=== PATIENT | female | born 1950 | race Caucasian/White ===

== ENCOUNTER → 2017-08-16 10:09 | Outpatient (CLI) | payer OTHER, SELFPAY | PROVIDERS: PCP Family Medicine; Visit Provider Specialist | DX: R10.9 Unspecified abdominal pain (principal) | CPT/HCPCS: 87086 ==

== ENCOUNTER → 2017-09-09 11:10 | Outpatient (CLI) | payer OTHER, SELFPAY | PROVIDERS: PCP Family Medicine; Visit Provider Family Medicine | DX: N39.0 Urinary tract infection, site not specified (principal) | CPT/HCPCS: 87077; 87086; 87186 ==

== ENCOUNTER → 2017-10-04 12:43 | Outpatient (CLI) | payer OTHER, SELFPAY ==
--- NOTE | 2017-10-04 | DI.CT.S_ITS ---
PROCEDURE: CT UE LT WO CON INDICATIONS: PRIMARY OSTEOARTHRITIS LEFT SHOULDER. PAIN TECHNIQUE: Noncontrast 1-1.5 mm thick sections acquired from the acromioclavicular joint to the inferior scapula, with coronal and sagittal reformatting. COMPARISON: [facility] [place], CR, XR SHOULDER 2+ VIEWS LEFT, 09/12/2017, 15:01. FINDINGS: Image quality: Diagnostic. Bones: There is no acute fracture, dislocation, or suspicious osseous lesion involving the osseous structures of the left shoulder or imaged portions of the left thorax. There are severe degenerative changes of the glenohumeral joint prominent joint space narrowing, subchondral sclerosis, developing marginal osteophytes, and areas of degenerative cystic change. Bony remodeling of the humeral head and the glenoid fossa are present. There are scgxzbwz-bi-egwexf degenerative changes present involving the acromioclavicular joint with moderate to large undersurface osteophytes and areas of degenerative cystic change. Soft tissues: There is a large glenohumeral joint effusion. There may be fluid contained within the subacromial subdeltoid bursa. No significant rotator cuff muscle atrophy is appreciated. The imaged portions of the left lung appear to be within normal limits. Additionally, the imaged portions of the left mediastinum are age appropriate. No lymphadenopathy of the left chest is evident. No soft tissue masses are appreciated. IMPRESSION: 1. Severe degenerative changes of the glenohumeral joint with associated prominent joint effusion. 2. Douioopy-gn-fkdwzw degenerative changes of the left acromioclavicular joint. 2. No significant atrophy of the rotator cuff muscles. Dictated by: Miguel Chacon M.D. on 10/04/2017 at 12:31 Approved by: Miguel Chacon M.D. on 10/04/2017 at 12:33
== END ==
PROVIDERS: PCP Family Medicine; Visit Provider Orthopaedic Surgery
DX: M19.012 Primary osteoarthritis, left shoulder (principal); M25.412 Effusion, left shoulder
CPT/HCPCS: 73200

== ENCOUNTER → 2017-10-08 07:48 | Outpatient (CLI) | payer OTHER, SELFPAY ==
[2017-10-08 11:24] LABS: Cholesterol 151 mg/dL (140-199); HDL Cholesterol 51 mg/dL (40-60); LDL Cholesterol Calculated 80 mg/dL (<100); Triglycerides 101 mg/dL (35-150)
== END ==
PROVIDERS: PCP Family Medicine; Visit Provider Family Medicine
DX: E78.2 Mixed hyperlipidemia (principal)
CPT/HCPCS: 36415; 80061

== ENCOUNTER → 2017-11-12 17:19 | Outpatient (CLI) | payer OTHER, SELFPAY ==
[2017-11-12 17:29] LABS: RBC Urine None Seen (0-5/HPF)
[2017-11-12 18:31] LABS: Appearance Urine UA SL CLOUDY; Bilirubin Urine UA NEGATIVE (NEGATIVE); Glucose Urine UA TRACE g/dL (Normal); Ketones Urine UA TRACE (NEGATIVE); Leukocyte Esterase Urine UA TRACE (NEGATIVE); Nitrite Urine UA POSITIVE (Negative); Occult Blood Urine UA NEGATIVE (Negative); Protein Urine UA 1+ (Negative)
[2017-11-12 19:14] LABS: Color Urine UA OTHER
[2017-11-12 19:16] LABS: Amorphous Sediment Urine 1+; Bacteria Urine Few (2-10); Culture Indicated Urine Specimen Cultured; Mucus Urine 2+ (Negative); Squamous Epithelial Cell Urine 1-5 /HPF; WBC Urine 10-30/HPF (0-5/HPF)
== END ==
PROVIDERS: PCP Family Medicine; Visit Provider Family Medicine
DX: R30.0 Dysuria (principal)
CPT/HCPCS: 81001; 87086

== ENCOUNTER → 2017-11-14 13:04 | Outpatient (CLI) | payer OTHER, SELFPAY | PROVIDERS: PCP Family Medicine; Visit Provider Family Medicine | DX: Z53.9 Procedure and treatment not carried out, unspecified reason (principal) ==

== ENCOUNTER → 2017-11-30 09:48 | Outpatient (CLI) | payer OTHER, SELFPAY ==
[2017-11-30 09:54] LABS: Bacteria Urine None Seen; RBC Urine None Seen (0-5/HPF)
[2017-11-30 10:49] LABS: Appearance Urine UA CLEAR; Bilirubin Urine UA NEGATIVE (NEGATIVE); Color Urine UA YELLOW; Glucose Urine UA NEGATIVE (Normal); Ketones Urine UA NEGATIVE (NEGATIVE); Leukocyte Esterase Urine UA NEGATIVE (NEGATIVE); Nitrite Urine UA NEGATIVE (Negative); Occult Blood Urine UA NEGATIVE (Negative); Protein Urine UA NEGATIVE (Negative); Specific Gravity Urine UA 1.015 (1.000-1.035); Urobilinogen Urine UA 0.2 E.U./dL (0.2)
[2017-11-30 11:14] LABS: Culture Indicated Urine Cult Not Indicated; Urine Comments Microscopic Normal; WBC Urine 0-1/HPF (0-5/HPF)
== END ==
PROVIDERS: PCP Family Medicine; Visit Provider Family Medicine
DX: R30.0 Dysuria (principal)
CPT/HCPCS: 81001

== ENCOUNTER → 2017-12-07 11:08 | Outpatient (CLI) | payer OTHER, SELFPAY ==
[2017-12-07 11:34] LABS: Bacteria Urine None Seen; RBC Urine None Seen (0-5/HPF); WBC Urine None Seen (0-5/HPF)
[2017-12-07 12:00] LABS: Hemoglobin A1C% w Est Avg Glu 5.1 % (4.0-6.0)
[2017-12-07 12:10] LABS: Add Manual Diff / Slide Review NO; Basophils Percent Auto 0.9 % (0-2); Eosinophils Percent Auto 2.7 % (2-4); Hematocrit 38.4 % (36-46); Lymphocytes Percent Auto 31.1 % (25-40); Mean Corpuscular HGB Conc 33.8 % (30-36); Mean Corpuscular Hemoglobin 29.3 PG (26-34); Mean Corpuscular Volume 86.7 fL (80-100); Monocytes Percent Auto 7.5 % (3-14); Neutrophils Absolute Auto 2600 /uL (3000-5900); Neutrophils Percent Auto 57.8 % (50-75); Platelet Count 218 X10^3/uL (150-400); Red Blood Cell Count 4.43 X10^6/uL (4.0-5.2); Red Cell Distribution Width 15.2 % (11.6-14.8); White Blood Cell Count 4.6 X10^3/uL (4.5-11.0)
[2017-12-07 12:24] LABS: Appearance Urine UA CLEAR; Bilirubin Urine UA NEGATIVE (NEGATIVE); Color Urine UA YELLOW; Glucose Urine UA NEGATIVE (Normal); Ketones Urine UA NEGATIVE (NEGATIVE); Leukocyte Esterase Urine UA NEGATIVE (NEGATIVE); Nitrite Urine UA NEGATIVE (Negative); Occult Blood Urine UA NEGATIVE (Negative); Protein Urine UA NEGATIVE (Negative); Urobilinogen Urine UA 0.2 E.U./dL (0.2)
[2017-12-07 12:25] LABS: BUN Creatinine Ratio 38.3 (6-22); Blood Urea Nitrogen 23 mg/dL (7-17); Calcium 9.1 mg/dL (8.4-10.2); Carbon Dioxide 30 mmol/L (22-32); Chloride 104 mmol/L (98-107); Estimated Glomerular Filt Rate > 60.0 mL/min (>60); Glucose 88 mg/dL (80-110); HEMOLYSIS < 15 (0-50); Potassium 4.9 mmol/L (3.4-5.1); Sodium 143 mmol/L (137-145)
[2017-12-07 12:29] LABS: Transferrin 289 mg/dL (206-381)
[2017-12-07 12:47] LABS: Mucus Urine 2+ (Negative)
[2017-12-07 12:48] LABS: Culture Indicated Urine Cult Not Indicated
== END ==
PROVIDERS: PCP Family Medicine; Visit Provider Orthopaedic Surgery
DX: Z01.818 Encounter for other preprocedural examination (principal)
CPT/HCPCS: 36415; 80048; 81001; 83036; 84466; 85025; 93005; 93010

== ENCOUNTER 2017-12-30 06:19 | Inpatient (IN) | payer OTHER, SELFPAY ==
[2017-12-18 08:53] VITALS: BMI 28.8
[2017-12-30] VITALS (14 sets, daily range): BP systolic 101–142; BP diastolic 41–86; PULSE 77–100; RESP 10–20; TEMP 36.3–37.2; O2SAT 91–97; BMI 28.8
--- NOTE | 2017-12-30 06:00 | DI.RAD.S_ITS ---
PROCEDURE: XR SHOULDER LT 1V INDICATIONS: post operative left shoulder TECHNIQUE: 1 view of the shoulder were acquired. COMPARISON: [facility] [place], CR, XR SHOULDER 2+ VIEWS LEFT, 09/12/2017, 15:01. FINDINGS: Bones: Postsurgical changes compatible with left shoulder arthroplasty noted. No fractures or dislocations. No suspicious bony lesions. Visualized ribs appear intact. Soft tissues: No suspicious soft tissue calcifications. IMPRESSION: Expected postsurgical change for left shoulder arthroplasty. Dictated by: Misty Tam MD, PhD on 12/30/2017 at 10:57 Approved by: Misty Tam MD, PhD on 12/30/2017 at 10:59
[2017-12-30] MEDS: LACTATED RINGERS 1,000 ML 42 ML IV ×2 (07:00→09:13)
--- NOTE | 2017-12-30 07:11 | PC.NURSE ---
Day shift: Pt not on this AC unit at this time.
[2017-12-30] MEDS: MIDAZOLAM 2 MG/2 ML VIAL IV (07:45)
[2017-12-30] MEDS: fentaNYL 100 MCG/2 ML INJ 50 MCG IV (07:45)
--- NOTE | 2017-12-30 07:48 | PM.PREOP ---
Pre-operative Note Interval Note Pre-op Check: Yes History & Physical Reviewed by Physician and Yes Exam Performed Changes: No
--- NOTE | 2017-12-30 07:49 | PM.OP.1 ---
Operative Date/Time/Diagnoses Date of procedure: 12/30/17 Time of procedure: 10:00 Pre-op diagnosis: Left shoulder osteoarthritis Post-op diagnosis: same Procedure & Clinicians Procedure: Left total shoulder replacement Same procedure as scheduled: Yes Indications: The patient has had progressively worsening left shoulder pain with radiographic changes consistent with arthritis. Non-operative management has failed and the patient has requested total shoulder replacement. The risks, benefits and alternatives to surgery were discussed with the patient prior to proceeding. Risks discussed included, but were not limited to, failure to relieve pain, stiffness, infection, nerve damage, deep venous thrombosis, pulmonary embolism, stroke, coma, heart attack, permanent paralysis and , as well as the potential need for eventual revision of the prosthetic. Surgeon: Armaan Nickerson Tool And Gauge Inspector: Jhoana Nowak Click Yes if Unassisted: No Anesthesia Type: General, Peripheral nerve block and Local Operative Notes Findings: Severe osteoarthritis with a very large inferior osteophyte on the humerus. Closure Type: primary Specimen(s): none sent Implants & Drains: Implants used in this procedure were manufactured by the [employer] and included a short stem Altivate total shoulder system with a size 46 mm all polyethylene pegged E +glenoid, a 14 mm humeral component, a 46 mm x 16 mm neutral humeral head and a neutral humeral neck. Applied: implant(s) Estimated Blood Loss (mL): 100 Blood products transfused: none Procedure in detail: The patient was seen in the pre-operative area, where the patient identified the left shoulder as the operative site and this was marked with my initials. The patient received pre-operative antibiotics, underwent an interscalene block, and was taken to the operating room and placed on the operative table in the supine position. After satisfactory anesthesia, a full ?time out? was performed. The patient was repositioned in the ?beach chair? position using a dedicated positioner. All pressure points were well padded, and the knees were slightly bent to prevent tension on the sciatic nerves. The left arm was prepared from the fingers to the base of the neck with ChloroPrep in the usual fashion and draped through sterile drapes. An approximately 15 cm incision was created, starting at the clavicle above the coracoid process and extended towards the deltoid insertion. The deltopectoral interval was used to access the shoulder. The cephalic vein was taken medially. A self retaining retractor was placed. The upper centimeter of the pectoralis major tendon was released. The ?three sisters? were identified and cauterized. The axillary nerve was palpated and protected throughout the case. The biceps was released from its groove and tenodesed over the top of the pectoralis major tendon. The subscapularis was released from the lesser tuberosity with a subscapularis peel and tagged for later repair. The shoulder was dislocated and a cutting guide was used for the proximal humeral osteotomy in 30 degrees of retroversion. The humeral osteophytes were removed. A starter Reamer was used followed by the cylindrical reamers. This continued in larger sizes in till cortical bite was achieved. Sequential broaching was then performed until a line to line fit with the reamer occurred. A proximal humeral protector was then placed. We then removed the self-retaining retractor and placed retractors to access the glenoid. The subscapularis was released with a ?360 degree release? with care being taken to protect the axillary nerve with the inferior portion of this procedure. The remnant of labrum and biceps stump were removed. The appropriate size reamer was chosen with the glenoid sizer, and the guide pin placed. The glenoid was appropriately reamed. The guide for the peripheral holes was used and the center hole enlarged. The trial glenoid was placed with good stability. We then cemented the final implant into place after irrigating the peg holes and drying them with thrombin-soaked Gelfoam. We returned our attention to the humerus, a trial humeral head was applied and a trial reduction performed. Stability was checked with 50% posterior translation with spontaneous reduction, 45? external rotation at the side with the subscapularis held in the repaired position, and 70? of internal rotation in the ?scarecrow position?. This was felt to be satisfactory and the appropriate implants were opened. Five holes were drilled along the humeral osteotomy and #2 TiCron sutures placed for eventual subscapularis repair. While drilling the holes for the suture it was noted that there was a small approximately 1 cm wide fracture fragment in the medial metaphysis that did not extend distally into the stem of the prosthetic. The humeral prosthetic was impacted into the humerus and I checked the stability of the stem and it felt satisfactory despite the small medial fracture. I therefore elected to except this fixation.. The humeral head was applied when the stem was still slightly proud and impacted to both seat the head and fully seat the stem. The joint was relocated one final time. The joint was irrigated and the subscapularis repaired to the previously placed sutures using Bj-Saman sutures. The top of the subscapularis was closed to the leading edge of the supraspinatus with a figure of 8 #2 TiCron to close the rotator interval. A deep drain was placed and brought out supero-laterally. The deltopectoral interval was closed with interrupted 0 Vicryl. The subcutaneous layer was closed with 3-0 Vicryl, and the skin with a running 3-0 V-Lock suture and SteriStrips. An Aquacel Ag dressing was applied, the patient?s arm was placed in a sling, and the patient was taken to recovery having tolerated the procedure well. Complications: other (There was a small nondisplaced metaphyseal fracture on the inferior humeral neck. This did not appear to affect the stability of the stem.) Condition: stable Disposition: PACU Plan for aftercare: The patient will be maintained on a standard total shoulder replacement protocol with passive range of motion limited to 90 degrees forward flexion, 0 degrees external rotation at the side, 0 degrees abduction and internal rotation to the body. The patient will receive aspirin and sequential compression devices for DVT prophylaxis. The patient will be discharged home when safe for the home environment, likely tomorrow.
--- NOTE | 2017-12-30 08:00 | SUR.PREOP ---
Block start time 0745[] . Monitoring initiated and maintained throughout procedure. Oxygen and medications given per anesthesiologist instructions. Patient remained stable throughout procedure, no adverse reactions noted. Block end time [0751 ].
[2017-12-30] MEDS: CEFAZOLIN 2 GM/100 ML FROZ.PIGGY IV ×3 (08:05→23:44)
[2017-12-30] MEDS: TRANEXAMIC ACID 1,000 MG VIAL 1000 MG INJ ×2 (08:20→09:38)
--- NOTE | 2017-12-30 08:33 | SUR.OPER ---
Beach chair with Schlein shoulder positioner. Lower body on padded OR bed. Head in foam padded head cradle, secured with straps. Non-operative arm secured <90 degrees abduction. Pillow under knees. Safety belt at thigh. Cloth tape over blanket over lower legs. gel under heels.
[2017-12-30] MEDS: BUPIVACAINE 0.5% W/ EPI (PF) VIAL 30 ML INJ (08:44)
[2017-12-30] MEDS: THROMBIN (BOVINE) 5,000 UNIT VIAL 5000 UNIT TOP (08:46)
[2017-12-30] MEDS: HYDROMORPHONE 2 MG INJ 0.5 MG IV ×4 (10:47→20:53)
[2017-12-30] MEDS: hydrOXYzine 50 MG/ML INJ 25 MG IM (10:59)
--- NOTE | 2017-12-30 11:09 | SUR.PHASEI ---
PACU stay with initial need for oxygen support later removed. Dry non productive cough lessening during stay. C/O spasm like pain to back of left arm. When Dilaudid unsuccessful in decreasing, order for Hydroxyzine recd and given. Affect less than pain reported.
--- NOTE | 2017-12-30 11:23 | PC.NURSE ---
Day shift: Pt arrived on unit at approx 1120 from PACU. Oriented to room and call light. Pain 07/28. Plan is for her to eat some crackers than start PO pain meds per APR. Tolerating ice water. Call light in reach. Agrees to not get OOB w/o help. Sensation present in BUE's. VS WNL. RA 96%. Educated on I.S. use. Will continue to monitor.
[2017-12-30] MEDS: OXYCODONE IR 5 MG TABLET PO ×4 (12:00→23:44)
[2017-12-30] MEDS: LACTATED RINGERS 1,000 ML 125 ML IV ×2 (12:01→19:41)
--- NOTE | 2017-12-30 13:23 | PT.IIE ---
Current Diagnoses Primary osteoarthritis, left shoulder (12/30/17) Surgery Performed Operation Date: 12/30/17 07:45 Actual Procedures p Total Shoulder Arthroplasty(Left) - Armaan Nickerson MD Surgical History (Last Updated 12/18/17 @ 09:18 by Iris Esqueda RN) Hx of tonsillectomy (Acute) S/P partial hysterectomy (Acute) H/O prior ablation treatment (Resolved ~1997) Melanoma of ear (Resolved ~2007) Status post ORIF of fracture of ankle (Resolved ~1975) Anesthesia complication (Inactive) Status post arthroscopy (~2013) Status post delivery (~1987) Status post colonoscopy Medical History (Last Updated 12/18/17 @ 09:20 by Iris Esqueda RN) Chronic UTI (Acute) Easy bruisability (Acute) Fusion of sacral region of spine (Acute) Hiatal hernia (Acute) Hyperlipidemia (Acute) Cardiac arrhythmia (Chronic ~2003) Carpal tunnel syndrome (Chronic ~1994) Chronic back pain (Chronic ~2007) Depression (Chronic ~1992) Fibroids (Chronic ~1997) HSV (herpes simplex virus) infection (Chronic ~1979) Hypertension (Chronic ~2003) Shoulder pain (Chronic ~2013) Chickenpox (Resolved ~1959) Colon polyps (Resolved ~1999) History of fracture (Resolved) Measles (Resolved ~1959) Melanoma of ear (Resolved ~2007) Mumps (Resolved ~1958) Physical Therapy Inpatient Evaluation/Re-Eval M1 PT/OT-IP Prior Functional Status Start: 12/30/17 13:51 Freq: NEEDED Status: Active Protocol: Document 12/30/17 13:51 (Rec: 12/30/17 14:17 [id number]) Medical Review Prior Functional Status Medical History Reviewed Yes Communication No deficits noted Mobility and Gait Pt was previously independent with all mobilities using no AD. Social History Household Members family Living Arrangements House Number of Floors (Floors) One Floor Number of Stairs To Enter/Railing? 1 step B rails. 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 Household details above are regarding her mother's home. M2 PT-IP Current Condition Start: 12/30/17 13:51 Freq: NEEDED Status: Active Protocol: Document 12/30/17 13:51 (Rec: 12/30/17 14:17 [id number]) Physical Therapy Current Condition Current Condition Evaluation Date 12/30/17 Treatment Diagnosis L TSA Onset Date 12/30/17 Precautions Shoulder Precautions Sling PROM Internal Rotation to Body No External Rotation No Abduction Forward Flexion to 90 degrees Pendulums Weight Bearing Status Weight Bearing Status Non-Weight Bearing Allowed Weight Bearing Amount (enter % L shoulder non weight bearing or #) (%) M3 PT-IP Subjective Start: 12/30/17 13:51 Freq: NEEDED Status: Active Protocol: Document 12/30/17 13:51 (Rec: 12/30/17 14:17 [id number]) Subjective Physical Therapy Visit Type Type Initial Evaluation Visit Start Time 13:23 Visit Stop Time 13:51 Total Visit Minutes 28 Number of SENIOR PROJECT MANAGER Visits 0 Physical Therapy Visit Comments Patient Comments Pt agreeable to mobilize with PT. Patient Goals Pt planning to d/c to her mother's house who will be avaliable to assist the pt 24 for the next 2 wks. 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 Therapy Pain Assessment Pain When Pain Assessed During Mobility Pain Present Pain Present Pain Reported Location Left Shoulder Scale Used 4/10 at rest. 5-6/10 with mobility. Pain Management Techniques Apply Cold Modification of Treatment Re-positioning Timing of Activity with Medications M4 PT-IP Mobility and Gait Start: 12/30/17 13:51 Freq: NEEDED Status: Active Protocol: Document 12/30/17 13:51 (Rec: 12/30/17 14:17 [id number]) PT-Bed Mobility Assessment Supine to Sit Supine to Sit Standby Assistance Head of Bed Elevated Bedrails Sit to Supine Sit to Supine Standby Assistance Scooting Scooting to Edge of Bed Standby Assistance PT-Transfer Assessment Sit to and From Stand Sit to and from Stand Standby Assistance Use of Upper Extremities Equipment Transfer Assistive Device Gait Belt Orthotic/Prosthetic Devices or Brace: No Transfers Transfer Destination Chair Transfer Technique Pt ambulated to/from bed Comments Mobility Comments Resting/HOB elevated BP 109/69 , HR 89. Pt is slow and guarded with bed mobility. Supine > sit performed with HOB elevated SBA, pt uses R UE to pull on bed rail. Pt c/o of slight dizziness. BP 134/ 78, HR 89. Pt stating dizziness decreased and agrees to stand. Sit <> stand is SBA with RUE use. Pt stating dizziness still decreased and she feels ok to walk in room. After ambulatoin (see below) Sit > supine is SBA with bed flat. Gait Assessment Gait Gait Assistance Required: Minimum Assistance Distance (Feet) 15 Able to Maintain Weight Bearing Status Yes During Gait Assistive Devices Assistive Device None Gait Belt Orthotic/Prosthetic Devices or Brace: Yes Factors Limiting Gait Function Factors Limiting Gait Function Decreased Activity Tolerance Decreased Sensation Decreased Strength Limited Range of Motion Pain Poor Balance Poor Safety Awareness Comments Gait Comments Pt ambulates 15 ft in room with no AD and CGA for balance . She demonstrates increased sway/unsteadiness and high steppage gait B. Pt educated that a cane may improve her steadiness. Pt refused cane. She states she feels her unsteadiness is due to the medications she is on and she is sure she will be fine with time. PT-Balance Assessment Sitting Balance and Reactions Static Sitting Balance Ability Good Dynamic Sitting Balance Ability Good Standing Balance and Reactions Static Standing Balance Ability Good Dynamic Standing Balance Ability Fair Device Used none M5 PT-IP Objective Assessments Start: 12/30/17 13:51 Freq: NEEDED Status: Active Protocol: Document 12/30/17 13:51 (Rec: 12/30/17 14:17 [id number]) Orientation Orientation/Cognition Level of Alertness Alert Orientation Name Age Birthday Month Date Year Day of Week Place Situation Language Function Ability No Deficits Noted Safety Awareness Decreased Safety Awareness Comments Pt states feeling a little drunk on post-op meds. She does appear a little slow to respond to some cues/ directions. Gross Range of Motion Upper Extremity ROM Assessment Left Impaired Lower Extremity ROM Assessment Within Functional Limits Strength Upper Extremity Strength Assessment Left Impaired Lower Extremity Strength Assessment Within Functional Limits M6 PT-IP Treatment Start: 12/30/17 13:51 Freq: NEEDED Status: Active Protocol: Document 12/30/17 13:51 (Rec: 12/30/17 14:17 [id number]) Physical Therapy Treatment Education Education Provided Precautions Weight Bearing Status Safety M7 PT-IP Assessment and Plan Start: 12/30/17 13:51 Freq: NEEDED Status: Active Protocol: Document 12/30/17 13:51 (Rec: 12/30/17 14:17 [id number]) PT Summary Assessment and Plan Potential Rehabilitation Potential Good Status of Condition at Evaluation Stable Summary Impairments Pain ROM Strength Balance Bed Mobility Transfers Gait Activity Tolerance Progress Towards Goals Progressing Toward Goals Assessment Summary Pt s/p L TSA with difficulty walking. She was able to ambulate 15 ft. in room with CGA and no AD during this session and demonstrated some unsteadiness during ambulation . PT still needs to evaluate pt safety up/down 1 platform step prior to d/c, then anticipate d/c to home (her mother's house) with 24/7 assist when pt medically stable. Goals Bed Mobility Goal Independent Transfer Goal Independent Gait Goal Independent Gait Distance 150 Other Goals up/down 1 platform step SBA. Days to Meet Goals 3 Frequency of Treatment Frequency Of Treatment Twice a Day Treatment Plan Physical Therapy Treatment Plan Bed Mobility Training Transfer Training Gait Training Therapeutic Exercise Balance Retraining Post Op Education Discharge Planning Hot or Cold Pack Neuromuscular Re-ed Coordination Retraining Manual Therapy Other Recommendations and Next Treatment Progress ambulatoin. Stair Focus climbing. Recommendations To Nursing Amount of Assist Needed 1 Person Assist Discharge Recommendations PT Discharge Recommendations Home with 24/7 Assist
[2017-12-30] MEDS: ACETAMINOPHEN 325 MG TABLET 975 MG PO ×2 (15:18→20:39)
--- NOTE | 2017-12-30 15:43 | CM.DANOTE ---
Patient is a 67 year old female who was admitted on 12/30/17 for Left Total Shoulder. Pt has [employer] for insurance and her PCP is Dr. Salazar. EMR was reviewed. Per MD, pt tolerated procedure well and not stable for d/c yet today. Per PT, recommending home with 24/7 assist and outpt PT. SW met bedside with pt, mother, and brother and explained role and pt confirmed that she recently moved to [facility], but has an [place] address, alone and is Independent with ADL's at baseline. Pt states that she will d/c to her mother's house which is set up for easy ambulation due to her father who is now having Parkinsons. Pt already has outpt PT set up for 2 weeks after surgery and she does not anticipate any SW needs at d/c. Pt states her DPOA is her adult son but she could not find the pwk to provide a copy from her recent move to [facility]. Plan: SW to follow for likely d/c home to mother's house for 24/7 assist and outpt PT. SW to follow for any further identified needs. KERI Cr Discharge Planning/Care Management CM Discharge Assessment Start: 12/30/17 15:41 Freq: Status: Active Protocol: Document 12/30/17 15:41 BF (Rec: 12/30/17 15:43 BF [id number]) Discharge Planning Assessment Assigned Distillery Miller KERI Owens DPOA/Assigned Designee Name son Advance Directives? Yes Advance Directives on File Yes History Provided By Patient Medical Record Has Patient been admitted in last 30 No days? Prior Living Arrangements House Household Members none Comment Just moved to [facility] and lives alone but plans to d/c to mother's house for 2 weeks for 24/7 assist. Type of transporation used prior to Drives own vehicle admit Independent with ADL's Yes Is patient alert and oriented? Yes Caregiver for Another No Patient/Family Preference OP PT Therapy Comment Likely home with family assist and outpt PT Barriers to Discharge No Discharge Plan Home Community Services Physical Therapy Transportation Arrangement Brother and mother to provide transport at d/c. Referrals Initiated None needed Whiteboard Updated in Patient Room with Yes name and ext. # of Distillery Miller Review Status In Process Please Provide Date Initial DC 12/30/17 Assessment Was Performed Next Review Type Continued Stay Review Pre-Anesthesia Assessment Start: 12/18/17 08:53 Freq: Status: Active Protocol: Document 12/18/17 08:53 CAB (Rec: 12/18/17 09:37 CAB [id number]) Pre-Anesthesia Assessment Patient Information Reviewed Via Phone Assessment Assessment Completed With Patient Lab Results BMP/CMP CBC EKG Primary Care Provider Carlos Salazar Seen Specialist in Last 12 Months Yes Specialist Seen Portal Administrator Ceramic Artist Orthopedist Other Comment Neuro surgeon for steroid injection in back Primary Language Italian Net Wpf Developer Required No Height 176.53 cm Weight 89.811 kg Body Mass Index (BMI) 28.8 Hearing Ability Normal Visual Assist Glasses Dentition Type Teeth, Natural Present Barriers to Learning None Hx Anesthesia Reactions Yes: I always need more anesthesia during surgery Hx Family Anesthesia Reaction No Hx Malignant Hyperthermia No Hx Blood Transfusions No Anesthesia Review Requested No Superintendent [employer] No alcohol intake current alcohol intake frequency 0-2 drinks per day Smoking Status Never smoker Substance Use Type does not use Pain Present Pain Reported Musculoskeletal Symptoms Abnormal Gait Difficulty Walking Joint Pain History of Falling (Recent or History of No ) Patient is completely paralyzed or No completely immobile Mental Status Oriented to own ability Is patient on oxygen? No Does patient have GILBERT/SOB No Hx Sleep Apnea No Suspected Sleep Apnea No Currently Taking a Beta Adriana No Can You Climb a Flight of Stairs Without Yes SOB Hx Chest Pain No Hx SOB No Hx Syncope or Dizziness No Anti-Coagulant Therapy No Has a Endband Cutter Hand No Cardiac Testing No Hx Pacemaker/ICD No Pacemaker Rep Required? No Cardiac Clearance Received Not Applicable Diet Type At Home Regular dysphagia No Urinary Catheter Present No Hx Urinary Self Catheterization No Comment History of chronic UTI, now resolved Diabetes No Patient No Lactating No Hx Drug Resistant Organism No Presence of External or Internal Medical No Devices Have you traveled outside the [facility] States in the last 30 days? Marital Status Lives With none Prior Living Arrangements House Number of Floors (Floors) One Floor Number of Stairs To Enter/Railing? 5 stairs, railing present Support System Friend(s) Parent(s) Does the Patient Have Assistance After Yes Surgery Patient Discharge Plan Description Other Comment Plans to d/c to Mom's house x 2 weeks, then to a friend's home for assist Feels Safe in Current Environment Yes Been Physically Hurt or Threatened By a No Person in Current Environment Do you have thoughts of harming yourself None or others? Are you currently considering suicide? No Do you have a plan to hurt yourself or No Plan others? Do You Have Any Spiritual Beliefs That No May Affect Your HC Choices? Do You Have Any Cultural Practices That No May Affect Your HC Choices? Spiritual Referral None Comment Alexandre Who Can We Speak to About Patient's Care Family, friends Identifying Code for Release of Patient Declines to issue Information Health Care Proxy/Next of Kin Joseph (son) Health Care Proxy Phone Number Pt to update dos Emergency Contact Name Fay Boyd (mom) Emergency Contact Phone Number Pt to update dos Advance Directives? Yes Advance Directives on File Yes Power of Biscuit Machine Operator Yes Power of Biscuit Machine Operator Name Joseph (son) Power of Biscuit Machine Operator Phone Number Pt to update dos PAC Instructions Medications to take/avoid Nasal antibiotic No ETOH/petroleum product on skin DOS NPO Post-op transportation Pre-surgical wash Sturdy shoes/comfortable clothes Do not bring valuables and remove jewelry
[2017-12-30] MEDS: DOCUSATE 100 MG CAPSULE PO (20:42)
[2017-12-30] MEDS: GABAPENTIN 600 MG TABLET PO (20:42)
[2017-12-30] MEDS: ASPIRIN EC 81 MG TABLET PO (20:42)
[2017-12-31 00:10] VITALS: BP 115/73; PULSE 76; RESP 18; TEMP 36.6; O2SAT 94
[2017-12-31] MEDS: HYDROMORPHONE 2 MG INJ 0.5 MG IV (01:34)
[2017-12-31] MEDS: LACTATED RINGERS 1,000 ML 125 ML IV (01:38)
[2017-12-31] MEDS: ALPRAZolam 0.5 MG TABLET 1 MG PO (03:19)
[2017-12-31] MEDS: OXYCODONE IR 5 MG TABLET PO ×3 (03:19→09:51)
[2017-12-31 04:32] VITALS: BP 112/60; PULSE 73; RESP 18; TEMP 36.5; O2SAT 93
[2017-12-31 05:53] LABS: Hematocrit 30.9 % (36-46); Hemoglobin 10.5 g/dL (12.0-16.0); Mean Corpuscular Hemoglobin 30.2 PG (26-34); Mean Corpuscular Volume 88.9 fL (80-100); Platelet Count 171 X10^3/uL (150-400); Red Blood Cell Count 3.47 X10^6/uL (4.0-5.2); Red Cell Distribution Width 15.5 % (11.6-14.8); White Blood Cell Count 6.8 X10^3/uL (4.5-11.0)
[2017-12-31 07:35] VITALS: BP 137/67; PULSE 73; RESP 17; TEMP 36.6; O2SAT 97
--- NOTE | 2017-12-31 07:46 | PM.DS.1 ---
History of Present Illness Date Patient Seen: 12/31/17 Time Patient Seen: 07:46 Chief complaint: [id number] Narrative: The history and physical examination for this patient are contained in the chart in a previously completed note. Please refer to that note for this information. Discharge Providers Date of admission: 12/30/17 06:19 Primary care physician: Carlos Salazar MD Consults: 12/30/17 11:23 Consult to Discharge Planning Routine Comment: Consult to Occupational Therapy Evaluate & Treat Comment: s/p total shoulder Physician Instructions: Evaluate and treat Consult to Physical Therapy Evaluate & Treat Comment: Pendulums. PROM, 90 FF, 0 ER, 0 ABD, IR to body. Physician Instructions: Evaluate and Treat Consult to Respiratory Therapy Evaluate & Treat Comment: Physician Instructions: Evaluate and treat Discharge provider: Armaan Nickerson MD Discharge Date: 12/31/17 Summary Discharge Diagnosis: 1. Left shoulder osteoarthritis 2. Nondisplaced intraoperative fracture of the surgical neck of the left humerus 3. Mild acute post hemorrhagic anemia Hospital Course: The patient was admitted to the hospital and taken directly to the operating room on December 30, 2017 where she underwent a left total shoulder arthroplasty. A small, nondisplaced, fracture of the surgical neck was discovered with broach placement. This did not appear to impact the stability of the stem and therefore was left as it was. The patient did well postoperatively although she did have mild pain control issues. She has an anticipated mild post hemorrhagic anemia. Status at Discharge Cognitive/behavioral status at discharge: Baseline Functional status at discharge: independent ambulation Overall status at discharge: patient is progressing back to baseline Time Spent with Patient Less than 30 minutes Exam Vital Signs (past 8 hours): - 12/31/17 00:10 12/31/17 04:32 Temperature 97.9 F 97.7 F Pulse Rate 76 73 Respiratory Rate 18 18 Blood Pressure 115/73 112/60 Pulse Oximetry 94 93 Oxygen Delivery Method Room Air Oxygen Flow Rate 0 Narrative Exam Narrative: Left upper extremity wound is dressed with no drainage on the bandage. Light touch is intact in the radial, ulnar, median, musculocutaneous, axillary nerve distributions. She can extend her thumb, abduct her thumb, abduct her fingers. She can fire her biceps and deltoid. Objective Labs Result Diagrams: 12/31/17 05:20 Labs: Laboratory Results - last 24 hr 11/13/18 05:20 WBC 6.8 RBC 3.47 L Hgb 10.5 L Hct 30.9 L MCV 88.9 MCH 30.2 MCHC 34.0 RDW 15.5 H Plt Count 171 Radiographs reveal an appropriately positioned left total shoulder prosthetic. Discharge Plan Discharge Plan Patient Disposition: Home Discharge Med Rec/Prescriptions Prescriptions: New aspirin 81 mg Tablet,Delayed Release (Dr/Ec) 81 mg PO BID 14 Days Qty: 28 RF: 0 oxycodone 5 mg Tablet 5 mg PO Q3HR PRN (Reason: Pain, Moderate (4-6)) Qty: 40 RF: 0 hydroxyzine pamoate 25 mg Capsule 25 mg PO Q4HR PRN (Reason: Spasms) Qty: 40 RF: 0 Continue escitalopram oxalate [Lexapro] 20 mg tablet 20 mg PO Q DAY Qty: 90 RF: 1 lisinopril [Zestril] 10 mg tablet 10 mg PO Q DAY Qty: 90 RF: 1 estradiol [Estrace] 0.01 % (0.1 mg/gram) cream See Label Instructions Vaginal SEE INSTRUCTIONS Qty: 1 RF: 1 alprazolam 1 mg tablet See Label Instructions PO BID Qty: 30 RF: 3 atorvastatin [Lipitor] 10 MG tablet 10 mg PO QAM RF: 0 gabapentin [Neurontin] 300 MG capsule 2 cap PO BEDTIME RF: 0 acetaminophen [Tylenol Extra Strength] 500 mg Tablet 1,500 mg PO TID RF: 0 Discontinued ibuprofen 200 mg Tablet 600 mg PO TID RF: 0 Provider Discharge Instructions Diet: Diet as Tolerated and Regular Activity: You may move your left hand in front of your torso below shoulder level passively. You may do pendulum exercises as instructed by physical therapy. Cold/Heat Therapy: Apply ice to the left shoulder for 15 min every hour as needed. Skin/Wound/Dressing Care Report to your healthcare provider any signs of infection, such as:: chills, fever, night sweats, increased pain and unusual drainage Dressing: Leave the dressing intact until your follow-up visit. You may shower with the dressing in place. If the center strip of the dressing gets saturated with either water or blood, contact the office. Discharge Data Primary Care Provider: Carlos Salazar Attending Provider: Armaan Nickerson Admit Date/Time: 12/30/17 06:19
[2017-12-31] MEDS: ACETAMINOPHEN 325 MG TABLET 975 MG PO (08:32)
[2017-12-31] MEDS: ASPIRIN EC 81 MG TABLET PO (08:32)
[2017-12-31] MEDS: DOCUSATE 100 MG CAPSULE PO (08:33)
[2017-12-31] MEDS: ESCITALOPRAM 10 MG TABLET 20 MG PO (08:33)
[2017-12-31] MEDS: ATORVASTATIN 10 MG TABLET PO (08:33)
[2017-12-31 08:34] VITALS: BP 137/67; PULSE 73
[2017-12-31] MEDS: hydrOXYzine pamoate 25 MG CAPSULE PO (08:34)
[2017-12-31] MEDS: POLYETHYLENE GLYCOL 3350 17 GM POWD.PACK PO (08:34)
[2017-12-31] MEDS: LISINOPRIL 10 MG TABLET PO (08:34)
--- NOTE | 2017-12-31 09:58 | PC.NURSE ---
Day shift: Pt left unit at approx 1017 to private car with her Mom. YARN SKEINS EXAMINER used WC to get her to car. Paperwork signed and all questions answered. Pt has all personal belongings. Medicated w/ 5mg percolone just prior to d/c. Pt will be travelling to [place] to her Mothers house.
--- NOTE | 2017-12-31 10:10 | PT.IPTN ---
Current Diagnoses Primary osteoarthritis, left shoulder (12/30/17) Surgery Performed Operation Date: 12/30/17 07:45 Actual Procedures p Total Shoulder Arthroplasty(Left) - Armaan Nickerson MD Physical Therapy Treatment Note M2 PT-IP Current Condition Start: 12/30/17 13:51 Freq: NEEDED Status: Active Protocol: Document 12/30/17 13:51 (Rec: 12/30/17 14:17 [id number]) Physical Therapy Current Condition Current Condition Evaluation Date 12/30/17 Treatment Diagnosis L TSA Onset Date 12/30/17 Precautions Shoulder Precautions Sling PROM Internal Rotation to Body No External Rotation No Abduction Forward Flexion to 90 degrees Pendulums Weight Bearing Status Weight Bearing Status Non-Weight Bearing Allowed Weight Bearing Amount (enter % L shoulder non weight bearing or #) (%) M3 PT-IP Subjective Start: 12/30/17 13:51 Freq: NEEDED Status: Active Protocol: Document 12/31/17 09:40 CLB (Rec: 12/31/17 10:10 CLB [id number]) Subjective Physical Therapy Visit Type Type Treatment Note Visit Start Time 09:40 Visit Stop Time 09:50 Total Visit Minutes 10 Number of INFECTIOUS DISEASE PHYSICIAN Visits 1 Physical Therapy Visit Comments Patient Comments Pt agreeable to mobilize with PT. M4 PT-IP Mobility and Gait Start: 12/30/17 13:51 Freq: NEEDED Status: Active Protocol: Document 12/31/17 09:40 CLB (Rec: 12/31/17 10:10 CLB [id number]) PT-Transfer Assessment Sit to and From Stand Sit to and from Stand Standby Assistance Use of Upper Extremities Equipment Transfer Assistive Device Gait Belt Orthotic/Prosthetic Devices or Brace: No Transfers Transfer Destination Chair Comments Mobility Comments Pt performed sit<>stand from chair SBA with use of RUE. Gait Assessment Gait Gait Assistance Required: Standby Assistance Distance (Feet) 100 Able to Maintain Weight Bearing Status Yes During Gait Assistive Devices Assistive Device None Gait Belt Orthotic/Prosthetic Devices or Brace: Yes Factors Limiting Gait Function Factors Limiting Gait Function Decreased Activity Tolerance Limited Range of Motion Pain Comments Gait Comments Pt ambulated SBA safely household distance without LOB and good safety awareness. Stair Climbing Assessment Evaluation Level of Assist On Stairs Contact Guard Assistance Devices Stair Climbing Assistive Devices Right Railing Technique/Endurance Stair Climbing Direction Ascend and Descend Stair Climbing Technique Step Over Step Number of Steps Climbed 1 Query Text: Stair Climbing Set # Repetitions (reps) 2 Comments Stair Climbing Comments Pt able to safely manuever one step CGA. M5 PT-IP Objective Assessments Start: 12/30/17 13:51 Freq: NEEDED Status: Active Protocol: Document 12/30/17 13:51 (Rec: 12/30/17 14:17 [id number]) Orientation Orientation/Cognition Level of Alertness Alert Orientation Name Age Birthday Month Date Year Day of Week Place Situation Language Function Ability No Deficits Noted Safety Awareness Decreased Safety Awareness Comments Pt states feeling a little drunk on post-op meds. She does appear a little slow to respond to some cues/ directions. Gross Range of Motion Upper Extremity ROM Assessment Left Impaired Lower Extremity ROM Assessment Within Functional Limits Strength Upper Extremity Strength Assessment Left Impaired Lower Extremity Strength Assessment Within Functional Limits M6 PT-IP Treatment Start: 12/30/17 13:51 Freq: NEEDED Status: Active Protocol: Document 12/30/17 13:51 (Rec: 12/30/17 14:17 [id number]) Physical Therapy Treatment Education Education Provided Precautions Weight Bearing Status Safety M7 PT-IP Assessment and Plan Start: 12/30/17 13:51 Freq: NEEDED Status: Active Protocol: Document 12/31/17 09:40 CLB (Rec: 12/31/17 10:10 CLB [id number]) PT Summary Assessment and Plan Summary Impairments Pain ROM Strength Balance Bed Mobility Transfers Gait Activity Tolerance Progress Towards Goals Progressing Toward Goals Assessment Summary Pt able to safely ambulate with SBA, maneuver stairs CGA and is SBA for all transfers. Pt has 24/7 assist for the next two weeks. Goals Bed Mobility Goal Independent Transfer Goal Independent Gait Goal Independent Gait Distance 150 Other Goals up/down 1 platform step SBA. Days to Meet Goals 3 Frequency of Treatment Frequency Of Treatment Twice a Day Treatment Plan Physical Therapy Treatment Plan Bed Mobility Training Transfer Training Gait Training Therapeutic Exercise Balance Retraining Post Op Education Discharge Planning Hot or Cold Pack Neuromuscular Re-ed Coordination Retraining Manual Therapy Recommendations To Nursing Amount of Assist Needed 1 Person Assist Discharge Recommendations PT Discharge Recommendations Home with 24/7 Assist
--- NOTE | 2017-12-31 10:47 | OT.IP.EVAL ---
Current Diagnoses Primary osteoarthritis, left shoulder (12/30/17) Surgery Performed Operation Date: 12/30/17 07:45 Actual Procedures p Total Shoulder Arthroplasty(Left) - Armaan Nickerson MD Past Medical History (Last Updated 12/18/17 @ 09:20 by Iris Esqueda RN) Chronic UTI (Acute) Easy bruisability (Acute) Fusion of sacral region of spine (Acute) Hiatal hernia (Acute) Hyperlipidemia (Acute) Cardiac arrhythmia (Chronic ~2003) Carpal tunnel syndrome (Chronic ~1994) Chronic back pain (Chronic ~2007) Depression (Chronic ~1992) Fibroids (Chronic ~1997) HSV (herpes simplex virus) infection (Chronic ~1979) Hypertension (Chronic ~2003) Shoulder pain (Chronic ~2013) Chickenpox (Resolved ~1959) Colon polyps (Resolved ~1999) History of fracture (Resolved) Measles (Resolved ~1959) Melanoma of ear (Resolved ~2007) Mumps (Resolved ~1958) Surgical History (Last Updated 12/18/17 @ 09:18 by Iris Esqueda RN) Hx of tonsillectomy (Acute) S/P partial hysterectomy (Acute) H/O prior ablation treatment (Resolved ~1997) Melanoma of ear (Resolved ~2007) Status post ORIF of fracture of ankle (Resolved ~1975) Anesthesia complication (Inactive) Status post arthroscopy (~2013) Status post delivery (~1987) Status post colonoscopy Occupational Therapy Inpatient Evaluation/Re-Eval M1 PT/OT-IP Prior Functional Status Start: 12/31/17 10:26 Freq: NEEDED Status: Active Protocol: Document 12/31/17 10:26 [facility] (Rec: 12/31/17 10:47 [facility] [id number]) Medical Review Prior Functional Status Medical History Reviewed Yes Communication No deficits noted Mobility and Gait Pt was previously independent with all mobilities using no AD. Activities of Daily Living and IADL's Completely independent and works. Social History Household Members none Living Arrangements House Number of Floors (Floors) One Floor Number of Stairs To Enter/Railing? 1 step B rails. 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 Household details above are regarding her mother's home. M2 OT-IP Current Condition Start: 12/31/17 10:26 Freq: Status: Active Protocol: Document 12/31/17 10:26 [facility] (Rec: 12/31/17 10:47 [facility] [id number]) Occupational Therapy Current Condition Current Condition Evaluation Date 12/31/17 Treatment Diagnosis Left shoulder Osteoarthritis Diagnosis Onset Date 12/30/17 Post Operative Precautions Shoulder Precautions Sling PROM Internal Rotation to Body No External Rotation No Abduction Forward Flexion to 90 degrees Pendulums Weight Bearing Status Weight Bearing Status Non-Weight Bearing Allowed Weight Bearing Amount (enter % L shoulder non weight bearing or #) (%) M3 OT- IP Subjective and Pain Start: 12/31/17 10:26 Freq: Status: Active Protocol: Document 12/31/17 10:26 [facility] (Rec: 12/31/17 10:47 [facility] [id number]) OT- Subjective Occupational Therapy Visit Type Type Initial Evaluation Visit Start Time 09:10 Visit Stop Time 09:40 Total Visit Minutes 30 Occupational Therapy Visit Comments Patient/Caregiver Goals Pt ready to go home. OT Pain Assessment Pain When Pain Assessed At Rest Pain Present Pain Present Denied Pain M4 OT- IP ADL's Start: 12/31/17 10:26 Freq: Status: Active Protocol: Document 12/31/17 10:26 [facility] (Rec: 12/31/17 10:47 [facility] [id number]) OT ADL-Dressing General Eval Upper Body Dressing Ability Maximum Assistance Lower Body Dressing Ability Minimal Assistance Comments OT Dressing Comments MAX for sling management and after education able to do with MITCHEL and able to talk her mother through being able to assist her. Suggested to wear tank top/large t-shirt and not worry about a bra as strap would put pressure on her shoulder. Educated pt to dangle her arm down for dressing and showering needs. Pt issued larger sling as current sling too small. OT ADL-Toileting General Evaluation Toileting Ability Independent M6 OT- IP Functional Cognition Start: 12/31/17 10:26 Freq: Status: Active Protocol: Document 12/31/17 10:26 [facility] (Rec: 12/31/17 10:47 [facility] [id number]) Cognitive Factors Limiting Selfcare Function Cognitive Ability Level of Alertness Alert Patient Orientation Name Place Situation Attention Span Ability Capable of Focused Attention Capable of Sustained Attention Ability to Follow Commands Able to Follow Multi-Step Commands Memory Description No Deficits Noted Safety Awareness No Deficits Noted Cognitive Comments Cognitive Assessment Comments Just vc to slow donw and take her time and be sure to ask for assistance from her mother . Pt's mother per pt has cognitive deficits and therefore brother just lives close by and able to assist if needed. OT- Vision and Hearing OT- Hearing Assessment OT- Hearing Assessment WFL M7 OT- IP Mobility and Balance Start: 12/31/17 10:26 Freq: Status: Active Protocol: Document 12/31/17 10:26 [facility] (Rec: 12/31/17 10:47 [facility] [id number]) OT- Bed Mobility Assessment Rolling Type of Rolling Roll to Right Supine to Sit Supine to Sit Assist Standby Assistance OT-Transfer Assessment Sit to and From Stand Sit to and from Stand Standby Assistance Transfers Transfer Ability Standby Assistance Technique Transfer Destination Bed Chair Toilet Transfer Technique Stand Step Pivot Devices Transfer Assistive Devices None Comments Mobility Comments Pt needing vc to slow down and take into account that left aarm now in the sling and can throw off her balance. OT- Balance Assessment Sitting Balance and Reactions Static Sitting Balance Ability Normal Dynamic Sitting Balance Ability Normal Standing Balance and Reactions Static Standing Balance Ability Normal Dynamic Standing Balance Ability Good M8 OT- IP Objective Assessments Start: 12/31/17 10:26 Freq: Status: Active Protocol: Document 12/31/17 10:26 [facility] (Rec: 12/31/17 10:47 [facility] [id number]) OT Gross Range of Motion Upper Extremity Range of Motion Assessment Left Impaired ROM Impairments Intact from elbow to distal. RUE WFL. OT Strength Comments Strength Comments WFL for RUE, NT LUE M9 OT- IP Assessment and Plan Start: 12/31/17 10:26 Freq: Status: Active Protocol: Document 12/31/17 10:26 [facility] (Rec: 12/31/17 10:47 [facility] [id number]) OT Summary Assessment and Plan Potential Rehabilitation Potential Excellent Analytic Complexity at Evaluation Low Summary OT Impairments Pain Range of Motion Strength Progress Towards Goals Progressing Toward Goals Assessment Summary Pt doing well and educated on gentle AROm for scapular retraction and to dangle left arm, pt good understanding for all sling and positioning needs and going to mom's home today. Goals Patient/Caregiver Education Goal Demonstrate Post-Op Precautions Caregiver Independent Assisting Patient Days to Meet Goals 1 Frequency of Treatment Frequency Of Treatment Once a Day Treatment Plan OT Treatment Plan Patient/Family Education Discharge Planning Discharge Recommendations OT Discharge Recommendations Home with Assistance
== END 2017-12-31 10:18 | disposition home or self-care (01) | DRG 483 ==
PROVIDERS: Admitting Provider Orthopaedic Surgery; PCP Family Medicine; Visit Provider Orthopaedic Surgery
PROC: 0RRK0JZ Replacement of Left Shoulder Joint with Synthetic Substitute, Open Approach (ICD-10-PCS; CPT 23472; principal; 2017-12-30 07:45)
DX: M19.012 Primary osteoarthritis, left shoulder (principal); M96.89 Other intraoperative and postprocedural complications and disorders of the musculoskeletal system; M97.32XA Periprosthetic fracture around internal prosthetic left shoulder joint, initial encounter; I10 Essential (primary) hypertension; F32.9 Major depressive disorder, single episode, unspecified; M25.712 Osteophyte, left shoulder
CPT/HCPCS: 36415; 64415; 73020; 85027; 97116; 97161; 97165; 97530; 97535; C1776; J0690; J1100; J1170; J2250; J2405; J2704; J3010; J3410

== ENCOUNTER → 2018-03-08 10:48 | Outpatient (CLI) | payer OTHER, SELFPAY ==
[2017-12-30 11:39] VITALS: BMI 28.8
[2018-03-08 11:06] LABS: Appearance Urine UA CLEAR; Bilirubin Urine UA NEGATIVE (NEGATIVE); Color Urine UA ORANGE; Glucose Urine UA TRACE g/dL (Negative); Ketones Urine UA NEGATIVE (NEGATIVE); Leukocyte Esterase Urine UA 1+ (NEGATIVE); Nitrite Urine UA POSITIVE (Negative); Occult Blood Urine UA TRACE-LYSED (Negative); Protein Urine UA 1+ (Negative); Specific Gravity Urine UA 1.015 (1.000-1.035)
[2018-03-08 11:40] LABS: Bacteria Urine Few (2-10); Culture Indicated Urine Specimen Cultured; RBC Urine 1-5/HPF (0-5/HPF); Squamous Epithelial Cell Urine 0-1 /HPF; WBC Urine 10-30/HPF (0-5/HPF)
== END ==
PROVIDERS: PCP Family Medicine; Visit Provider Family Medicine
DX: R30.0 Dysuria (principal)
CPT/HCPCS: 81001; 87086

== ENCOUNTER → 2018-05-02 07:51 | Outpatient (CLI) | payer OTHER, SELFPAY ==
[2017-12-30 11:39] VITALS: BMI 28.8
--- NOTE | 2018-05-02 07:54 | DI.MG.S_ITS ---
BILATERAL DIGITAL SCREENING MAMMOGRAM 3D/2D WITH CAD: 05/02/2018 CLINICAL: Routine screening. Comparison is made to exams dated: 02/08/2017 mammogram, 12/23/2015 mammogram, and 12/17/2014 mammogram - [facility]. The tissue of both breasts is heterogeneously dense. This may lower the sensitivity of mammography. Current study was also evaluated with a Computer Aided Detection (CAD) system. No significant masses, calcifications, or other findings are seen in either breast. There has been no significant interval change. IMPRESSION: NEGATIVE There is no mammographic evidence of malignancy. A 1 year screening mammogram is recommended. This exam was interpreted at Station ID: [id number]. NOTE: For mammograms, a report in lay terms will be sent to the patient. Approximately 15% of breast malignancies will not be visualized mammographically. In the management of a palpable breast mass, a negative mammogram must not discourage biopsy of a clinically suspicious lesion. Electronically Signed By: Isatu campbell/zara:05/02/2018 11:17:19 letter sent: Normal Exam ACR BI-RADS Category 1: Negative [id number]
== END ==
PROVIDERS: PCP Family Medicine; Visit Provider Specialist
DX: Z12.31 Encounter for screening mammogram for malignant neoplasm of breast (principal)
CPT/HCPCS: 77063; 77067

== ENCOUNTER 2018-07-20 12:13 | Inpatient (IN) | payer OTHER, SELFPAY ==
[2017-12-30 11:39] VITALS: BMI 28.8
[2018-07-20] VITALS (17 sets, daily range): BP systolic 102–162; BP diastolic 54–87; PULSE 74–90; RESP 10–22; TEMP 36.4–37.6; O2SAT 87–100; BMI 29.5; BMI 27.7
--- NOTE | 2018-07-20 | DI.RAD.S_ITS ---
PROCEDURE: XR HIP W PEL IF DONE RT 2V INDICATIONS: ORIF RT HIP TECHNIQUE: 2 operative views of the right hip were acquired. COMPARISON: [facility], [place], XR HIP W PEL IF DONE RT 2V, 07/20/2018, 12:33. FINDINGS: Images demonstrate performance of ORIF of a femoral neck fracture using 3 cannulated screws. IMPRESSION: Fluoroscopic imaging provided for performance of operative fixation of the right femoral neck fracture. Dictated by: Jaime Maki M.D. on 07/20/2018 at 18:22 Approved by: Jaime Maki M.D. on 07/20/2018 at 18:24
--- NOTE | 2018-07-20 12:23 | ED_ITS ---
HPI - Fall <RAFAELA Riggins - Last Filed: 07/20/18 15:01> General Chief Complaint: Fall Stated Complaint: States Rt hip may be broken Time Seen by Provider: 07/20/18 12:15 Source: patient Mode of arrival: ambulatory Limitations: no limitations History of Present Illness HPI Narrative: The patient is a 67-year-old female nonsmoker with history of cough redness who presents after a ground level fall. She states she tripped and fell landed on her right hip. She is concerned her right hip is broke. She was able to ambulate after the fall and drove herself here to the emergency dep artment. She denies hitting her head, denies any blood thinners. She states this was a mechanical fall. She denies hitting her head. She denies any neck pain. She states she has some lower back pain, in her sacral area. She has history of a sacral fusion. The patient states she also has a laceration to her left toe Related Data Home Medications Medication Instructions Recorded Confirmed gabapentin [Neurontin] 600 mg PO TID 12/18/17 07/20/18 alprazolam 0.5 tab PO BEDTIME 07/20/18 07/20/18 cranberry 500 mg PO DAILY 07/20/18 07/20/18 estradiol [Estrace] 1 dose VAGINAL SEE INSTRUCTIONS 07/20/18 07/20/18 omeprazole 20 mg PO DAILY 07/20/18 07/20/18 Previous Rx's Medication Instructions Recorded atorvastatin 10 mg tablet 10 mg PO QAM #90 tab 01/03/18 escitalopram oxalate [Lexapro] 20 mg PO Q DAY #90 tab 04/07/18 lisinopril [Zestril] 10 mg PO Q DAY #90 tab 04/07/18 Allergies Allergy/AdvReac Type Severity Reaction Status Date / Time pregabalin [From LYRICA] Allergy Intermediate Rash Verified 07/20/18 12:25 Review of Systems <RAFAELA Riggins - Last Filed: 07/20/18 15:01> Review of Systems GENERAL: Denies chills, fatigue, malaise, fever, sweats. HEENT: Denies sinus pain, ear pain, sore throat, difficulty swallowing, dizziness. RESPIRATORY: Denies dyspnea, cough, wheezing, hemoptysis, sputum. CARDIOVASCULAR: Denies chest pain, palpitations, orthopnea, edema, GASTROINTESTINAL: Denies nausea, vomiting, abdominal pain, diarrhea, co nstipation, melena. : Denies dysuria, frequency, incontinence, hematuria, urinary retention. MUSCULOSKELETAL: See HPI SKIN: See HPI NEUROLOGIC: Denies weakness, headache, numbness, change in speech, confusion, seizures, incoordination. PSYCHIATRIC: No concerning psychosocial issues. 12 point review of systems is negative except for those stated above Exam <KIMMY RigginsBC - Last Filed: 07/20/18 15:01> Narrative Exam Narrative: GENERAL: This is a well-nourished, well-developed patient, appears uncomfortable HEAD: Atraumatic. Normocephalic. No temporal or scalp tenderness. EYES: Pupils equal round and reactive. Extraocular motions intact. No scleral icterus. No injection or drainage. ENT: Nose without bleeding, purulent drainage or septal hematoma. Throat without erythema, tonsillar hypertrophy or exudate. Uvula midline. Airway patent. NECK: Trachea midline. No JVD or lymphadenopathy. Supple, nontender, no meningeal signs. CARDIOVASCULAR: Regular rate and rhythm without murmurs, gallops, or rubs. RESPIRATORY: Clear to auscultation. Breath sounds equal bilaterally. No wheezes, rales, or rhonchi. GASTROINTESTINAL: Abdomen soft, non-tender, nondistended. No hepato- splenomegaly, or palpable masses. No guarding. EXTREMITIES: Pain to palpation right hip. Patient is moving right and left toes. Positive pedal pulses bilaterally. BACK: Nontender without deformity or crepitance. No flank tenderness. No pain to C-spine T-spine or L-spine palpation. Patient has pain to 6 palpation NEURO: AOx3. No gross cranial nerve deficit. Patient was stand pivot with one assist upon arrival. SKIN: Small abrasion noted left great toe. Initial Vital Signs Initial Vital Signs: Vital Signs Temperature 99.6 F 07/20/18 12:23 Pulse Rate 85 07/20/18 12:23 Respiratory Rate 22 07/20/18 12:23 Blood Pressure 162/86 H 07/20/18 12:23 Pulse Oximetry 95 07/20/18 12:23 <Mela Lynch DO - Last Filed: 07/20/18 15:30> Initial Vital Signs Initial Vital Signs: Vital Signs Temperature 99.6 F 07/20/18 12:23 Pulse Rate 85 07/20/18 12:23 Respiratory Rate 22 07/20/18 12:23 Blood Pressure 162/86 H 07/20/18 12:23 Pulse Oximetry 95 07/20/18 12:23 PFSH <RAFAELA Riggins - Last Filed: 07/20/18 15:01> Medical History Chronic UTI (Acute) Easy bruisability (Acute) Fusion of sacral region of spine (Acute) Hiatal hernia (Acute) Hyperlipidemia (Acute) Cardiac arrhythmia (Chronic ~2003) Carpal tunnel syndrome (Chronic ~1994) Chronic back pain (Chronic ~2007) Depression (Chronic ~1992) Fibroids (Chronic ~1997) HSV (herpes simplex virus) infection (Chronic ~1979) Hypertension (Chronic ~2003) Shoulder pain (Chronic ~2013) Chickenpox (Resolved ~1959) Colon polyps (Resolved ~1999) History of fracture (Resolved) Measles (Resolved ~1959) Melanoma of ear (Resolved ~2007) Mumps (Resolved ~1958) Surgical History Hx of tonsillectomy (Acute) S/P partial hysterectomy (Acute) H/O prior ablation treatment (Resolved ~1997) Melanoma of ear (Resolved ~2007) Status post ORIF of fracture of ankle (Resolved ~1975) Anesthesia complication (Inactive) Status post arthroscopy (~2013) Status post delivery (~1987) Status post colonoscopy Family History Brother Age: 63 Heart disease Hypertension Grandfather Heart disease Colorectal cancer Grandmother Stroke Mother Age: 84 Hypertension Grandfather Heart disease Grandmother Diabetes mellitus Sister Age: 58 Mental health problem Depression Father Parkinson's disease Pneumonia Social History household members: none Smoking Status: Never smoker Family History Brother Age: 63 Heart disease Hypertension Grandfather Heart disease Colorectal cancer Grandmother Stroke Mother Age: 84 Hypertension Grandfather Heart disease Grandmother Diabetes mellitus Sister Age: 58 Mental health problem Depression Father Parkinson's disease Pneumonia Social History household members: none Smoking Status: Never smoker alcohol intake: current Course <RAFAELA Riggins - Last Filed: 07/20/18 15:01> Orders Ordered: ED Orders 07/20/18 12:29 XR hip w pel if done RT 2V Stat XR sacrum coccyx min 2V Stat 07/20/18 12:55 EKG-12 Lead Stat 07/20/18 13:10 Comprehensive Metabolic Panel Stat 07/20/18 13:15 XR chest 1V Stat Complete Blood Count AUTO DIFF Stat 07/20/18 13:30 Type and Screen Stat Sodium Chloride (Normal Saline 0.9%) 1,000 mls @ 150 mls/hr IV CONT NANDA Last Admin: 07/20/18 14:59 Dose: 150 mls/hr Discontinued Medications Diphtheria/Tetanus/Acell Pertussis (Adacel) 0.5 ml IM .ONCE ONE Stop: 07/20/18 12:51 Last Admin: 07/20/18 13:35 Dose: 0.5 ml Morphine Sulfate (Morphine) 4 mg IV NOW ONE Stop: 07/20/18 12:57 Last Admin: 07/20/18 13:34 Dose: 4 mg Vital Signs - 8 hr 07/20/18 12:23 07/20/18 14:05 07/20/18 14:55 Temperature 99.6 F 98.5 F Pulse Rate 85 78 77 Respiratory Rate 22 19 16 Blood Pressure 162/86 H 134/79 Blood Pressure [Right Arm] 146/76 H Pulse Oximetry 95 100 92 <Mela Lynch DO - Last Filed: 07/20/18 15:30> Orders Ordered: ED Orders 07/20/18 12:29 XR hip w pel if done RT 2V Stat XR sacrum coccyx min 2V Stat 07/20/18 12:55 EKG-12 Lead Stat 07/20/18 13:10 Comprehensive Metabolic Panel Stat 07/20/18 13:15 XR chest 1V Stat Complete Blood Count AUTO DIFF Stat 07/20/18 13:30 Type and Screen Stat Sodium Chloride (Normal Saline 0.9%) 1,000 mls @ 150 mls/hr IV CONT NANDA Last Admin: 07/20/18 14:59 Dose: 150 mls/hr Discontinued Medications Diphtheria/Tetanus/Acell Pertussis (Adacel) 0.5 ml IM .ONCE ONE Stop: 07/20/18 12:51 Last Admin: 07/20/18 13:35 Dose: 0.5 ml Morphine Sulfate (Morphine) 4 mg IV NOW ONE Stop: 07/20/18 12:57 Last Admin: 07/20/18 13:34 Dose: 4 mg Vital Signs - 8 hr 07/20/18 12:23 07/20/18 14:05 07/20/18 14:55 Temperature 99.6 F 98.5 F Pulse Rate 85 78 77 Respiratory Rate 22 19 16 Blood Pressure 162/86 H 134/79 Blood Pressure [Right Arm] 146/76 H Pulse Oximetry 95 100 92 MDM - Fall <KIMMY Riggins - Last Filed: 07/20/18 15:01> Lab Data Result diagrams: 07/20/18 13:15 07/20/18 13:10 Lab Results 07/20/18 07/20/18 07/20/18 Range/Units 13:10 13:15 13:30 WBC 7.0 (4.5-11.0) X10^3/uL RBC 4.64 (4.0-5.2) X10^6/uL Hgb 13.4 (12.0-16.0) g/dL Hct 39.5 (36-46) % MCV 85.2 (80-100) fL MCH 28.9 (26-34) PG MCHC 33.9 (30-36) % RDW 14.3 (11.6-14.8) % Plt Count 182 (150-400) X10^3/uL Neut % (Auto) 77.8 H (50-75) % Lymph % (Auto) 14.2 L (25-40) % [place] % (Auto) 6.3 (3-14) % Eos % (Auto) 1.4 L (2-4) % Baso % (Auto) 0.3 (0-2) % Neut # (Auto) 5400 (6098-4513) /uL Lymph # (Auto) 1000 L (2340-7012) /uL [place] # (Auto) 400 (0-900) /uL Eos # (Auto) 100 (0-450) /uL Baso # (Auto) 0 (0-100) /uL Sodium 137 (137-145) mmol/L Potassium 4.0 (3.4-5.1) mmol/L Chloride 103 (98-107) mmol/L Carbon Dioxide 27 (22-32) mmol/L BUN 15 (7-17) mg/dL Creatinine 0.50 L (0.52-1.04) mg/dL Estimated GFR > 60.0 (>60) mL/min BUN/Creatinine Ratio 30.0 H (6-22) Glucose 91 (80-110) mg/dL Calcium 8.9 (8.4-10.2) mg/dL Total Bilirubin 0.5 (0.2-1.3) mg/dL AST 30 (14-36) IU/L ALT 25 (9-52) IU/L Alkaline Phosphatase 66 (38-126) U/L Total Protein 7.0 (6.3-8.2) g/dL Albumin 4.2 (3.5-5.0) g/dL Globulin 2.8 (1.7-4.1) g/dL Albumin/Globulin Ratio 1.5 (1.0-2.8) Blood Type A Negative Antibody Screen Negative Imaging Data sacrum xray : Radiologist's impression: [address] [address] XRay Report Signed Patient: Ana María Brambila [facility]#: [id number] : 1950cct:[id number] Age/Sex: 67 / FDate of Service: 07/20/18 Loc: ED Accession Number: [id number] Procedure: XR sacrum coccyx min 2V Ordering Provider: Mela Flores- PROCEDURE: XR SACRUM COCCYX MIN 2V INDICATIONS: glf TECHNIQUE: 3 views of the sacrum and coccyx acquired. COMPARISON: [facility], CR, XR HIP W PEL IF DONE RT 2V, 07/20/2018, 12:33. FINDINGS: Bones: No displaced fracture or dislocation of the sacrum or coccyx is evident. Post surgical changes of the right sacroiliac joint are incidentally noted with 2 cannulated screws extending across the joint space. The screws are intact. No widening of the sacroiliac joints is present. There are at least mild degenerative changes of the lateral sacroiliac joints. Soft tissues: Visualized bowel gas pattern is normal. No suspicious soft tissue densities. IMPRESSION: No acute fracture or dislocation of the sacrum or coccyx. Dictated by: Miguel Chacon M.D. on 07/20/2018 at 11:50 Approved by: Miguel Chacon M.D. on 07/20/2018 at 11:52 hip xray : Radiologist's impression: [address] [address] XRay Report Signed Patient: Ana María Brambila [facility]#: [id number] : 1950cct:[id number] Age/Sex: 67 / FDate of Service: 07/20/18 Loc: ED Accession Number: [id number] Procedure: XR hip w pel if done RT 2V Ordering Provider: Mela Flores [employer]TERN[employer]ER [employer]-BC PROCEDURE: XR HIP W PEL IF DONE RT 2V INDICATIONS: glf hip pain TECHNIQUE: 2 views of the hip were acquired. COMPARISON: [facility], [place], XR PELVIS W BILATERAL HIPS 5VW, 11/16/2014, 12:22. [facility], CR, XR SACRUM COCCYX MIN 2V, 07/20/2018, 12:38. FINDINGS: Bones: There has been interval placement of 2 orthopedic screws across the right sacroiliac joint. The screws are intact. However, lucency surrounding the screws is present. No widening of the right sacroiliac joint is evident. There are degenerative changes of both sacroiliac joints. The mildly impacted femoral neck fracture on the right is present. No dislocation is present. No suspicious osseous lesions are identified. Mild to moderate degenerative changes of the bilateral hips and pubis symphysis are evident. There also are moderate degenerative changes of the included lower lumbar spine, not well characterized. Soft tissues: No suspicious soft tissue calcifications or masses. IMPRESSION: Mildly impacted right femoral neck fracture. Dictated by: Miguel Chacon M.D. on 07/20/2018 at 11:49 Approved by: Miguel Chacon M.D. on 07/20/2018 at 11:50 ECG Data Attestation: I personally reviewed and interpreted this ECG as follows: Interpretation: Sinus rhythm. Ventricular rate 75. No ST elevation or depression noted. No ectopy noted. Viewed by Dr. Lynch 13:39 MDM Narrative Medical decision making narrative: The patient is a 67-year-old female who presents with hip pain after ground level trip and fall onto wood plank floor. She is neurovascularly intact and actually drove herself to the emergency department. X-ray reveals impacted right femur fracture. I spoke with Dr. Jane from Orthopedics, and discussed the fact that the patient would prefer Dr. Colon if she needs a large intervention. However upon realization that the patient likely needs pins, she was okay with Dr. Jane operating on her so she can get it done today. She did have an EKG, chest x-ray line and lab work done for preop workup. She was admitted to Dr. Jane and remained alert and oriented throughout her stay in the emergency department. She stated understanding and appreciation. She was given morphine throughout her stay in the emergency de partment for pain control. No questions or concerns. She states that her last oral intake was approximately 10:30 a.m.. <Mela Lynch, DO - Last Filed: 07/20/18 15:30> Lab Data Lab Results 07/20/18 07/20/18 07/20/18 Range/Units 13:10 13:15 13:30 WBC 7.0 (4.5-11.0) X10^3/uL RBC 4.64 (4.0-5.2) X10^6/uL Hgb 13.4 (12.0-16.0) g/dL Hct 39.5 (36-46) % MCV 85.2 (80-100) fL MCH 28.9 (26-34) PG MCHC 33.9 (30-36) % RDW 14.3 (11.6-14.8) % Plt Count 182 (150-400) X10^3/uL Neut % (Auto) 77.8 H (50-75) % Lymph % (Auto) 14.2 L (25-40) % [place] % (Auto) 6.3 (3-14) % Eos % (Auto) 1.4 L (2-4) % Baso % (Auto) 0.3 (0-2) % Neut # (Auto) 5400 (8755-1469) /uL Lymph # (Auto) 1000 L (3984-7072) /uL [place] # (Auto) 400 (0-900) /uL Eos # (Auto) 100 (0-450) /uL Baso # (Auto) 0 (0-100) /uL Sodium 137 (137-145) mmol/L Potassium 4.0 (3.4-5.1) mmol/L Chloride 103 (98-107) mmol/L Carbon Dioxide 27 (22-32) mmol/L BUN 15 (7-17) mg/dL Creatinine 0.50 L (0.52-1.04) mg/dL Estimated GFR > 60.0 (>60) mL/min BUN/Creatinine Ratio 30.0 H (6-22) Glucose 91 (80-110) mg/dL Calcium 8.9 (8.4-10.2) mg/dL Total Bilirubin 0.5 (0.2-1.3) mg/dL AST 30 (14-36) IU/L ALT 25 (9-52) IU/L Alkaline Phosphatase 66 (38-126) U/L Total Protein 7.0 (6.3-8.2) g/dL Albumin 4.2 (3.5-5.0) g/dL Globulin 2.8 (1.7-4.1) g/dL Albumin/Globulin Ratio 1.5 (1.0-2.8) Blood Type A Negative Antibody Screen Negative Discharge Plan Departure Patient Disposition: Admitted As Inpatient Clinical Impression: Closed right femoral fracture Qualifiers: Encounter type: initial encounter Femur location: base of neck Fracture alignment: nondisplaced Qualified Code(s): S72.044A - Nondisplaced fracture of base of neck of right femur, initial encounter for closed fracture Discharge Date/Time: 07/20/18 14:58 Interventions: ED Discharge Assessment Last Done: 07/20/18 14:58 Admit Date/Time: 07/20/18 13:48 Admit Provider: Sandra Jane <Mela Lynch DO - Last Filed: 07/20/18 15:30> Cosign ED Attending Kendallature Attestation: I was immediately available in the department for consultation, case was discussed, imaging and EKG were reviewed. This documentation has been reviewed and I agree with assessment and plan. Supervised by Mela Lynch, DO
--- NOTE | 2018-07-20 12:29 | DI.RAD.S_ITS ---
PROCEDURE: XR HIP W PEL IF DONE RT 2V INDICATIONS: glf hip pain TECHNIQUE: 2 views of the hip were acquired. COMPARISON: [facility], CR, XR PELVIS W BILATERAL HIPS 5VW, 11/16/2014, 12:22. [facility], CR, XR SACRUM COCCYX MIN 2V, 07/20/2018, 12:38. FINDINGS: Bones: There has been interval placement of 2 orthopedic screws across the right sacroiliac joint. The screws are intact. However, lucency surrounding the screws is present. No widening of the right sacroiliac joint is evident. There are degenerative changes of both sacroiliac joints. The mildly impacted femoral neck fracture on the right is present. No dislocation is present. No suspicious osseous lesions are identified. Mild to moderate degenerative changes of the bilateral hips and pubis symphysis are evident. There also are moderate degenerative changes of the included lower lumbar spine, not well characterized. Soft tissues: No suspicious soft tissue calcifications or masses. IMPRESSION: Mildly impacted right femoral neck fracture. Dictated by: Miguel Chacon M.D. on 07/20/2018 at 11:49 Approved by: Miguel Chacon M.D. on 07/20/2018 at 11:50
--- NOTE | 2018-07-20 12:29 | DI.RAD.S_ITS ---
PROCEDURE: XR SACRUM COCCYX MIN 2V INDICATIONS: glf TECHNIQUE: 3 views of the sacrum and coccyx acquired. COMPARISON: [facility], CR, XR HIP W PEL IF DONE RT 2V, 07/20/2018, 12:33. FINDINGS: Bones: No displaced fracture or dislocation of the sacrum or coccyx is evident. Post surgical changes of the right sacroiliac joint are incidentally noted with 2 cannulated screws extending across the joint space. The screws are intact. No widening of the sacroiliac joints is present. There are at least mild degenerative changes of the lateral sacroiliac joints. Soft tissues: Visualized bowel gas pattern is normal. No suspicious soft tissue densities. IMPRESSION: No acute fracture or dislocation of the sacrum or coccyx. Dictated by: Miguel Chacon M.D. on 07/20/2018 at 11:50 Approved by: Miguel Chacon M.D. on 07/20/2018 at 11:52
--- NOTE | 2018-07-20 13:15 | DI.RAD.S_ITS ---
PROCEDURE: XR CHEST 1V INDICATIONS: pre op TECHNIQUE: One view of the chest was acquired. COMPARISON: [facility], , CHEST 2VW, 05/14/2014, 12:10. FINDINGS: Surgical changes and devices: Interval postsurgical changes are noted related to a left shoulder arthroplasty. Lungs and pleura: Mild elevation of the right diaphragm is present. No focal pulmonary consolidation is evident. No large effusion or pneumothorax is identified. Mediastinum: Mediastinal contours appear normal. Heart size is normal. Bones and chest wall: No suspicious bony lesions. Overlying soft tissues appear unremarkable. IMPRESSION: No acute cardiopulmonary process is evident. Dictated by: Miguel Chacon M.D. on 07/20/2018 at 12:42 Approved by: Miguel Chacon M.D. on 07/20/2018 at 12:43
[2018-07-20 13:22] LABS: Add Manual Diff / Slide Review NO; Basophils Absolute Auto 0 /uL (0-100); Basophils Percent Auto 0.3 % (0-2); Eosinophils Absolute Auto 100 /uL (0-450); Eosinophils Percent Auto 1.4 % (2-4); Hematocrit 39.5 % (36-46); Hemoglobin 13.4 g/dL (12.0-16.0); Lymphocytes Absolute Auto 1000 /uL (1100-4500); Lymphocytes Percent Auto 14.2 % (25-40); Mean Corpuscular HGB Conc 33.9 % (30-36); Mean Corpuscular Hemoglobin 28.9 PG (26-34); Mean Corpuscular Volume 85.2 fL (80-100); Monocytes Absolute Auto 400 /uL (0-900); Monocytes Percent Auto 6.3 % (3-14); Neutrophils Absolute Auto 5400 /uL (1500-7000); Neutrophils Percent Auto 77.8 % (50-75); Platelet Count 182 X10^3/uL (150-400); Red Blood Cell Count 4.64 X10^6/uL (4.0-5.2); Red Cell Distribution Width 14.3 % (11.6-14.8)
[2018-07-20 13:34] LABS: Alanine Aminotransferase 25 IU/L (9-52); Albumin 4.2 g/dL (3.5-5.0); Albumin Globulin Ratio 1.5 (1.0-2.8); Alkaline Phosphatase 66 U/L (38-126); Aspartate Aminotransferase 30 IU/L (14-36); Bilirubin Total 0.5 mg/dL (0.2-1.3); Blood Urea Nitrogen 15 mg/dL (7-17); Calcium 8.9 mg/dL (8.4-10.2); Carbon Dioxide 27 mmol/L (22-32); Chloride 103 mmol/L (98-107); Estimated Glomerular Filt Rate > 60.0 mL/min (>60); Globulin 2.8 g/dL (1.7-4.1); Glucose 91 mg/dL (80-110); HEMOLYSIS 22 (0-50); Sodium 137 mmol/L (137-145)
[2018-07-20] MEDS: MORPHINE 4 MG/ML INJ IV (13:34)
[2018-07-20] MEDS: TET,DIPH,PERTUSS(ACELL),VAC/PF 0.5 ML SYRINGE IM (13:35)
[2018-07-20] MEDS: SODIUM CHLORIDE 0.9% 1,000 ML 150 ML IV (14:59)
--- NOTE | 2018-07-20 15:42 | PC.NURSE ---
Day Shift- Rec'd report from MICAH Ruth in ED at 1423. Pt arrived to unit room 208 at 1440, used slider board to transfer pt from stretcher to bed. A&OX4, oriented to call light, NPO status, possible OR time at 1700. IVF started per order to right FA PIV. Pt stated she last ate a top of a muffin at 10:00 this AM with a cup of coffee. Denies nausea, pain to right hip/thigh throbbing 4-5/10. Left toe abrasion has dried blood, and several dry scratches to RLE.
[2018-07-20] MEDS: FAMOTIDINE 20 MG/50 ML PIGGYBACK 200 MG IV (17:01)
[2018-07-20] MEDS: LACTATED RINGERS 1,000 ML 42 ML IV (17:02)
[2018-07-20] MEDS: METOCLOPRAMIDE 10 MG/2 ML INJ IV (17:02)
[2018-07-20] MEDS: CEFAZOLIN 2 GM/100 ML FROZ.PIGGY IV ×2 (17:05→20:29)
--- NOTE | 2018-07-20 17:09 | P.HP_ITS ---
History of Present Illness Date Patient Seen: 07/20/18 Time Patient Seen: 17:06 Chief complaint: States Rt hip may be broken Narrative: 67-year-old female presents for evaluation of right hip after fall. Emergency room x-rays demonstrate valgus impacted femoral neck fracture. No other apparent injuries. Patient is recently status post left total shoulder arthroplasty by Dr. Nickerson in December of 2017 and has recovered well from that and is doing extremely well. No other recent medical problems 3 years ago had a sacral fracture and has sacral screws in place. Previous history of ankle fracture. Patient History Medical History Sciatic nerve pain (Acute) Chronic UTI (Acute) Easy bruisability (Acute) Fusion of sacral region of spine (Acute) Hiatal hernia (Acute) Hyperlipidemia (Acute) Cardiac arrhythmia (Chronic ~2003) Carpal tunnel syndrome (Chronic ~1994) Chronic back pain (Chronic ~2007) Depression (Chronic ~1992) Fibroids (Chronic ~1997) HSV (herpes simplex virus) infection (Chronic ~1979) Hypertension (Chronic ~2003) Shoulder pain (Chronic ~2013) Chickenpox (Resolved ~1959) Colon polyps (Resolved ~1999) History of fracture (Resolved) Measles (Resolved ~1959) Melanoma of ear (Resolved ~2007) Mumps (Resolved ~1958) Surgical History Hx of tonsillectomy (Acute) S/P partial hysterectomy (Acute) H/O prior ablation treatment (Resolved ~1997) Melanoma of ear (Resolved ~2007) Status post ORIF of fracture of ankle (Resolved ~1975) Anesthesia complication (Inactive) Status post arthroscopy (~2013) Status post delivery (~1987) Status post colonoscopy Family History Brother Age: 63 Heart disease Hypertension Grandfather Heart disease Colorectal cancer Grandmother Stroke Mother Age: 84 Hypertension Grandfather Heart disease Grandmother Diabetes mellitus Sister Age: 58 Mental health problem Depression Father Parkinson's disease Pneumonia Social History household members: none Smoking Status: Never smoker alcohol intake: current Family & Social History Family History Brother Age: 63 Heart disease Hypertension Grandfather Heart disease Colorectal cancer Grandmother Stroke Mother Age: 84 Hypertension Grandfather Heart disease Grandmother Diabetes mellitus Sister Age: 58 Mental health problem Depression Father Parkinson's disease Pneumonia Social History: household members none Prior Living Arrangements House Safety & Behavioral: Feels Safe in Current Yes Environment Been Physically Hurt or No Threatened By a Person Suicidal Ideation Description None Suicide Plan Description No Plan Tobacco & Substance use: Smoking Status Never smoker alcohol intake current alcohol intake frequency 0-2 drinks per day Substance Use Type does not use Meds Home Medications Medication Instructions Recorded Confirmed Type gabapentin [Neurontin] 600 mg PO TID 12/18/17 07/20/18 History atorvastatin 10 mg tablet 10 mg PO QAM #90 tab 01/03/18 07/20/18 Rx escitalopram oxalate [Lexapro] 20 mg PO Q DAY #90 tab 04/07/18 07/20/18 Rx lisinopril [Zestril] 10 mg PO Q DAY #90 tab 04/07/18 07/20/18 Rx alprazolam 0.5 tab PO BEDTIME 07/20/18 07/20/18 History cranberry 500 mg PO DAILY 07/20/18 07/20/18 History estradiol [Estrace] 1 dose VAGINAL SEE INSTRUCTIONS 07/20/18 07/20/18 History omeprazole 20 mg PO DAILY 07/20/18 07/20/18 History Allergies Allergy/AdvReac Type Severity Reaction Status Date / Time pregabalin [From LYRICA] Allergy Intermediate Rash Verified 07/20/18 12:25 Review of Systems Review of Systems All systems reviewed & are unremarkable except as noted in HPI and below Exam Vital Signs (past 8 hours): - 07/20/18 12:23 07/20/18 14:05 07/20/18 14:55 Temperature 99.6 F 98.5 F Pulse Rate 85 78 77 Respiratory Rate 22 19 16 Blood Pressure 162/86 H 134/79 Blood Pressure [Right Arm] 146/76 H Pulse Oximetry 95 100 92 Oxygen Delivery Method Room Air Narrative Exam Narrative: Healthy appearing female lying in the hospital bed awake alert oriented and conversant. No obvious distress but states that her right hip is painful. Vital signs are stable and she is afebrile. HEENT is normocephalic and atraumatic. Lungs are clear to auscultation. Heart regular rate and rhythm. Abdomen is benign. Extremities benign and neurologically grossly intact pain with any movement of the right hip. No swelling or obvious deformity. Objective Labs Result Diagrams: 07/20/18 13:15 07/20/18 13:10 Labs: Laboratory Results - last 24 hr 07/20/18 07/20/18 07/20/18 13:10 13:15 13:30 WBC 7.0 RBC 4.64 Hgb 13.4 Hct 39.5 MCV 85.2 MCH 28.9 MCHC 33.9 RDW 14.3 Plt Count 182 Neut % (Auto) 77.8 H Lymph % (Auto) 14.2 L [place] % (Auto) 6.3 Eos % (Auto) 1.4 L Baso % (Auto) 0.3 Neut # (Auto) 5400 Lymph # (Auto) 1000 L [place] # (Auto) 400 Eos # (Auto) 100 Baso # (Auto) 0 Sodium 137 Potassium 4.0 Chloride 103 Carbon Dioxide 27 BUN 15 Creatinine 0.50 L Estimated GFR > 60.0 BUN/Creatinine Ratio 30.0 H Glucose 91 Calcium 8.9 Total Bilirubin 0.5 AST 30 ALT 25 Alkaline Phosphatase 66 Total Protein 7.0 Albumin 4.2 Globulin 2.8 Albumin/Globulin Ratio 1.5 Blood Type A Negative Antibody Screen Negative Assessment & Plan Assessment & Plan narrative: X-rays demonstrate a valgus impacted right femoral neck fracture. We have discussed the nature of condition, differential diagnosis, prognosis, and options. Recommend cannulated screw fixation which will be performed today. Quality VTE Deep Vein Thrombosis/Pulmonary Embolism Present on Admission: No
--- NOTE | 2018-07-20 17:09 | PM.PREOP ---
Pre-operative Note Interval Note History & Physical reviewed/Exam performed by Physician: Yes Changes to H&P: No
--- NOTE | 2018-07-20 17:43 | SUR.OPER ---
Head on pillow. Supine on fracture table with operative leg secured in traction. Other leg secured in padded stirrup. Arms across chest, secured with sheet.
--- NOTE | 2018-07-20 18:12 | PM.OP.1 ---
Operative Date/Time/Diagnoses Date of procedure: 07/20/18 Time of procedure: 18:13 Pre-op diagnosis: Right hip, subcapital femoral neck fracture Post-op diagnosis: same Procedure & Clinicians Procedure: Percutaneous skeletal fixation of subcapital femoral neck fracture right hip (CPT code 36366) Same procedure as scheduled: Yes Indications: 67-year-old female status post ground level fall onto her right hip today. Significant right hip pain with weight-bearing brought to [facility] Emergency Room were noted to have an impacted subcapital femoral neck fracture on the right. We discussed the nature of condition, differential diagnosis, prognosis, and options. Recommend cannulated screw fixation and patient understands and agrees and gives informed consent to proceed. Surgeon: Alin Colon Click Yes if Unassisted: Yes Anesthesia Type: General Operative Notes Closure Type: primary Specimen(s): none sent Estimated Blood Loss (mL): 10 Blood products transfused: none Procedure in detail: After administration of IV antibiotics and satisfactory induction of general anesthetic the patient placed supine on the fracture table with the left leg in the 90 90 well leg bunch and the right leg and foot traction. Fluoroscopic images in AP and lateral planes demonstrate satisfactory and anatomical position of the proximal femur and good alignment of the fracture as well as excellent visualization. Right hip and lower extremity then prepped and draped in the usual sterile fashion and 3 guide pins placed percutaneously from the lateral hip through the skin and subcutaneous tissues entering the lateral cortex of the femur up the femoral neck and across the fracture into the femoral head in a desired location and triangular configuration. Position of the pins confirmed a satisfactory with biplane fluoroscopic images. Small skin incisions were then made around the pins, and the pins then measured for depth and appropriate screws inserted under fluoroscopic guidance. After satisfactory placement of screws and confirmation of excellent position of the fracture and placement of hardware the wounds were cleansed and closed with Steri-Strips. Sterile dressings applied the anesthetic terminated and the patient taken the post anesthetic recovery in satisfactory condition. Complications: none Condition: stable Disposition: PACU Plan for aftercare: Routine postoperative care. Range of motion of the hip as tolerated but would recommend toe-touch or partial weight-bearing for the 1st 4-6 weeks. Return to clinic in 2 weeks for wound check and repeat x-rays. Probable discharge home tomorrow or Saturday.
--- NOTE | 2018-07-20 18:18 | P.OP_ITS ---
Operative Date/Time/Diagnoses Date of procedure: 07/20/18 Time of procedure: 18:13 Pre-op diagnosis: Right hip, subcapital femoral neck fracture Post-op diagnosis: same Procedure & Clinicians Procedure: Percutaneous skeletal fixation of subcapital femoral neck fracture right hip (CPT code 05254) Same procedure as scheduled: Yes Indications: 67-year-old female status post ground level fall onto her right hip today. Significant right hip pain with weight-bearing brought to [facility] Emergency Room were noted to have an impacted subcapital femoral neck fracture on the right. We discussed the nature of condition, differential diagnosis, prognosis, and options. Recommend cannulated screw fixation and patient understands and agrees and gives informed consent to proceed. Surgeon: Alin Colon Click Yes if Unassisted: Yes Anesthesia Type: General Operative Notes Closure Type: primary Specimen(s): none sent Estimated Blood Loss (mL): 10 Blood products transfused: none Procedure in detail: After administration of IV antibiotics and satisfactory induction of general anesthetic the patient placed supine on the fracture table with the left leg in the 90 90 well leg bunch and the right leg and foot traction. Fluoroscopic images in AP and lateral planes demonstrate satisfactory and anatomical position of the proximal femur and good alignment of the fracture as well as excellent visualization. Right hip and lower extremity then prepped and draped in the usual sterile fashion and 3 guide pins placed percutaneously from the lateral hip through the skin and subcutaneous tissues entering the lateral cortex of the femur up the femoral neck and across the fracture into the femoral head in a desired location and triangular configuration. Position of the pins confirmed a satisfactory with biplane fluoroscopic images. Small skin incisions were then made around the pins, and the pins then measured for depth and appropriate screws inserted under fluoroscopic guidance. After satisfactory placement of screws and confirmation of excellent position of the fracture and placement of hardware the wounds were cleansed and closed with Steri-Strips. Sterile dressings applied the anesthetic terminated and the patient taken the post anesthetic recovery in satisfactory condition. Complications: none Condition: stable Disposition: PACU Plan for aftercare: Routine postoperative care. Range of motion of the hip as tolerated but would recommend toe-touch or partial weight-bearing for the 1st 4- 6 weeks. Return to clinic in 2 weeks for wound check and repeat x-rays. Probable discharge home tomorrow or Saturday.
--- NOTE | 2018-07-20 18:59 | SUR.PHASEI ---
Report called to Cindy
--- NOTE | 2018-07-20 19:13 | SUR.PHASEI ---
Pt transferred to the floor, on 1 L O2 and O2 monitor. VS stable. Report to Cindy. IV saline locked. Small amt of very light pink drainage to RT hip drsg, margins marked. +PP x2, + sensation and movement to BLE. Glasses with patient.
[2018-07-20] MEDS: GABAPENTIN 300 MG CAPSULE 600 MG PO (20:28)
[2018-07-21] MEDS: ALPRAZolam 0.25 MG TABLET 0.5 MG PO (00:42)
[2018-07-21] MEDS: CEFAZOLIN 2 GM/100 ML FROZ.PIGGY IV (03:08)
[2018-07-21] MEDS: PANTOPRAZOLE 20 MG TABLET PO (05:24)
[2018-07-21 05:46] LABS: Hematocrit 36.8 % (36-46); Hemoglobin 12.5 g/dL (12.0-16.0); Mean Corpuscular HGB Conc 33.9 % (30-36); Mean Corpuscular Hemoglobin 28.9 PG (26-34); Mean Corpuscular Volume 85.3 fL (80-100); Platelet Count 185 X10^3/uL (150-400); Red Blood Cell Count 4.31 X10^6/uL (4.0-5.2); Red Cell Distribution Width 14.5 % (11.6-14.8); White Blood Cell Count 7.2 X10^3/uL (4.5-11.0)
[2018-07-21 06:00] VITALS: BP 120/73; PULSE 77; RESP 16; TEMP 36.8; O2SAT 96
[2018-07-21] MEDS: HYDROCODONE/ACET 5/325 TABLET 1 TAB PO ×2 (07:43→13:00)
--- NOTE | 2018-07-21 08:47 | CM.DANOTE ---
Addendum entered by Fay Redding R.N. 07/21/18 11:12: Patient is to be discharged today. Checked in with her to inquire if she would like home health, per P.T's suggestion. Patient stated, she does not think she will need. Her mother is here now, plan is to discharge home to stay with friend. Original Note: DCP: Case received, EMR reviewed and met with patient. Introduced self and role. Baseline health history obtained from patient. DCP template assessment completed with information currently available. Patient is a 67 year old female who admitted yesterday afternoon to the care of the hospitalist/surgical team. PCP: Dr. Salazar. Payer: confirmed: [facility] [employer]. Patient came to hospital via vehicle due to hip pain secondary to a ground level fall. Spoke to patient in her room. She is in the middle of a home remodel, and tripped over a board in her home. She had apparently gotten up, and had increased hip pain. She had driven herself to hospital. Patient is independent, and is employed for [employer]. Her mother, Azalia, resides in [place]. She stated, she plans to stay at her friend, Vaishnavi's house in [place]. She does not feel that she needs any skilled or home health services. Patient will be working with physical therapy today. P: DCP to continue to follow. Will offer any resources if needed. Patient may be able to go home once ambulating with physical therapy, and depending upon how she does with ambulation. Fay Redding RN/Curriculum Advisory Teacher
[2018-07-21 08:56] VITALS: O2SAT 95; O2SAT 96
[2018-07-21 09:08] VITALS: BP 126/70; PULSE 76; RESP 16; TEMP 36.6; O2SAT 95
--- NOTE | 2018-07-21 10:00 | PT.IIE ---
Current Diagnoses Unspecified intracapsular fracture of right femur, initial encounter for closed fracture (07/20/18) Surgery Performed Operation Date: 07/20/18 17:00 Actual Procedures p ORIF Hip/Cannulated Screws(Right) - Alin Colon MD Surgical History (Last Reviewed 07/20/18 @ 15:01 by Mela Flores [facility]) Hx of tonsillectomy (Acute) S/P partial hysterectomy (Acute) H/O prior ablation treatment (Resolved ~1997) Melanoma of ear (Resolved ~2007) Status post ORIF of fracture of ankle (Resolved ~1975) Anesthesia complication (Inactive) Status post arthroscopy (~2013) Status post delivery (~1987) Status post colonoscopy Medical History (Last Reviewed 07/20/18 @ 17:07 by Alin Colon MD) Sciatic nerve pain (Acute) Chronic UTI (Acute) Easy bruisability (Acute) Fusion of sacral region of spine (Acute) Hiatal hernia (Acute) Hyperlipidemia (Acute) Cardiac arrhythmia (Chronic ~2003) Carpal tunnel syndrome (Chronic ~1994) Chronic back pain (Chronic ~2007) Depression (Chronic ~1992) Fibroids (Chronic ~1997) HSV (herpes simplex virus) infection (Chronic ~1979) Hypertension (Chronic ~2003) Shoulder pain (Chronic ~2013) Chickenpox (Resolved ~1959) Colon polyps (Resolved ~1999) History of fracture (Resolved) Measles (Resolved ~1959) Melanoma of ear (Resolved ~2007) Mumps (Resolved ~1958) Physical Therapy Inpatient Evaluation/Re-Eval M1 PT/OT-IP Prior Functional Status Start: 07/21/18 08:26 Freq: NEEDED Status: Active Protocol: Document 07/21/18 10:00 RS (Rec: 07/21/18 10:53 RS [email or web address]) Medical Review Prior Functional Status Medical History Reviewed Yes Diet/Fluid Consistency Regular Communication no known deficits Mobility and Gait ind without AD, no falls Activities of Daily Living and IADL's ind Prior Functional Level (Other details) very independent person, doesn 't feel limited Social History Household Members none Living Arrangements House Number of Stairs To Enter/Railing? stairs to enter Home Environment Standard Height Toilet Tub/Shower Home Equipment Front Wheel Walker Employment Status Retired Additional Social History Comment intends to stay with a friend upon d/c where there will be no steps and a walk-in shower M2 PT-IP Current Condition Start: 07/21/18 08:26 Freq: NEEDED Status: Active Protocol: Document 07/21/18 10:00 RS (Rec: 07/21/18 10:53 RS [email or web address]) Physical Therapy Current Condition Current Condition Evaluation Date 07/21/18 Treatment Diagnosis R femoral neck fx, s/p fixation with screws Onset Date 07/20/18 Precautions Other Precautions Per operative note: toe-touch or partial weight-bearing for the 1st 4-6 weeks M3 PT-IP Subjective Start: 07/21/18 08:26 Freq: NEEDED Status: Active Protocol: Document 07/21/18 10:00 RS (Rec: 07/21/18 10:53 RS [email or web address]) Subjective Physical Therapy Visit Type Type Initial Evaluation Visit Start Time 09:00 Visit Stop Time 10:00 Total Visit Minutes 60 Physical Therapy Visit Comments Patient Comments Pt motivated to get up and moving Patient Goals Go to her friend's home Therapy Pain Assessment Pain When Pain Assessed During Mobility Pain Present Pain Present Pain Reported Location Right Hip Description Aching Pressure Tender Tightness Throbbing With Movement Pain Behaviors Facial Grimacing Pain Management Techniques Modification of Treatment Re-positioning Timing of Activity with Medications M4 PT-IP Mobility and Gait Start: 07/21/18 08:26 Freq: NEEDED Status: Active Protocol: Document 07/21/18 10:00 RS (Rec: 07/21/18 10:53 RS [email or web address]) PT-Bed Mobility Assessment Supine to Sit Supine to Sit Standby Assistance Scooting Scooting to Edge of Bed Standby Assistance PT-Transfer Assessment Sit to and From Stand Sit to and from Stand Contact Guard Assistance Equipment Transfer Assistive Device Gait Belt Front Wheeled Walker Transfers Transfer Destination Bed Chair Transfer Technique Stand Step Pivot Transfer Ability Level of Assist Contact Guard Assistance Comments Mobility Comments bed mobility is slow and painful but she does not need physical assist. Slightly wobbly on first sit>stand, but improved on subsequent attempts. able to maintain TTWB precautions Gait Assessment Gait Gait Assistance Required: Contact Guard Assist Distance (Feet) 40 Able to Maintain Weight Bearing Status Yes During Gait Assistive Devices Assistive Device Gait Belt Front Wheeled Walker Gait Deviations General Gait Pattern Antalgic Decreased Stride Length Step-to Gait Factors Limiting Gait Function Factors Limiting Gait Function Decreased Activity Tolerance Decreased Strength Pain Comments Gait Comments Pt able to maintain TTWB, almost has more difficulty advancing the RLE for a full length step than she does WBing through that leg in R SLS. Stair Climbing Assessment Comments Stair Climbing Comments not tested yet PT-Balance Assessment Sitting Balance and Reactions Static Sitting Balance Ability Normal Dynamic Sitting Balance Ability Good Standing Balance and Reactions Static Standing Balance Ability Good Dynamic Standing Balance Ability Fair Device Used FWW M5 PT-IP Objective Assessments Start: 07/21/18 08:26 Freq: NEEDED Status: Active Protocol: Document 07/21/18 10:00 RS (Rec: 07/21/18 10:53 RS [email or web address]) Orientation Orientation/Cognition Level of Alertness Alert Orientation Name Age Birthday Month Date Year Day of Week Place Situation Language Function Ability No Deficits Noted Safety Awareness Understands Safety Issues Memory Description No Deficits Noted Gross Range of Motion Upper Extremity ROM Assessment Within Functional Limits Lower Extremity ROM Assessment Right Impaired Impairments tight in R hip related to swelling/pain Strength Upper Extremity Strength Assessment Within Functional Limits Lower Extremity Strength Assessment Right Impaired Comments Strength Comments LLE grossly 5/5 R hip grossly 3-/5 R knee grossly 3/5 R ankle grossly 4+/5 M6 PT-IP Treatment Start: 07/21/18 08:26 Freq: NEEDED Status: Active Protocol: Document 07/21/18 10:00 RS (Rec: 07/21/18 10:53 RS [email or web address]) Physical Therapy Treatment Exercises Exercises Ankle Pumps Gluteal Sets Quad Sets Heel Slides Supine Hip Abduction Education Education Provided Precautions Weight Bearing Status Post-Op Packet Safety M7 PT-IP Assessment and Plan Start: 07/21/18 08:26 Freq: NEEDED Status: Active Protocol: Document 07/21/18 10:00 RS (Rec: 07/21/18 10:53 RS [email or web address]) PT Summary Assessment and Plan Potential Rehabilitation Potential Excellent Status of Condition at Evaluation Stable Summary Impairments Pain ROM Strength Bed Mobility Transfers Gait Activity Tolerance Assessment Summary Pt is POD#1 R subcapital femoral neck fracture fixation w/ screws. Pt is TTWB/PWB. Pt presents with the expected RLE weakness and decreased ROM that result in mobility impairments. Pt currently requiring SBA<>CGA with FWW for all mobility, but stairs have not been trialed yet. Pt is able to maintain RLE WB precautions and is mobilizing well enough that she'd be safe to discharge to a home environment with intermittent assist once medically cleared. Patient is below her reported functional baseline, but has potential for functional improvement, and will benefit from ongoing acute PT with transition to HHPT/OT. Pt is hoping to stay with a friend upon discharge from hospital but needs to confirm these plans. Pt will need to practice stairs prior to discharge. Goals Bed Mobility Goal Independent Transfer Goal Independent Front Wheeled Walker Gait Goal Independent Front Wheel Walker Gait Distance 50 Other Goals up/down 3-5 steps with assist Days to Meet Goals 2 Frequency of Treatment Frequency Of Treatment Twice a Day Treatment Plan Physical Therapy Treatment Plan Bed Mobility Training Transfer Training Gait Training Therapeutic Exercise Balance Retraining Post Op Education Discharge Planning Hot or Cold Pack Neuromuscular Re-ed Coordination Retraining Manual Therapy Other Recommendations and Next Treatment stair training, gait Focus progression, ther-ex Recommendations To Nursing Amount of Assist Needed 1 Person Assist Discharge Recommendations PT Discharge Recommendations Home with Assistance Home Health
[2018-07-21] MEDS: GABAPENTIN 300 MG CAPSULE 600 MG PO (10:19)
[2018-07-21] MEDS: ESCITALOPRAM 10 MG TABLET 20 MG PO (10:19)
[2018-07-21] MEDS: ATORVASTATIN 10 MG TABLET PO (10:21)
[2018-07-21] MEDS: LISINOPRIL 10 MG TABLET PO (10:21)
--- NOTE | 2018-07-21 13:00 | PT.IPTN ---
Current Diagnoses Unspecified intracapsular fracture of right femur, initial encounter for closed fracture (07/20/18) Surgery Performed Operation Date: 07/20/18 17:00 Actual Procedures p ORIF Hip/Cannulated Screws(Right) - Alin Colon MD Physical Therapy Treatment Note M2 PT-IP Current Condition Start: 07/21/18 08:26 Freq: NEEDED Status: Discharge Protocol: Document 07/21/18 10:00 RS (Rec: 07/21/18 10:53 RS [id number]) Physical Therapy Current Condition Current Condition Evaluation Date 07/21/18 Treatment Diagnosis R femoral neck fx, s/p fixation with screws Onset Date 07/20/18 Precautions Other Precautions Per operative note: toe-touch or partial weight-bearing for the 1st 4-6 weeks M3 PT-IP Subjective Start: 07/21/18 08:26 Freq: NEEDED Status: Discharge Protocol: Document 07/21/18 13:00 RS (Rec: 07/21/18 13:42 RS [id number]) Subjective Physical Therapy Visit Type Type Treatment Note Visit Start Time 12:45 Visit Stop Time 13:00 Total Visit Minutes 15 Physical Therapy Visit Comments Patient Comments Pt feels good about discharging today. M4 PT-IP Mobility and Gait Start: 07/21/18 08:26 Freq: NEEDED Status: Discharge Protocol: Document 07/21/18 13:00 RS (Rec: 07/21/18 13:42 RS [id number]) PT-Transfer Assessment Sit to and From Stand Sit to and from Stand Standby Assistance Equipment Transfer Assistive Device Front Wheeled Walker Transfers Transfer Destination Bed Chair Transfer Technique Stand Step Pivot Transfer Ability Level of Assist Standby Assistance Comments Mobility Comments much smoother and steadier with all mobility, no LOB, able to maintain TTWB precautions Gait Assessment Gait Gait Assistance Required: Standby Assistance Distance (Feet) 40 Able to Maintain Weight Bearing Status Yes During Gait Assistive Devices Assistive Device Front Wheeled Walker Gait Deviations General Gait Pattern Antalgic Decreased Stride Length Step-to Gait Comments Gait Comments Pt still with difficulty advancing the RLE for a full step, but very steady and smooth with gait cycle, no LOB , able to maintain TTWB precautions. Stair Climbing Assessment Evaluation Level of Assist On Stairs Contact Guard Assistance 1 Person Assistance Devices Stair Climbing Assistive Devices Front Wheel Walker Technique/Endurance Stair Climbing Direction Ascend and Descend Stair Climbing Technique Step to Step Number of Steps Climbed 2 Query Text: Stair Climbing Set # Repetitions (reps) 1 Comments Stair Climbing Comments no LOB but challenging PT-Balance Assessment Standing Balance and Reactions Dynamic Standing Balance Ability Good M5 PT-IP Objective Assessments Start: 07/21/18 08:26 Freq: NEEDED Status: Discharge Protocol: Document 07/21/18 10:00 RS (Rec: 07/21/18 10:53 RS [email or web address]) Orientation Orientation/Cognition Level of Alertness Alert Orientation Name Age Birthday Month Date Year Day of Week Place Situation Language Function Ability No Deficits Noted Safety Awareness Understands Safety Issues Memory Description No Deficits Noted Gross Range of Motion Upper Extremity ROM Assessment Within Functional Limits Lower Extremity ROM Assessment Right Impaired Impairments tight in R hip related to swelling/pain Strength Upper Extremity Strength Assessment Within Functional Limits Lower Extremity Strength Assessment Right Impaired Comments Strength Comments LLE grossly 5/5 R hip grossly 3-/5 R knee grossly 3/5 R ankle grossly 4+/5 M6 PT-IP Treatment Start: 07/21/18 08:26 Freq: NEEDED Status: Discharge Protocol: Document 07/21/18 10:00 RS (Rec: 07/21/18 10:53 RS [email or web address]) Physical Therapy Treatment Exercises Exercises Ankle Pumps Gluteal Sets Quad Sets Heel Slides Supine Hip Abduction Education Education Provided Precautions Weight Bearing Status Post-Op Packet Safety M7 PT-IP Assessment and Plan Start: 07/21/18 08:26 Freq: NEEDED Status: Discharge Protocol: Document 07/21/18 13:00 RS (Rec: 07/21/18 13:42 RS [id number]) PT Summary Assessment and Plan Summary Progress Towards Goals Safe For Discharge Assessment Summary Pt's mobility has improved even since last session. Pt has completed all necessary training and is safe to discharge to friend's home later this afternoon. Frequency of Treatment Frequency Of Treatment Discharge Recommendations To Nursing Amount of Assist Needed Standby Assistance Discharge Recommendations PT Discharge Recommendations Home with Assistance Home Health
--- NOTE | 2018-07-21 13:12 | P.DS_ITS ---
History of Present Illness Date Patient Seen: 07/21/18 Time Patient Seen: 11:11 Chief complaint: States Rt hip may be broken Narrative: 67-year-old female status post ground level fall onto her right hip. Significant right hip pain with weight-bearing brought to [facility] Emergency Room were noted to have an impacted subcapital femoral neck fracture on the right. We discussed the nature of condition, differential diagnosis, prognosis, and options. Dr. Colon recommended cannulated screw fixation. Discharge Providers Date of admission: 07/20/18 13:48 Discharge Date: 07/21/18 Primary care physician: Carlos Salazar MD Consults: 07/20/18 19:26 Consult to Discharge Planning Routine Comment: Consult to Physical Therapy Evaluate & Treat Comment: Physician Instructions: Evaluate and Treat Consult to Respiratory Therapy Evaluate & Treat Comment: Physician Instructions: Evaluate and treat Discharge provider: Ana Laura Farmer PA-C Summary Discharge Diagnosis: s/p Percutaneous skeletal fixation of subcapital femoral neck fracture right hip Hospital Course: Patient presented to the emergency department after a ground level fall. Radiographs revealed an impacted subcapital femoral neck fracture of the right hip. After informed consent was obtained patient was taken to the operating room for percutaneous skeletal fixation of subcapital femoral neck fracture right hip. She has progressed well post operatively. She is being maintained on partial weight bearing status. On POD#1 she was able to mobilize well with physical therapy. Urinary catheter removed and patient able to void. 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 Prescriptions given for [place] and Flexeril as she had complained of some spasms. She is to follow up outpatient in two weeks for a wound check. Status at Discharge Cognitive/behavioral status at discharge: oriented Functional status at discharge: uses cane/walker Overall status at discharge: patient is progressing back to baseline Exam Vital Signs (past 8 hours): - 07/21/18 06:00 07/21/18 08:56 07/21/18 09:08 Temperature 98.2 F 98 F Pulse Rate 77 76 Respiratory Rate 16 16 Blood Pressure 120/73 126/70 Pulse Oximetry 96 95 95 Oxygen Delivery Method Room Air Oxygen Flow Rate 0.5 Narrative Exam Narrative: 67 year old female resting comfortably in a chair. Alert and oriented in no acute distress. Dressing in place is clean, dry, and intact with minimal shadow drainage. Neurovascularly intact in distal extremity with soft, compressible calves bilaterally. Objective Labs Result Diagrams: 07/21/18 05:27 07/20/18 13:10 Labs: Laboratory Results - last 24 hr 07/20/18 07/20/18 07/20/18 13:10 13:15 13:30 WBC 7.0 RBC 4.64 Hgb 13.4 Hct 39.5 MCV 85.2 MCH 28.9 MCHC 33.9 RDW 14.3 Plt Count 182 Neut % (Auto) 77.8 H Lymph % (Auto) 14.2 L [place] % (Auto) 6.3 Eos % (Auto) 1.4 L Baso % (Auto) 0.3 Neut # (Auto) 5400 Lymph # (Auto) 1000 L [place] # (Auto) 400 Eos # (Auto) 100 Baso # (Auto) 0 Sodium 137 Potassium 4.0 Chloride 103 Carbon Dioxide 27 BUN 15 Creatinine 0.50 L Estimated GFR > 60.0 BUN/Creatinine Ratio 30.0 H Glucose 91 Calcium 8.9 Total Bilirubin 0.5 AST 30 ALT 25 Alkaline Phosphatase 66 Total Protein 7.0 Albumin 4.2 Globulin 2.8 Albumin/Globulin Ratio 1.5 Blood Type A Negative Antibody Screen Negative 07/21/18 05:27 WBC 7.2 RBC 4.31 Hgb 12.5 Hct 36.8 MCV 85.3 MCH 28.9 MCHC 33.9 RDW 14.5 Plt Count 185 Neut % (Auto) Lymph % (Auto) [place] % (Auto) Eos % (Auto) Baso % (Auto) Neut # (Auto) Lymph # (Auto) [place] # (Auto) Eos # (Auto) Baso # (Auto) Sodium Potassium Chloride Carbon Dioxide BUN Creatinine Estimated GFR BUN/Creatinine Ratio Glucose Calcium Total Bilirubin AST ALT Alkaline Phosphatase Total Protein Albumin Globulin Albumin/Globulin Ratio Blood Type Antibody Screen Discharge Plan Discharge Plan Patient Disposition: Home Discharge comment: Home after urination Discharge Med Rec/Prescriptions Prescriptions: New hydrocodone-acetaminophen 5-325 mg Tablet 1 tab PO Q4-6H PRN (Reason: Pain, Mild (1-3)) Qty: 40 RF: 0 cyclobenzaprine 10 mg tablet 10 mg PO TID PRN (Reason: muscle spasm) Qty: 30 RF: 0 Continued atorvastatin [Lipitor] 10 mg tablet 10 mg PO QAM Qty: 90 RF: 3 escitalopram oxalate [Lexapro] 20 mg tablet 20 mg PO Q DAY Qty: 90 RF: 1 lisinopril [Zestril] 10 mg tablet 10 mg PO Q DAY Qty: 90 RF: 1 alprazolam 1 mg tablet 0.5 tab PO BEDTIME RF: 0 estradiol [Estrace] 0.01 % (0.1 mg/gram) cream 1 dose Vaginal SEE INSTRUCTIONS RF: 0 omeprazole 20 mg Capsule,Delayed Release(Dr/Ec) 20 mg PO DAILY RF: 0 cranberry 500 mg Capsule 500 mg PO DAILY RF: 0 gabapentin [Neurontin] 300 MG capsule 600 mg PO TID RF: 0 Follow up/Referrals: Sandra Jane MD [Physician] - Provider Discharge Instructions Diet: Diet as Tolerated Activity: Non-weight bearing or toe touch on the left side Cold/Heat Therapy: Ice packs as needed Skin/Wound/Dressing Care Dressing: Leave dressing in place, will be removed at 2 week post op visit Visit Report/Discharge Packet Instructions: DI for Hip Fracture, DI for Open Reduction Internal Fixation Surgery, Hydrocodone Combination Products, Cyclobenzaprine Discharge Data Primary Care Provider: Carlos Salazar Attending Provider: Sandra Jane Admit Date/Time: 07/20/18 13:48 Quality VTE Deep Vein Thrombosis/Pulmonary Embolism Present on Admission: No
--- NOTE | 2018-07-21 13:22 | PC.NURSE ---
Discharge Colon removed this AM, pt was able to urinate 200 ml and PVR was 0ml. Cleared by PT for d/c. Pt ready to go home. She states she took all belongings with her. D/c instructions provided to pt and mother and friend. Aware to set up f/u apt with MD and also to call MD with any additional questions or concerns. Dressing changed to coversite prior to d/c as other dressing was saturated. Pt aware to monitor dressing and to contact MD with any issues r/t dressing. Left in w/c with [employer] escort.
== END 2018-07-21 13:10 | disposition home or self-care (01) | DRG 482 ==
LOC: ED 13:17 → AC 13:48
PROVIDERS: Orthopaedic Surgery; Admitting Provider Orthopaedic Surgery Orthopaedic Surgery of the Spine; Emergency Provider Nurse Practitioner Family; PCP Family Medicine; Visit Provider Orthopaedic Surgery Orthopaedic Surgery of the Spine
PROC: 0QH634Z Insertion of Internal Fixation Device into Right Upper Femur, Percutaneous Approach (ICD-10-PCS; principal; 2018-07-20 17:00)
DX: S72.011A Unspecified intracapsular fracture of right femur, initial encounter for closed fracture (principal); F32.9 Major depressive disorder, single episode, unspecified; G89.29 Other chronic pain; I10 Essential (primary) hypertension; E78.5 Hyperlipidemia, unspecified; W18.30XA Fall on same level, unspecified, initial encounter; Z23 Encounter for immunization
CPT/HCPCS: 36415; 36591; 51701; 71045; 72220; 73502; 76000; 80053; 85025; 85027; 86850; 86900; 86901; 90471; 93005; 94760; 94762; 96374; 97110; 97116; 97162; 97530; 99283; 99284; 90715; J0690; J1100; J1170; J2250; J2270; J2405; J2704; J2765; J3010

== ENCOUNTER 2018-08-01 07:37 | Inpatient (IN) | payer OTHER, SELFPAY ==
[2018-07-20 15:00] VITALS: BMI 27.7
[2018-08-01] VITALS (15 sets, daily range): BP systolic 94–174; BP diastolic 64–114; PULSE 16–105; RESP 11–96; TEMP 36.2–36.7; O2SAT 92–99; BMI 27.5
--- NOTE | 2018-08-01 | DI.RAD.S_ITS ---
PROCEDURE: XR PELVIS 1-2V INDICATIONS: UNIPOLAR HIP POST OP TECHNIQUE: A single frontal view of the pelvis acquired. COMPARISON: None. FINDINGS: Bones: No fractures or dislocations, right total hip arthroplasty alignment appears normal. No suspicious bony lesions. Soft tissues: Visualized bowel gas pattern is normal. No suspicious soft tissue calcifications. IMPRESSION: Normal alignment after right total hip arthroplasty. Dictated by: [place] Pete M.D. on 08/01/2018 at 16:47 Approved by: Ch[place] Pete M.D. on 08/01/2018 at 16:48
--- NOTE | 2018-08-01 07:50 | PC.NURSE ---
Rectal exam by
--- NOTE | 2018-08-01 07:53 | ED.EXTPRO ---
HPI - Extremity Problem General Chief complaint: Extremity Problem,Nontraumatic Stated complaint: back/leg pain Time Seen by Provider: 08/01/18 07:40 Source: patient Mode of arrival: ambulatory (With walker) Limitations: no limitations History of Present Illness HPI Narrative: 67-year-old female comes to the emergency department with complaint of right hip pain and back pain. Patient states that she had hip repair with pins on the 20 of July after a fall. Patient states that she has been doing okay. She was just taking pain medication in the evening. Yesterday she saw Dr. Holbrook for outpatient follow-up and they noted the screws were moving a little bit out of the hip. Patient had not been having any significant pain at that time. Last night she was in bed she started having increasing pain in her low back and down her leg. Patient states that she has not been able to get comfortable. Her most comfortable position is standing. She has not had any fevers, she states the site has been healing well. Patient states that weight-bearing is uncomfortable. She states that she does not think the leg is weaker but she did have to help lift her leg into the car. Any kind of movement causes pain. Patient has not had any loss of bowel or bladder control. She does have some pain kind of in the mid low back SI joint and then over the hip itself. Patient was told at the office that she might have some sciatica. She has had sciatic on the left side and has a known narrow foramen on the left side but that leg is not bothering her today. She has been taking Walden she took 2 this morning just prior to 5:00 a.m.. Her pain has not been controlled. Related Data Home Medications Medication Instructions Recorded Confirmed gabapentin [Neurontin] 600 mg PO TID 12/18/17 08/01/18 cranberry 500 mg PO DAILY 07/20/18 08/01/18 estradiol [Estrace] 1 dose VAGINAL SEE INSTRUCTIONS 07/20/18 08/01/18 omeprazole 20 mg PO DAILY 07/20/18 08/01/18 alprazolam 0.5 - 1 mg PO BEDTIME PRN 08/01/18 08/01/18 escitalopram oxalate [Lexapro] 20 mg PO DAILY 08/01/18 08/01/18 ibuprofen 1 dose PO PRN PRN 08/01/18 08/01/18 lisinopril [Zestril] 10 mg PO DAILY 08/01/18 08/01/18 Previous Rx's Medication Instructions Recorded atorvastatin 10 mg tablet 10 mg PO QAM #90 tab 01/03/18 cyclobenzaprine 10 mg PO TID PRN #30 tab 07/21/18 hydrocodone-acetaminophen 1 tab PO Q4-6H PRN #40 tab 07/21/18 Allergies Allergy/AdvReac Type Severity Reaction Status Date / Time pregabalin [From LYRICA] Allergy Intermediate Rash Verified 08/01/18 07:50 Review of Systems Review of Systems ROS Unobtainable: All systems reviewed & are unremarkable except as noted in HPI and below Constitutional Denies chills, Denies fever(s), Denies lethargy and Denies weakness ENT Ears, Nose, Mouth, and Throat: Denies neck pain Cardiovascular Denies chest pain, Denies dyspnea and Denies dyspnea on exertion Respiratory Denies dyspnea and Denies dyspnea on exertion Gastrointestinal Gastrointestinal: Denies abdominal pain, Denies change in bowel habits, Denies fecal incontinence, Denies diarrhea, Denies nausea and Denies vomiting Genitourinary Denies hematuria, Denies flank pain, Denies urinary incontinence and Denies urinary urgency Musculoskeletal Reports as per HPI, Reports abnormal gait, Reports back pain, Reports arthralgias (Right hip), Denies joint swelling, Reports limited range of motion, Denies muscle weakness, Denies neck pain, Denies numbness, Reports radiating pain into limb (Right leg), Reports stiffness, Denies tingling and Denies other (Saddle anesthesia) Integumentary/Breasts Reports other (Healing incision) Neurologic Reports abnormal gait, Denies numbness, Denies sensory deficit, Denies tingling and Denies weakness [facility] Medical History Chronic UTI (Acute) Easy bruisability (Acute) Fusion of sacral region of spine (Acute) Hiatal hernia (Acute) Hyperlipidemia (Acute) Sciatic nerve pain (Acute) Cardiac arrhythmia (Chronic ~2003) Carpal tunnel syndrome (Chronic ~1994) Chronic back pain (Chronic ~2007) Depression (Chronic ~1992) Fibroids (Chronic ~1997) HSV (herpes simplex virus) infection (Chronic ~1979) Hypertension (Chronic ~2003) Shoulder pain (Chronic ~2013) Chickenpox (Resolved ~1959) Colon polyps (Resolved ~1999) History of fracture (Resolved) Measles (Resolved ~1959) Melanoma of ear (Resolved ~2007) Mumps (Resolved ~1958) Surgical History Hx of tonsillectomy (Acute) S/P partial hysterectomy (Acute) H/O prior ablation treatment (Resolved ~1997) Melanoma of ear (Resolved ~2007) Status post ORIF of fracture of ankle (Resolved ~1975) Anesthesia complication (Inactive) Status post arthroscopy (~2013) Status post delivery (~1987) Status post colonoscopy Family History Brother Age: 63 Heart disease Hypertension Grandfather Heart disease Colorectal cancer Grandmother Stroke Mother Age: 84 Hypertension Grandfather Heart disease Grandmother Diabetes mellitus Sister Age: 58 Mental health problem Depression Father Parkinson's disease Pneumonia Social History household members: family and none Smoking Status: Never smoker alcohol intake: current Family History Brother Age: 63 Heart disease Hypertension Grandfather Heart disease Colorectal cancer Grandmother Stroke Mother Age: 84 Hypertension Grandfather Heart disease Grandmother Diabetes mellitus Sister Age: 58 Mental health problem Depression Father Parkinson's disease Pneumonia Social History household members: family and none Smoking Status: Never smoker alcohol intake: current Exam Narrative Exam Narrative: GENERAL: Alert and oriented x three, well-nourished, well-appearing female in moderate distress. HEENT: Head normocephalic, atraumatic, EOMI, pupils reactive, face symmetric, moist mucous membranes NECK: Supple, full range of motion CARDIOVASCULAR: Regular rate and rhythm without murmurs, rubs or gallops. RESPIRATORY: Breath sounds equal bilaterally, no wheezes rales or rhonchi. ABDOMEN: Soft, nontender. Normoactive bowel sounds all 4 quadrants. No guarding or rebound, rigidity, no mass : No CVA tenderness BACK: No cervical, thoracic or lumbar vertebral point tenderness. Patient has decreased range of motion of the right hip. Patient's gait is antalgic, patient is standing using a walker. She prefers not to weight bear on her right foot. Rectal exam is normal sphincter tone, no saddle anesthesia. Muscle strength is 5/5 in lower extremities, DTRs are 2/4 and lower extremities. Dorsalis pedis and tibialis pulses are 2+ and lower extremities. Sensation is intact in the lower extremities. EXTREMITIES: Normal range of motion, no clubbing or edema. Neurovascularly intact NEUROLOGICAL: Cranial nerves II through XII grossly intact. Moving all extremities SKIN: Warm, dry, no petechiae, no rashes or lesions. Initial Vital Signs Initial Vital Signs: Vital Signs Temperature 97.9 F 08/01/18 07:44 Pulse Rate 105 H 08/01/18 07:44 Respiratory Rate 20 08/01/18 07:44 Blood Pressure 164/114 H 08/01/18 07:44 Pulse Oximetry 96 08/01/18 07:44 Course Orders Ordered: ED Orders 08/01/18 10:35 Basic Metabolic Panel Stat Complete Blood Count AUTO DIFF Stat Type and Screen Stat 08/01/18 16:02 Consult to Discharge Planning Routine Consult to Physical Therapy Evaluate & Treat Consult to Respiratory Therapy Evaluate & Treat 08/02/18 06:00 Hemoglobin and Hematocrit Routine Hydrocodone Bitart/Acetaminophen (Walden 5/325) 1 tab PO Q4HR PRN PRN Reason: Pain, Moderate (4-6) Alprazolam (Xanax) 1 mg PO BEDTIME PRN PRN Reason: Sleep Atorvastatin Calcium (Lipitor) 10 mg PO 0900 [facility] Cyclobenzaprine HCl (Flexeril) 10 mg PO TID PRN PRN Reason: muscle spasm Enoxaparin Sodium (Lovenox) 40 mg SUBCUT DAILY [facility] Escitalopram Oxalate (Lexapro) 20 mg PO DAILY [facility] Estradiol (Estrace) 1 gm VAG SuWe@2100 [facility] Gabapentin (Neurontin) 600 mg PO TID [facility] Last Admin: 08/01/18 17:32 Dose: 600 mg Hydroxyzine Pamoate (Vistaril) 25 mg PO Q6HR PRN PRN Reason: Spasms Last Admin: 08/01/18 16:34 Dose: 25 mg Cefazolin Sodium/Dextrose (Ancef) 2 gm in 100 mls @ 200 mls/hr IV Q8H [facility] Stop: 08/02/18 05:59 Lactated Ringer's (Lactated Ringers) 1,000 mls @ 125 mls/hr IV CONT [facility] Last Admin: 08/01/18 16:35 Dose: 125 mls/hr Ibuprofen (Advil) 200 mg PO Q4H PRN PRN Reason: pain Lisinopril (Zestril) 10 mg PO DAILY [facility] Ondansetron HCl (Zofran Odt) 4 mg PO Q4HR PRN PRN Reason: Nausea Ondansetron HCl (Zofran) 4 mg IV Q4HR PRN PRN Reason: Nausea And Vomiting Oxycodone HCl (Percolone) 5 mg PO Q3HR PRN PRN Reason: Pain, Moderate (4-6) Pantoprazole Sodium (Protonix) 20 mg PO 0600 [facility] Discontinued Medications Acetaminophen (Tylenol) 650 mg PO Q6HR PRN PRN Reason: As Needed for Fever/Mild Pain Hydrocodone Bitart/Acetaminophen (Walden 5/325) 1 tab PO Q30MIN PRN PRN Reason: Mild or moderate pain Benzocaine (Cepacol Lozenge) 1 each PO PRN PRN PRN Reason: Sore Throat Bupivacaine HCl/Epinephrine Bitart (Sensorcaine 0.5% W/ Epi (Pf)) 30 ml INJ NOW ONE Stop: 08/01/18 14:39 Last Admin: 08/01/18 14:38 Dose: 30 ml Fentanyl (Sublimaze) 50 mcg IV Q5MIN PRN PRN Reason: Pain, Moderate (4-6) Fentanyl (Sublimaze) 50 mcg IV Q5MIN PRN PRN Reason: Pain, Moderate (4-6) Hydromorphone HCl (Dilaudid) 1 mg IM NOW ONE Stop: 08/01/18 08:35 Last Admin: 08/01/18 08:40 Dose: 1 mg Hydromorphone HCl (Dilaudid) 1 mg IV Q4HR PRN PRN Reason: Pain, Mild (1-3) Hydromorphone HCl (Dilaudid) 0.5 mg IV Q5MIN PRN PRN Reason: Pain, Moderate (4-6) Hydromorphone HCl (Dilaudid) 0.5 mg IV Q5MIN PRN PRN Reason: Pain, Moderate (4-6) Hydroxyzine HCl (Vistaril) 25 mg IM NOW PRN PRN Reason: Pain, Mild (1-3) Sodium Chloride (Normal Saline 0.9%) 1,000 mls @ 125 mls/hr IV CONT NANDA Last Infusion: 08/01/18 10:49 Dose: 125 mls/hr Admin: 08/01/18 10:45 Dose: 125 mls/hr Lactated Ringer's (Lactated Ringers) 1,000 mls @ 42 mls/hr IV CONT NANDA Last Infusion: 08/01/18 15:53 Dose: 0 mls/hr Admin: 08/01/18 14:14 Dose: 42 mls/hr Infusion: 08/01/18 14:14 Dose: 42 mls/hr Admin: 08/01/18 11:33 Dose: 42 mls/hr Lactated Ringer's (Lactated Ringers) 1,000 mls @ 42 mls/hr IV CONT NANDA Lactated Ringer's (Lactated Ringers) 1,000 mls @ 42 mls/hr IV CONT NANDA Cefazolin Sodium/Dextrose (Ancef) 2 gm in 100 mls @ 200 mls/hr IV NOW ONE Stop: 08/01/18 14:39 Last Infusion: 08/01/18 13:40 Dose: 0 mls/hr Admin: 08/01/18 13:22 Dose: 200 mls/hr Ketorolac Tromethamine (Toradol) 30 mg IM NOW ONE Stop: 08/01/18 07:54 Last Admin: 08/01/18 07:59 Dose: 30 mg Meperidine HCl (Demerol) 25 mg IV Q5MIN PRN PRN Reason: Pain or shivering Meperidine HCl (Demerol) 25 mg IV Q5MIN PRN PRN Reason: Pain or shivering Metoclopramide HCl (Reglan) 10 mg IV NOW PRN PRN Reason: Nausea And Vomiting Ondansetron HCl (Zofran) 4 mg IV Q4HR PRN PRN Reason: Nausea And Vomiting Ondansetron HCl (Zofran) 4 mg IV NOW PRN PRN Reason: Nausea And Vomiting Ondansetron HCl (Zofran) 4 mg IV NOW PRN PRN Reason: Nausea And Vomiting Oxycodone/Acetaminophen (Percocet 5/325) 1 tab PO Q30MIN PRN PRN Reason: Mild or moderate pain Vital Signs - 8 hr 08/01/18 10:50 08/01/18 11:26 08/01/18 15:07 Temperature 98.1 F 97.6 F Pulse Rate 81 16 L 91 H Respiratory Rate 20 96 H 13 Blood Pressure 149/87 H 174/90 H 94/64 Pulse Oximetry 96 92 08/01/18 15:12 08/01/18 15:17 08/01/18 15:32 Temperature Pulse Rate 90 90 90 Respiratory Rate 13 12 13 Blood Pressure 129/77 133/85 156/74 H Pulse Oximetry 99 98 99 08/01/18 15:42 08/01/18 16:00 08/01/18 16:30 Temperature 97.4 F L 97.9 F Pulse Rate 88 86 89 Respiratory Rate 11 L 16 16 Blood Pressure 157/89 H 125/85 129/64 Pulse Oximetry 92 97 97 08/01/18 17:00 Temperature 97.9 F Pulse Rate 90 Respiratory Rate 16 Blood Pressure 114/65 Pulse Oximetry 93 MDM - Extremity (Nontraumatic) Lab Data Result diagrams: 08/01/18 10:35 08/01/18 10:35 Lab Results 08/01/18 08/01/18 08/01/18 Range/Units 10:35 10:35 10:35 WBC 5.7 (4.5-11.0) X10^3/uL RBC 4.63 (4.0-5.2) X10^6/uL Hgb 13.4 (12.0-16.0) g/dL Hct 39.5 (36-46) % MCV 85.3 (80-100) fL MCH 29.1 (26-34) PG MCHC 34.1 (30-36) % RDW 14.1 (11.6-14.8) % Plt Count 277 (150-400) X10^3/uL Neut % (Auto) 69.6 (50-75) % Lymph % (Auto) 20.6 L (25-40) % [place] % (Auto) 6.2 (3-14) % Eos % (Auto) 2.4 (2-4) % Baso % (Auto) 1.2 (0-2) % Neut # (Auto) 4000 (3073-0008) /uL Lymph # (Auto) 1200 (8982-5273) /uL [place] # (Auto) 400 (0-900) /uL Eos # (Auto) 100 (0-450) /uL Baso # (Auto) 100 (0-100) /uL Sodium 138 (137-145) mmol/L Potassium 4.2 (3.4-5.1) mmol/L Chloride 102 (98-107) mmol/L Carbon Dioxide 29 (22-32) mmol/L BUN 17 (7-17) mg/dL Creatinine 0.50 L (0.52-1.04) mg/dL Estimated GFR > 60.0 (>60) mL/min BUN/Creatinine Ratio 34.0 H (6-22) Glucose 90 (80-110) mg/dL Calcium 9.3 (8.4-10.2) mg/dL Blood Type A Negative Antibody Screen Negative Point of Care Testing Test Results Not applicable Imaging Data hip xray right: Radiologist's impression: [address] [address] XRay Report Signed Patient: Ana María Brambila [facility]#: [id number] : 3Acct:[id number] Age/Sex: 67 / FDate of Service: 08/01/18 Loc: ED Accession Number: [id number] Procedure: XR hip w pel if done RT 2V Ordering Provider: Mela Lynch D.O. PROCEDURE: XR HIP W PEL IF DONE RT 2V INDICATIONS: right hip pain, s/p replacement 07/20. radiates down leg. TECHNIQUE: AP pelvis with lateral view(s) of the right hip(s). COMPARISON: [facility], , XR HIP W PEL IF DONE RT 2V, 07/20/2018, 17:56. [facility], , XR HIP W PEL IF DONE RT 2V, 07/20/2018, 12:33. FINDINGS: Bones: No previously undiagnosed fractures or dislocations. Pelvic ring appears intact. No suspicious bony lesions. 3 cannulated fixation screws cross superiorly through the femoral neck and into the femoral head area, and the most lateral of the screws appears to penetrate through the articular cartilage to a slight degree. 2 additional screws are present crossing the right sacroiliac joint, previously present. Soft tissues: The visualized bowel gas pattern is normal. No suspicious soft tissue calcifications. IMPRESSION: 3 cannulated fixation screws cross a femoral neck fracture on the right, the more lateral of which appears to have its tip slightly protruding beyond the subarticular cortex on both the frontal and lateral projections. Prior sacroiliac joint screw fixation on the right. Dictated by: Chico Pete M.D. on 08/01/2018 at 8:53 Approved by: Chico Pete M.D. on 08/01/2018 at 8:55 lumbar spine xray: Radiologist's impression: [place] [address] XRay Report Signed Patient: Ana María Brambila [facility]#: [id number] : 1950cct:[id number] Age/Sex: 67 / FDate of Service: 08/01/18 Loc: ED Accession Number: [id number] Procedure: XR lumbar spine 2-3V Ordering Provider: Mela Lynch D.O. PROCEDURE: XR LUMBAR SPINE 2-3V INDICATIONS: low back/right hip pain radiates down leg. TECHNIQUE: 3 views of the lumbar spine were acquired. COMPARISON: [facility], CR, L-SPINE 2-3 VIEWS, 08/17/2014, 14:07. [facility], CR, L-SPINE 2-3 VIEWS, 11/15/2007, 10:02. FINDINGS: Bones: 5 [id number] vertebrae are present. There is convex leftward bony alignment as was previously the case and at L2-3. No acute vertebral body compression fracture, and the prior L1 and L3 compression fractures are again noted likely without material mover time considering slight differences in angulation. No suspicious bony lesions. Soft tissues: Overlying bowel gas pattern is normal. No suspicious soft tissue calcifications. IMPRESSION: Convex leftward scoliosis is chronic, moderately severe degenerative disc disease over the middle and lower thirds of the lumbosacral spine also appears stable over time. Prior compression fractures are moderate at L1 and mild at L3 but not appreciably changed over time. Overall, therefore, chronic degenerative change and spinal/foraminal stenosis appears present. Dictated by: Chico Pete M.D. on 08/01/2018 at 9:07 Approved by: Chico Pete M.D. on 08/01/2018 at 9:09 [facility] Narrative Medical decision making narrative: Do not have access to patient's x-rays but there does appear to be some loosening of the screw which is consistent with the history that she gave. Patient does not have any recent fall or trauma that likely re-injured this site. Her pain seems to radiate down her leg which makes me more suspicious that it is more from her back she does have multiple back issues. Dr. Colon was not available, I spoke with Dr. Pedro. He reviewed images, he states that it appears to be worsening from yesterday's films and that she likely needs hemiarthroplasty. He will contact with Dr. Colon but does ask patient be admitted to Medicine. Spoke with Dr. Keith who feels patient beat appropriate orthopedic admission. Based on patient's history she was admitted initially under Dr. Colon and when I spoke with Dr. Pedro he accepts for Dr. Colon. Holding orders were placed and plan for OR later today. Patient updated where plan. 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 Colon, call for an appointment today. Take medication as prescribed take 1 tablet every 6 hours as needed for pain. Return to the emergency department for fevers greater 100.4 F, new weakness, new numbness, loss of bowel or bladder control, inability to lift or move your leg, chest pain, shortness of breath, black or bloody stools or other new or concerning symptoms. Referrals: Calros Salazar MD [Primary Care Provider] - Alin Colon MD [Physician] - Admit Date/Time: 08/01/18 10:47 Admit Provider: Alin Colon
[2018-08-01] MEDS: KETOROLAC 60 MG/2 ML VIAL 30 MG IM (07:59)
[2018-08-01] MEDS: HYDROMORPHONE 1 MG INJ IM (08:40)
--- NOTE | 2018-08-01 09:10 | ED_ITS ---
HPI - Extremity Problem General Chief complaint: Extremity Problem,Nontraumatic Stated complaint: back/leg pain Time Seen by Provider: 08/01/18 07:40 Source: patient Mode of arrival: ambulatory (With walker) Limitations: no limitations History of Present Illness HPI Narrative: 67-year-old female comes to the emergency department with complaint of right hip pain and back pain. Patient states that she had hip repair with pins on the 20 of July after a fall. Patient states that she has been doing okay. She was just taking pain medication in the evening. Yesterday she saw Dr. Holbrook for outpatient follow-up and they noted the screws were moving a little bit out of the hip. Patient had not been having any significant pain at that time. Last night she was in bed she started having increasing pain in her low back and down her leg. Patient states that she has not been able to get comfortable. Her most comfortable position is standing. She has not had any fevers, she states the site has been healing well. Patient states that weight-bearing is uncomfortable. She states that she does not think the leg is weaker but she did have to help lift her leg into the car. Any kind of movement causes pain. Patient has not had any loss of bowel or bladder control. She does have some pain kind of in the mid low back SI joint and then over the hip itself. Patient was told at the office that she might have some sciatica. She has had sciatic on the left side and has a known narrow foramen on the left side but that leg is not bothering her today. She has been taking Hamilton she took 2 this morning just prior to 5:00 a.m.. Her pain has not been controlled. Related Data Home Medications Medication Instructions Recorded Confirmed gabapentin [Neurontin] 600 mg PO TID 12/18/17 08/01/18 cranberry 500 mg PO DAILY 07/20/18 08/01/18 estradiol [Estrace] 1 dose VAGINAL SEE INSTRUCTIONS 07/20/18 08/01/18 omeprazole 20 mg PO DAILY 07/20/18 08/01/18 alprazolam 0.5 - 1 mg PO BEDTIME PRN 08/01/18 08/01/18 escitalopram oxalate [Lexapro] 20 mg PO DAILY 08/01/18 08/01/18 ibuprofen 1 dose PO PRN PRN 08/01/18 08/01/18 lisinopril [Zestril] 10 mg PO DAILY 08/01/18 08/01/18 Previous Rx's Medication Instructions Recorded atorvastatin 10 mg tablet 10 mg PO QAM #90 tab 01/03/18 cyclobenzaprine 10 mg PO TID PRN #30 tab 07/21/18 hydrocodone-acetaminophen 1 tab PO Q4-6H PRN #40 tab 07/21/18 Allergies Allergy/AdvReac Type Severity Reaction Status Date / Time pregabalin [From LYRICA] Allergy Intermediate Rash Verified 08/01/18 07:50 Review of Systems Review of Systems ROS Unobtainable: All systems reviewed & are unremarkable except as noted in HPI and below Constitutional Denies chills, Denies fever(s), Denies lethargy and Denies weakness ENT Ears, Nose, Mouth, and Throat: Denies neck pain Cardiovascular Denies chest pain, Denies dyspnea and Denies dyspnea on exertion Respiratory Denies dyspnea and Denies dyspnea on exertion Gastrointestinal Gastrointestinal: Denies abdominal pain, Denies change in bowel habits, Denies fecal incontinence, Denies diarrhea, Denies nausea and Denies vomiting Genitourinary Denies hematuria, Denies flank pain, Denies urinary incontinence and Denies urin bismark urgency Musculoskeletal Reports as per HPI, Reports abnormal gait, Reports back pain, Reports arthralgias (Right hip), Denies joint swelling, Reports limited range of motion, Denies muscle weakness, Denies neck pain, Denies numbness, Reports radiating pain into limb (Right leg), Reports stiffness, Denies tingling and Denies other (Saddle anesthesia) Integumentary/Breasts Reports other (Healing incision) Neurologic Reports abnormal gait, Denies numbness, Denies sensory deficit, Denies tingling and Denies weakness FORMERLY [facility], [facility]–1983 Medical History Chronic UTI (Acute) Easy bruisability (Acute) Fusion of sacral region of spine (Acute) Hiatal hernia (Acute) Hyperlipidemia (Acute) Sciatic nerve pain (Acute) Cardiac arrhythmia (Chronic ~2003) Carpal tunnel syndrome (Chronic ~1994) Chronic back pain (Chronic ~2007) Depression (Chronic ~1992) Fibroids (Chronic ~1997) HSV (herpes simplex virus) infection (Chronic ~1979) Hypertension (Chronic ~2003) Shoulder pain (Chronic ~2013) Chickenpox (Resolved ~1959) Colon polyps (Resolved ~1999) History of fracture (Resolved) Measles (Resolved ~1959) Melanoma of ear (Resolved ~2007) Mumps (Resolved ~1958) Surgical History Hx of tonsillectomy (Acute) S/P partial hysterectomy (Acute) H/O prior ablation treatment (Resolved ~1997) Melanoma of ear (Resolved ~2007) Status post ORIF of fracture of ankle (Resolved ~1975) Anesthesia complication (Inactive) Status post arthroscopy (~2013) Status post delivery (~1987) Status post colonoscopy Family History Brother Age: 63 Heart disease Hypertension Grandfather Heart disease Colorectal cancer Grandmother Stroke Mother Age: 84 Hypertension Grandfather Heart disease Grandmother Diabetes mellitus Sister Age: 58 Mental health problem Depression Father Parkinson's disease Pneumonia Social History household members: family and none Smoking Status: Never smoker alcohol intake: current Family History Brother Age: 63 Heart disease Hypertension Grandfather Heart disease Colorectal cancer Grandmother Stroke Mother Age: 84 Hypertension Grandfather Heart disease Grandmother Diabetes mellitus Sister Age: 58 Mental health problem Depression Father Parkinson's disease Pneumonia Social History household members: family and none Smoking Status: Never smoker alcohol intake: current Exam Narrative Exam Narrative: GENERAL: Alert and oriented x three, well-nourished, well- appearing female in moderate distress. HEENT: Head normocephalic, atraumatic, EOMI, pupils reactive, face symmetric, moist mucous membranes NECK: Supple, full range of motion CARDIOVASCULAR: Regular rate and rhythm without murmurs, rubs or gallops. RESPIRATORY: Breath sounds equal bilaterally, no wheezes rales or rhonchi. ABDOMEN: Soft, nontender. Normoactive bowel sounds all 4 quadrants. No guarding or rebound, rigidity, no mass : No CVA tenderness BACK: No cervical, thoracic or lumbar vertebral point tenderness. Patient has decreased range of motion of the right hip. Patient's gait is antalgic, patient is standing using a walker. She prefers not to weight bear on her right foot. Rectal exam is normal sphincter tone, no saddle anesthesia. Muscle strength is 5/5 in lower extremities, DTRs are 2/4 and lower extremities. Dorsalis pedis and tibialis pulses are 2+ and lower extremities. Sensation is intact in the lower extremities. EXTREMITIES: Normal range of motion, no clubbing or edema. Neurovascularly intact NEUROLOGICAL: Cranial nerves II through XII grossly intact. Moving all extremities SKIN: Warm, dry, no petechiae, no rashes or lesions. Initial Vital Signs Initial Vital Signs: Vital Signs Temperature 97.9 F 08/01/18 07:44 Pulse Rate 105 H 08/01/18 07:44 Respiratory Rate 20 08/01/18 07:44 Blood Pressure 164/114 H 08/01/18 07:44 Pulse Oximetry 96 08/01/18 07:44 Course Orders Ordered: ED Orders 08/01/18 10:35 Basic Metabolic Panel Stat Complete Blood Count AUTO DIFF Stat Type and Screen Stat 08/01/18 16:02 Consult to Discharge Planning Routine Consult to Physical Therapy Evaluate & Treat Consult to Respiratory Therapy Evaluate & Treat 08/02/18 06:00 Hemoglobin and Hematocrit Routine Hydrocodone Bitart/Acetaminophen (Hamilton 5/325) 1 tab PO Q4HR PRN PRN Reason: Pain, Moderate (4-6) Alprazolam (Xanax) 1 mg PO BEDTIME PRN PRN Reason: Sleep Atorvastatin Calcium (Lipitor) 10 mg PO 0900 [facility] Cyclobenzaprine HCl (Flexeril) 10 mg PO TID PRN PRN Reason: muscle spasm Enoxaparin Sodium (Lovenox) 40 mg SUBCUT DAILY [facility] Escitalopram Oxalate (Lexapro) 20 mg PO DAILY [facility] Estradiol (Estrace) 1 gm VAG SuWe@2100 [facility] Gabapentin (Neurontin) 600 mg PO TID [facility] Last Admin: 08/01/18 17:32 Dose: 600 mg Hydroxyzine Pamoate (Vistaril) 25 mg PO Q6HR PRN PRN Reason: Spasms Last Admin: 08/01/18 16:34 Dose: 25 mg Cefazolin Sodium/Dextrose (Ancef) 2 gm in 100 mls @ 200 mls/hr IV Q8H [facility] Stop: 08/02/18 05:59 Lactated Ringer's (Lactated Ringers) 1,000 mls @ 125 mls/hr IV CONT [facility] Last Admin: 08/01/18 16:35 Dose: 125 mls/hr Ibuprofen (Advil) 200 mg PO Q4H PRN PRN Reason: pain Lisinopril (Zestril) 10 mg PO DAILY [facility] Ondansetron HCl (Zofran Odt) 4 mg PO Q4HR PRN PRN Reason: Nausea Ondansetron HCl (Zofran) 4 mg IV Q4HR PRN PRN Reason: Nausea And Vomiting Oxycodone HCl (Percolone) 5 mg PO Q3HR PRN PRN Reason: Pain, Moderate (4-6) Pantoprazole Sodium (Protonix) 20 mg PO 0600 [facility] Discontinued Medications Acetaminophen (Tylenol) 650 mg PO Q6HR PRN PRN Reason: As Needed for Fever/Mild Pain Hydrocodone Bitart/Acetaminophen (Hamilton 5/325) 1 tab PO Q30MIN PRN PRN Reason: Mild or moderate pain Benzocaine (Cepacol Lozenge) 1 each PO PRN PRN PRN Reason: Sore Throat Bupivacaine HCl/Epinephrine Bitart (Sensorcaine 0.5% W/ Epi (Pf)) 30 ml INJ NOW ONE Stop: 08/01/18 14:39 Last Admin: 08/01/18 14:38 Dose: 30 ml Fentanyl (Sublimaze) 50 mcg IV Q5MIN PRN PRN Reason: Pain, Moderate (4-6) Fentanyl (Sublimaze) 50 mcg IV Q5MIN PRN PRN Reason: Pain, Moderate (4-6) Hydromorphone HCl (Dilaudid) 1 mg IM NOW ONE Stop: 08/01/18 08:35 Last Admin: 08/01/18 08:40 Dose: 1 mg Hydromorphone HCl (Dilaudid) 1 mg IV Q4HR PRN PRN Reason: Pain, Mild (1-3) Hydromorphone HCl (Dilaudid) 0.5 mg IV Q5MIN PRN PRN Reason: Pain, Moderate (4-6) Hydromorphone HCl (Dilaudid) 0.5 mg IV Q5MIN PRN PRN Reason: Pain, Moderate (4-6) Hydroxyzine HCl (Vistaril) 25 mg IM NOW PRN PRN Reason: Pain, Mild (1-3) Sodium Chloride (Normal Saline 0.9%) 1,000 mls @ 125 mls/hr IV CONT [facility] Last Infusion: 08/01/18 10:49 Dose: 125 mls/hr Admin: 08/01/18 10:45 Dose: 125 mls/hr Lactated Ringer's (Lactated Ringers) 1,000 mls @ 42 mls/hr IV CONT [facility] Last Infusion: 08/01/18 15:53 Dose: 0 mls/hr Admin: 08/01/18 14:14 Dose: 42 mls/hr Infusion: 08/01/18 14:14 Dose: 42 mls/hr Admin: 08/01/18 11:33 Dose: 42 mls/hr Lactated Ringer's (Lactated Ringers) 1,000 mls @ 42 mls/hr IV CONT NANDA Lactated Ringer's (Lactated Ringers) 1,000 mls @ 42 mls/hr IV CONT [facility] Cefazolin Sodium/Dextrose (Ancef) 2 gm in 100 mls @ 200 mls/hr IV NOW ONE Stop: 08/01/18 14:39 Last Infusion: 08/01/18 13:40 Dose: 0 mls/hr Admin: 08/01/18 13:22 Dose: 200 mls/hr Ketorolac Tromethamine (Toradol) 30 mg IM NOW ONE Stop: 08/01/18 07:54 Last Admin: 08/01/18 07:59 Dose: 30 mg Meperidine HCl (Demerol) 25 mg IV Q5MIN PRN PRN Reason: Pain or shivering Meperidine HCl (Demerol) 25 mg IV Q5MIN PRN PRN Reason: Pain or shivering Metoclopramide HCl (Reglan) 10 mg IV NOW PRN PRN Reason: Nausea And Vomiting Ondansetron HCl (Zofran) 4 mg IV Q4HR PRN PRN Reason: Nausea And Vomiting Ondansetron HCl (Zofran) 4 mg IV NOW PRN PRN Reason: Nausea And Vomiting Ondansetron HCl (Zofran) 4 mg IV NOW PRN PRN Reason: Nausea And Vomiting Oxycodone/Acetaminophen (Percocet 5/325) 1 tab PO Q30MIN PRN PRN Reason: Mild or moderate pain Vital Signs - 8 hr 08/01/18 10:50 08/01/18 11:26 08/01/18 15:07 Temperature 98.1 F 97.6 F Pulse Rate 81 16 L 91 H Respiratory Rate 20 96 H 13 Blood Pressure 149/87 H 174/90 H 94/64 Pulse Oximetry 96 92 08/01/18 15:12 08/01/18 15:17 08/01/18 15:32 Temperature Pulse Rate 90 90 90 Respiratory Rate 13 12 13 Blood Pressure 129/77 133/85 156/74 H Pulse Oximetry 99 98 99 08/01/18 15:42 08/01/18 16:00 08/01/18 16:30 Temperature 97.4 F L 97.9 F Pulse Rate 88 86 89 Respiratory Rate 11 L 16 16 Blood Pressure 157/89 H 125/85 129/64 Pulse Oximetry 92 97 97 08/01/18 17:00 Temperature 97.9 F Pulse Rate 90 Respiratory Rate 16 Blood Pressure 114/65 Pulse Oximetry 93 MDM - Extremity (Nontraumatic) Lab Data Result diagrams: 08/01/18 10:35 08/01/18 10:35 Lab Results 08/01/18 08/01/18 08/01/18 Range/Units 10:35 10:35 10:35 WBC 5.7 (4.5-11.0) X10^3/uL RBC 4.63 (4.0-5.2) X10^6/uL Hgb 13.4 (12.0-16.0) g/dL Hct 39.5 (36-46) % MCV 85.3 (80-100) fL MCH 29.1 (26-34) PG MCHC 34.1 (30-36) % RDW 14.1 (11.6-14.8) % Plt Count 277 (150-400) X10^3/uL Neut % (Auto) 69.6 (50-75) % Lymph % (Auto) 20.6 L (25-40) % [place] % (Auto) 6.2 (3-14) % Eos % (Auto) 2.4 (2-4) % Baso % (Auto) 1.2 (0-2) % Neut # (Auto) 4000 (2421-3882) /uL Lymph # (Auto) 1200 (9216-9976) /uL [place] # (Auto) 400 (0-900) /uL Eos # (Auto) 100 (0-450) /uL Baso # (Auto) 100 (0-100) /uL Sodium 138 (137-145) mmol/L Potassium 4.2 (3.4-5.1) mmol/L Chloride 102 (98-107) mmol/L Carbon Dioxide 29 (22-32) mmol/L BUN 17 (7-17) mg/dL Creatinine 0.50 L (0.52-1.04) mg/dL Estimated GFR > 60.0 (>60) mL/min BUN/Creatinine Ratio 34.0 H (6-22) Glucose 90 (80-110) mg/dL Calcium 9.3 (8.4-10.2) mg/dL Blood Type A Negative Antibody Screen Negative Point of Care Testing Test Results Not applicable Imaging Data hip xray right: Radiologist's impression: [address] [address] XRay Report Signed Patient: Ana María Brambila [facility]#: [id number] : [id number] Age/Sex: 67 / FDate of Service: 08/01/18 Loc: ED Accession Number: [id number] Procedure: XR hip w pel if done RT 2V Ordering Provider: Mela Lynch D.O. PROCEDURE: XR HIP W PEL IF DONE RT 2V INDICATIONS: right hip pain, s/p replacement 07/20. radiates down leg. TECHNIQUE: AP pelvis with lateral view(s) of the right hip(s). COMPARISON: [facility], , XR HIP W PEL IF DONE RT 2V, 07/20/2018, 17:56. [facility], , XR HIP W PEL IF DONE RT 2V, 07/20/2018, 12:33. FINDINGS: Bones: No previously undiagnosed fractures or dislocations. Pelvic ring appears intact. No suspicious bony lesions. 3 cannulated fixation screws cross superiorly through the femoral neck and into the femoral head area, and the most lateral of the screws appears to penetrate through the articular cartilage to a slight degree. 2 additional screws are present crossing the right sacroiliac joint, previously present. Soft tissues: The visualized bowel gas pattern is normal. No suspicious soft tissue calcifications. IMPRESSION: 3 cannulated fixation screws cross a femoral neck fracture on the right, the more lateral of which appears to have its tip slightly protruding beyond the subarticular cortex on both the frontal and lateral projections. Prior sacroiliac joint screw fixation on the right. Dictated by: Chico Pete M.D. on 08/01/2018 at 8:53 Approved by: Chico Pete M.D. on 08/01/2018 at 8:55 lumbar spine xray: Radiologist's impression: [place] [address] XRay Report Signed Patient: Ana María Brambila [facility]#: [id number] : [id number]:[id number] Age/Sex: 67 / FDate of Service: 08/01/18 Loc: ED Accession Number: [id number] Procedure: XR lumbar spine 2-3V Ordering Provider: Mela Lynch D.O. PROCEDURE: XR LUMBAR SPINE 2-3V INDICATIONS: low back/right hip pain radiates down leg. TECHNIQUE: 3 views of the lumbar spine were acquired. COMPARISON: [facility], , L-SPINE 2-3 VIEWS, 08/17/2014, 14:07. [facility], CR, L-SPINE 2-3 VIEWS, 11/15/2007, 10:02. FINDINGS: Bones: 5 [id number] vertebrae are present. There is convex leftward bony alignment as was previously the case and at L2-3. No acute vertebral body compression fracture, and the prior L1 and L3 compression fractures are again noted likely without warp changer time considering slight differences in angulation. No suspicious bony lesions. Soft tissues: Overlying bowel gas pattern is normal. No suspicious soft tissue calcifications. IMPRESSION: Convex leftward scoliosis is chronic, moderately severe degenerative disc disease over the middle and lower thirds of the lumbosacral spine also appears stable over time. Prior compression fractures are moderate at L1 and mild at L3 but not appreciably changed over time. Overall, therefore, chronic degenerative change and spinal/foraminal stenosis appears present. Dictated by: Chico Pete M.D. on 08/01/2018 at 9:07 Approved by: Chico Pete M.D. on 08/01/2018 at 9:09 [facility] Narrative Medical decision making narrative: Do not have access to patient's x-rays but there does appear to be some loosening of the screw which is consistent with the history that she gave. Patient does not have any recent fall or trauma that likely re-injured this site. Her pain seems to radiate down her leg which makes me more suspicious that it is more from her back she does have multiple back issues. Dr. Colon was not available, I spoke with Dr. Pedro. He reviewed images, he states that it appears to be worsening from yesterday's films and that she likely needs hemiarthroplasty. He will contact with Dr. Colon but does ask patient be admitted to Medicine. Spoke with Dr. Keith who feels patient beat appropriate orthopedic admission. Based on patient's history she was admitted initially under Dr. Colon and when I spoke with Dr. Pedro he accepts for Dr. Colon. Holding orders were placed and plan for OR later today. Patient updated where plan. 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 Colon, call for an appointment today. Take medication as prescribed take 1 tablet every 6 hours as needed for pain. Return to the emergency department for fevers greater 100.4 F, new weakness, new numbness, loss of bowel or bladder control, inability to lift or move your leg, chest pain, shortness of breath, black or bloody stools or other new or concerning symptoms. Referrals: Carlos Salazar MD [Primary Care Provider] - Alin Colon MD [Physician] - Admit Date/Time: 08/01/18 10:47 Admit Provider: Alin Colon
[2018-08-01] MEDS: SODIUM CHLORIDE 0.9% 1,000 ML 125 ML IV (10:45)
[2018-08-01 10:46] LABS: Add Manual Diff / Slide Review NO; Basophils Absolute Auto 100 /uL (0-100); Basophils Percent Auto 1.2 % (0-2); Eosinophils Absolute Auto 100 /uL (0-450); Eosinophils Percent Auto 2.4 % (2-4); Hematocrit 39.5 % (36-46); Hemoglobin 13.4 g/dL (12.0-16.0); Lymphocytes Absolute Auto 1200 /uL (1100-4500); Lymphocytes Percent Auto 20.6 % (25-40); Mean Corpuscular HGB Conc 34.1 % (30-36); Mean Corpuscular Hemoglobin 29.1 PG (26-34); Mean Corpuscular Volume 85.3 fL (80-100); Monocytes Absolute Auto 400 /uL (0-900); Monocytes Percent Auto 6.2 % (3-14); Neutrophils Absolute Auto 4000 /uL (1500-7000); Neutrophils Percent Auto 69.6 % (50-75); Platelet Count 277 X10^3/uL (150-400); Red Blood Cell Count 4.63 X10^6/uL (4.0-5.2); Red Cell Distribution Width 14.1 % (11.6-14.8); White Blood Cell Count 5.7 X10^3/uL (4.5-11.0)
[2018-08-01 10:59] LABS: Blood Urea Nitrogen 17 mg/dL (7-17); Calcium 9.3 mg/dL (8.4-10.2); Carbon Dioxide 29 mmol/L (22-32); Chloride 102 mmol/L (98-107); Estimated Glomerular Filt Rate > 60.0 mL/min (>60); Glucose 90 mg/dL (80-110); HEMOLYSIS < 15 (0-50); Potassium 4.2 mmol/L (3.4-5.1); Sodium 138 mmol/L (137-145)
[2018-08-01] MEDS: LACTATED RINGERS 1,000 ML 42 ML IV ×2 (11:33→14:14)
--- NOTE | 2018-08-01 12:28 | PM.HP.1 ---
History of Present Illness Date Patient Seen: 08/01/18 Time Patient Seen: 12:00 Chief complaint: back/leg pain Narrative: Right hip pain 2 weeks status post fixation of femoral neck fracture. Two weeks ago patient sustained a right subcapital femoral neck fracture due to a ground level fall. Mildly displaced subcapital femoral neck fracture treated with cannulated screw fixation. Patient had uneventful recovery until last night she began experiencing pain and since that time has been unable to bear weight without significant discomfort. X-rays demonstrate failure of fixation and displacement of the femoral head fragment. Patient History Medical History Chronic UTI (Acute) Easy bruisability (Acute) Fusion of sacral region of spine (Acute) Hiatal hernia (Acute) Hyperlipidemia (Acute) Sciatic nerve pain (Acute) Cardiac arrhythmia (Chronic ~2003) Carpal tunnel syndrome (Chronic ~1994) Chronic back pain (Chronic ~2007) Depression (Chronic ~1992) Fibroids (Chronic ~1997) HSV (herpes simplex virus) infection (Chronic ~1979) Hypertension (Chronic ~2003) Shoulder pain (Chronic ~2013) Chickenpox (Resolved ~1959) Colon polyps (Resolved ~1999) History of fracture (Resolved) Measles (Resolved ~1959) Melanoma of ear (Resolved ~2007) Mumps (Resolved ~1958) Surgical History Hx of tonsillectomy (Acute) S/P partial hysterectomy (Acute) H/O prior ablation treatment (Resolved ~1997) Melanoma of ear (Resolved ~2007) Status post ORIF of fracture of ankle (Resolved ~1975) Anesthesia complication (Inactive) Status post arthroscopy (~2013) Status post delivery (~1987) Status post colonoscopy Family History Brother Age: 63 Heart disease Hypertension Grandfather Heart disease Colorectal cancer Grandmother Stroke Mother Age: 84 Hypertension Grandfather Heart disease Grandmother Diabetes mellitus Sister Age: 58 Mental health problem Depression Father Parkinson's disease Pneumonia Social History household members: family and none Smoking Status: Never smoker alcohol intake: current Family & Social History Family History Brother Age: 63 Heart disease Hypertension Grandfather Heart disease Colorectal cancer Grandmother Stroke Mother Age: 84 Hypertension Grandfather Heart disease Grandmother Diabetes mellitus Sister Age: 58 Mental health problem Depression Father Parkinson's disease Pneumonia Social History: household members family,none Prior Living Arrangements House Safety & Behavioral: Feels Safe in Current Yes Environment Been Physically Hurt or No Threatened By a Person Tobacco & Substance use: Smoking Status Never smoker alcohol intake current alcohol intake frequency 0-2 drinks per day Substance Use Type does not use Meds Home Medications Medication Instructions Recorded Confirmed Type gabapentin [Neurontin] 600 mg PO TID 12/18/17 08/01/18 History atorvastatin 10 mg tablet 10 mg PO QAM #90 tab 01/03/18 08/01/18 Rx cranberry 500 mg PO DAILY 07/20/18 08/01/18 History estradiol [Estrace] 1 dose VAGINAL SEE INSTRUCTIONS 07/20/18 08/01/18 History omeprazole 20 mg PO DAILY 07/20/18 08/01/18 History cyclobenzaprine 10 mg PO TID PRN #30 tab 07/21/18 08/01/18 Rx hydrocodone-acetaminophen 1 tab PO Q4-6H PRN #40 tab 07/21/18 08/01/18 Rx alprazolam 0.5 - 1 mg PO BEDTIME PRN 08/01/18 08/01/18 History escitalopram oxalate [Lexapro] 20 mg PO DAILY 08/01/18 08/01/18 History ibuprofen 1 dose PO PRN PRN 08/01/18 08/01/18 History lisinopril [Zestril] 10 mg PO DAILY 08/01/18 08/01/18 History Allergies Allergy/AdvReac Type Severity Reaction Status Date / Time pregabalin [From LYRICA] Allergy Intermediate Rash Verified 08/01/18 07:50 Exam Vital Signs (past 8 hours): - 08/01/18 07:44 08/01/18 09:00 08/01/18 10:50 Temperature 97.9 F Pulse Rate 105 H 87 81 Respiratory Rate 20 20 Blood Pressure 164/114 H 149/87 H Pulse Oximetry 96 95 96 08/01/18 11:26 Temperature 98.1 F Pulse Rate 16 L Respiratory Rate 96 H Blood Pressure 174/90 H Pulse Oximetry Oxygen Delivery Method Room Air Const General: healthy appearing Orientation: alert, awake and oriented x3 HENMT Head: normal to inspection, normocephalic and atraumatic Chest Chest: normal inspection of the chest Resp Auscultation: clear to auscultation bilaterally Cardio Rate: regular rate Rhythm: regular rhythm GI Inspection: normal to inspection Palpation: soft Auscultation: normal bowel sounds Neuro Cognition: normal cognition Motor: muscle tone normal throughout Extrem General: normal to inspection Right lower extremity: normal capillary refill Left lower extremity: normal capillary refill Objective Labs Result Diagrams: 08/01/18 10:35 08/01/18 10:35 Labs: Laboratory Results - last 24 hr 08/01/18 08/01/18 08/01/18 10:35 10:35 10:35 WBC 5.7 RBC 4.63 Hgb 13.4 Hct 39.5 MCV 85.3 MCH 29.1 MCHC 34.1 RDW 14.1 Plt Count 277 Neut % (Auto) 69.6 Lymph % (Auto) 20.6 L [place] % (Auto) 6.2 Eos % (Auto) 2.4 Baso % (Auto) 1.2 Neut # (Auto) 4000 Lymph # (Auto) 1200 [place] # (Auto) 400 Eos # (Auto) 100 Baso # (Auto) 100 Sodium 138 Potassium 4.2 Chloride 102 Carbon Dioxide 29 BUN 17 Creatinine 0.50 L Estimated GFR > 60.0 BUN/Creatinine Ratio 34.0 H Glucose 90 Calcium 9.3 Blood Type A Negative Antibody Screen Negative Assessment & Plan Assessment & Plan narrative: 67-year-old female 2 weeks status post percutaneous cannulated screw fixation of femoral neck fracture now with the displacement of the femoral head and failure fixation. Discussed the nature of condition, differential diagnosis, prognosis, and options including rationale for endoprosthetic replacement rather than total hip arthroplasty. Plan to proceed with screw removal and endoprosthetic hip replacement and informed consent obtained.
--- NOTE | 2018-08-01 12:36 | PM.PREOP ---
Pre-operative Note Interval Note History & Physical reviewed/Exam performed by Physician: Yes Changes to H&P: No
[2018-08-01] MEDS: CEFAZOLIN 2 GM/100 ML FROZ.PIGGY IV ×2 (13:22→21:18)
--- NOTE | 2018-08-01 13:59 | SUR.OPER ---
Lateral on padded OR bed. Gel axillary roll. Arms secured on padded armboard with pillow supporting top arm. Padded hip positioner braces x4 - anterior and posterior chest and pelvis. Additional gel pad used anterior pelvis. Gel pad under bottom leg from knee to foot and secured with tape over sheet.
[2018-08-01] MEDS: BUPIVACAINE 0.5% W/ EPI (PF) VIAL 30 ML INJ (14:38)
--- NOTE | 2018-08-01 15:03 | PM.OP.1 ---
Operative Date/Time/Diagnoses Date of procedure: 08/01/18 Time of procedure: 15:04 Pre-op diagnosis: Right femoral neck fracture status post cannulated screw fixation with failure of fixation Post-op diagnosis: same Procedure & Clinicians Procedure: 1. Right hip hardware removal, removal of cannulated screws (CPT code 27841 with general assistant) 2. Right hip endoprosthetic replacement for femoral neck fracture (CPT code 43255 with general assistant) Same procedure as scheduled: Yes Indications: 67-year-old female 2 weeks status post percutaneous cannulated screw fixation of a mildly displaced and impacted femoral neck fracture. Patient did very well for the 1st 13 days postoperatively but during the course of the night last night began developing deep aching pain in the hip and presented to the emergency room today and was noted to have collapse of the fracture and failure of the fixation. We have discussed nature of condition, diagnosis, potential treatment options, risks, and benefits. Patient gives informed consent to proceed with hardware removal and endoprosthetic hip replacement. Surgeon: Alin Colon Unemployment Insurance Director: Josselin Alvarado Anesthesia Type: General Operative Notes Closure Type: primary Specimen(s): none sent Prosthetic devices, grafts, tissues, transplants, or devices: Femoral component: [employer] stem size 11 with standard offset Femoral head: 47 mm + 0 cobalt chrome Estimated Blood Loss (mL): 100 Blood products transfused: none Procedure in detail: After satisfactory induction of anesthetic, and administration of IV antibiotics, the patient was positioned in the lateral decubitus position with all bony prominences well padded and pelvic position secured using a hip grocery store bagger positioning device. Right hip and lower extremity prepped and draped in the usual sterile fashion, 1st dose of intravenous tranexamic acid was administered, then a longitudinal incision was created centered over the greater trochanter and carried sharply through the skin and subcutaneous tissues down to the fascia bella which was divided longitudinally and retracted with a Charnley retractor. Distally just under the proximal extent of the vastus lateralis the 3 cannulated screws were localized with palpation and then small muscular incisions created and screws sequentially removed. External rotators visualize, cut, tagged, and retracted posteriorly, then the capsule was cut in a T-type fashion with the corners tagged and retracted. Hip was dislocated, femoral head removed then femoral neck cut made according to preoperative templating. Femoral head was measured at 48 mm and trial femoral head sizers were then placed in the socket with the best fit being 47 mm. Soft tissue then removed off the lateral femoral neck in the lateral neck was entered using a box osteotome. T-handled reamers placed down the canal followed by sequential broaching to 11 with the final broach left in place for trial reduction which demonstrated excellent leg length, range of motion, and stability characteristics with a 47 mm +0 trial ball. The trial and broach were removed, and a permanent size 11 [employer] stem was selected and inserted with excellent position and fixation achieved. Another trial reduction yielded the above characteristics so the trial ball was exchanged for a permanent 47 mm +0 cobalt chrome unipolar ball. The hip was irrigated and reduced and excellent leg length range of motion and stability characteristics were achieved and maintained. The hip was copiously irrigated, and the capsule repaired with #2 Ethibond, and the piriformis was repaired back to the greater trochanter with the same. Fascia bella closed with interrupted #1 Ethibond sutures, and the subcutaneous tissues were closed in 2 layers of 0 Vicryl and 2 0 Vicryl. Skin was closed with ad and sterile dressings applied. Second dose of tranexamic acid was administered intravenously, and the anesthetic was terminated. Complications: none Condition: stable Disposition: PACU Plan for aftercare: Patient will be admitted to the acute care [facility], and anticipate discharge on postop day 1-2 with follow-up in office in 10-14 days. Outpatient physical therapy will be arranged and patient will continue to observe posterior hip precautions. Patient will continue use of postoperative Lovenox for 10 days postop.
--- NOTE | 2018-08-01 15:14 | P.OP_ITS ---
Operative Date/Time/Diagnoses Date of procedure: 08/01/18 Time of procedure: 15:04 Pre-op diagnosis: Right femoral neck fracture status post cannulated screw fixation with failure of fixation Post-op diagnosis: same Procedure & Clinicians Procedure: 1. Right hip hardware removal, removal of cannulated screws (CPT code 89277 with academic affairs assistant) 2. Right hip endoprosthetic replacement for femoral neck fracture (CPT code 93288 with academic affairs assistant) Same procedure as scheduled: Yes Indications: 67-year-old female 2 weeks status post percutaneous cannulated screw fixation of a mildly displaced and impacted femoral neck fracture. Patient did very well for the 1st 13 days postoperatively but during the course of the night last night began developing deep aching pain in the hip and presented to the emergency room today and was noted to have collapse of the fracture and failure of the fixation. We have discussed nature of condition, diagnosis, potential treatment options, risks, and benefits. Patient gives informed consent to proceed with hardware removal and endoprosthetic hip replacement. Surgeon: Alin Colon Utilization Management Rn: Josselin Alvarado Anesthesia Type: General Operative Notes Closure Type: primary Specimen(s): none sent Prosthetic devices, grafts, tissues, transplants, or devices: Femoral component: [employer] stem size 11 with standard offset Femoral head: 47 mm + 0 cobalt chrome Estimated Blood Loss (mL): 100 Blood products transfused: none Procedure in detail: After satisfactory induction of anesthetic, and administration of IV antibiotics, the patient was positioned in the lateral decubitus position with all bony prominences well padded and pelvic position secured using a hip acetylene cylinder packing mixer positioning device. Right hip and lower extremity prepped and draped in the usual sterile fashion, 1st dose of intravenous tranexamic acid was administered, then a longitudinal incision was created centered over the greater trochanter and carried sharply through the skin and subcutaneous tissues down to the fascia bella which was divided longitudinally and retracted with a Charnley retractor. Distally just under the proximal extent of the vastus lateralis the 3 cannulated screws were localized with palpation and then small muscular incisions created and screws sequentially removed. External rotators visualize, cut, tagged, and retracted posteriorly, then the capsule was cut in a T-type fashion with the corners tagged and retracted. Hip was dislocated, femoral head removed then femoral neck cut made according to preoperative templating. Femoral head was measured at 48 mm and trial femoral head sizers were then placed in the socket with the best fit being 47 mm. Soft tissue then removed off the lateral femoral neck in the lateral neck was entered using a box osteotome. T-handled reamers placed down the canal foll owed by sequential broaching to 11 with the final broach left in place for trial reduction which demonstrated excellent leg length, range of motion, and stability characteristics with a 47 mm +0 trial ball. The trial and broach were removed, and a permanent size 11 [employer] stem was selected and inserted with excellent position and fixation achieved. Another trial reduction yielded the above characteristics so the trial ball was exchanged for a permanent 47 mm +0 cobalt chrome unipolar ball. The hip was irrigated and reduced and excellent leg length range of motion and stability characteristics were achieved and maintained. The hip was copiously irrigated, and the capsule repaired with #2 Ethibond, and the piriformis was repaired back to the greater trochanter with the same. Fascia bella closed with interrupted #1 Ethibond sutures, and the subcutaneous tissues were closed in 2 layers of 0 Vicryl and 2 0 Vicryl. Skin was closed with ad and sterile dressings marco antonio lied. Second dose of tranexamic acid was administered intravenously, and the anesthetic was terminated. Complications: none Condition: stable Disposition: PACU Plan for aftercare: Patient will be admitted to the acute care neg[facility], and anticipate discharge on postop day 1-2 with follow-up in office in 10-14 days. Outpatient physical therapy will be arranged and patient will continue to observe posterior hip precautions. Patient will continue use of postoperative Lovenox for 10 days postop.
[2018-08-01] MEDS: hydrOXYzine pamoate 25 MG CAPSULE PO (16:34)
[2018-08-01] MEDS: LACTATED RINGERS 1,000 ML 125 ML IV (16:35)
--- NOTE | 2018-08-01 17:00 | PC.NURSE ---
Addendum entered by Laura Delgadillo R.N. 08/01/18 22:44: Pt states able to doze. Denies any increase in pain. Encouraged to call if needing/desiring further pain management. Verbalizes understanding. Addendum entered by Laura Delgadillo R.N. 08/01/18 21:28: Pt reports pain to right hip increasing. Administered flexeril, ibuprofen and gabapentin. Will monitor for relief. Scd's BL in place. Palpable pedal pulses BL. Equally warm and pink extremities. Addendum entered by Laura Delgadillo R.N. 08/01/18 20:23: Up to commode with staff assistance. Mobilizes well observing hip precautions. One vicodin to treat pain 03/30. When pt up, noted dependent aspect of right hip bulky dressing with large amount shadowy drainage contained within dressing. Ice to right hip upon return to bed. BL calf scd's in place. Voided without difficulty. Addendum entered by Laura Delgadillo R.N. 08/01/18 18:52: Pt now awake and taking soup and sandwich. Denies need for analgesia. Actively ankle waving. Feet BL are now equally warm to touch and pink in color. Original Note: 1600 Pt to room 203 from PACU wide awake and conversant. R.T. in to instruct pt in I.S. use and pt able to return demonstration. Denies nausea. Admits to burning sensation to right hip. Administered vistaril. Right foot is cool to touch; cooler than left. 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 Palpable pedal pulse to right foot. Warm blanket placed and will monitor. Ice to right hip. Bulky dressing to right hip dry and intact. Encouraged to call for needs.
[2018-08-01] MEDS: GABAPENTIN 600 MG TABLET PO ×2 (17:32→21:18)
[2018-08-01] MEDS: HYDROCODONE/ACET 5/325 TABLET 1 TAB PO (20:07)
[2018-08-01] MEDS: SODIUM CHLORIDE 0.9% FLUSH 10 ML IV (20:26)
[2018-08-01] MEDS: CYCLOBENZAPRINE 10 MG TABLET PO (21:21)
[2018-08-01] MEDS: IBUPROFEN 200 MG TABLET PO (21:22)
[2018-08-02] MEDS: LACTATED RINGERS 1,000 ML 125 ML IV (01:04)
[2018-08-02] MEDS: CEFAZOLIN 2 GM/100 ML FROZ.PIGGY IV (05:21)
[2018-08-02] MEDS: PANTOPRAZOLE 20 MG TABLET PO (05:21)
[2018-08-02 05:49] VITALS: BP 121/66; PULSE 88; RESP 16; TEMP 36.2; O2SAT 99
[2018-08-02 06:05] LABS: Hematocrit 31.9 % (36-46); Hemoglobin 10.7 g/dL (12.0-16.0)
[2018-08-02 07:28] VITALS: BP 113/60; PULSE 84; RESP 16; TEMP 36.8; O2SAT 96
[2018-08-02] MEDS: ENOXAPARIN 40 MG/0.4 ML SYRINGE SUBCUT (08:05)
[2018-08-02] MEDS: ATORVASTATIN 10 MG TABLET PO (08:05)
[2018-08-02] MEDS: GABAPENTIN 600 MG TABLET PO ×2 (08:06→13:36)
[2018-08-02] MEDS: ESCITALOPRAM 10 MG TABLET 20 MG PO (08:06)
[2018-08-02] MEDS: IBUPROFEN 200 MG TABLET PO (08:06)
[2018-08-02] MEDS: LISINOPRIL 10 MG TABLET PO (08:06)
[2018-08-02] MEDS: SODIUM CHLORIDE 0.9% FLUSH 10 ML IV (08:07)
--- NOTE | 2018-08-02 09:20 | PT.IIE ---
Surgery Performed Operation Date: 08/01/18 12:00 Actual Procedures p Hip Hemiarthroplasty(Right) - Alin Colon MD Surgical History (Last Reviewed 08/01/18 @ 12:30 by Alin Colon MD) Hx of tonsillectomy (Acute) S/P partial hysterectomy (Acute) H/O prior ablation treatment (Resolved ~1997) Melanoma of ear (Resolved ~2007) Status post ORIF of fracture of ankle (Resolved ~1975) Anesthesia complication (Inactive) Status post arthroscopy (~2013) Status post delivery (~1987) Status post colonoscopy Medical History (Last Reviewed 08/01/18 @ 12:30 by Alin Colon MD) Chronic UTI (Acute) Easy bruisability (Acute) Fusion of sacral region of spine (Acute) Hiatal hernia (Acute) Hyperlipidemia (Acute) Sciatic nerve pain (Acute) Cardiac arrhythmia (Chronic ~2003) Carpal tunnel syndrome (Chronic ~1994) Chronic back pain (Chronic ~2007) Depression (Chronic ~1992) Fibroids (Chronic ~1997) HSV (herpes simplex virus) infection (Chronic ~1979) Hypertension (Chronic ~2003) Shoulder pain (Chronic ~2013) Chickenpox (Resolved ~1959) Colon polyps (Resolved ~1999) History of fracture (Resolved) Measles (Resolved ~1959) Melanoma of ear (Resolved ~2007) Mumps (Resolved ~1958) Physical Therapy Inpatient Evaluation/Re-Eval M1 PT/OT-IP Prior Functional Status Start: 08/02/18 12:02 Freq: NEEDED Status: Active Protocol: Document 08/02/18 09:20 AB (Rec: 08/02/18 12:17 AB [id number]) Medical Review Prior Functional Status Medical History Reviewed Yes Communication able to make needs known Mobility and Gait pt stated that prior to first hip surgery ~ 2 weeks ago, she was independent with all mobilities and ambulation without AD; after first hip surgery, pt was modified independent with ambulation using FWW Social History Household Members none Living Arrangements House Number of Floors (Floors) Two Floors Number of Stairs To Enter/Railing? 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 Additional Social History Comment works for the [employer] [id number] PT-IP Current Condition Start: 08/02/18 12:02 Freq: NEEDED Status: Active Protocol: Document 08/02/18 09:20 AB (Rec: 08/02/18 12:17 AB [id number]) Physical Therapy Current Condition Current Condition Evaluation Date 08/02/18 Treatment Diagnosis s/p R endoprosthetic hip replacement; difficulty in walking Onset Date 08/01/18 Precautions Posterior Hip Precautions No Hip Flexion > 90 degrees No Hip Internal Rotation No Hip Adduction Weight Bearing Status Weight Bearing Status Weight Bear as Tolerated M3 PT-IP Subjective Start: 08/02/18 12:02 Freq: NEEDED Status: Active Protocol: Document 08/02/18 09:20 AB (Rec: 08/02/18 12:17 AB [id number]) Subjective Physical Therapy Visit Type Type Initial Evaluation Visit Start Time 09:20 Visit Stop Time 10:13 Total Visit Minutes 53 Number of TELEVISION SERVICE ENGINEER Visits 0 Physical Therapy Visit Comments Patient Comments pt agreeable to do PT Therapy Pain Assessment Pain When Pain Assessed At Rest Pain Present Pain Present Pain Reported Location Right Hip Intensity 2 Scale Used Numeric (1 - 10) Pain Management Techniques Apply Cold Re-positioning Timing of Activity with Medications M4 PT-IP Mobility and Gait Start: 08/02/18 12:02 Freq: NEEDED Status: Active Protocol: Document 08/02/18 09:20 AB (Rec: 08/02/18 12:17 AB [id number]) PT-Bed Mobility Assessment Supine to Sit Supine to Sit Standby Assistance Sit to Supine Sit to Supine Standby Assistance Scooting Scooting to Edge of Bed Standby Assistance Scooting Up and Down in Bed Standby Assistance PT-Transfer Assessment Sit to and From Stand Sit to and from Stand Standby Assistance Equipment Transfer Assistive Device Gait Belt Front Wheeled Walker Orthotic/Prosthetic Devices or Brace: No Transfers Transfer Destination Bed Transfer Technique pt ambulated using FWW Transfer Ability Level of Assist Standby Assistance Gait Assessment Gait Gait Assistance Required: Standby Assistance Distance (Feet) 50 Able to Maintain Weight Bearing Status Yes During Gait Assistive Devices Assistive Device Gait Belt Front Wheeled Walker Orthotic/Prosthetic Devices or Brace: No Gait Deviations General Gait Pattern Antalgic Factors Limiting Gait Function Factors Limiting Gait Function Decreased Activity Tolerance Decreased Strength Difficulty Following Directions Limited Range of Motion Pain Poor Balance Poor Safety Awareness Stair Climbing Assessment Evaluation Level of Assist On Stairs Contact Guard Assistance Devices Stair Climbing Assistive Devices Front Wheel Walker Technique/Endurance Stair Climbing Direction Ascend and Descend Stair Climbing Technique Step to Step Number of Steps Climbed 1 Query Text: Stair Climbing Set # Repetitions (reps) 2 PT-Balance Assessment Sitting Balance and Reactions Static Sitting Balance Ability Good Dynamic Sitting Balance Ability Good Standing Balance and Reactions Static Standing Balance Ability Fair Dynamic Standing Balance Ability Fair Device Used FWW M5 PT-IP Objective Assessments Start: 08/02/18 12:02 Freq: NEEDED Status: Active Protocol: Document 08/02/18 09:20 AB (Rec: 08/02/18 12:17 AB [id number]) Orientation Orientation/Cognition Level of Alertness Alert Orientation Name Age Birthday Month Date Year Day of Week Place Situation Language Function Ability No Deficits Noted Safety Awareness Understands Safety Issues Memory Description No Deficits Noted Gross Range of Motion Lower Extremity ROM Assessment Within Functional Limits Strength Lower Extremity Strength Assessment Right Impaired Hip 3+/5 Knee 4-/5 Coordination Assessment Gross Coordination Gross Coordination WNL Sensation Assessment Sensation Gross Sensation WNL Muscle Tone Muscle Tone WNL Yes M6 PT-IP Treatment Start: 08/02/18 12:02 Freq: NEEDED Status: Active Protocol: Document 08/02/18 09:20 AB (Rec: 08/02/18 12:17 AB [id number]) Physical Therapy Treatment Exercises Exercises Heel Slides Education Education Provided Precautions Weight Bearing Status Post-Op Packet Safety M7 PT-IP Assessment and Plan Start: 08/02/18 12:02 Freq: NEEDED Status: Active Protocol: Document 08/02/18 09:20 AB (Rec: 08/02/18 12:17 AB [id number]) PT Summary Assessment and Plan Potential Rehabilitation Potential Good Status of Condition at Evaluation Stable Summary Impairments Pain ROM Strength Balance Coordination Bed Mobility Transfers Gait Activity Tolerance Assessment Summary pt requiring SBA to CGA with mobility. pt will stay at her mom's house upon d/c and stated that her mom will be able to assist her. pt may go home when medically stable. Goals Bed Mobility Goal Independent Transfer Goal Independent Front Wheeled Walker Gait Goal Independent Front Wheel Walker Gait Distance 200 Other Goals up/down 1 step using FWW SBA Days to Meet Goals 3 Frequency of Treatment Frequency Of Treatment Twice a Day Treatment Plan Physical Therapy Treatment Plan Bed Mobility Training Transfer Training Gait Training Therapeutic Exercise Balance Retraining Post Op Education Discharge Planning Hot or Cold Pack Neuromuscular Re-ed Coordination Retraining Manual Therapy Recommendations To Nursing Amount of Assist Needed Standby Assistance Discharge Recommendations PT Discharge Recommendations Home with Assistance Outpatient PT
--- NOTE | 2018-08-02 09:21 | CM.DANOTE ---
Addendum entered by Beckie Lawrence LPN 08/02/18 14:36: Pt did well with PT and she did leave for her mother's home in [place] with her mother providing the transport as per her plan. Addendum entered by Beckie Lawrence LPN 08/02/18 10:21: Spoke now with SHAHIDA Reeves. He stated pt is doing fine and is going home today. He says OT eval is not indicated. He is aware that the ''caregiver that he refers to in his dc summary is this 67 year old patient's mother. Addendum entered by Beckie Lawrenec LPN 08/02/18 10:17: Discussed POC in Rounds per plan. SENIOR STORAGE ADMINISTRATOR Shea will be speaking with SHAHIDA Reeves today and will request OT orders. SHAHIDA Reeves has already put in DC orders pending clearance by PT. Original Note: Discharge Planning/Care Management DCP: assessment: case received, EMR reviewed. READMIT: noted. Met with pt this morning and introduced self and role. Pt is a 67 year old female who admitted yesterday with increasing pain to care of SNO team. Dr. Colon took pt to surgery later in the day for surgical removal of failing hardware and R TE. Payer: [facility] [place] PCP: Dr. Salazar. Dr. Colon did the initial surgical repair on 07/20/18. Pt states she feels so much better already and much more confident in her ability to mobilize. She will be recovering at her mother Fay's home in [place] and her mother will pick her up at d/c. Explained caregiver training, available prn as part of the therapy treatment. She stated she had not heard of this before...will discuss in Team Rounds this morning and let the therapy team follow up. Will request OT eval to help strengthen pt's home setting plan. Advanced directive, confirm from FAMILY Start: 08/01/18 16:15 Freq: Q24H Status: Active Protocol: Document 08/02/18 09:12 YAD (Rec: 08/02/18 09:12 YAD [id number]) Advance Directive, confirm on record Time 09:12 Person contacted patient Copy received No CM Discharge Assessment Start: 08/02/18 09:16 Freq: Status: Active Protocol: Document 08/02/18 09:16 ITV (Rec: 08/02/18 09:20 ITV [id number]) Discharge Planning Assessment Advance Directives? Yes Advance Directives on File Yes: Dr. Andrews office History Provided By Patient Family Member Medical Record Has Patient been admitted in last 30 Yes days? Comment 07/20-07/21/18: fall, fractured hip and surgical repair: readmits after increased pain, failure of hardware Prior Living Arrangements House Comment lives in [place], mailing address in [place] Household Members none Type of transporation used prior to Drives own vehicle admit Independent with ADL's Yes Is patient alert and oriented? Yes Caregiver for Another No Whiteboard Updated in Patient Room with Yes name and ext. # of Licsw Review Status In Process Next Review Type Continued Stay Review
--- NOTE | 2018-08-02 09:31 | PM.DS.1 ---
History of Present Illness Date Patient Seen: 08/02/18 Time Patient Seen: 09:31 Chief complaint: back/leg pain Narrative: Patient's pain is mild. Denies fever chills. No nausea vomiting. She does have care at home to assist her. She would like to go home today if safe to do so. Discharge Providers Date of admission: 08/01/18 10:47 Discharge Date: 08/02/18 Primary care physician: Carlos Salazar MD Consults: 08/01/18 16:02 Consult to Discharge Planning Routine Comment: Consult to Physical Therapy Evaluate & Treat Comment: Physician Instructions: post op TE protocol Consult to Respiratory Therapy Evaluate & Treat Comment: Physician Instructions: Evaluate and treat Discharge provider: Dhruv Reeves PA-C Summary Discharge Diagnosis: Status post right hip hardware removal, removal of cannulated screws, right hip endoprosthetic replacement for femoral neck fracture Hospital Course: 67-year-old female 2 weeks status post percutaneous cannulated screw fixation of a mildly displaced and impacted femoral neck fracture. Patient did very well for the 1st 13 days postoperatively but during the course of the night last night began developing deep aching pain in the hip and presented to the emergency room today and was noted to have collapse of the fracture and failure of the fixation. We have discussed nature of condition, diagnosis, potential treatment options, risks, and benefits. Patient gives informed consent to proceed with hardware removal and endoprosthetic hip replacement. Surgeon: Alin Colon Builder'S Labourer: Josselin Alvarado Anesthesia Type: General Operative Notes Closure Type: primary Specimen(s): none sent Prosthetic devices, grafts, tissues, transplants, or devices: Femoral component: [employer] stem size 11 with standard offset Femoral head: 47 mm + 0 cobalt chrome Estimated Blood Loss (mL): 100 Blood products transfused: none Patient admitted to the above-mentioned procedure. Patient taken the operating room is doing well. Pain is mild. Denies fever chills. She does have a caregiver at home to assist her. She does wish to go home today if safe to do so. Patient will be discharged home today after physical therapy. Status at Discharge Cognitive/behavioral status at discharge: oriented and at baseline, oriented Functional status at discharge: uses cane/walker Overall status at discharge: patient is progressing back to baseline Time Spent with Patient Less than 30 minutes Exam Vital Signs (past 8 hours): - 08/02/18 05:49 08/02/18 07:28 Temperature 97.2 F L 98.2 F Pulse Rate 88 84 Respiratory Rate 16 16 Blood Pressure 121/66 113/60 Pulse Oximetry 99 96 Oxygen Delivery Method Room Air Oxygen Flow Rate 0 Narrative Exam Narrative: Pleasant 67-year-old female brushing her teeth in no apparent distress. She is using her walker to move about the room. Right hip dressing is slightly moist otherwise intact. Neurovascular status is intact distal lower extremity, right. Objective Labs Result Diagrams: 08/02/18 05:55 08/01/18 10:35 Labs: Laboratory Results - last 24 hr 08/01/18 08/01/18 08/01/18 10:35 10:35 10:35 WBC 5.7 RBC 4.63 Hgb 13.4 Hct 39.5 MCV 85.3 MCH 29.1 MCHC 34.1 RDW 14.1 Plt Count 277 Neut % (Auto) 69.6 Lymph % (Auto) 20.6 L Benson % (Auto) 6.2 Eos % (Auto) 2.4 Baso % (Auto) 1.2 Neut # (Auto) 4000 Lymph # (Auto) 1200 Benson # (Auto) 400 Eos # (Auto) 100 Baso # (Auto) 100 Sodium 138 Potassium 4.2 Chloride 102 Carbon Dioxide 29 BUN 17 Creatinine 0.50 L Estimated GFR > 60.0 BUN/Creatinine Ratio 34.0 H Glucose 90 Calcium 9.3 Blood Type A Negative Antibody Screen Negative 08/02/18 05:55 WBC RBC Hgb 10.7 L Hct 31.9 L MCV MCH MCHC RDW Plt Count Neut % (Auto) Lymph % (Auto) Benson % (Auto) Eos % (Auto) Baso % (Auto) Neut # (Auto) Lymph # (Auto) Benson # (Auto) Eos # (Auto) Baso # (Auto) Sodium Potassium Chloride Carbon Dioxide BUN Creatinine Estimated GFR BUN/Creatinine Ratio Glucose Calcium Blood Type Antibody Screen Discharge Plan Discharge Plan Patient Disposition: Home Discharge comment: DC home after PT Discharge Med Rec/Prescriptions Prescriptions: New hydrocodone-acetaminophen 5-325 mg Tablet 1 tab PO Q4HR PRN (Reason: Pain, Moderate (4-6)) Qty: 40 RF: 0 ibuprofen 200 mg Tablet 400 mg PO Q6H PRN (Reason: pain) Qty: 90 RF: 0 hydroxyzine pamoate 25 mg Capsule 25 mg PO Q6HR PRN (Reason: Spasms) Qty: 20 RF: 0 enoxaparin [Lovenox] 40 mg/0.4 mL Syringe 40 mg subcut DAILY Qty: 9 RF: 0 Continued atorvastatin [Lipitor] 10 mg tablet 10 mg PO QAM Qty: 90 RF: 3 estradiol [Estrace] 0.01 % (0.1 mg/gram) cream 1 dose Vaginal SEE INSTRUCTIONS RF: 0 omeprazole 20 mg Capsule,Delayed Release(Dr/Ec) 20 mg PO DAILY RF: 0 cranberry 500 mg Capsule 500 mg PO DAILY RF: 0 cyclobenzaprine 10 mg tablet 10 mg PO TID PRN (Reason: muscle spasm) Qty: 30 RF: 0 alprazolam 1 mg tablet 0.5 - 1 mg PO BEDTIME PRN (Reason: Sleep) RF: 0 lisinopril [Zestril] 10 mg tablet 10 mg PO DAILY RF: 0 escitalopram oxalate [Lexapro] 20 mg tablet 20 mg PO DAILY RF: 0 gabapentin [Neurontin] 300 MG capsule 600 mg PO TID RF: 0 Discontinued hydrocodone-acetaminophen 5-325 mg Tablet 1 tab PO Q4-6H PRN (Reason: Pain, Mild (1-3)) Qty: 40 RF: 0 ibuprofen 200 mg Tablet 1 dose PO PRN PRN (Reason: pain) RF: 0 Follow up/Referrals: Carlos Salazar MD [Primary Care Provider] - Alin Colon MD [Physician] - (one week ) Provider Discharge Instructions Diet: Diet as Tolerated Activity: Weightbearing as tolerated. Posterior hip precautions. Cold/Heat Therapy: Apply ice to the affected area as needed. Other treatments: Tylenol 1000 mg q.8 hours as needed pain, ibuprofen as prescribed. [place] as prescribed. Lovenox 1 injection daily for another 9 days. Skin/Wound/Dressing Care Report to your healthcare provider any signs of infection, such as:: chills, fever, increased pain, unusual drainage and unusual redness Dressing: Keep dressing clean and dry Visit Report/Discharge Packet Instructions: DI for Low Back Pain Discharge Data Primary Care Provider: Carlos Salazar Attending Provider: Alin Colon Admit Date/Time: 08/01/18 10:47 Quality VTE Deep Vein Thrombosis/Pulmonary Embolism Present on Admission: No
[2018-08-02] MEDS: HYDROCODONE/ACET 5/325 TABLET 1 TAB PO (11:58)
--- NOTE | 2018-08-02 14:02 | PC.NURSE ---
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 Paperwork signed and all questions answered. Pt has all personal belongings. Has MD kapoor. New Aquacel was placed today. Pt is going to call office for F/U appointment.
== END 2018-08-02 14:04 | disposition home or self-care (01) | DRG 470 ==
LOC: ED 10:47 → AC 10:48
PROVIDERS: Admitting Provider Orthopaedic Surgery; Emergency Provider Emergency Medicine; PCP Family Medicine; Visit Provider Orthopaedic Surgery
PROC: 0SRR0JZ Replacement of Right Hip Joint, Femoral Surface with Synthetic Substitute, Open Approach (ICD-10-PCS; CPT 27125; principal; 2018-08-01 12:00)
DX: T84.194A Other mechanical complication of internal fixation device of right femur, initial encounter (principal); E78.5 Hyperlipidemia, unspecified
CPT/HCPCS: 36415; 36591; 72100; 72170; 73502; 80048; 85014; 85018; 85025; 86850; 86900; 86901; 94762; 97116; 97161; 97530; 99282; C1776; J0690; J1100; J1170; J1650; J1885; J2250; J2405; J2704

== ENCOUNTER → 2018-09-19 12:57 | Outpatient (CLI) | payer OTHER, SELFPAY ==
[2018-08-01 16:04] VITALS: BMI 27.5
== END ==
PROVIDERS: PCP Family Medicine; Visit Provider Family Medicine
DX: M81.0 Age-related osteoporosis without current pathological fracture (principal); M85.89 Other specified disorders of bone density and structure, multiple sites
CPT/HCPCS: 77080

== ENCOUNTER → 2018-09-22 08:06 | Outpatient (CLI) | payer OTHER, SELFPAY ==
[2018-08-01 16:04] VITALS: BMI 27.5
--- NOTE | 2018-09-22 08:08 | DI.NM.S_ITS ---
PROCEDURE: NM AMANDA PERF SPECT R&S PHARM Rest and pharmacological stress myocardial perfusion SPECT with gated imaging and ejection fraction RADIOPHARMACEUTICAL: 24.3 mCi Tc-99m tetrafosmin IV at rest and 25.8 mCi Tc-99m tetrafosmin IV at peak effect of pharmacological stress. [id number] was performed. INDICATIONS: chest pain TECHNIQUE: Radiopharmaceutical was injected at peak stress test, and also at rest. SPECT images were obtained. SPECT myocardial perfusion images were displayed in short axis, horizontal long axis, and vertical long axis views. Gated images were reviewed using EnCoate software. COMPARISON: None. CARDIAC STRESS: A pharmacologic stress test was performed under the supervision of an attending staff, using an infusion of Lexiscan . Hemodynamic data: There is normal blood pressure and heart rate response to pharmacologic stress. Symptoms: The patient denied anginal chest pain. Aminophylline: Not used. EKG: No diagnostic changes of ischemia; no ectopy. FINDINGS: Raw data: There is good myocardial uptake of radiotracer. No significant motion artifacts. Pdqx-uo-pxmmq ratio is 0.35 (normal is less than 0.38 for tetrafosmin tracer). Left ventricle function: Gated images demonstrate normal left ventricular wall thickening. No segmental wall motion abnormalities. No transient ischemic dilation; TID is 0.78 (normal less than 1.3). Left ventricle resting end diastolic volume is 110 mL. Left ventricle stress ejection fraction is 75% ; normal range is above 45%. Myocardial perfusion: There is a small basal lateral wall defect on stress supine imaging which completely resolves on prone imaging, consistent with breast attenuatiuon artifact. There is a tiny apical inferior wall defect both on supine rest and supine stress which also resolve completely on prone imaging, consistent with artifact. Otherwise there is normal distribution of activity in the right and left ventricular myocardium. No fixed or reversible perfusion defects. IMPRESSION: -Normal pharmacological myocardial perfusion study without evidence of ischemia or scar. -Normal ejection fraction and wall motion. -Low-risk study. -No change compard to the prior exam on 06/01/2014 although the artifacts were not described on that study. Dictated by: Jason Shipman M.D. on 09/23/2018 at 13:27 Approved by: Jason Shipman M.D. on 09/23/2018 at 13:34
--- NOTE | 2018-09-22 09:20 | PM.TREADMILL ---
Cardiac Stress Test Report Referral & Results Date Patient Seen: 09/22/18 Requesting provider: Carlos Salazar Indication: Chest pain Rest ECG: Unremarkable Procedure Note: After both written and verbal informed consent the patient had an IV started by the diagnostic imaging RN and then was hooked up to the treadmill monitoring system. The patient was placed on the treadmill at 1 mile an hour with no elevation and was then injected with the Magda scan material. The Cardiolite was then immediately administered. The patient spent an additional 2-3 minutes on the treadmill before being returned to the [facility] in the supine position. The patient had a normal response to all infused materials. Impression: See perfusion imaging report for details regarding possible ischemia Please note: Actual ECG tracings can be found in the PACS system.
== END ==
PROVIDERS: PCP Family Medicine; Visit Provider Family Medicine
DX: R07.9 Chest pain, unspecified (principal)
CPT/HCPCS: 78452; 93016; 93017; 93018; A9502; J2785

== ENCOUNTER → 2018-09-23 11:01 | Outpatient (CLI) | payer OTHER, SELFPAY ==
[2018-08-01 16:04] VITALS: BMI 27.5
[2018-09-23 12:23] LABS: Cholesterol 152 mg/dL (140-199); HDL Cholesterol 51 mg/dL (40-60); LDL Cholesterol Calculated 79 mg/dL (<100); Triglycerides 112 mg/dL (35-150)
[2018-09-23 12:54] LABS: Thyroid Stimulating Hormone 0.93 uIU/mL (0.47-4.68)
== END ==
PROVIDERS: PCP Family Medicine; Visit Provider Family Medicine
DX: E78.2 Mixed hyperlipidemia (principal)
CPT/HCPCS: 36415; 80061; 84443

== ENCOUNTER → 2018-11-03 17:13 | Outpatient (CLI) | payer OTHER, SELFPAY ==
[2018-08-01 16:04] VITALS: BMI 27.5
[2018-11-03 17:28] LABS: Appearance Urine UA CLEAR; Bilirubin Urine UA NEGATIVE (NEGATIVE); Color Urine UA YELLOW; Glucose Urine UA NEGATIVE (Negative); Ketones Urine UA NEGATIVE (NEGATIVE); Leukocyte Esterase Urine UA 1+ (NEGATIVE); Nitrite Urine UA NEGATIVE (Negative); Occult Blood Urine UA TRACE-LYSED (Negative); Protein Urine UA NEGATIVE (Negative); Specific Gravity Urine UA 1.015 (1.000-1.035); Urobilinogen Urine UA 0.2 E.U./dL (0.2)
[2018-11-03 17:59] LABS: RBC Urine 0-1/HPF (0-5/HPF); Squamous Epithelial Cell Urine 0-1 /HPF (0-5/HPF); WBC Urine 5-10/HPF (0-5/HPF)
[2018-11-03 18:00] LABS: Amorphous Sediment Urine 1+; Bacteria Urine Occasional (0-1); Culture Indicated Urine Specimen Cultured; Mucus Urine 1+ (Negative)
== END ==
PROVIDERS: PCP Family Medicine; Visit Provider Family Medicine
DX: R39.89 Other symptoms and signs involving the genitourinary system (principal)
CPT/HCPCS: 81001; 87086

== ENCOUNTER → 2019-04-24 11:14 | Outpatient (CLI) | payer OTHER, SELFPAY ==
[2018-08-01 16:04] VITALS: BMI 27.5
--- NOTE | 2019-04-24 | DI.MRI.S_ITS ---
PROCEDURE: MR LUMBAR SPINE WO CON INDICATIONS: Radiculopathy, lumbar region TECHNIQUE: Noncontrast sagittal T1 spin echo and T2 fast echo, sagittal STIR, axial T1 and T2 fast spin echo through the lumbar spine. In cases with scoliosis, additional coronal T2 fast spin echo may be performed. COMPARISON: [facility], MR, L-SPINE WITHOUT CONTRAST, 11/15/2016, 20:13. FINDINGS: Image quality: Excellent. Alignment and Curvature: Grade 1 retrolisthesis of L1 on L2 and L2 on L3. Trace anterolisthesis of L4 on L5. Bone Marrow: Chronic appearing L1 compression fracture. Mild chronic-appearing L3 compression fracture also noted. Multilevel degenerative endplate sclerosis and spurring. Diffuse facet arthropathy. Post surgical change related to screw fixation of the right sacroiliac joint Spinal Cord: Conus medullaris terminates at the L2 level. Visualized cord demonstrates normal signal and size. Paraspinous Soft Tissues: Bilateral parapelvic cysts, technically nonspecific possible partially visualized cyst in the right lower liver on image one although this is partially visualized therefore technically indeterminate L1-L2: Mild canal narrowing. Partial effacement of both lateral recesses with bilaterally symmetric appearance. Moderate bilateral foraminal stenoses with slight nerve root compression, this appears unchanged. L2-L3: Mild canal narrowing. Partial effacement of both lateral recesses with bilaterally symmetric appearance. Severe right foraminal stenosis with nerve root compression. Mild to moderate left foraminal narrowing. No interval change. L3-L4: Mild dorsal epidural lipomatosis. Moderate canal narrowing. Partial effacement of both lateral recesses with bilaterally symmetric appearance. Mild left foraminal narrowing. Severe right foraminal stenosis with nerve root compression, which is slightly breast L4-L5: Dorsal epidural lipomatosis. Moderate canal narrowing. Partial effacement of both lateral recesses, right slightly greater than left. No definite interval change. Moderate bilateral foraminal narrowing, with nerve root compression on both sides. No definite interval change. L5-S1: No central canal stenosis. Lateral recesses appear grossly patent. Mild right foraminal narrowing. Moderate to severe left foraminal stenosis with slight nerve root compression, no interval change. IMPRESSION: Diffuse lumbar spondylosis and facet arthropathy, with numerous bilateral foraminal stenoses as detailed above by spinal level Chronic appearing L1 and L3 compression fractures Multilevel spondylolisthesis as above. Moderate canal narrowing at L3-L4 and L4-L5. Dictated by: Matt Burgess M.D. on 04/24/2019 at 17:19 Approved by: Matt Burgess M.D. on 04/24/2019 at 17:28
== END ==
PROVIDERS: PCP Family Medicine; Referring Provider Physical Medicine & Rehabilitation; Visit Provider Physical Medicine & Rehabilitation
DX: M47.26 Other spondylosis with radiculopathy, lumbar region (principal); M48.061 Spinal stenosis, lumbar region without neurogenic claudication; M48.07 Spinal stenosis, lumbosacral region; M43.16 Spondylolisthesis, lumbar region; M48.56XA Collapsed vertebra, not elsewhere classified, lumbar region, initial encounter for fracture
CPT/HCPCS: 72148

== ENCOUNTER → 2019-08-10 10:17 | Outpatient (CLI) | payer OTHER, SELFPAY ==
[2018-08-01 16:04] VITALS: BMI 27.5
[2019-08-10 11:25] LABS: Add Manual Diff / Slide Review NO; Basophils Absolute Auto 0 /uL (0-100); Basophils Percent Auto 0.7 % (0-2); Eosinophils Absolute Auto 100 /uL (0-450); Eosinophils Percent Auto 3.2 % (2-4); Hematocrit 36.2 % (36-46); Hemoglobin 11.7 g/dL (12.0-16.0); Lymphocytes Absolute Auto 1200 /uL (1100-4500); Mean Corpuscular HGB Conc 32.5 % (30-36); Mean Corpuscular Hemoglobin 25.5 PG (26-34); Mean Corpuscular Volume 78.5 fL (80-100); Monocytes Absolute Auto 400 /uL (0-900); Monocytes Percent Auto 8.5 % (3-14); Neutrophils Absolute Auto 2600 /uL (1500-7000); Neutrophils Percent Auto 60.6 % (50-75); Platelet Count 246 X10^3/uL (150-400); Red Blood Cell Count 4.61 X10^6/uL (4.0-5.2); Red Cell Distribution Width 16.8 % (11.6-14.8); White Blood Cell Count 4.3 X10^3/uL (4.5-11.0)
[2019-08-10 12:11] LABS: Alanine Aminotransferase 15 IU/L (<35); Albumin 4.1 g/dL (3.5-5.0); Albumin Globulin Ratio 1.5 (1.0-2.8); Alkaline Phosphatase 86 U/L (38-126); Aspartate Aminotransferase 25 IU/L (14-36); BUN Creatinine Ratio 24.6 (6-22); Bilirubin Total 0.3 mg/dL (0.2-1.3); Blood Urea Nitrogen 15 mg/dL (7-17); Calcium 9.3 mg/dL (8.4-10.2); Carbon Dioxide 28 mmol/L (22-32); Chloride 102 mmol/L (98-107); Cholesterol 145 mg/dL (140-199); Estimated Glomerular Filt Rate > 60.0 mL/min (>60); Globulin 2.7 g/dL (1.7-4.1); Glucose 87 mg/dL (80-110); HDL Cholesterol 43 mg/dL (40-60); HEMOLYSIS < 15 (0-50); LDL Cholesterol Calculated 77 mg/dL (<100); Potassium 4.5 mmol/L (3.4-5.1); Sodium 136 mmol/L (137-145); Total Protein 6.8 g/dL (6.3-8.2); Triglycerides 124 mg/dL (35-150)
[2019-08-10 12:42] LABS: Thyroid Stimulating Hormone 1.18 uIU/mL (0.47-4.68)
== END ==
PROVIDERS: PCP Family Medicine; Referring Provider Family Medicine; Visit Provider Family Medicine
DX: E78.2 Mixed hyperlipidemia (principal)
CPT/HCPCS: 36415; 80053; 80061; 84443; 85025

== ENCOUNTER → 2019-08-11 14:56 | Outpatient (CLI) | payer OTHER, SELFPAY ==
[2018-08-01 16:04] VITALS: BMI 27.5
[2019-08-14 08:03] LABS: COVID19 -Nasal RAPID Negative (Negative)
== END ==
PROVIDERS: PCP Family Medicine; Visit Provider Physician Assistant
DX: Z11.59 Encounter for screening for other viral diseases (principal)
CPT/HCPCS: 87635

== ENCOUNTER 2019-08-14 06:22 | Inpatient (IN) | payer OTHER, MEDICARE, SELFPAY ==
[2018-08-01 16:04] VITALS: BMI 27.5
[2019-08-13 09:52] VITALS: BMI 32.0
[2019-08-14] VITALS (16 sets, daily range): BP systolic 98–132; BP diastolic 53–93; PULSE 81–92; RESP 11–23; TEMP 36.1–37.3; O2SAT 92–99; BMI 32.0
--- NOTE | 2019-08-14 | DI.RAD.S_ITS ---
PROCEDURE: XR LUMBAR SPINE 2-3V INDICATIONS: L2-3, L3-4 XLIF, L4-5 L5-S1 TLIF TECHNIQUE: 4 views of the lumbar spine were acquired. COMPARISON: [facility], , XR LUMBAR SPINE 2-3V, 08/01/2018, 8:11. FINDINGS: Spot fluoroscopic intraoperative images demonstrate contiguous posterior spinal fixation at the level of L2-L3, L3-L4, L4-L5 and L5-S1. There are interbody cage grafts. L1 compression fracture again noted Dictated by: Matt Burgess M.D. on 08/14/2019 at 15:47 Approved by: Matt Burgess M.D. on 08/14/2019 at 15:49
[2019-08-14] MEDS: ACETAMINOPHEN 325 MG TABLET 975 MG PO (07:12)
[2019-08-14] MEDS: GABAPENTIN 300 MG CAPSULE PO (07:13)
[2019-08-14] MEDS: SCOPOLAMINE 1 PATCH TOP (07:14)
--- NOTE | 2019-08-14 07:23 | PM.PREOP ---
Pre-operative Note COVID-19 COVID-19 status: Result pending Interval Note History & Physical reviewed/Exam performed by Physician: Yes Changes to H&P: No
[2019-08-14] MEDS: LACTATED RINGERS 1,000 ML 42 ML IV ×2 (07:25→10:56)
[2019-08-14] MEDS: GABAPENTIN 300 MG CAPSULE 600 MG PO (07:48)
[2019-08-14] MEDS: CEFAZOLIN 2 GM/100 ML FROZ.PIGGY IV ×3 (08:11→20:21)
--- NOTE | 2019-08-14 09:06 | SUR.OPER ---
Part 1: Right lateral on padded OR table. Head on pillow, gel axillary roll, pillow to support left arm. Legs flexed, pillows between legs, gel pad under down leg and ankle. Multiple passes of 3 inch cloth tape across shoulder, hip, upper and lower legs to secure patient on OR table.
--- NOTE | 2019-08-14 09:06 | SUR.OPER ---
Part 2: Prone on spine table, head in foam head support, padded chest and pelvic supports, gel pad at knees, lower legs supported by pillows; nipples, genitalia and toes free of pressure, arms secured on foam padded arm boards at <90 degrees abduction. Tape over blanket at thigh secured to table.
[2019-08-14] MEDS: BUPIVACAINE 0.5% (PF) 4 ML, MORPHINE-PF 4 MG, BUTORPHANOL 1 MG, fentaNYL 100 MCG INJ (09:20)
[2019-08-14] MEDS: SODIUM CHLORIDE 0.9% 1,000 ML, GENTAMICIN 80 MG IRR (09:23)
[2019-08-14] MEDS: THROMBIN (RECOMBINANT) 5,000 UNIT VIAL 5000 UNIT TOP (09:24)
[2019-08-14] MEDS: VANCOMYCIN 1,000 MG VIAL 1000 MG TOP (09:24)
[2019-08-14] MEDS: SODIUM CHLORIDE IRR (09:25)
[2019-08-14] MEDS: GENTAMICIN IRR (09:25)
--- NOTE | 2019-08-14 15:22 | P.OP_ITS ---
Operative Date/Time/Diagnoses Date of procedure: 08/14/19 Time of procedure: 15:22 Pre-op diagnosis: Lumbar stenosis with radiculopathy Lumbar scoliosis Post-op diagnosis: same Procedure & Clinicians Procedure: L2-3, L3-4 anterior fusion with cages L2-3, L3-4 posterior fusion L4-5, L5-S1 TLIF with cages L2, L3, L4, L5, S1 screws Iliac crest bone graft aspirate L2-3, L3-4, L4-5 laminectomies Use of microscope Placement of epidural catheter Same procedure as scheduled: Yes Indications: [age] year old female with intractable pain from stenosis. They had failed conservative management and requested operative intervention. Risks and benefits of surgery were discussed and appropriate consents were obtained. Surgeon: Kemal Pedro Sharepoint Designer Developer: Armaan Nickerson Anesthesia Type: General Operative Notes Findings: None Closure Type: primary Specimen(s): none sent Prosthetic devices, grafts, tissues, transplants, or devices: NuVasive MAS Reline screws NuVasive XLIF cages Globus Rise cages Applied: catheter Estimated Blood Loss (mL): 150 Procedure in detail: Patient was brought to the operating room and intubated on the table. Time-out was performed. They were then rolled over to the lateral d ecubitus position with the [id number]. The table was bent and they were taped down in the correct position. X-rays were taken to confirm a true AP and lateral. Preoperative antibiotics were given. The left flank was prepped and draped in standard sterile fashion. Using fluoroscopy, a 3 cm incision was made above the iliac crest. We bluntly dissected down with Metzenbaum scissors and split the 3 abdominal muscle layers. We dissected out the retroperitoneal space and using finger guidance, brought our 1st dilator down to the psoas muscle. Using neuromonitoring and fluoroscopy, we placed it through the psoas onto the L3-4 disc space in an anterior position and gradually pulled the dilator posteriorly along the disc space. We placed our guidewire and measured our depth for the retractor. We then dilated with the next 2 dilators and then placed our retractor over the dilators. Position was confirmed with fluoroscopy and the retractor was locked down to the bar. We opened up the retractor and checked with neuro monitoring. We then placed the shavonne and again checked with neuro monitoring. The retractor was opened further and the ALL retractor was placed. An annulotomy was performed. We then performed a complete diskectomy with ring curette, pituitary, box osteotome. A Botello was advanced across the disc space under fluoroscopy to release the lateral annulus on the opposite side. We then used sequentially larger trials and confirmed under fluoroscopy. An XLIF cage was packed with Osteocel bone graft and impacted into the L3-4 disc space with fluoroscopy for the anterior fusion at this level. The wound was irrigated. The retractor was closed down. The shavonne was removed. We carefully removed the retractor with direct visualization to make sure there was no neurovascular or abdominal injury. X-ray was taken. We then repeated the procedure and moved the retractor up to L2-3. We dilated, opened our retractors, completed the diskectomy with lateral release and prep. We trialed and placed another cage with bone graft for the anterior fusion at L2-3. The wound was irrigated. The retractor was closed down and removed with direct visualization. Final x-rays were taken. The muscle fascia was closed, superficial tissue was closed. The skin was closed. Sterile dressing was placed. The patient was then rolled over on the well-padded prone position on the Tony table. Using fluoroscopy, a 12 cm incision was made on the well-marked right side. Bovie used to come down to and split the fascia. We then percutaneously placed Jamshidi needles down the right pedicles of L2, L3, L4, L5, and S1 under fluoroscopic guidance and neural monitoring. These were changed out to guidewires. We then tapped and placed our screw shanks. We opened up the retractor at L5-S1. We dissected out the gutter decorticated the sacral ala and the transverse process. We cleared medially. We then brought in the microscope. We performed zeke laminotomy to get in for our TLIF prep. This included a partial facetectomy. We expose the dura and cleared medially. Bipolar was used for hemostasis.. We performed an annulotomy and diskectomy with pituitaries and curettes. We placed bone graft into the disc space. We then placed a globus Rise cage and expanded under fluoroscopic guidance for the posterolateral fusion portion of the TLIF at L5-S1. We then moved the retractors up to L4-5. The transverse process was exposed decorticated. We cleared medially. We then performed a laminectomy at L4-5 and cleared past the midline while carefully depressing the dura. We cleared out the neural foramen. A complete facetectomy was needed to open this up. This was separate and distinct from a TLIF exposure as there was an extensive decompression in the central canal and foramen. We then carefully retracted the dura medially and prepped the disc with bipolar. Scalpel used to perform an annulotomy and we performed a complete diskectomy with pituitaries and curettes. We placed bone graft in the disc space and then placed another globus Rise cage and expanded under fluoroscopic guidance for the posterior interbody portion of the L4-5 TLIF. We then moved our retractors up to L3-4. We decorticated the transverse process and then performed a complete laminectomy at L3-4, clearing out the large facet hypertrophy and central canal stenosis as well as the neural foramen. We then went up to the L2-3 level and again prepped decorticated the transverse process and then performed a laminectomy at this level with central decompression as well as clearing out the foramen. In the in the ball probe could be run cephalad caudally out the foramen the whole spine was opened from L2 through S1. The wound was copiously irrigated. An epidural catheter was primed with 4mL of 0.5% bupivacaine, 100 mcg fentanyl, 4 mg Duramorph, 1 mg Stadol. The dura was depressed under the cephalad lamina with a ball probe and the epidural catheter was gently advanced 6 cm cephalad. We then placed our screw heads on the shanks and then measured and placed our zeyad and locked down the set screws. A small stab incision was made over the PSIS and a Jamshidi needle was placed into the iliac crest and several mL of bone marrow was aspirated. This was mixed with our locally harvested bone graft as well as the remaining Osteocel and placed in the posterolateral gutter for fusion at L2-3, L3-4 as well as the posterior portion of the TLIF at L4-5 and L5-S1. The fascia was then closed. The epidural was then injected without resistance. The catheter was pulled and we closed more over the fascia. We then made a 12 cm incision on the left side with fluoroscopy. We percutaneously placed Jamshidi needles down the left pedicles of L2 through S1 with fluoroscopy and neural monitoring. We changed to guidewires and then tapped and placed our screws. A zeyad was placed and locked down with set screws. Final x-rays were taken. The wound was irrigated. The fascia was closed. The wounds were both irrigated again. Vancomycin powder was placed in the wounds. The superficial and skin were closed. Sterile dressing was placed. The patient was then rolled over, extubated, brought to the recovery room with no complications. Complications: none Post-operative Condition: stable Disposition: PACU Plan for aftercare: Inpatient. Up with PT.
[2019-08-14] MEDS: LACTATED RINGERS 1,000 ML 125 ML IV (16:53)
[2019-08-14] MEDS: SENNOSIDES 8.6 MG TABLET 17.2 MG PO (20:21)
[2019-08-14] MEDS: GABAPENTIN 300 MG CAPSULE 900 MG PO (20:21)
[2019-08-14] MEDS: DOCUSATE 100 MG CAPSULE PO (20:21)
[2019-08-14] MEDS: CELECOXIB 200 MG CAPSULE PO (20:21)
[2019-08-14] MEDS: HYDROCODONE/ACET 5/325 TABLET 2 TAB PO (21:48)
[2019-08-15] VITALS (7 sets, daily range): BP systolic 97–129; BP diastolic 50–80; PULSE 73–92; RESP 14–20; TEMP 36.1–37.6; O2SAT 91–98
[2019-08-15] MEDS: LACTATED RINGERS 1,000 ML 125 ML IV (01:44)
[2019-08-15] MEDS: CEFAZOLIN 2 GM/100 ML FROZ.PIGGY IV (03:50)
[2019-08-15 05:12] LABS: Hematocrit 28.8 % (36-46); Hemoglobin 9.4 g/dL (12.0-16.0)
[2019-08-15] MEDS: HYDROCODONE/ACET 5/325 TABLET 1 TAB PO ×2 (06:45→12:36)
--- NOTE | 2019-08-15 07:50 | PC.NURSE ---
Pt's surgical site dressing on her back was soaking and leaking last night upon start of my shift. Pt denies chest pain, SOB- VSS. Called oncall Dr. Szymanski and left message regarding above. received telephone order to just reinforce dressing. Dressing was reinforced with ABD dressing and tegaderm. Changed pt's bedsheet with clean linen and placed pt in a comfortable position with the help of the VB DEVELOPER. Around 0500 pt's back dressing still draining- removed my previous reinforced dressing (left the original dressing from the surgery in placed) and reinforced again this time with 3 ABD dressing, tegaderm and secured dressing with tape each side. Advised pt to lean back to put pressure on her back- she is understanding. VSS. Last temp check around 0630 98.3 F
--- NOTE | 2019-08-15 08:29 | PM.PNPO.1 ---
Subjective Subjective Date Patient Seen: 08/15/19 Time Patient Seen: 08:30 Interval history: She is doing great. Minimal pain. Has just needed a few [place] overnight. Exam Vital Signs (past 8 hours): - 08/15/19 04:45 Temperature 99.7 F H Pulse Rate 73 Respiratory Rate 15 Blood Pressure 123/69 Pulse Oximetry 98 Oxygen Delivery Method Nasal Cannula Oxygen Flow Rate 0 Const Orientation: alert and oriented x3 Back/Spine/Pelvis Other: Moderate drainage, dressing has been reinforced. 5/5 motor both lower extremities. Objective Labs Result Diagrams: 08/15/19 04:39 Labs: Laboratory Results - last 24 hr 08/15/19 04:39 Hgb 9.4 L Hct 28.8 L Assessment & Plan Post-op Postoperative Procedures: Procedures Operation Date: 08/14/19 07:45 Actual Procedures Side Surgeon p L2-S1 anterior/posterior instrumented fusion w/bone graft, L2-3, L3-4, L4-5 laminectomies Kemal Pedro MD She is doing great. Mobilize today with physical therapy. Plan to discharge home either tomorrow or Saturday when she is independent with mobility.
[2019-08-15] MEDS: GABAPENTIN 300 MG CAPSULE 900 MG PO ×3 (09:08→20:01)
[2019-08-15] MEDS: DOCUSATE 100 MG CAPSULE PO ×2 (09:08→20:02)
[2019-08-15] MEDS: CELECOXIB 200 MG CAPSULE PO ×2 (09:08→20:02)
[2019-08-15] MEDS: lisinopriL 10 MG TABLET PO (09:09)
[2019-08-15] MEDS: ATORVASTATIN 10 MG TABLET PO (09:09)
[2019-08-15] MEDS: PANTOPRAZOLE 20 MG TABLET PO (09:15)
--- NOTE | 2019-08-15 10:11 | OT.IP.EVAL ---
Current Diagnoses Other forms of scoliosis, lumbar region (08/14/19) Spinal stenosis, lumbar region with neurogenic claudication (08/14/19) Surgery Performed Operation Date: 08/14/19 07:45 Actual Procedures p L2-S1 anterior/posterior instrumented fusion w/bone graft, L2-3, L3-4, L4-5 laminectomies - Kemal Pedro MD Past Medical History (Last Updated 08/13/19 @ 10:03 by Iris Esqueda, RN) Cardiac arrhythmia (Chronic ~2003) Carpal tunnel syndrome (Chronic ~1994) Chickenpox (Resolved ~1959) Chronic back pain (Chronic ~2007) Chronic UTI (Acute) Colon polyps (Resolved ~1999) Depression (Chronic ~1992) Easy bruisability (Acute) Fibroids (Chronic ~1997) Fusion of sacral region of spine (Acute) Hiatal hernia (Acute) History of fracture (Resolved) HSV (herpes simplex virus) infection (Chronic ~1979) Hyperlipidemia (Acute) Hypertension (Chronic ~2003) Measles (Resolved ~1959) Melanoma of ear (Resolved ~2007) Mumps (Resolved ~1958) Right femoral fracture (Acute 07/19/18) Sciatic nerve pain (Acute) Shoulder pain (Chronic ~2013) Surgical History (Last Updated 08/13/19 @ 10:04 by Iris Esqueda RN) Anesthesia complication (Inactive) H/O prior ablation treatment (Resolved ~1997) History of arthroplasty of left shoulder (Acute 12/30/17) History of total right hip arthroplasty (Acute 07/30/18) Hx of tonsillectomy (Acute) Melanoma of ear (Resolved ~2007) S/P partial hysterectomy (Acute) Status post arthroscopy (~2013) Status post delivery (~1987) Status post colonoscopy Status post ORIF of fracture of ankle (Resolved ~1975) Occupational Therapy Inpatient Evaluation/Re-Eval M1 PT/OT-IP Prior Functional Status Start: 08/15/19 13:06 Freq: NEEDED Status: Active Protocol: Document 08/15/19 14:55 CGR (Rec: 08/15/19 15:08 CGR [id number]) Medical Review Prior Functional Status Medical History Reviewed Yes Diet/Fluid Consistency Regular Communication WNL Mobility and Gait Independent Activities of Daily Living and IADL's Independent Social History Household Members none Living Arrangements House Number of Floors (Floors) One Floor Number of Stairs To Enter/Railing? 2 steps down, pt's family is installing railing at stairs today. 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 M2 OT-IP Current Condition Start: 08/15/19 14:55 Freq: Status: Active Protocol: Document 08/15/19 14:55 CGR (Rec: 08/15/19 15:08 CGR [id number]) Occupational Therapy Current Condition Current Condition Evaluation Date 08/15/19 Treatment Diagnosis L2-S1 TLIF Diagnosis Onset Date 08/14/19 Post Operative Precautions Lumbar Precautions Log Roll,No Twisting,Limit Bending,Lifting Restriction of 10 lbs,Gait Belt above Incisional Area M3 OT- IP Subjective and Pain Start: 08/15/19 14:55 Freq: Status: Active Protocol: Document 08/15/19 14:55 CGR (Rec: 08/15/19 15:08 CGR [email or web address]) OT- Subjective Occupational Therapy Visit Type Type Initial Evaluation Visit Start Time 09:30 Visit Stop Time 10:11 Total Visit Minutes 41 OT Pain Assessment Pain When Pain Assessed At Rest Pain Present Pain Present Pain Reported Location lower back Intensity 3 Scale Used Numeric (0 - 10) Management Techniques Modification of Treatment, Timing of Activity with Medications M4 OT- IP ADL's Start: 08/15/19 14:55 Freq: Status: Active Protocol: Document 08/15/19 14:55 CGR (Rec: 08/15/19 15:08 CGR [email or web address]) OT [id number] Comments OT Self-Feeding Comments not meal time OT ADL-Grooming General Evaluation Grooming Ability Independent Areas Needing Assistance Face Washing Comments OT Grooming Comments standing at sink OT ADL-Oral Care General Eval Oral Care Ability Independent Areas of Assistance Brushing Teeth,Retrieving/Set- Up of Items Comments Oral Care Comments standing at sink OT ADL-Dressing General Eval Lower Body Dressing Ability Standby Assistance Areas Needing Assistance Underpants/Brief,Socks Comments OT Dressing Comments Pt was able to perform LB dressing seated in chair without AD but maintaining back precautions. OT ADL-Toileting General Evaluation Toileting Ability Independent Devices Toileting Assistive Devices Commode,Grab Bars OT ADL-Bathing Comments OT Bathing Comments Pt declined today. M5 OT- IP IADL's Start: 08/15/19 14:55 Freq: Status: Active Protocol: Document 08/15/19 14:55 CGR (Rec: 08/15/19 15:08 CGR [email or web address]) OT-Instrumental Activities of Daily Living Deficits IADL Deficits Identified No Deficits Home Safety Awareness Awareness of Need for Assistance at Home Good Awareness Ability to Problem Solve Emergency Able to Problem Solve Situations Medication Management Medication Management No Deficits Identified Money Management Money Management No Deficits Identified Meal Preparation Meal Preparation No Deficits Identified Prime Broker Prime Broker No Deficits Identified, Caregiver Provides Assist Driving Driving Comments 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 M6 OT- IP Functional Cognition Start: 08/15/19 14:55 Freq: Status: Active Protocol: Document 08/15/19 14:55 CGR (Rec: 08/15/19 15:08 R [email or web address]) Cognitive Factors Limiting Selfcare Function Cognitive Ability Level of Alertness Alert Patient Orientation Name,Age,Birthday,Month,Date, Year,Day of Week,Place, Situation Attention Span Ability Capable of Focused Attention, Capable of Sustained Attention Ability to Follow Commands Able to Follow Multi-Step Commands Memory Description No Deficits Noted Safety Awareness No Deficits Noted Problem Solving Ability No deficits Noted OT- Vision and Hearing OT- Hearing Assessment OT- Hearing Assessment WFL OT- Vision Assessment Visual Acuity Glasses All The Time Visual Attentiveness WFL Occular Pursuits WFL Visual Convergence WFL Vision Assessment Comments Pt wears trifocals M7 OT- IP Mobility and Balance Start: 08/15/19 14:55 Freq: Status: Active Protocol: Document 08/15/19 14:55 CGR (Rec: 08/15/19 15:08 R [email or web address]) OT- Bed Mobility Assessment Rolling Type of Rolling Roll to Right Level of Assistance Standby Assistance Supine to Sit Supine to Sit Assist Standby Assistance Sit to Supine Sit to Supine Assist Standby Assistance OT-Transfer Assessment Sit to and From Stand Sit to and from Stand Standby Assistance,Contact Guard Assistance Transfers Transfer Ability Standby Assistance,Contact Guard Assistance Technique Transfer Destination Bed,Chair,Toilet Transfer Technique Stand Step Pivot Devices Transfer Assistive Devices Gait Belt,Front Wheeled Walker OT- Gait Assessment Gait Gait Assistance Required: Standby Assistance,Contact Guard Assist Assistive Devices Assistive Device Gait Belt,Front Wheeled Walker Comments Gait Ability Comments mobility around the room. OT- Balance Assessment Sitting Balance and Reactions Static Sitting Balance Ability Good Dynamic Sitting Balance Ability Fair M8 OT- IP Objective Assessments Start: 08/15/19 14:55 Freq: Status: Active Protocol: Document 08/15/19 14:55 CGR (Rec: 08/15/19 15:08 CGR [email or web address]) OT Gross Range of Motion Upper Extremity Range of Motion Assessment Within Functional Limits OT Strength Upper Extremity Strength Assessment Within Functional Limits OT- Coordination Assessment Upper Extremity Finger to Nose Test Within Functional Limits Finger Tapping Test Within Functional Limits OT-Muscle Tone Assessment Muscle Tone WNL Yes OT Sensation Assessment Edema Edema Absent M9 OT- IP Assessment and Plan Start: 08/15/19 14:55 Freq: Status: Active Protocol: Document 08/15/19 14:55 CGR (Rec: 08/15/19 15:08 CGR [email or web address]) OT Summary Assessment and Plan Potential Rehabilitation Potential Excellent Analytic Complexity at Evaluation Low Summary OT Impairments Pain,Functional Mobility, Dressing,Toileting,Bathing, Toilet Transfers,Shower Transfers,Activity Tolerance Progress Towards Goals Progressing Toward Goals Assessment Summary Pt presents as a low complexity evaluation s/p back sx. Pt will benefit from follow up with OT for shower and back precautions. Pt is likely safe for d/c home with family support. Pt's mother is planning to stay with her till she is comfortable being on her own. Goals Dressing Goal Independent Toileting Goal Independent Bathing Goal Independent Toilet Transfer Goal Independent Shower Transfer Goal Independent Days to Meet Goals 3 Frequency of Treatment Frequency Of Treatment Once a Day Treatment Plan OT Treatment Plan ADL Training,Functional Mobility,Patient/Family Education,Discharge Planning Other Treatment Recommendations and Next shower Treatment Focus Discharge Recommendations OT Discharge Recommendations Home with Assistance Transportation Needs at Discharge Private Vehicle
--- NOTE | 2019-08-15 12:19 | PT.IIE ---
Current Diagnoses Other forms of scoliosis, lumbar region (08/14/19) Spinal stenosis, lumbar region with neurogenic claudication (08/14/19) Surgery Performed Operation Date: 08/14/19 07:45 Actual Procedures p L2-S1 anterior/posterior instrumented fusion w/bone graft, L2-3, L3-4, L4-5 laminectomies - Kemal Pedro MD Surgical History (Last Updated 08/13/19 @ 10:04 by Iris Esqueda RN) Anesthesia complication (Inactive) H/O prior ablation treatment (Resolved ~1997) History of arthroplasty of left shoulder (Acute 12/30/17) History of total right hip arthroplasty (Acute 07/30/18) Hx of tonsillectomy (Acute) Melanoma of ear (Resolved ~2007) S/P partial hysterectomy (Acute) Status post arthroscopy (~2013) Status post delivery (~1987) Status post colonoscopy Status post ORIF of fracture of ankle (Resolved ~1975) Medical History (Last Updated 08/13/19 @ 10:03 by Iris Esqueda RN) Cardiac arrhythmia (Chronic ~2003) Carpal tunnel syndrome (Chronic ~1994) Chickenpox (Resolved ~1959) Chronic back pain (Chronic ~2007) Chronic UTI (Acute) Colon polyps (Resolved ~1999) Depression (Chronic ~1992) Easy bruisability (Acute) Fibroids (Chronic ~1997) Fusion of sacral region of spine (Acute) Hiatal hernia (Acute) History of fracture (Resolved) HSV (herpes simplex virus) infection (Chronic ~1979) Hyperlipidemia (Acute) Hypertension (Chronic ~2003) Measles (Resolved ~1959) Melanoma of ear (Resolved ~2007) Mumps (Resolved ~1958) Right femoral fracture (Acute 07/19/18) Sciatic nerve pain (Acute) Shoulder pain (Chronic ~2013) Physical Therapy Inpatient Evaluation/Re-Eval M1 PT/OT-IP Prior Functional Status Start: 08/15/19 13:06 Freq: NEEDED Status: Active Protocol: Document 08/15/19 13:37 DLM (Rec: 08/15/19 14:02 DLM [id number]) Medical Review Prior Functional Status Medical History Reviewed Yes Diet/Fluid Consistency Regular Communication WNL Mobility and Gait Independent Activities of Daily Living and IADL's Independent Social History Household Members none Living Arrangements House Number of Floors (Floors) One Floor Number of Stairs To Enter/Railing? 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 Additional Social History Comment working from home, plans to have her Mother stay with her after sx to assist M2 PT-IP Current Condition Start: 08/15/19 13:06 Freq: NEEDED Status: Active Protocol: Document 08/15/19 13:37 DLM (Rec: 08/15/19 14:02 DLM [email or web address]) Physical Therapy Current Condition Current Condition Evaluation Date 08/15/19 Treatment Diagnosis L2-4 anterior and post fusion, L4-S1 TLIF, L2-S1 screws, L2- 5 Laminectomy Onset Date 08/14/19 Precautions Lumbar Precautions Log Roll,No Twisting,Limit Bending,Lifting Restriction of 10 lbs,Gait Belt above Incisional Area Other Precautions large amount of drainage from incision, hx ORIF right ankle and hemiarthroplasty right hip M3 PT-IP Subjective Start: 08/15/19 13:06 Freq: NEEDED Status: Active Protocol: Document 08/15/19 13:37 DLM (Rec: 08/15/19 14:02 DLM [email or web address]) Subjective Physical Therapy Visit Type Type Initial Evaluation Visit Start Time 12:19 Visit Stop Time 11:55 Total Visit Minutes 24 Number of GRAIN ELEVATOR OPERATOR Visits 0 Physical Therapy Visit Comments Patient Comments She reports her right leg feels much better since having sx, no longer having pain in right LE, pain is in her low back/buttock area Patient Goals return home with assist from family/friends Therapy Pain Assessment Pain When Pain Assessed After Treatment Pain Present Pain Present Pain Reported Location lower back Intensity 5 Scale Used Numeric (0 - 10) Description Aching Pain Management Techniques Re-positioning M4 PT-IP Mobility and Gait Start: 08/15/19 13:06 Freq: NEEDED Status: Active Protocol: Document 08/15/19 13:37 DLM (Rec: 08/15/19 14:02 DLM [email or web address]) PT-Bed Mobility Assessment Rolling Type of Rolling Log Rolling,Bilateral Level of Assist Standby Assistance Supine to Sit Supine to Sit Standby Assistance Sit to Supine Sit to Supine Standby Assistance Scooting Scooting to Edge of Bed Standby Assistance PT-Transfer Assessment Sit to and From Stand Sit to and from Stand Standby Assistance,Use of Upper Extremities Equipment Transfer Assistive Device Gait Belt,Front Wheeled Walker Transfers Transfer Destination Bed,Chair Transfer Technique Stand Step Pivot Transfer Ability Level of Assist Standby Assistance Comments Mobility Comments educated pt on safety precautions and post-op restrictions, she demonstrates good safety awareness Gait Assessment Gait Gait Assistance Required: Standby Assistance Distance (Feet) 40 Assistive Devices Assistive Device Gait Belt,Front Wheeled Walker Factors Limiting Gait Function Factors Limiting Gait Function Decreased Activity Tolerance, Pain Comments Gait Comments intermittent scissoring noted with right LE, pt able to correct with cuing, also noted pt tends to land on forefoot on right and on heel on left creating an assymetrical gait pattern PT-Balance Assessment Sitting Balance and Reactions Static Sitting Balance Ability Good Dynamic Sitting Balance Ability Good Standing Balance and Reactions Static Standing Balance Ability Good Dynamic Standing Balance Ability Good Device Used FWW M5 PT-IP Objective Assessments Start: 08/15/19 13:06 Freq: NEEDED Status: Active Protocol: Document 08/15/19 13:37 DLM (Rec: 08/15/19 14:02 DLM [id number]) Orientation Orientation/Cognition Level of Alertness Alert Orientation Name,Age,Birthday,Month,Date, Year,Day of Week,Place, Situation Language Function Ability No Deficits Noted Safety Awareness Understands Safety Issues Memory Description No Deficits Noted Gross Range of Motion Upper Extremity ROM Assessment Within Functional Limits Lower Extremity ROM Assessment Right Impaired Impairments dorsiflexion to neutral only with hx of ORIF Strength Upper Extremity Strength Assessment Within Functional Limits Lower Extremity Strength Assessment Right Impaired Hip did not fully assess due to back sx, suspect functional abductor weakness Knee WFL Ankle DF/PF 5/5 Comments Strength Comments pt reports right LE feels stronger since sx Coordination Assessment Gross Coordination Gross Coordination WNL Sensation Assessment Sensation Gross Sensation WNL Muscle Tone Muscle Tone WNL Yes M6 PT-IP Treatment Start: 08/15/19 13:06 Freq: NEEDED Status: Active Protocol: Document 08/15/19 13:37 DLM (Rec: 08/15/19 14:02 DLM [email or web address]) Physical Therapy Treatment Exercises Exercises Ankle Pumps,Gluteal Sets,Heel Slides Education Education Provided Precautions,Safety M7 PT-IP Assessment and Plan Start: 08/15/19 13:06 Freq: NEEDED Status: Active Protocol: Document 08/15/19 13:37 DLM (Rec: 08/15/19 14:02 DLM [email or web address]) PT Summary Assessment and Plan Potential Rehabilitation Potential Excellent Status of Condition at Evaluation Evolving Summary Impairments Pain,ROM,Strength,Balance,Bed Mobility,Transfers,Gait, Activity Tolerance Assessment Summary Ana María is progressing well post-op day one. She tolerated sitting up in recliner and gait in the room well with fWW . She reports improved right LE symptoms since surgery. She continues to have significant drainage from her posterior surgical sites. Anticipate she will be safe to discharge home with support from family when medically stable. Goals Bed Mobility Goal Independent Transfer Goal Independent,Front Wheeled Walker Gait Goal Independent,Front Wheel Walker Gait Distance 150 feet Other Goals up and down 2 steps with rail and SBA Days to Meet Goals 3 Frequency of Treatment Frequency Of Treatment Twice a Day Treatment Plan Physical Therapy Treatment Plan Bed Mobility Training,Transfer Training,Gait Training, Therapeutic Exercise,Balance Retraining,Post Op Education, Discharge Planning, Neuromuscular Re-ed Recommendations To Nursing Amount of Assist Needed Standby Assistance Discharge Recommendations PT Discharge Recommendations Home with Assistance Transportation Needs at Discharge Private Vehicle
[2019-08-15] MEDS: ESCITALOPRAM 10 MG TABLET 20 MG PO (12:32)
--- NOTE | 2019-08-15 13:33 | PC.NURSE ---
Day shift note Patient up OOB to chair for lunch and BR, voided post F/C removal. Dressing to mid lower back changed as ordered per Dr. Pedro. NO active bleeding noted to surgical incision. Incisions, secured with ad. Coversite x 2 placed. Medicated with Treadwell PO x 1 this shift with adequate pain control. CMS intact to bilateral LE. Calls appropriately for staff assist.
[2019-08-15] MEDS: HYDROMORPHONE 0.5 MG INJ IV (14:31)
--- NOTE | 2019-08-15 14:45 | CM.DANOTE ---
Discharge Planning/Care Management DCP: assessment: case received, EMR reviewed and met with pt. Introduced self and role. Pt is a 68 year old female who admitted yesterday for a planned spinal surgery. Surgeon: Dr. Pedro. PCP: Dr. Tiesha Salazar Payer: [employer] [facility] Medicare A only Admission status: INPT: confirmed by UR RN PT and OT are ordered. PT note is available and reviewed. Pt explains her plan at d/c: [place] [facility] Her son lives nearby in [facility] and will be checking on her. Her mother Fay will be coming up from [place] to stay and provide supportive assist (and did the same when pt had hip surgery with Dr. Colon last year). Other family/friends are around for supportive assist. Dr. Pedro plan a d/c to home setting for pt once she is up and independent and anticipates this will be Saturday or Saturday. DCP team will be follow prn to assist with any d/c needs that may arise. CM Discharge Assessment Start: 08/15/19 14:42 Freq: Status: Active Protocol: Document 08/15/19 14:43 ITV (Rec: 08/15/19 14:44 ITV [id number]) Discharge Planning Assessment Advance Directives? Yes Advance Directives on File Yes: Dr. Andrews office History Provided By Patient,Medical Record Has Patient been admitted in last 30 No days? Prior Living Arrangements House Household Members none Independent with ADL's Yes Is patient alert and oriented? Yes DME Already Rented / Owned FWW / Walker Comment has fww Discharge Plan Home Review Status In Process Pre-Anesthesia Assessment Start: 08/13/19 09:52 Freq: Status: Complete Protocol: Document 08/13/19 09:52 CAB (Rec: 08/13/19 10:22 CAB [id number]) Pre-Anesthesia Assessment Patient Information Reviewed Via Phone Assessment Assessment Completed With Patient Diagnostic Results CBC,Electrolytes,Other Comment Labs only @ 08/10/19 EKG-PCP scanned-COVID screen @ pending Primary Care Provider Carlos Salazar Seen Specialist in Last 12 Months Yes Specialist Seen Skid Adzer,Orthopedist Primary Language Andorran Preferred Language Andorran 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 Required No Height 176.53 cm Weight 99.79 kg Body Mass Index (BMI) 32.0 Hearing Ability Normal Visual Assist Glasses Dentition Type Teeth, Natural Present Barriers to Learning None Hx Anesthesia Reactions No Hx Family Anesthesia Reaction No Hx Malignant Hyperthermia No Hx Blood Transfusions No Hx Blood Transfusion Reaction No Anesthesia Review Requested No Sheet Manufacturing Supervisor No alcohol intake current alcohol intake frequency 0-2 drinks per day Smoking Status Never smoker Substance Use Type does not use Pain Present Pain Reported Musculoskeletal Symptoms Abnormal Gait,Back Pain, Difficulty Walking,Joint Pain, Muscle Spasms History of Falling (Recent or History of No ) Patient is completely paralyzed or No completely immobile Prosthesis or Orthotic Device Cane Mental Status Oriented to own ability Is patient on oxygen? No Does patient have GILBERT/SOB No Hx Sleep Apnea No CPAP/BIPAP use not prescribed Suspected Sleep Apnea No Currently Taking a Beta Adriana No Can You Climb a Flight of Stairs Without Yes SOB Hx Chest Pain No Hx SOB No Hx Syncope or Dizziness No Anti-Coagulant Therapy No Has a Intermediate Designer No Cardiac Testing No Hx Pacemaker/ICD No Pacemaker Rep Required? No Cardiac Clearance Received Not Applicable Diet Type At Home Regular dysphagia No Gastrointestinal Symptoms Diarrhea,Reflux Urinary Catheter Present No Hx Urinary Self Catheterization No Diabetes No Patient No Lactating No Hx Drug Resistant Organism No Presence of External or Internal Medical Yes: s/p r hip, screw r ankle, Devices r uni knee, total shoulder, sacrum pelvic fusion Have you had any close contact with Yes: [employer] group someone diagnosed with COVID-19? Marital Status Lives With none Prior Living Arrangements House Number of Floors (Floors) One Floor Number of Stairs To Enter/Railing? 5 stairs, railing present Support System Child/Children,Friend(s), Parent(s) Does the Patient Have Assistance After Yes Surgery Patient Discharge Plan Description Return Home Comment Pt advised 2-3 day length of stay per surgeon Feels Safe in Current Environment Yes Been Physically Hurt or Threatened By a No Person in Current Environment Do you have thoughts of harming yourself None or others? Are you currently considering suicide? No Do you have a plan to hurt yourself or No Plan others? Do You Have Any Spiritual Beliefs That No May Affect Your HC Choices? Do You Have Any Cultural Practices That No May Affect Your HC Choices? Comment Jonathon Who Can We Speak to About Patient's Care Family, friends Identifying Code for Release of Patient Declines to issue Information Health Care Proxy/Next of Kin Joseph (son) Health Care Proxy Emergency Contact Name Elizabeth Trejo-friend Emergency Contact Advance Directives? Yes Advance Directives on File Yes: Dr. Andrews office Power of School Community Relations Coordinator Yes Power of School Community Relations Coordinator Name Brian Boyd Power of School Community Relations Coordinator (H) [phone] (C) PAC Instructions Do not shave/clip surgical site,Durable medical equipment ,Medications to take/avoid,No ETOH/petroleum product on skin DOS,NPO,Pre-surgical wash, Sturdy shoes/comfortable clothes,Do not bring valuables and remove jewelry Comment Pt states never instructed to use nasal abx prior to surgery
--- NOTE | 2019-08-15 15:48 | PT.IPTN ---
Current Diagnoses Other forms of scoliosis, lumbar region (08/14/19) Spinal stenosis, lumbar region with neurogenic claudication (08/14/19) Surgery Performed Operation Date: 08/14/19 07:45 Actual Procedures p L2-S1 anterior/posterior instrumented fusion w/bone graft, L2-3, L3-4, L4-5 laminectomies - Kemal Pedro MD Physical Therapy Treatment Note M2 PT-IP Current Condition Start: 08/15/19 13:06 Freq: NEEDED Status: Active Protocol: Document 08/15/19 13:37 DLM (Rec: 08/15/19 14:02 DLM [id number]) Physical Therapy Current Condition Current Condition Evaluation Date 08/15/19 Treatment Diagnosis L2-4 anterior and post fusion, L4-S1 TLIF, L2-S1 screws, L2- 5 Laminectomy Onset Date 08/14/19 Precautions Lumbar Precautions Log Roll,No Twisting,Limit Bending,Lifting Restriction of 10 lbs,Gait Belt above Incisional Area Other Precautions large amount of drainage from incision, hx ORIF right ankle and hemiarthroplasty right hip M3 PT-IP Subjective Start: 08/15/19 13:06 Freq: NEEDED Status: Active Protocol: Document 08/15/19 15:24 KS (Rec: 08/15/19 16:41 KS [id number]) Subjective Physical Therapy Visit Type Type Treatment Note Visit Start Time 15:24 Visit Stop Time 15:48 Total Visit Minutes 24 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 Patient Goals return home with assist from family/friends Therapy Pain Assessment Pain When Pain Assessed During Mobility Pain Present Pain Present Pain Reported Location lower back Intensity 3 Scale Used Numeric (0 - 10) Description Aching Pain Management Techniques Re-positioning M4 PT-IP Mobility and Gait Start: 08/15/19 13:06 Freq: NEEDED Status: Active Protocol: Document 08/15/19 15:24 KS (Rec: 08/15/19 16:41 KS [id number]) PT-Bed Mobility Assessment Rolling Type of Rolling Log Rolling,Roll to Right Level of Assist Standby Assistance Supine to Sit Supine to Sit Standby Assistance Sit to Supine Sit to Supine Standby Assistance Scooting Scooting to Edge of Bed Standby Assistance PT-Transfer Assessment Sit to and From Stand Sit to and from Stand Standby Assistance,Use of Upper Extremities Equipment Transfer Assistive Device Gait Belt,Front Wheeled Walker Transfers Transfer Destination Bed Transfer Technique pt ambulated w/ FWW Transfer Ability Level of Assist Standby Assistance Comments Mobility Comments Pt in bed upon arrival from therapy. Completed logroll to R SBA w/o cues. SBA for sidelying to sit and scooting EOB. Pt then sit<>stand SBA w/ FWW. Pt ambulated ~70 ft around room back and forth around bed w/ FWW and SBA. Pt demonstrated good use of FWW, min cues for heel toe walking. Pt then returned to bed, logroll into bed all SBA. Pt left in bed w/ all needs in reach. Gait Assessment Gait Gait Assistance Required: Standby Assistance Distance (Feet) 70 Able to Maintain Weight Bearing Status Yes During Gait Assistive Devices Assistive Device Gait Belt,Front Wheeled Walker Orthotic/Prosthetic Devices or Brace: No Factors Limiting Gait Function Factors Limiting Gait Function Decreased Activity Tolerance, Pain Comments Gait Comments Please refer to mobility section for details. PT-Balance Assessment Sitting Balance and Reactions Static Sitting Balance Ability Good Dynamic Sitting Balance Ability Good Standing Balance and Reactions Static Standing Balance Ability Good Dynamic Standing Balance Ability Good Device Used FWW M5 PT-IP Objective Assessments Start: 08/15/19 13:06 Freq: NEEDED Status: Active Protocol: Document 08/15/19 13:37 DLM (Rec: 08/15/19 14:02 DLM [id number]) Orientation Orientation/Cognition Level of Alertness Alert Orientation Name,Age,Birthday,Month,Date, Year,Day of Week,Place, Situation Language Function Ability No Deficits Noted Safety Awareness Understands Safety Issues Memory Description No Deficits Noted Gross Range of Motion Upper Extremity ROM Assessment Within Functional Limits Lower Extremity ROM Assessment Right Impaired Impairments dorsiflexion to neutral only with hx of ORIF Strength Upper Extremity Strength Assessment Within Functional Limits Lower Extremity Strength Assessment Right Impaired Hip did not fully assess due to back sx, suspect functional abductor weakness Knee WFL Ankle DF/PF 5/5 Comments Strength Comments pt reports right LE feels stronger since sx Coordination Assessment Gross Coordination Gross Coordination WNL Sensation Assessment Sensation Gross Sensation WNL Muscle Tone Muscle Tone WNL Yes M6 PT-IP Treatment Start: 08/15/19 13:06 Freq: NEEDED Status: Active Protocol: Document 08/15/19 15:24 KS (Rec: 08/15/19 16:41 KS [id number]) Physical Therapy Treatment Education Education Provided Precautions,Safety M7 PT-IP Assessment and Plan Start: 08/15/19 13:06 Freq: NEEDED Status: Active Protocol: Document 08/15/19 15:24 KS (Rec: 08/15/19 16:41 KS [id number]) PT Summary Assessment and Plan Potential Rehabilitation Potential Excellent Status of Condition at Evaluation Evolving Summary Impairments Pain,ROM,Strength,Balance,Bed Mobility,Transfers,Gait, Activity Tolerance Progress Towards Goals Progressing Toward Goals Assessment Summary Pt able to increase ambulation distance this afternoon, ~70 ft w/ SBA and FWW. SBA for bed mobility and transfers. Cues for heel toe walking during ambulation. Pt demonstrated good safety awareness, able to recall and good adherence to precautions. Goals Bed Mobility Goal Independent Transfer Goal Independent,Front Wheeled Walker Gait Goal Independent,Front Wheel Walker Gait Distance 150 feet Other Goals up and down 2 steps with rail and SBA Days to Meet Goals 3 Frequency of Treatment Frequency Of Treatment Twice a Day Treatment Plan Physical Therapy Treatment Plan Bed Mobility Training,Transfer Training,Gait Training, Therapeutic Exercise,Balance Retraining,Post Op Education, Discharge Planning, Neuromuscular Re-ed Recommendations To Nursing Amount of Assist Needed Standby Assistance Discharge Recommendations PT Discharge Recommendations Home with Assistance Transportation Needs at Discharge Private Vehicle
[2019-08-15] MEDS: HYDROCODONE/ACET 5/325 TABLET 2 TAB PO ×2 (16:51→20:30)
[2019-08-15] MEDS: SENNOSIDES 8.6 MG TABLET 17.2 MG PO (20:02)
[2019-08-16] MEDS: HYDROCODONE/ACET 5/325 TABLET 2 TAB PO ×2 (01:21→06:18)
[2019-08-16 03:36] VITALS: BP 128/72; PULSE 76; RESP 18; TEMP 36.4; O2SAT 94
[2019-08-16] MEDS: PANTOPRAZOLE 20 MG TABLET PO (06:04)
[2019-08-16 08:27] VITALS: BP 154/67; PULSE 80; RESP 18; TEMP 36.8; O2SAT 95
[2019-08-16 08:50] VITALS: BP 154/67; PULSE 80
[2019-08-16] MEDS: lisinopriL 10 MG TABLET PO (08:50)
[2019-08-16] MEDS: ATORVASTATIN 10 MG TABLET PO (08:50)
[2019-08-16] MEDS: GABAPENTIN 300 MG CAPSULE 900 MG PO (08:50)
[2019-08-16] MEDS: DOCUSATE 100 MG CAPSULE PO (08:50)
[2019-08-16] MEDS: CELECOXIB 200 MG CAPSULE PO (08:50)
[2019-08-16] MEDS: ESCITALOPRAM 10 MG TABLET 20 MG PO (08:51)
--- NOTE | 2019-08-16 10:02 | PM.DS.1 ---
History of Present Illness History of Present Illness Date Patient Seen: 08/16/19 Time Patient Seen: 10:03 Chief complaint: [id number] Narrative: Postop day 2 L2 through S1 anterior and posterior fusion with Dr. sanchez. Doing well today. Pain controlled on [place]. Mobilized with physical therapy. Denies fevers chills nausea or vomiting. Feels ready for discharge home today Discharge Providers Provider Date of admission: 08/14/19 06:22 Discharge Date: 08/16/19 Primary care physician: Carlos Salazar MD Consults: 08/14/19 16:33 Consult to Occupational Therapy Evaluate & Treat Comment: Physician Instructions: Evaluate and treat Consult to Physical Therapy Evaluate & Treat Comment: Physician Instructions: Evaluate and Treat 08/14/19 17:45 Consult to Pastoral Services Routine Comment: would love to have someone come see her. Discharge provider: Lashell Szymanski MD Summary Hospital Course Discharge Diagnosis: Lumbar radiculopathy Hospital Course: Patient was admitted to the inpatient service postoperatively. She initially had IV and oral pain medications which was titrated to oral medications. Pain was controlled overnight on [place]. She mobilized with physical therapy. Prior to discharge she was tolerating an oral diet. On postoperative day 2 her pain was controlled and she had mobilized sufficiently for discharge home Status at Discharge Cognitive/behavioral status at discharge: oriented Functional status at discharge: independent ambulation Overall status at discharge: patient is progressing back to baseline Time Spent with Patient Time spent: Less than 30 minutes Exam Vital Signs (past 8 hours): - 08/16/19 03:36 08/16/19 08:27 08/16/19 08:50 Temperature 97.6 F 98.3 F Pulse Rate 76 80 80 Respiratory Rate 18 18 Blood Pressure 128/72 154/67 H 154/67 H Pulse Oximetry 94 95 Oxygen Delivery Method Room Air Oxygen Flow Rate 0 Narrative Exam Narrative: General exam alert oriented female no acute distress sitting at bedside chair HEENT exam normocephalic. A does have some bruising under her eyes from surgical positioning and taping. The seemed to be healing appropriately no visual changes endorsed Respiratory exam unlabored on room air CV exam regular rate and rhythm Spine examination dressing and placed minimal dry drainage. No redness or erythema. Musculoskeletal examination demonstrates good knee and ankle flexion extension. Sensation grossly intact to light touch. SCDs in place. Calfs are soft. Objective Labs Result Diagrams: 08/15/19 04:39 Discharge Plan Discharge Plan Patient Disposition: Home Discharge comment: Follow-up 1.5 weeks Discharge orders & Medications Prescriptions: New celecoxib [Celebrex] 200 mg Capsule 200 mg PO BID PRN (Reason: pain) Qty: 60 RF: 0 docusate sodium [DOK] 100 mg Capsule 100 mg PO BID PRN (Reason: constipation) Qty: 30 RF: 0 hydrocodone-acetaminophen 5-325 mg Tablet 1 tab PO Q4HR PRN (Reason: Pain, Moderate (4-6)) Qty: 40 RF: 0 hydroxyzine pamoate 25 mg Capsule 25 mg PO Q4HR PRN (Reason: spasms) Qty: 20 RF: 0 Continued escitalopram oxalate [Lexapro] 20 mg tablet 20 mg PO DAILY Qty: 90 RF: 2 lisinopril 10 mg tablet See Rx Instructions .ROUTE .COMPLEX Qty: 90 RF: 1 atorvastatin 10 mg tablet 10 mg PO DAILY Qty: 90 RF: 1 gabapentin [Neurontin] 300 mg capsule 900 mg PO TID RF: 0 omeprazole 20 mg Capsule,Delayed Release(Dr/Ec) 20 mg PO DAILY RF: 0 cranberry 500 mg Capsule 500 mg PO DAILY RF: 0 Discontinued hydrocodone-acetaminophen 5-325 mg tablet See Rx Instructions PO BEDTIME PRN (Reason: pain) Qty: 30 RF: 0 ibuprofen 200 mg Capsule 600 mg PO TID RF: 0 Follow up/Referrals: Carlos Salazar MD [Primary Care Provider] - Discharge Health Status Multidrug resistant organism: No MDRO Diet/Activity/Treatments Diet: Diet as Tolerated Activity: Limited bending, twisting, lifting, maximum 10 lb lift Skin/Wound/Dressing Care Report to your healthcare provider any signs of infection, such as:: chills, fever, night sweats, increased pain, unusual drainage and unusual redness Dressing: May change dressing and shower on Saturday Visit Report/Discharge Packet Instructions: DI for Laminectomy, DI for Prescription Opioid Use, DI for Lateral Lumbar Interbody Fusion Stand Alone Forms: Surgery Discharge Discharge Data Primary Care Provider: Carlos Salazar
--- NOTE | 2019-08-16 11:09 | PT.IPTN ---
Current Diagnoses Other forms of scoliosis, lumbar region (08/14/19) Spinal stenosis, lumbar region with neurogenic claudication (08/14/19) Surgery Performed Operation Date: 08/14/19 07:45 Actual Procedures p L2-S1 anterior/posterior instrumented fusion w/bone graft, L2-3, L3-4, L4-5 laminectomies - Kemal Pedro MD Physical Therapy Treatment Note M2 PT-IP Current Condition Start: 08/15/19 13:06 Freq: NEEDED Status: Active Protocol: Document 08/15/19 13:37 DLM (Rec: 08/15/19 14:02 DLM [email or web address]) Physical Therapy Current Condition Current Condition Evaluation Date 08/15/19 Treatment Diagnosis L2-4 anterior and post fusion, L4-S1 TLIF, L2-S1 screws, L2- 5 Laminectomy Onset Date 08/14/19 Precautions Lumbar Precautions Log Roll,No Twisting,Limit Bending,Lifting Restriction of 10 lbs,Gait Belt above Incisional Area Other Precautions large amount of drainage from incision, hx ORIF right ankle and hemiarthroplasty right hip M3 PT-IP Subjective Start: 08/15/19 13:06 Freq: NEEDED Status: Active Protocol: Document 08/16/19 10:35 LJ (Rec: 08/16/19 11:09 LJ [id number]) Subjective Physical Therapy Visit Type Type Treatment Note Visit Start Time 10:35 Visit Stop Time 10:53 Total Visit Minutes 18 Notes Pt in chair showered and dressed. 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 Patient Goals return home with assist from family/friends Therapy Pain Assessment Pain When Pain Assessed During Mobility Pain Present Pain Present Denied Pain M4 PT-IP Mobility and Gait Start: 08/15/19 13:06 Freq: NEEDED Status: Active Protocol: Document 08/16/19 10:35 LJ (Rec: 08/16/19 11:09 LJ [id number]) PT-Transfer Assessment Sit to and From Stand Sit to and from Stand Independent,Use of Upper Extremities Equipment Transfer Assistive Device Gait Belt,Front Wheeled Walker Transfers Transfer Destination Chair Transfer Technique pt ambulated w/ FWW Transfer Ability Level of Assist Independent,Use of Upper Extremities Comments Mobility Comments Pt in chair upon arrival. She is independent with transfers showing adherance to precatuions when transferring Gait Assessment Gait Gait Assistance Required: Standby Assistance Distance (Feet) 400 Able to Maintain Weight Bearing Status Yes During Gait Assistive Devices Assistive Device Gait Belt,Front Wheeled Walker Orthotic/Prosthetic Devices or Brace: No Factors Limiting Gait Function Factors Limiting Gait Function Decreased Activity Tolerance Comments Gait Comments Pt ambulated from room to stairs and back safely using FWW. Her gait is normalizing and she is walking with a safe pace. Stair Climbing Assessment Evaluation Level of Assist On Stairs Independent Devices Stair Climbing Assistive Devices Left Railing,Right Railing Technique/Endurance Stair Climbing Direction Ascend and Descend Stair Climbing Technique Step Over Step Number of Steps Climbed 3 Stair Climbing Set # Repetitions (reps) 2 Comments Stair Climbing Comments Pt trialed stairs x2 with no issues. Safely ascended and descended using rails and demonstrating proper turning technique at top of stairs M5 PT-IP Objective Assessments Start: 08/15/19 13:06 Freq: NEEDED Status: Active Protocol: Document 08/15/19 13:37 DLM (Rec: 08/15/19 14:02 DLM [email or web address]) Orientation Orientation/Cognition Level of Alertness Alert Orientation Name,Age,Birthday,Month,Date, Year,Day of Week,Place, Situation Language Function Ability No Deficits Noted Safety Awareness Understands Safety Issues Memory Description No Deficits Noted Gross Range of Motion Upper Extremity ROM Assessment Within Functional Limits Lower Extremity ROM Assessment Right Impaired Impairments dorsiflexion to neutral only with hx of ORIF Strength Upper Extremity Strength Assessment Within Functional Limits Lower Extremity Strength Assessment Right Impaired Hip did not fully assess due to back sx, suspect functional abductor weakness Knee WFL Ankle DF/PF 5/5 Comments Strength Comments pt reports right LE feels stronger since sx Coordination Assessment Gross Coordination Gross Coordination WNL Sensation Assessment Sensation Gross Sensation WNL Muscle Tone Muscle Tone WNL Yes M6 PT-IP Treatment Start: 08/15/19 13:06 Freq: NEEDED Status: Active Protocol: Document 08/16/19 10:35 CHANELL (Rec: 08/16/19 11:09 LJ [id number]) Physical Therapy Treatment Education Education Provided Precautions,Safety M7 PT-IP Assessment and Plan Start: 08/15/19 13:06 Freq: NEEDED Status: Active Protocol: Document 08/16/19 10:35 CHANELL (Rec: 08/16/19 11:09 LJ [id number]) PT Summary Assessment and Plan Potential Rehabilitation Potential Excellent Status of Condition at Evaluation Stable Summary Impairments ROM,Strength,Balance,Activity Tolerance Progress Towards Goals Safe For Discharge,Goals Met Assessment Summary Pt reported no pain and good function in her LEs now. Gait is normalizing and she uses FWW safely. Able to recall and adhere to precautions. Goals Bed Mobility Goal Independent Transfer Goal Independent,Front Wheeled Walker Gait Goal Independent,Front Wheel Walker Gait Distance 150 feet Other Goals up and down 2 steps with rail and SBA Days to Meet Goals 3 Frequency of Treatment Frequency Of Treatment Twice a Day Treatment Plan Physical Therapy Treatment Plan Therapeutic Exercise,Balance Retraining,Discharge Planning, Neuromuscular Re-ed Recommendations To Nursing Amount of Assist Needed Independent,Standby Assistance Discharge Recommendations PT Discharge Recommendations Home with Assistance Transportation Needs at Discharge Private Vehicle
[2019-08-16] MEDS: HYDROCODONE/ACET 5/325 TABLET 1 TAB PO (11:13)
--- NOTE | 2019-08-16 11:25 | PC.NURSE ---
Discharge note: Patient discharge home per MD order, ambulating in hallway with PT, FWW, SBA. Steady gait noted. VSS and afebrile. Discussed importance of F/U with Ortho in 1.5 weeks, new Rx's, and activity precautions. Verbalized understanding of instructions. Discharged home in stable condition, via private vehicle.
--- NOTE | 2019-08-16 16:52 | CM.DPC ---
DCP: pt was ok'd for d/c today and left for home as per her plan.
== END 2019-08-16 12:07 | disposition home or self-care (01) | DRG 455 ==
PROVIDERS: Admitting Provider Orthopaedic Surgery; PCP Family Medicine; Referring Provider Orthopaedic Surgery; Visit Provider Orthopaedic Surgery
PROC: 0SG00A0 Fusion of Lumbar Vertebral Joint with Interbody Fusion Device, Anterior Approach, Anterior Column, Open Approach (ICD-10-PCS; CPT 22558; principal; 2019-08-14 07:45)
DX: M41.86 Other forms of scoliosis, lumbar region (principal); M48.062 Spinal stenosis, lumbar region with neurogenic claudication; I10 Essential (primary) hypertension; F32.9 Major depressive disorder, single episode, unspecified; K21.9 Gastro-esophageal reflux disease without esophagitis
CPT/HCPCS: 36415; 72100; 76000; 85014; 85018; 94762; 97116; 97162; 97165; 97530; 97535; C1776; J0330; J0595; J0690; J1100; J1170; J2274; J2405; J2704; J3010

== ENCOUNTER → 2019-12-30 08:51 | Outpatient (CLI) | payer OTHER, SELFPAY ==
[2019-08-14 17:20] VITALS: BMI 32.0
[2019-12-30 09:11] LABS: WBC Urine None Seen (0-5/HPF)
[2019-12-30 10:26] LABS: Appearance Urine UA CLEAR; Bilirubin Urine UA NEGATIVE (NEGATIVE); Color Urine UA ORANGE; Glucose Urine UA TRACE g/dL (Negative); Ketones Urine UA NEGATIVE (NEGATIVE); Leukocyte Esterase Urine UA NEGATIVE (NEGATIVE); Nitrite Urine UA POSITIVE (Negative); Occult Blood Urine UA TRACE-INTACT (Negative); Protein Urine UA TRACE (Negative); Urobilinogen Urine UA 0.2 E.U./dL (0.2)
[2019-12-30 10:36] LABS: Bacteria Urine Many (>30); Culture Indicated Urine Specimen Cultured; RBC Urine 1-5/HPF (0-5/HPF)
== END ==
PROVIDERS: PCP Family Medicine; Referring Provider Family Medicine; Visit Provider Family Medicine
DX: R30.9 Painful micturition, unspecified (principal)
CPT/HCPCS: 81001; 87077; 87086; 87186

== ENCOUNTER 2019-12-31 11:03 | Emergency (ER) | payer OTHER, SELFPAY ==
[2019-08-14 17:20] VITALS: BMI 32.0
[2019-12-31 11:12] VITALS: BP 188/95; PULSE 88; RESP 18; TEMP 36.2; O2SAT 95; BMI 30.7
[2019-12-31] MEDS: predniSONE 20 MG TABLET 40 MG PO (12:20)
[2019-12-31 12:21] VITALS: PULSE 85; O2SAT 96
[2019-12-31] MEDS: FAMOTIDINE 20 MG TABLET PO (12:21)
[2019-12-31 12:23] VITALS: BP 185/79; PULSE 81; O2SAT 96
[2019-12-31 12:30] VITALS: BP 148/72; PULSE 78; O2SAT 97
--- NOTE | 2019-12-31 15:07 | ED_ITS ---
HPI - Allergic Reaction <AP Aaron - Last Filed: 12/31/19 15:17> General Chief complaint: Allergic Reaction Stated complaint: adverse reaction to medication Time Seen by Provider: 12/31/19 11:59 Source: patient Mode of arrival: Ambulatory Limitations: no limitations History of Present Illness HPI narrative: This is a 69-year-old female, nonsmoker, who has past medical history significant for hypertension, hyper lipidemia, frequent UTI, depression presents to ED with chief complain of allergic reaction after taking 2 doses of Bactrim DS and Pyridium which she started yesterday and last dose was taken at 10:30 p.m.. Patient noticed small swelling to right side lip when she woke up this morning at 0830. Patient denies chest pain, dyspnea, short of breath, dizziness, nausea or vomiting or swelling to his throat or tongue. She called doctor's office they directed her to come to ED for on evaluation and treatment. Patient reports she usually gets UTI about 3 times a year. Currently, she does not have dysuria since she is taking Pyridium. She denies fever, chills, or flank pain. PCP Dr. Stockton. Patient drove to ED today. Related Data Home Medications Medication Instructions Recorded Confirmed cranberry 500 mg PO DAILY 07/20/18 08/14/19 omeprazole 20 mg PO DAILY 07/20/18 08/14/19 Previous Rx's Medication Instructions Recorded escitalopram oxalate 20 mg tablet See Rx Instructions .ROUTE 08/18/19 .COMPLEX #90 tab lisinopril 10 mg tablet See Rx Instructions .ROUTE 08/18/19 .COMPLEX #90 tab atorvastatin 10 mg tablet 10 mg PO DAILY #90 tab 11/11/19 varicella-zoster [id number] (PF) 50 0.5 ml IM ONCE #1 each 12/22/19 mcg/0.5 mL IM susp, kit alprazolam 0.5 mg tablet 0.5 mg PO BEDTIME PRN #30 tab 12/25/19 phenazopyridine 200 mg tablet 200 mg PO TID #6 tab 12/30/19 sulfamethoxazole 800 1 tab PO BID #14 tab 12/30/19 mg-trimethoprim 160 mg tablet cephalexin [Keflex] 500 mg PO Q6H 7 Days #28 cap 12/31/19 prednisone 40 mg PO DAILY 4 Days #8 tab 12/31/19 Allergies Allergy/AdvReac Type Severity Reaction Status Date / Time pregabalin [From LYRICA] Allergy Intermediate Rash Verified 08/14/19 06:46 phenazopyridine Allergy Mild Verified 12/31/19 12:19 [From Pyridium] venlafaxine Allergy Mild arrthmia Verified 12/22/19 11:10 Sulfa (Sulfonamide Allergy Verified 12/31/19 11:18 Antibiotics) Review of Systems <AP Aaron - Last Filed: 12/31/19 15:17> Review of Systems Narrative: General: Denies fever, chills, fatigue, malaise, sweats. HEENT: Denies sinus pain, (+) mild lip swelling, ear pain, sore throat, difficulty swallowing, dizziness. Respiratory: Denies dyspnea, cough, wheezing, hemoptysis, sputum. Cardiovascular: Denies chest pain, palpitations, orthopnea, edema. Gastrointestinal: Denies nausea, vomiting, abdominal pain, diarrhea, constipation, melena. : Denies dysuria, frequency, incontinence, hematuria, urinary retention. Musculoskeletal: Denies weakness, joint pain or bony pain. Skin: Denies rash, skin lesions, or other. Neurologic: Denies weakness, headache, numbness, change in speech, confusion, seizures, incoordination. Psychiatric: No concerning psychosocial issues. 12-point review of systems is negative except for those stated above. Patient History <AP Aaron - Last Filed: 12/31/19 15:17> Medical History Cardiac arrhythmia (Chronic ~2003) Carpal tunnel syndrome (Chronic ~1994) Chickenpox (Resolved ~1959) Chronic back pain (Chronic ~2007) Chronic UTI (Acute) Colon polyps (Resolved ~1999) Depression (Chronic ~1992) Easy bruisability (Acute) Fibroids (Chronic ~1997) Fusion of sacral region of spine (Acute) Hiatal hernia (Acute) History of fracture (Resolved) HSV (herpes simplex virus) infection (Chronic ~1979) Hyperlipidemia (Acute) Hypertension (Chronic ~2003) Measles (Resolved ~1959) Melanoma of ear (Resolved ~2007) Mumps (Resolved ~1958) Right femoral fracture (Acute 07/19/18) Sciatic nerve pain (Acute) Shoulder pain (Chronic ~2013) UTI (urinary tract infection) (Acute) Surgical History Anesthesia complication (Inactive) H/O prior ablation treatment (Resolved ~1997) History of arthroplasty of left shoulder (Acute 12/30/17) History of total right hip arthroplasty (Acute 07/30/18) Hx of tonsillectomy (Acute) Melanoma of ear (Resolved ~2007) S/P partial hysterectomy (Acute) Status post arthroscopy (~2013) Status post delivery (~1987) Status post colonoscopy Status post ORIF of fracture of ankle (Resolved ~1975) Family History Brother Age: 65 Heart disease Hypertension Grandfather Heart disease Colorectal cancer Grandmother Stroke Mother Age: 86 Hypertension Grandfather Heart disease Grandmother Diabetes mellitus Sister Age: 60 Mental health problem Depression Father Parkinson's disease Pneumonia Social History household members: none Smoking Status: Never smoker alcohol intake: current Smoking Status: Never smoker alcohol intake frequency: 0-2 drinks per day Substance Use Type: does not use Exam <AP Aaron - Last Filed: 12/31/19 15:17> Narrative Exam Narrative: GEN: Alert, oriented x 3, well appearing and nourished, and in no acute distress. Head: Normal cephalic, atraumatic. No scalp or temporal tenderness, palpable mass or rash. EYES: Pupils are equal, round, and reactive to light and accommodation. Extraocular muscles are intact bilaterally. There is no subconjunctival hemorrhage, exudate and sclera non-icteric. ENT: Hearing grossly intact. Nose without bleeding, purulent discharge or deviation. Mucous membrane moist, no mucosal lesion. Small right side lip edema. Throat without erythema, tonsillar hypertrophy or exudate. Uvula in midline, airway patent. Neck: Trachea in midline. No JVD, non-tender without lymphadenopathy. No masses or thyroid megaly. Supple, non-tender and no meningeal signs. CARDIAC: Normal regular rate and rhythm without murmurs, gallops, or rubs. No chest wall tenderness. No peripheral edema, cyanosis or pallor. Capillary refill is less than 2 seconds. RESPIRATORY: Lungs are clear to auscultate bilaterally. No cough, wheezes, rales, or rhonchi. No stridor, respiratory distress, increase work of breathing, or accessary muscle used. ABD: Abdomen soft, nontender and non-distended. No guarding or rebound tenderness to palpate. Bowel sounds are normal in all 4 quadrants. There is no palpable masses or organomegaly. EXT: Full painless ROM of all extremities with no loss of sensation, strength, effusion or edema. SKIN: Warm, dry, normal color for patient. No erythema, lesions or rash over visible areas. NEUROLOGICAL: Alert and oriented to place, time and person. Sensation and motor function intact bilaterally. No facial droops, dysphasia. PSYCHIATRIC: Good judgement and reason, without hallucinations, abnormal affect or abnormal behaviors during the examination. Patient is not suicidal. Initial Vital Signs Initial Vital Signs: Vital Signs Temperature 97.2 F L 12/31/19 11:12 Pulse Rate 88 12/31/19 11:12 Respiratory Rate 18 12/31/19 11:12 Blood Pressure 188/95 H 12/31/19 11:12 Pulse Oximetry 95 12/31/19 11:12 <Mela Lynch DO - Last Filed: 12/31/19 17:43> Initial Vital Signs Initial Vital Signs: Vital Signs Temperature 97.2 F L 12/31/19 11:12 Pulse Rate 88 12/31/19 11:12 Respiratory Rate 18 12/31/19 11:12 Blood Pressure 188/95 H 12/31/19 11:12 Pulse Oximetry 95 12/31/19 11:12 Scores <AP Aaron - Last Filed: 12/31/19 15:17> GCS Magdy coma scale eye opening: Spontaneous Magdy coma scale verbal response: Orientated [place] coma scale motor response: Obey commands [place] coma scale total score: 15 Course <PA Aaron - Last Filed: 12/31/19 15:17> Orders Ordered: Discontinued Medications Famotidine (Pepcid Ac) 20 mg PO NOW ONE Stop: 12/31/19 12:17 Last Admin: 12/31/19 12:21 Dose: 20 mg Documented by: YANG Prednisone (Deltasone) 40 mg PO NOW ONE Stop: 12/31/19 12:17 Last Admin: 12/31/19 12:20 Dose: 40 mg Documented by: YANG Vital Signs Vital signs: Vital Signs - 8 hr 12/31/19 11:12 12/31/19 12:21 12/31/19 12:23 Temperature 97.2 F L Pulse Rate 88 85 81 Respiratory Rate 18 Blood Pressure 188/95 H 185/79 H Pulse Oximetry 95 96 96 12/31/19 12:30 Temperature Pulse Rate 78 Respiratory Rate Blood Pressure 148/72 H Pulse Oximetry 97 <Mela Lynch DO - Last Filed: 12/31/19 17:43> Orders Ordered: Discontinued Medications Famotidine (Pepcid Ac) 20 mg PO NOW ONE Stop: 12/31/19 12:17 Last Admin: 12/31/19 12:21 Dose: 20 mg Documented by: YANG Prednisone (Deltasone) 40 mg PO NOW ONE Stop: 12/31/19 12:17 Last Admin: 12/31/19 12:20 Dose: 40 mg Documented by: YANG Vital Signs Vital signs: Vital Signs - 8 hr 12/31/19 11:12 12/31/19 12:21 12/31/19 12:23 Temperature 97.2 F L Pulse Rate 88 85 81 Respiratory Rate 18 Blood Pressure 188/95 H 185/79 H Pulse Oximetry 95 96 96 12/31/19 12:30 Temperature Pulse Rate 78 Respiratory Rate Blood Pressure 148/72 H Pulse Oximetry 97 MDM - Allergic Reaction <AP Aaron - Last Filed: 12/31/19 15:17> Differential Diagnosis Differential diagnosis: Likely allergic reaction, angioedema and adverse reaction to drug Medical Records Attestation: I reviewed the patient's medical records. MDM Narrative Medical decision making narrative: This is a 69-year-old female who presents to ED with small swelling to her lip after she completed 2 doses of Bactrim and Pyridium which started yesterday and last dose was at 10:30 a.m. last night for UTI. Patient denies chest pain, dyspnea, short of breath, swelling to her throat or tongue. Patient drove to ED. Given the patient has allergy reaction involving lip, decided to treat patient with short course of steroids and H2 guilherme but help Benadryl since patient drove to ED. advised to take Benadryl when she gets home. Advised continue with histamine guilherme once a day tomorrow. If her symptoms are improved and hold next dose of prednisone due to possible side effects. Strict return precautions were discussed with patient including life-threatening anaphylactic allergy reaction and to call 911 if these occur. Patient advised to stop Bactrim and Pyridium not sure which is causing the allergy reaction, and her antibiotic medication was changed to Keflex from previous urine culture results (Gram Negatives and E-Coli). Patient verbalized understanding in agreement with the treatment plan. Discharge Plan Departure Patient Disposition: Home Clinical Impression: Allergic reaction Qualifiers: Encounter type: initial encounter Qualified Code(s): T78.40XA - Allergy, uns pecified, initial encounter Discharge Date/Time: 12/31/19 12:44 Instructions: DI for Adverse Drug Reaction -- Allergic Activity Restrictions/Additional Instructions: You have been diagnosed with [allergy reaction after starting Bactrim DS and Pyridium. You were medicated with Prednisone and Pepcid in ED. ]. What to do: *Take your medications as directed. You can take [id number] Benadryl 25- 50 mg to 3 to 4 times a day as needed for this. Please take Pepcid once a day. If you continue to have swelling and allergy reaction continue to take prednisone for next 4 days. Your antibiotic medication has change it to Keflex for UTI. Please take 4 times a day for next 7 days. *Follow up with your primary care provider in 2-3 days, call for an appointment. Let them know you were seen in the ED and that we asked you to be seen in follow up. *Return to ED if you have any new, worsening, or concerning symptoms, such as [chest pain, breathing difficulty, near syncope, increasing swelling to her lips/throat, nausea or vomiting or any other concerns. You can call 911 with his symptoms.]. Prescriptions: New cephalexin [Keflex] 500 mg capsule 500 mg PO Q6H 7 Days Qty: 28 RF: 0 prednisone 20 mg tablet 40 mg PO DAILY 4 Days Qty: 8 RF: 0 No Action lisinopril 10 mg tablet See Rx Instructions .ROUTE .COMPLEX Qty: 90 RF: 2 escitalopram oxalate 20 mg tablet See Rx Instructions .ROUTE .COMPLEX Qty: 90 RF: 2 atorvastatin 10 mg tablet 10 mg PO DAILY Qty: 90 RF: 1 alprazolam 0.5 mg tablet 0.5 mg PO BEDTIME PRN (Reason: sleep) Qty: 30 RF: 1 Shingrix (PF) 50 mcg/0.5 mL suspension for reconstitution 0.5 ml IM ONCE Qty: 1 RF: 0 sulfamethoxazole-trimethoprim [Bactrim DS] 800-160 mg tablet 1 tab PO BID Qty: 14 RF: 0 phenazopyridine [Pyridium] 200 mg tablet 200 mg PO TID Qty: 6 RF: 0 omeprazole 20 mg Capsule,Delayed Release(Dr/Ec) 20 mg PO DAILY RF: 0 cranberry 500 mg Capsule 500 mg PO DAILY RF: 0 Referrals: Carlos Salazar MD [Primary Care Provider] - <Mela Lynch DO - Last Filed: 12/31/19 17:43> Cosign ED Attending Cosignature Attestation: I was immediately available in the department for consultation. This documentation has been reviewed and I agree with assessment and plan, patient seen briefly by myself. Supervised by Mela Lynch DO
== END 2019-12-31 12:44 | disposition home or self-care (01) ==
PROVIDERS: Emergency Provider Nurse Practitioner Family; PCP Family Medicine
DX: T78.40XA Allergy, unspecified, initial encounter (principal); R22.0 Localized swelling, mass and lump, head
CPT/HCPCS: 36415; 99283; A9270

== ENCOUNTER → 2020-01-08 08:41 | Outpatient (CLI) | payer OTHER, SELFPAY ==
[2019-08-14 17:20] VITALS: BMI 32.0
[2020-01-08 09:09] LABS: Bacteria Urine None Seen; RBC Urine None Seen (0-5/HPF); WBC Urine None Seen (0-5/HPF)
[2020-01-08 09:34] LABS: Add Manual Diff / Slide Review NO; Basophils Absolute Auto 0 /uL (0-100); Basophils Percent Auto 0.9 % (0-2); Eosinophils Absolute Auto 200 /uL (0-450); Eosinophils Percent Auto 3.2 % (2-4); Hemoglobin 11.9 g/dL (12.0-16.0); Lymphocytes Absolute Auto 1100 /uL (1100-4500); Lymphocytes Percent Auto 22.6 % (25-40); Mean Corpuscular HGB Conc 32.2 % (30-36); Mean Corpuscular Hemoglobin 25.3 PG (26-34); Mean Corpuscular Volume 78.6 fL (80-100); Monocytes Absolute Auto 400 /uL (0-900); Monocytes Percent Auto 7.7 % (3-14); Neutrophils Absolute Auto 3100 /uL (1500-7000); Neutrophils Percent Auto 65.6 % (50-75); Platelet Count 265 X10^3/uL (150-400); Red Cell Distribution Width 17.1 % (11.6-14.8); White Blood Cell Count 4.8 X10^3/uL (4.5-11.0)
[2020-01-08 09:54] LABS: Appearance Urine UA CLEAR; Bilirubin Urine UA NEGATIVE (NEGATIVE); Color Urine UA YELLOW; Glucose Urine UA NEGATIVE (Negative); Ketones Urine UA NEGATIVE (NEGATIVE); Leukocyte Esterase Urine UA NEGATIVE (NEGATIVE); Nitrite Urine UA NEGATIVE (Negative); Occult Blood Urine UA NEGATIVE (Negative); Protein Urine UA NEGATIVE (Negative); Urobilinogen Urine UA 0.2 E.U./dL (0.2)
[2020-01-08 10:05] LABS: Culture Indicated Urine Cult Not Indicated; Urine Comments Microscopic Normal
== END ==
PROVIDERS: PCP Family Medicine; Referring Provider Family Medicine; Visit Provider Family Medicine
DX: D64.9 Anemia, unspecified (principal); N39.0 Urinary tract infection, site not specified
CPT/HCPCS: 36415; 81001; 85025

== ENCOUNTER → 2020-01-28 12:54 | Outpatient (CLI) | payer OTHER, SELFPAY ==
[2019-08-14 17:20] VITALS: BMI 32.0
[2020-01-28 13:39] LABS: Add Manual Diff / Slide Review NO; Basophils Absolute Auto 0 /uL (0-100); Basophils Percent Auto 0.5 % (0-2); Eosinophils Absolute Auto 200 /uL (0-450); Eosinophils Percent Auto 2.1 % (2-4); Hematocrit 37.3 % (36-46); Hemoglobin 12.3 g/dL (12.0-16.0); Lymphocytes Absolute Auto 1300 /uL (1100-4500); Lymphocytes Percent Auto 16.9 % (25-40); Mean Corpuscular HGB Conc 32.9 % (30-36); Mean Corpuscular Hemoglobin 25.6 PG (26-34); Monocytes Absolute Auto 500 /uL (0-900); Monocytes Percent Auto 5.9 % (3-14); Neutrophils Absolute Auto 5700 /uL (1500-7000); Neutrophils Percent Auto 74.6 % (50-75); Platelet Count 291 X10^3/uL (150-400); Red Blood Cell Count 4.78 X10^6/uL (4.0-5.2); Red Cell Distribution Width 17.2 % (11.6-14.8); White Blood Cell Count 7.7 X10^3/uL (4.5-11.0)
[2020-01-28 13:43] LABS: Alanine Aminotransferase 16 IU/L (<35); Albumin 4.2 g/dL (3.5-5.0); Albumin Globulin Ratio 1.3 (1.0-2.8); Alkaline Phosphatase 102 U/L (38-126); Aspartate Aminotransferase 25 IU/L (14-36); BUN Creatinine Ratio 27.8 (6-22); Bilirubin Total 0.3 mg/dL (0.2-1.3); Blood Urea Nitrogen 15 mg/dL (7-17); Calcium 9.1 mg/dL (8.4-10.2); Carbon Dioxide 31 mmol/L (22-32); Chloride 103 mmol/L (98-107); Cholesterol 156 mg/dL (140-199); Estimated Glomerular Filt Rate > 60.0 mL/min (>60); Globulin 3.2 g/dL (1.7-4.1); Glucose 94 mg/dL (80-110); HDL Cholesterol 39 mg/dL (40-60); HEMOLYSIS < 15 (0-50); LDL Cholesterol Calculated 82 mg/dL (<100); Potassium 4.1 mmol/L (3.4-5.1); Sodium 138 mmol/L (137-145); Total Protein 7.4 g/dL (6.3-8.2); Triglycerides 177 mg/dL (35-150)
== END ==
PROVIDERS: PCP Family Medicine; Referring Provider Family Medicine; Visit Provider Family Medicine
DX: E78.2 Mixed hyperlipidemia (principal); I10 Essential (primary) hypertension
CPT/HCPCS: 36415; 80053; 80061; 85025

== ENCOUNTER → 2020-05-27 10:16 | Outpatient (CLI) | payer OTHER, SELFPAY ==
[2019-08-14 17:20] VITALS: BMI 32.0
--- NOTE | 2020-05-27 10:17 | DI.MG.S_ITS ---
BILATERAL DIGITAL SCREENING MAMMOGRAM 3D/2D WITH CAD: 05/27/2020 CLINICAL: Routine screening. Comparison is made to exams dated: 05/02/2018 mammogram, 02/08/2017 mammogram, and 12/23/2015 mammogram - [facility]. The tissue of both breasts is heterogeneously dense. This may lower the sensitivity of mammography. Current study was also evaluated with a Computer Aided Detection (CAD) system. No significant masses, calcifications, or other findings are seen in either breast. There has been no significant interval change. IMPRESSION: NEGATIVE There is no mammographic evidence of malignancy. A 1 year screening mammogram is recommended. This exam was interpreted at Station ID: [id number]. NOTE: For mammograms, a report in lay terms will be sent to the patient. Approximately 15% of breast malignancies will not be visualized mammographically. In the management of a palpable breast mass, a negative mammogram must not discourage biopsy of a clinically suspicious lesion. Electronically Signed By: Joseph grey/zara:05/27/2020 10:47:58 copy to: JACQUES ARAYA letter sent: Normal Exam ACR BI-RADS Category 1: Negative [id number]
== END ==
PROVIDERS: PCP Family Medicine; Referring Provider Family Medicine; Visit Provider Family Medicine
DX: Z12.31 Encounter for screening mammogram for malignant neoplasm of breast (principal)
CPT/HCPCS: 77063; 77067

== ENCOUNTER → 2020-08-03 14:47 | Outpatient (CLI) | payer OTHER, SELFPAY ==
[2019-08-14 17:20] VITALS: BMI 32.0
--- NOTE | 2020-08-03 14:48 | DI.US.S_ITS ---
PROCEDURE: US ABDOMEN COMPLETE INDICATIONS: epigastric pain TECHNIQUE: Real-time scanning was performed of the abdominal and retroperitoneal organs, with image documentation. COMPARISON: [facility], CT, CT ANGIO CHEST PE, 08/18/2018, 11:32. FINDINGS: Liver: Liver is normal in size and generally homogeneous in echotexture. There are, however, 2 cysts within the left hepatic lobe each measuring approximately 1.5 cm and 3 cysts in the right hepatic lobe measuring approximately 2-3 cm. There also is a solid-appearing sharply demarcated mass within the left hepatic lobe that is shadowing, and measures up to 2.3 x 2.4 x 3.6 cm. Gallbladder: The gallbladder appears normal. Biliary ducts: Intrahepatic bile ducts are non-dilated. Extrahepatic bile duct caliber measures 5.0 mm. Normal is 6-7 mm or less in diameter, or 10 mm or less post-cholecystectomy. Pancreas: Visualized portions of the pancreas are sonographically normal. Spleen: Spleen is normal in size and homogeneous in echotexture. Kidneys: Kidneys are normal in size and echotexture. Right kidney measures 11.7 cm long; left kidney measures 12.9 cm long. No hydronephrosis or nephrolithiasis. No solid masses. Scattered renal cortical cysts are present. There appears to be a renal pelvic cyst measuring up to 3.5 x 3.8 cm. Aorta: Visualized aorta is normal in caliber at less than 3 cm. Iliacs: Proximal common iliac arteries are normal in caliber at less than 2.5 cm. IVC: Intrahepatic inferior vena cava is patent. Miscellaneous: No free abdominal fluid. IMPRESSION: 1. CT scanning utilizing hepatic mass protocol technique without and with contrast is recommended. There is a solid mass lesion within the left hepatic lobe measuring up to 3.6 cm, and several scattered hepatic simple cysts. The solid mass lesion is shadowing. It is noted that the CT pulmonary angiogram performed 08/18/18 includes visualization of much of the liver and should be used for comparison to the anticipated follow-up scanning. 2. Several scattered renal cortical cysts and a left-sided peripelvic cyst appear present. These findings will be further assessed during the anticipated follow-up CT scanning. Dictated by: Chico Pete M.D. on 08/04/2020 at 9:12 Approved by: Chico Pete M.D. on 08/04/2020 at 9:20
[2020-08-03 16:32] LABS: Add Manual Diff / Slide Review NO; Basophils Absolute Auto 0 /uL (0-100); Basophils Percent Auto 0.8 % (0-2); Eosinophils Absolute Auto 100 /uL (0-450); Eosinophils Percent Auto 2.6 % (2-4); Hematocrit 37.7 % (36-46); Hemoglobin 12.5 g/dL (12.0-16.0); Lymphocytes Absolute Auto 1500 /uL (1100-4500); Lymphocytes Percent Auto 28.4 % (25-40); Mean Corpuscular HGB Conc 33.1 % (30-36); Mean Corpuscular Hemoglobin 27.3 PG (26-34); Mean Corpuscular Volume 82.4 fL (80-100); Monocytes Absolute Auto 400 /uL (0-900); Monocytes Percent Auto 6.9 % (3-14); Neutrophils Absolute Auto 3300 /uL (1500-7000); Neutrophils Percent Auto 61.3 % (50-75); Platelet Count 231 X10^3/uL (150-400); Red Blood Cell Count 4.57 X10^6/uL (4.0-5.2); Red Cell Distribution Width 14.5 % (11.6-14.8); White Blood Cell Count 5.3 X10^3/uL (4.5-11.0)
[2020-08-03 17:08] LABS: Alanine Aminotransferase 12 IU/L (<35); Albumin 3.9 g/dL (3.5-5.0); Albumin Globulin Ratio 1.3 (1.0-2.8); Alkaline Phosphatase 90 U/L (38-126); Amylase 69 U/L (30-110); Aspartate Aminotransferase 22 IU/L (14-36); BUN Creatinine Ratio 24.1 (6-22); Bilirubin Total 0.4 mg/dL (0.2-1.3); Blood Urea Nitrogen 13 mg/dL (7-17); Calcium 8.9 mg/dL (8.4-10.2); Carbon Dioxide 28 mmol/L (22-32); Chloride 103 mmol/L (98-107); Estimated Glomerular Filt Rate > 60.0 mL/min (>60); Globulin 2.9 g/dL (1.7-4.1); Glucose 84 mg/dL (80-110); HEMOLYSIS < 15 (0-50); Lipase 100 U/L (23-300); Sodium 139 mmol/L (137-145); Total Protein 6.8 g/dL (6.3-8.2)
[2020-08-03 17:39] LABS: TSH w/ Reflex to FT4 1.13 uIU/mL (0.47-4.68)
[2020-08-04 12:01] LABS: Interpretation Negative (Negative)
== END ==
PROVIDERS: PCP Family Medicine; Referring Provider Nurse Practitioner Family; Visit Provider Nurse Practitioner Family
DX: R10.13 Epigastric pain (principal); R63.4 Abnormal weight loss; N28.1 Cyst of kidney, acquired; K76.89 Other specified diseases of liver; Z87.11 Personal history of peptic ulcer disease
CPT/HCPCS: 36415; 76700; 80053; 82150; 83013; 83690; 84443; 85025

== ENCOUNTER → 2020-08-08 16:16 | Outpatient (CLI) | payer OTHER, SELFPAY ==
[2019-08-14 17:20] VITALS: BMI 32.0
--- NOTE | 2020-08-08 16:17 | DI.MRI.S_ITS ---
PROCEDURE: MR ABDOMEN WO/W CON INDICATIONS: liver lesion as noted on US TECHNIQUE: Coronal HASTE, axial 2D FLASH in- and [id number]; axial breath-hold T2 FSE. Dynamic axial VIBE during the administration of contrast; post-contrast coronal VIBE or 2D FLASH with fat saturation from the hepatic dome to the iliac crests. Optional diffusion weighted imaging and ADC may be performed. COMPARISON: [facility], CT, CT ANGIO CHEST PE, 08/18/2018, 11:32. [facility], US, US ABDOMEN COMPLETE, 08/03/2020, 14:11. FINDINGS: Image quality: Excellent. Lung bases: No basal pleural effusions. Heart size is normal. Solid organs: Multiple thin walled simple appearing hepatic cysts are redemonstrated. In addition, within segment 6 of the right hepatic lobe, there is an oval well-circumscribed structure measuring up to 2.6 x 2.3 x 2.4 cm which likely corresponds to the shadowing lesion seen on prior ultrasound and appears similar in size compared to the prior CT. This demonstrates slightly hyperintense signal to the liver on T2 and mildly hypointense signal on T1. There is no evidence of internal enhancement following contrast administration. The findings are consistent with a complex cyst. No suspicious enhancing hepatic mass identified. Gallbladder appears within normal limits without gallstones. Biliary system is non dilated. No filling defects within the common bile duct. Pancreas is normal in morphology. No pancreatic duct dilatation. Spleen is normal in size. There are a few small cysts within the spleen. No adrenal nodules. Kidneys demonstrate no hydronephrosis. Multiple bilateral parapelvic renal cysts are present. Nodes and vessels: No retroperitoneal or mesenteric adenopathy by size criteria. Aorta and inferior vena cava are normal in size. Bowel and peritoneum: Visualized bowel loops are normal in caliber. No free fluid. Bones and soft tissues: No ventral hernias. Bone marrow is normal in overall signal. IMPRESSION: 1. Oval nonenhancing lesion in the right hepatic lobe demonstrates imaging findings consistent with a complex cyst. This appears similar in size compared to the prior CT on which it also demonstrated intermediate attenuation. The findings likely correspond to the shadowing lesion on ultrasound which may reflect interval peripheral calcification compared to the prior CT. 2. No suspicious enhancing hepatic mass identified. Dictated by: Lisandro Berry M.D. on 08/09/2020 at 9:29 Approved by: Lisandro Berry M.D. on 08/09/2020 at 9:45
== END ==
PROVIDERS: PCP Family Medicine; Referring Provider Nurse Practitioner Family; Visit Provider Nurse Practitioner Family
DX: K76.9 Liver disease, unspecified (principal)
CPT/HCPCS: 74183

== ENCOUNTER → 2020-09-16 10:27 | Outpatient (CLI) | payer OTHER, SELFPAY ==
[2019-08-14 17:20] VITALS: BMI 32.0
[2020-09-16 10:53] LABS: COVID19 -Nasal RAPID Negative (Negative)
== END ==
PROVIDERS: PCP Family Medicine; Visit Provider Surgery
DX: Z20.822 Contact with and (suspected) exposure to COVID-19 (principal)
CPT/HCPCS: 87635; C9803

== ENCOUNTER 2020-09-19 07:02 | Day surgery (SDC) | payer OTHER, SELFPAY ==
[2019-08-14 17:20] VITALS: BMI 32.0
--- NOTE | 2020-09-19 | PATH_ITS ---
[facility] Accession Number: [id number] . 01 Material submitted: . gastrointestinal site - GASTRIC BIOPSY . 01 Clinical history: . SDC . 02 Diagnosis: Stomach, Biopsy: Body-type mucosa with mild chronic gastritis. Negative for Helicobacter by immunohistochemistry. Negative for intestinal metaplasia. Negative for dysplasia and malignancy. MRV 09/22/2020 1407 Local . 02 Electronically signed: . Marlene Hogan MD, Pathologist NPI- [id number] . 01 Gross description: . GASTRIC BIOPSY: Received in formalin are 2 fragment(s) of sun, soft tissue measuring 0.4 x 0.3 x 0.2 cm to 0.2 x 0.1 x 0.1 cm submitted entirely in 1 cassette(s) /DARNELL 09/20/2020 0503 Local . 02 Microscopic: . An immunohistochemical stain was performed to evaluate for Helicobacter organisms and is negative. The control stain showed appropriate reactivity. . * This test was developed and its performance characteristics determined by [facility]. It has not been cleared or approved by the U.S. Food and Drug Administration. The FDA has determined that such clearance or approval is not necessary. This test is used for clinical purposes. It should not be regarded as investigational or for research. . 02 Pathologist provided ICD-10: R10.9 . 02 CPT . 685588, A90368 Performed at: 01 [facility] [address], [place], [place] [id number] MD Lisandro Kahn MD Phone: [phone] Performed at: 02 [facility] [employer] [address] [place], [place] [id number] MD Marlene Hogan MD Phone: [phone]
[2020-09-19 07:17] VITALS: BP 152/87; PULSE 87; RESP 12; TEMP 36.7; O2SAT 99; BMI 29.3
[2020-09-19] MEDS: LACTATED RINGERS 1,000 ML 200 ML IV (07:35)
--- NOTE | 2020-09-19 07:46 | PM.PREOP ---
Pre-operative Note Interval Note History & Physical reviewed/Exam performed by Physician: Yes Changes to H&P: No
[2020-09-19] MEDS: LIDOCAINE 4% SOLN 50 ML 20 ML TOP (07:52)
[2020-09-19] MEDS: MIDAZOLAM 5 MG/5 ML VIAL IV (08:06)
[2020-09-19] MEDS: fentaNYL 250 MCG/5 ML INJ IV (08:06)
[2020-09-19 08:17] VITALS: BP 110/63; PULSE 70; RESP 16; TEMP 37; O2SAT 97
--- NOTE | 2020-09-19 08:26 | P.OP.ENDO_ITS ---
Operative Date/Time/Diagnoses Date of procedure: 09/19/20 Time of procedure: 08:26 Pre-op diagnosis: Epigastric pain, screening colonoscopy Post-op diagnosis: same Procedure & Clinicians Study performed: Esophagoduodenoscopy and colonoscopy Same procedure as scheduled: Yes Indications: Epigastric pain, screening colonoscopy Surgeon: Rayshawn Patterson Procedure Notes Procedure in detail: Medications: Conscious sedation using *mg IV midazolam and *mcg IV of fentanyl The history and physical was performed/updated and the patient is ASA class is *. The procedure was discussed in detail with the patient. Potential risks complications including infection, bleeding, missed diagnosis, perforation, need for surgery, and were explained. Their questions were answered and informed consent was obtained. Patient was brought to the procedure room and placed standard monitoring equipment. The patient's vital signs were monitored continuously throughout the entire procedure. Prior to starting time-out was performed. The patient was p laced in the left lateral recumbent position. Procedural sedation was administered. Procedural sedation was administered with Versed and Fentanyl. A bite block was placed. the scope was inserted into the mouth and advanced through the esophagus and into the stomach. The stomach was notable for mild gastritis biopsy was performed with forceps. The pylorus was intubated and the duodenum was normal to the 2nd portion. The scope was retroflexed within the stomach and there was amoderate sized hiatal hernia. . The scope was withdrawn into the esophagus the Z line was seen at 35 cm from the incisions. There was no Siegel's esophagitis or masses or strictures. Stomach was desufflated and scope removed. Examination began with a thorough inspection of the perianal area there was no evidence of fissures, fistulae, external hemorrhoids or cutaneous malignancy. The colonoscopy scope was then placed into the anal canal and was advanced to the cecum, which was identified by the ileocecal valve, the appendiceal orifice and the confluence of the taenia. The scope was then slowly withdrawn examining colon thoroughly in all directions, irrigating it of any residual stool. FINDINGS 1. Gastritis 2. No colonic masses or polyps 3. Sigmoid diverticulosis 4. Tortuous colon The patient tolerated the procedure well. They will be discharged once criteria are met. The prep was of good/excellent quality. The withdrawl time was 7 minutes. The sedation time was 31 minutes. Specimen(s): other (gastric) Complications: none Impression: gastitis, normal colon Post-procedure Recommendations: Colonscopy in 10 years and Continue medication(s) (pantoprazole) Disposition: same day surgery
[2020-09-19 08:28] VITALS: BP 128/67; PULSE 74; RESP 18; TEMP 36.4; O2SAT 95
[2020-09-19 08:33] VITALS: BP 122/67; PULSE 71; RESP 17; O2SAT 95
[2020-09-19 08:38] VITALS: BP 112/63; PULSE 72; RESP 14; O2SAT 95
[2020-09-19 08:42] VITALS: BP 113/56; PULSE 74; RESP 16; TEMP 36.3; O2SAT 95
== END 2020-09-19 09:34 | disposition home or self-care (01) ==
PROVIDERS: PCP Family Medicine; Referring Provider Surgery; Visit Provider Surgery
PROC: 0DJ08ZZ Inspection of Upper Intestinal Tract, Via Natural or Artificial Opening Endoscopic (ICD-10-PCS; CPT 43235; principal; 2020-09-19 08:30)
PROC: 0DJD8ZZ Inspection of Lower Intestinal Tract, Via Natural or Artificial Opening Endoscopic (ICD-10-PCS; CPT 45378; 2020-09-19 08:30)
DX: Z12.11 Encounter for screening for malignant neoplasm of colon (principal); K29.50 Unspecified chronic gastritis without bleeding; K44.9 Diaphragmatic hernia without obstruction or gangrene; K57.30 Diverticulosis of large intestine without perforation or abscess without bleeding
CPT/HCPCS: 43239; 45378; 99152; 99153; J2250; J3010

== ENCOUNTER → 2020-09-26 09:42 | Outpatient (CLI) | payer OTHER, SELFPAY ==
[2019-08-14 17:20] VITALS: BMI 32.0
--- NOTE | 2020-09-26 | DI.CT.S_ITS ---
PROCEDURE: CT UE RT WO CON INDICATIONS: Primary osteoarthritis, right shoulder TECHNIQUE: Noncontrast 1-1.5 mm thick sections acquired from the acromioclavicular joint to the inferior scapula, with coronal and sagittal reformatting. COMPARISON: None. FINDINGS: Image quality: Excellent. No acute fracture. Severe glenohumeral joint degeneration with near [id number]-bt-nwtk appearance and extensive marginal spurring and sclerosis. There is severe AC joint degeneration. Subchondral cystic changes present. Incidentally noted os acromiale. The visualized lung appears grossly unremarkable. No pathologically enlarged lymphadenopathy. IMPRESSION: Severe right shoulder joint degeneration as above. Incidentally noted os acromiale. Dictated by: Matt Burgess M.D. on 09/26/2020 at 10:34 Approved by: Matt Burgess M.D. on 09/26/2020 at 10:50
== END ==
PROVIDERS: PCP Family Medicine; Referring Provider Orthopaedic Surgery; Visit Provider Orthopaedic Surgery
DX: M19.011 Primary osteoarthritis, right shoulder (principal)
CPT/HCPCS: 73200

== ENCOUNTER → 2020-10-11 10:53 | Outpatient (CLI) | payer OTHER, SELFPAY ==
[2019-08-14 17:20] VITALS: BMI 32.0
--- NOTE | 2020-10-11 11:05 | DI.CT.S_ITS ---
PROCEDURE: CT HEAD/BRAIN WO CON INDICATIONS: Altered cognitive function TECHNIQUE: Noncontrast 4.5 mm thick angled axial sections acquired from the foramen magnum to the vertex, with coronal and sagittal reformats. For radiation dose reduction, the following was used: automated exposure control, adjustment of mA and/or kV according to patient size. COMPARISON: None. FINDINGS: Image quality: Excellent. CSF spaces: Basal cisterns are patent. No extra-axial fluid collections. The ventricles are symmetric in size and shape. Brain: No intracranial bleeds or masses. There is mild cerebral volume loss for age, with resultant ventricular and sulcal prominence. There are minimal periventricular and deep white matter chronic small vessel ischemic changes. Skull and face: Calvarium and visualized facial bones appear intact, without suspicious lesions. Sinuses: Visualized sinuses and mastoids are clear. IMPRESSION: No acute intracranial disease process. Dictated by: Misty Tam MD, PhD on 10/11/2020 at 13:06 Approved by: Misty Tam MD, PhD on 10/11/2020 at 13:08
== END ==
PROVIDERS: PCP Family Medicine; Referring Provider Family Medicine; Visit Provider Family Medicine
DX: R41.89 Other symptoms and signs involving cognitive functions and awareness (principal)
CPT/HCPCS: 70450; Q9967

== ENCOUNTER → 2020-10-28 11:14 | Outpatient (CLI) | payer OTHER, SELFPAY ==
[2019-08-14 17:20] VITALS: BMI 32.0
[2020-10-28 12:37] LABS: Add Manual Diff / Slide Review NO; Basophils Absolute Auto 0 /uL (0-100); Basophils Percent Auto 0.7 % (0-2); Eosinophils Absolute Auto 100 /uL (0-450); Eosinophils Percent Auto 2.4 % (2-4); Hematocrit 38.9 % (36-46); Hemoglobin 12.6 g/dL (12.0-16.0); Lymphocytes Absolute Auto 1200 /uL (1100-4500); Lymphocytes Percent Auto 26.5 % (25-40); Mean Corpuscular HGB Conc 32.4 % (30-36); Mean Corpuscular Hemoglobin 27.1 PG (26-34); Mean Corpuscular Volume 83.6 fL (80-100); Monocytes Absolute Auto 300 /uL (0-900); Monocytes Percent Auto 6.9 % (3-14); Neutrophils Absolute Auto 2900 /uL (1500-7000); Neutrophils Percent Auto 63.5 % (50-75); Platelet Count 255 X10^3/uL (150-400); Red Blood Cell Count 4.65 X10^6/uL (4.0-5.2); Red Cell Distribution Width 15.5 % (11.6-14.8); White Blood Cell Count 4.5 X10^3/uL (4.5-11.0)
[2020-10-28 13:05] LABS: BUN Creatinine Ratio 27.8 (6-22); Blood Urea Nitrogen 15 mg/dL (7-17); Calcium 9.2 mg/dL (8.4-10.2); Carbon Dioxide 26 mmol/L (22-32); Chloride 106 mmol/L (98-107); Estimated Glomerular Filt Rate > 60.0 mL/min (>60); Glucose 115 mg/dL (80-110); HEMOLYSIS < 15 (0-50); Potassium 4.5 mmol/L (3.4-5.1); Sodium 137 mmol/L (137-145)
== END ==
PROVIDERS: PCP Family Medicine; Referring Provider Orthopaedic Surgery; Visit Provider Orthopaedic Surgery
DX: Z01.818 Encounter for other preprocedural examination (principal); Z01.812 Encounter for preprocedural laboratory examination; R73.9 Hyperglycemia, unspecified
CPT/HCPCS: 36415; 80048; 83036; 85025; 93005

== ENCOUNTER → 2020-12-02 11:39 | Outpatient (CLI) | payer OTHER, SELFPAY ==
[2019-08-14 17:20] VITALS: BMI 32.0
[2020-12-02 13:22] LABS: COVID19 -Nasal RAPID Negative (Negative)
== END ==
PROVIDERS: PCP Family Medicine; Referring Provider Nurse Practitioner; Visit Provider Nurse Practitioner
DX: Z20.822 Contact with and (suspected) exposure to COVID-19 (principal)
CPT/HCPCS: 87635

== ENCOUNTER 2020-12-05 11:53 | Day surgery (SDC) | payer OTHER, SELFPAY ==
[2019-08-14 17:20] VITALS: BMI 32.0
[2020-12-02 12:49] VITALS: BMI 28.8
[2020-12-05] VITALS (12 sets, daily range): BP systolic 98–164; BP diastolic 60–82; PULSE 62–75; RESP 14–18; TEMP 35.9–36.8; O2SAT 93–99; BMI 28.8
--- NOTE | 2020-12-05 06:00 | DI.RAD.S_ITS ---
PROCEDURE: XR SHOULDER RT 1V INDICATIONS: postop prosthesis placement TECHNIQUE: AP via of the shoulder was acquired. COMPARISON: [facility], , SHOULDER MINIMUM 2VIEW RIGHT, 05/01/2013, 15:06. FINDINGS: Bones: Resurfacing of the right humeral head. No hardware compromise is appreciated. No suspicious bony lesions. Visualized ribs appear intact. Redemonstrated [id number] AC joint arthrosis. Soft tissues: Persistent calcifications along the superior aspect of the acromion. Subcutaneous emphysema, compatible with expected postsurgical change. IMPRESSION: No significant abnormality. Dictated by: Reggie Huerta M.D. on 12/06/2020 at 8:00 Approved by: Reggie Huerta M.D. on 12/06/2020 at 8:03
[2020-12-05] MEDS: ACETAMINOPHEN 325 MG TABLET 975 MG PO (12:42)
[2020-12-05] MEDS: LACTATED RINGERS 1,000 ML 42 ML IV ×2 (12:42→16:48)
--- NOTE | 2020-12-05 14:50 | PM.PREOP ---
Pre-operative Note COVID-19 COVID-19 status: Negative Result date/Date tested (Pos, Neg/Pending): 12/02/20 Interval Note History & Physical reviewed/Exam performed by Physician: Yes Changes to H&P: No
--- NOTE | 2020-12-05 15:24 | SUR.OPER ---
Beach chair with Aracely/Lluvia shoulder positioner. Lower body on padded OR bed. Head in foam padded head cradle, secured with straps. Non-operative arm secured <90 degrees abduction. Pillow under knees. Safety belt at thigh. Cloth tape over blanket over lower legs.
--- NOTE | 2020-12-05 15:38 | SUR.PREOP ---
Block start time [1515] . Monitoring initiated and maintained throughout procedure. Oxygen and medications given per anesthesiologist instructions. Patient remained stable throughout procedure, no adverse reactions noted. Block end time [1525].
[2020-12-05] MEDS: CEFAZOLIN 1 GM VIAL 2 GM IV (15:57)
[2020-12-05] MEDS: TRANEXAMIC ACID 1,000 MG VIAL 1000 MG INJ ×2 (16:05→17:15)
[2020-12-05] MEDS: THROMBIN (RECOMBINANT) 5,000 UNIT VIAL 5000 UNIT TOP (16:15)
[2020-12-05] MEDS: BUPIVACAINE 0.5% (PF) VIAL 30 ML INJ (16:17)
[2020-12-05] MEDS: EPINEPHrine 1 MG/ML 0.15 MG INJ (16:18)
--- NOTE | 2020-12-05 17:57 | P.OP_ITS ---
Operative Date/Time/Diagnoses Date of procedure: 12/05/20 Time of procedure: 17:59 Pre-op diagnosis: Right shoulder osteoarthritis Post-op diagnosis: same Procedure & Clinicians Procedure: Right total shoulder replacement Same procedure as scheduled: Yes Indications: The patient has had progressively worsening right shoulder pain with radiographic changes consistent with arthritis. Non-operative management has failed and the patient has requested total shoulder replacement. The risks, benefits and alternatives to surgery were discussed with the patient prior to proceeding. Risks discussed included, but were not limited to, failure to relieve pain, stiffness, infection, nerve damage, deep venous thrombosis, pulmonary embolism, stroke, coma, heart attack, permanent paralysis and , as well as the potential need for eventual revision of the prosthetic. Surgeon: Armaan Nickerson Legal Referee: Lashell Szymanski Click Yes if Unassisted: No Anesthesia Type: General, Peripheral nerve block and Local Operative Notes Findings: Severe osteoarthritis of the right shoulder with flattening of the humeral head and a large inferior osteophyte Closure Type: primary Specimen(s): none sent Prosthetic devices, grafts, tissues, transplants, or devices: Implants used in this procedure were manufactured by the [employer] and included a 50 mm all polyethylene pegged glenoid, a neutral humeral head 50 mm diameter by 18 mm thickness a size 2 canal sparing humeral stem and an [employer] speed bridge suture anchor system. Applied: implant(s) Estimated Blood Loss (mL): 150 Blood products transfused: none Procedure in detail: The patient was seen in the pre-operative area, where the patient identified the right shoulder as the operative site and this was marked with my initials. The patient received pre-operative antibiotics, underwent an interscalene block, and was taken to the operating room and placed on the operative table in the supine position. After satisfactory anesthesia, a full ?time out? was performed. The patient was repositioned in the ?beach chair? position using a dedicated positioner. All pressure points were well padded, and the knees were slightly bent to prevent tension on the sciatic nerves. The right arm was prepared from the fingers to the base of the neck with ChloraPrep in the usual fashion and draped through sterile drapes. An approximately 15 cm incision was created, starting at the clavicle above the coracoid process and extended towards the deltoid insertion. The deltopectoral interval was used to access the shoulder. The cephalic vein was taken medially. A self retaining retractor was placed. The upper centimeter of the pectoralis major tendon was released. The ?three sisters? were identified and cauterized. The axillary nerve was palpated and protected throughout the case. The biceps was released from its groove and tenodesed over the top of the pectoralis major tendon. The subscapularis was released from the lesser tuberosity with a subscapularis peel and tagged for later repair. The shoulder was dislocated and a cutting guide was used for the proximal humeral osteotomy in 30 degrees of re troversion. A trial humeral head was fitted on the proximal humerus and the guide pin drilled through the center. The proximal Reamer was used and the canal sparing broach placed. A proximal humeral protector was then placed. We then removed the self-retaining retractor and placed retractors to access the glenoid. The subscapularis was released with a ?360 degree release? with care being taken to protect the axillary nerve with the inferior portion of this procedure. The remnant of labrum and biceps stump were removed. The appropriate size reamer was chosen with the glenoid sizer, and the guide pin placed. The glenoid was appropriately reamed. The guide for the peripheral holes was used and the center hole enlarged. The trial glenoid was placed with good stability. We then cemented the final implant into place after irrigating the peg holes and drying them with thrombin-soaked Gelfoam. We returned our attention to the humerus, a trial humeral head was applied and a trial reduction performed. Stability was checked with 50% posterior translation, 45? external rotation at the side with the subscapularis held in the repaired position and 70? of internal rotation in the ?scarecrow position?. This was felt to be satisfactory and the appropriate implants were opened. The humeral prosthetic was impacted into the humerus. The humeral head was applied when the stem was still slightly proud and impacted to both seat the head and fully seat the stem. The joint was relocated one final time. The joint was irrigated and the subscapularis repaired to the lesser tuberosity using the speed bridge system for a double row repair. The top of the subscapularis was closed to the leading edge of the supraspinatus with a figure of 8 #2 TiCron to close the rotator interval. A deep drain was placed and brought out supero-laterally. The deltopectoral interval was closed with interrupted 0 Vicryl. The subcutaneous layer was closed with 3-0 Vicryl, and the skin with a running 3-0 V-Lock suture and Dermabond. An Aquacel Ag dressing was applied, the patient?s arm was placed in a sling, and the patient was taken to recovery having tolerated the procedure well. Complications: none Post-operative Condition: stable Disposition: PACU Plan for aftercare: The patient will be maintained on a standard total shoulder replacement protocol with passive range of motion limited to 90 degrees forward flexion, 0 degrees external rotation at the side, 0 degrees abduction and internal rotation to the body. The patient will receive aspirin and sequential compression devices for DVT prophylaxis. The patient will be discharged home when safe for the home environment, likely tomorrow.
[2020-12-05] MEDS: LACTATED RINGERS 1,000 ML 100 ML IV (18:33)
[2020-12-05] MEDS: IBUPROFEN 400 MG TABLET PO (20:37)
[2020-12-05] MEDS: DOCUSATE 100 MG CAPSULE PO (20:37)
[2020-12-05] MEDS: ACETAMINOPHEN 325 MG TABLET 650 MG PO (20:37)
[2020-12-05] MEDS: ASPIRIN EC 81 MG TABLET PO (20:37)
[2020-12-06 00:15] VITALS: BP 131/51; PULSE 77; RESP 18; TEMP 36.2; O2SAT 98
[2020-12-06] MEDS: OXYCODONE IR 10 MG TABLET PO ×2 (01:48→10:43)
[2020-12-06] MEDS: OXYCODONE IR 5 MG TABLET PO ×2 (04:53→08:20)
[2020-12-06] MEDS: IBUPROFEN 400 MG TABLET PO ×3 (04:54→08:20)
[2020-12-06 05:15] VITALS: BP 131/67; PULSE 66; RESP 18; TEMP 36.6; O2SAT 97
[2020-12-06 06:25] LABS: Hematocrit 33.3 % (36-46); Hemoglobin 10.8 g/dL (12.0-16.0)
[2020-12-06] MEDS: HYDROMORPHONE 2 MG TABLET PO (06:52)
--- NOTE | 2020-12-06 07:54 | PM.DS.1 ---
History of Present Illness History of Present Illness Date Patient Seen: 12/06/20 Time Patient Seen: 07:54 Chief complaint: RT TSA 12/05/20 *OPB* Narrative: The history and physical is contained in the chart previously completed note. Please refer to that note for this information. Discharge Providers Provider Date of admission: December 05, 2020 Discharge Date: 12/06/20 Primary care physician: Ambrosio Stockton DO Consults: 12/05/20 18:23 Consult to Discharge Planning Routine Comment: Consult to Physical Therapy Evaluate & Treat Comment: Physician Instructions: postop TKA protocol Discharge provider: Armaan Nickerson MD Summary Hospital Course Discharge Diagnosis: 1. Right shoulder osteoarthritis 2. Post hemorrhagic anemia Hospital Course: The patient was admitted to the hospital and taken directly to the operating room a on December 05, 2020. She underwent a right total shoulder replacement without complications. On postoperative day 1 she had some issues with pain control but appeared to be ready for discharge home. Status at Discharge Cognitive/behavioral status at discharge: at baseline, oriented Functional status at discharge: independent ambulation Overall status at discharge: patient is progressing back to baseline Time Spent with Patient Time spent: Less than 30 minutes Exam Vital Signs (past 8 hours): - 12/06/20 00:15 12/06/20 05:15 Temperature 97.2 F L 97.9 F Pulse Rate 77 66 Respiratory Rate 18 18 Blood Pressure 131/51 L 131/67 Pulse Oximetry 98 97 Oxygen Delivery Method Nasal Cannula Oxygen Flow Rate 0 Narrative Exam Narrative: Right shoulder wound is dressed with no drainage on the bandage. Light touch is intact in the radial, ulnar, median, muscular cutaneous and axillary nerve distribution. She can extend her thumb, abduct her thumb, abduct her fingers and can fire her biceps and deltoid. Objective Labs Result Diagrams: 12/06/20 06:13 Labs: Laboratory Results - last 24 hr 12/06/20 06:13 Hgb 10.8 L Hct 33.3 L PFSH Medical History (Updated 10/04/20 @ 18:35 by Ambrosio Stockton DO) Anxiety Cardiac arrhythmia (~2003) Carpal tunnel syndrome (~1994) Chickenpox (~1959) Chronic back pain (~2007) Chronic UTI Cognitive change Colon polyps (~1999) Depression (~1992) Easy bruisability Epigastric abdominal pain Fibroids (~1997) Fusion of sacral region of spine Hiatal hernia History of fracture History of gastric ulcer (2015) HSV (herpes simplex virus) infection (~1979) Hyperlipidemia Hypertension (~2003) Measles (~1959) Melanoma of ear (~2007) Mumps (~1958) Right femoral fracture (07/19/18) Sciatic nerve pain Shoulder pain (~2013) UTI (urinary tract infection) Weight loss (05/2020) Surgical History (Updated 12/02/20 @ 13:08 by Iris Esqueda RN) Anesthesia complication H/O prior ablation treatment (~1997) History of arthroplasty of left shoulder (12/30/17) History of lumbar spinal fusion (08/14/19) History of total right hip arthroplasty (07/30/18) Hx of bilateral cataract extraction (12/2019) Hx of tonsillectomy Melanoma of ear (~2007) S/P partial hysterectomy Status post arthroscopy (~2013) Status post delivery (~1987) Status post colonoscopy Status post ORIF of fracture of ankle (~1975) Family History Brother Age: 66 Heart disease Hypertension Grandfather Heart disease Colorectal cancer Grandmother Stroke Mother Age: 87 Hypertension Grandfather Heart disease Grandmother Diabetes mellitus Sister Age: 61 Mental health problem Depression Father Parkinson's disease Pneumonia Social History household members: none Smoking Status: Never smoker alcohol intake: current Discharge Assessment & Plan Assessment and Plan Assessment: Stable postoperative day 1 status post right total shoulder replacement. She has a mild post hemorrhagic anemia which does not need specific treatment. Plan of Treatment: Discharged home today. Follow up at my office in 10-14 days. Discharge prescriptions have been sent to the pharmacy for oxycodone. She has been instructed in the use of Tylenol and ibuprofen for additional pain control. She has also been instructed in the use of low-dose aspirin for DVT prophylaxis. Discharge Plan Discharge Plan Patient Disposition: Home Discharge orders & Medications Discharge Orders: Discharge (Order); Ordered 12/06/20 Ordered By: Armaan Nickerson Prescriptions: New acetaminophen 325 mg Tablet 650 mg PO TID 30 Days Qty: 180 RF: 0 aspirin 81 mg Tablet,Delayed Release (Dr/Ec) 81 mg PO BID Qty: 84 RF: 0 ibuprofen 400 mg Tablet 400 mg PO Q4HR 30 Days RF: 0 oxycodone 5 mg Tablet 5 mg PO Q4H PRN (Reason: Pain, Moderate (4-6)) Qty: 40 RF: 0 Continued alprazolam 0.5 mg tablet 0.5 mg PO BEDTIME PRN (Reason: sleep) Qty: 30 RF: 1 atorvastatin 10 mg tablet 10 mg PO DAILY Qty: 90 RF: 2 lisinopril 10 mg tablet 10 mg PO DAILY Qty: 90 RF: 2 escitalopram oxalate 20 mg tablet 20 mg PO DAILY Qty: 90 RF: 2 estradiol 0.01 % (0.1 mg/gram) cream 1 appful vaginal DAILY RF: 0 sucralfate 1 gram tablet 1 g PO BID PRN (Reason: Ulcer, GI inflammation) RF: 0 Follow up/Referrals: Armaan Nickerson MD [Physician] - 2 Weeks Ambrosio Stockton DO [Primary Care Provider] - Diet/Activity/Treatments Diet: Diet as Tolerated and Regular Activity: You may use your right arm in front of your body below shoulder level. Do not lift more than 1-2 lb with your right hand. Cold/Heat Therapy: You may apply ice to your right shoulder for 15 minutes every hour as needed for pain control. Skin/Wound/Dressing Care Report to your healthcare provider any signs of infection, such as:: chills, fever, night sweats, increased pain, unusual drainage and unusual redness Dressing: Leave the dressing in place until your postoperative follow-up. You may shower with the dressing in place. If the central strip of the dressing becomes saturated with either water or blood, please call the office. Visit Report/Discharge Packet Instructions: DI for Shoulder Replacement Stand Alone Forms: Patient Portal/API, Surgery Discharge Discharge Data Primary Care Provider: Ambrosio Stockton Attending Provider: Armaan Nickerson
[2020-12-06] MEDS: ACETAMINOPHEN 325 MG TABLET 650 MG PO (08:19)
[2020-12-06] MEDS: ASPIRIN EC 81 MG TABLET PO (08:21)
[2020-12-06] MEDS: DOCUSATE 100 MG CAPSULE PO (08:21)
[2020-12-06] MEDS: ATORVASTATIN 20 MG TABLET 10 MG PO (08:21)
[2020-12-06] MEDS: ESCITALOPRAM 10 MG TABLET 20 MG PO (08:23)
[2020-12-06] MEDS: lisinopriL 10 MG TABLET PO (08:25)
[2020-12-06] MEDS: INFLUENZA HD VACCINE 0.7 ML SYRINGE IM (08:43)
[2020-12-06 09:00] VITALS: BP 126/70; PULSE 70; RESP 18; TEMP 36.4; O2SAT 97
[2020-12-06 09:04] VITALS: BP 99/62
--- NOTE | 2020-12-06 09:25 | PT.IIE ---
Current Diagnoses Primary osteoarthritis, right shoulder (12/05/20) Surgery Performed Operation Date: 12/05/20 14:30 Actual Procedures p Total Shoulder Arthroplasty(Right) - Armaan Nickerson MD Surgical History (Last Updated 12/02/20 @ 13:08 by Iris Esqueda RN) Anesthesia complication Melanoma of ear (~2007) Status post arthroscopy (~2013) Status post delivery (~1987) Status post colonoscopy Status post ORIF of fracture of ankle (~1975) Medical History (Last Updated 10/04/20 @ 18:35 by Ambrosio Stockton DO) Anxiety Cardiac arrhythmia (~2003) Carpal tunnel syndrome (~1994) Chickenpox (~1959) Chronic back pain (~2007) Chronic UTI Cognitive change Colon polyps (~1999) Depression (~1992) Easy bruisability Epigastric abdominal pain Fibroids (~1997) Fusion of sacral region of spine Hiatal hernia History of fracture History of gastric ulcer (2015) HSV (herpes simplex virus) infection (~1979) Hyperlipidemia Hypertension (~2003) Measles (~1959) Melanoma of ear (~2007) Mumps (~1958) Right femoral fracture (07/19/18) Sciatic nerve pain Shoulder pain (~2013) UTI (urinary tract infection) Weight loss (05/2020) Physical Therapy Inpatient Evaluation/Re-Eval M1 PT/OT-IP Prior Functional Status Start: 12/06/20 13:04 Freq: NEEDED Status: Active Protocol: Document 12/06/20 09:25 AB (Rec: 12/06/20 13:18 AB [id number]) Medical Review Prior Functional Status Medical History Reviewed Yes Communication agreeable to do PT Social History Household Members none Living Arrangements House Number of Floors (Floors) One Floor Number of Stairs To Enter/Railing? 2 steps B rails to enter Home Environment High Toilet,Walk in Shower Home Equipment Quad Cane,Straight Cane,Shower Seat without Backrest,Hand Held Shower,Grab Bars In Shower Additional Social History Comment pt stated that her son will stay with her for a few days to assist her and her sister- in-law can also stay if needed has a toilet safety frame M2 PT-IP Current Condition Start: 12/06/20 13:04 Freq: NEEDED Status: Active Protocol: Document 12/06/20 09:25 AB (Rec: 12/06/20 13:18 AB [id number]) Physical Therapy Current Condition Current Condition Evaluation Date 12/06/20 Treatment Diagnosis s/p R TSA; difficulty in walking Onset Date 12/05/20 M3 PT-IP Subjective Start: 12/06/20 13:04 Freq: NEEDED Status: Active Protocol: Document 12/06/20 09:25 AB (Rec: 12/06/20 13:18 AB [email or web address]) Subjective Physical Therapy Visit Type Type Initial Evaluation Visit Start Time 09:25 Visit Stop Time 10:03 Total Visit Minutes 38 Number of SAP BASIS ARCHITECT Visits 0 Physical Therapy Visit Comments Patient Comments agreeable to do PT Therapy Pain Assessment Pain When Pain Assessed At Rest Pain Present Pain Present Pain Reported Location Right Shoulder Intensity 6 Scale Used Numeric (0 - 10) Pain Management Techniques Modification of Treatment,Re- positioning,Timing of Activity with Medications M4 PT-IP Mobility and Gait Start: 12/06/20 13:04 Freq: NEEDED Status: Active Protocol: Document 12/06/20 09:25 AB (Rec: 12/06/20 13:18 AB [email or web address]) PT-Bed Mobility Assessment Supine to Sit Supine to Sit Standby Assistance PT-Transfer Assessment Sit to and From Stand Sit to and from Stand Standby Assistance Equipment Transfer Assistive Device None,Gait Belt,Straight Cane Orthotic/Prosthetic Devices or Brace: Yes Transfers Transfer Destination Chair Transfer Ability Level of Assist Standby Assistance,Use of Upper Extremities Comments Mobility Comments educated pt on R shoulder precautions. completed supine to sit SBA. pt was able to sit on EOB SBA. educated on sling management. pt completed elbow/wrist/hand HEP . attemped pendulum but pt only able to assume position and unable to do pendulum exercise due to increase RUE guarding. educated pt on safety and positioning for dressing. pt required assist with sling management and will have her son assist her with sling at home. pt completed sit to stand SBA and ambulation in room without AD CGA. presents with unsteady antalgic gait and tends to tip toe on RLE. pt with leg length discrepancy and pt stated that she has scoliosis and h/o pelvic fx and in the process of getting orthotics. Assessed ambulation using SPC and pt completed 150 ft SBA. pt steadier with use os SPC. pt completed up/down steps using L rail ascending SBA. repeated x 2 sets. pt ambulated back to room using SPC 150 ft SBA. agreed to stay up on chair and positioned. call light and table placed within reach. Pt no further concerns and stated that she can direct her son on how to assist with sling management. Gait Assessment Gait Gait Assistance Required: Standby Assistance,Contact Guard Assist Distance (Feet) 150 Able to Maintain Weight Bearing Status Yes During Gait Assistive Devices Assistive Device Gait Belt,Straight Cane Orthotic/Prosthetic Devices or Brace: Yes Gait Deviations General Gait Pattern Antalgic,Decreased Stride Length,Decreased Feet Clearance Factors Limiting Gait Function Factors Limiting Gait Function Decreased Activity Tolerance, Decreased Strength,Limited Range of Motion,Pain,Poor Balance,Poor Safety Awareness Stair Climbing Assessment Devices Stair Climbing Assistive Devices Left Railing Technique/Endurance Stair Climbing Direction Ascend and Descend Stair Climbing Technique Step to Step Number of Steps Climbed 3 Query Text: Stair Climbing Set # Repetitions (reps) 2 PT-Balance Assessment Sitting Balance and Reactions Static Sitting Balance Ability Normal Dynamic Sitting Balance Ability Good Standing Balance and Reactions Static Standing Balance Ability Fair Dynamic Standing Balance Ability Fair Device Used without AD M5 PT-IP Objective Assessments Start: 12/06/20 13:04 Freq: NEEDED Status: Active Protocol: Document 12/06/20 09:25 AB (Rec: 12/06/20 13:18 AB [id number]) Orientation Orientation/Cognition Level of Alertness Alert Orientation Name,Place,Situation Safety Awareness Understands Safety Issues Memory Description No Deficits Noted Gross Range of Motion Lower Extremity ROM Assessment Within Functional Limits Strength Lower Extremity Strength Assessment Within Functional Limits Sensation Assessment Sensation Gross Sensation WNL Muscle Tone Muscle Tone WNL Yes M6 PT-IP Treatment Start: 12/06/20 13:04 Freq: NEEDED Status: Active Protocol: Document 12/06/20 09:25 AB (Rec: 12/06/20 13:18 AB [email or web address]) Physical Therapy Treatment Exercises Exercises Shoulder Pendulums,Elbow Flexion/Extension,Wrist ROM, Hand ROM Education Education Provided Precautions,Weight Bearing Status,Post-Op Packet,Safety Brace Education [place],Patient M7 PT-IP Assessment and Plan Start: 12/06/20 13:04 Freq: NEEDED Status: Active Protocol: Document 12/06/20 09:25 AB (Rec: 12/06/20 13:18 AB [email or web address]) PT Summary Assessment and Plan Potential Rehabilitation Potential Good Status of Condition at Evaluation Stable Summary Impairments Pain,ROM,Strength,Balance, Coordination,Sensation,Tone, Cognition,Bed Mobility, Transfers,Gait,Activity Tolerance Assessment Summary pt requiring SBA with mobility and recommending use of SPC at this time for ambulation. pt agreed. pt will have her son/[id number] to assist her at home as needed. pt may go home when medically stable . will need outpt PT. Goals Bed Mobility Goal Independent Transfer Goal Independent,Cane Gait Goal Independent,Cane Gait Distance 250 Other Goals ambulation without AD 300 ft Independent up/down 3 steps without rails SBA Days to Meet Goals 3 Frequency of Treatment Frequency Of Treatment Twice a Day Treatment Plan Physical Therapy Treatment Plan Bed Mobility Training,Transfer Training,Gait Training, Therapeutic Exercise,Balance Retraining,Post Op Education, Discharge Planning,Hot or Cold Pack,Neuromuscular Re-ed, Coordination Retraining,Manual Therapy Precautions Shoulder Precautions Sling,PROM,Internal Rotation to Body,No External Rotation, No Abduction,Forward Flexion to 90 degrees,Pendulums Weight Bearing Status Weight Bearing Status Non-Weight Bearing Allowed Weight Bearing Amount (enter % RUE NWB or #) (%) Recommendations To Nursing Amount of Assist Needed Standby Assistance Discharge Recommendations PT Discharge Recommendations Home with Assistance, Outpatient PT Transportation Needs at Discharge Private Vehicle
--- NOTE | 2020-12-06 10:13 | CM.DANOTE ---
DCP: Case received, EMR reviewed and met with patient. Introduced self and role. Was able to obtain information regarding patient's baseline activity status prior to her surgery. DCP assessment completed with information currently available. Patient is a 70 year old female who admitted yesterday morning to the care of the orthopedic team. PCP: Dr. Stockton. Payer: confirmed: [employer]. Patient came to the hospital via private vehicle for a surgical procedure. She had right shoulder surgery. 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 Met with patient in her room. She is pleasant, alert and oriented. She resides in [facility] alone. 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 She has been independent at her baseline. She indicated that her son, Cholo, will be staying with her to assist her when she goes home. P: Patient is to be discharging home today. She will be working with the therapy team before discharge. Fay Redding RN/Early Childhood Aide Classroom Discharge Planning/Care Management CM Discharge Assessment Start: 12/06/20 10:11 Freq: Status: Active Protocol: Document 12/06/20 10:11 (Rec: 12/06/20 10:12 [id number]) Discharge Planning Assessment Assigned Group Leader Wafer Polishing Fay Redding RN/Early Childhood Aide Classroom Advance Directives? Yes Advance Directives on File Yes: Dr. Andrews office History Provided By Patient,Medical Record Prior Living Arrangements House Household Members none Type of transporation used prior to Drives own vehicle admit Independent with ADL's Yes Is patient alert and oriented? Yes Caregiver for Another No Comment has fww Patient/Family Preference OP PT Therapy Barriers to Discharge No Comment Her son, Cholo, will be assisting her when she goes home. Discharge Plan Home Transportation Arrangement Friend Referrals Initiated None needed Whiteboard Updated in Patient Room with Yes name and ext. # of Group Leader Wafer Polishing Review Status In Process Next Review Type Continued Stay Review Pre-Anesthesia Assessment Start: 12/02/20 12:49 Freq: Status: Complete Protocol: Document 12/02/20 12:49 CAB (Rec: 12/02/20 13:25 CAB [id number]) Pre-Anesthesia Assessment PAC Comment Reviewed pre-op EKG w/prior with Dr. Mcneill, tavon to proceed Preferred Name Ana María Patient Information Reviewed Via Phone Assessment Assessment Completed With Patient Diagnostic Results BMP/CMP,CBC,EKG Comment Labs/EKG @ 10/28/20, COVID screen @ 12/02/20 Pending Primary Care Provider Ambrosio Stockton Seen Specialist in Last 12 Months Yes Specialist Seen Regional Driver,Opthamologist/ Driller Multiple Spindle,Orthopedist Primary Language Kazakh Preferred Language Kazakh Jigger Artisan Required No Height 5 ft 9 in Weight 195 lb Body Mass Index (BMI) 28.8 Hearing Ability Normal Visual Assist Glasses Dentition Type Teeth, Natural Present Barriers to Learning None Hx Anesthesia Reactions Yes: I always need more anesthesia during surgery from long ago Hx Family Anesthesia Reaction No Hx Malignant Hyperthermia No Hx Blood Transfusions Yes: Pt thinks possible in 1974 Hx Blood Transfusion Reaction No Anesthesia Review Requested No Department Clerk No alcohol intake current alcohol intake frequency 0-2 drinks per day Smoking Status Never smoker Substance Use Type marijuana Comment Vaping CBD/THC-advised not to vape 24 hours prior Pain Present Pain Reported Musculoskeletal Symptoms Abnormal Gait,Back Pain, Difficulty Walking,Joint Pain, Limited Range of Motion,Muscle Spasms History of Falling (Recent or History of No ) Patient is completely paralyzed or No completely immobile Prosthesis or Orthotic Device Cane Mental Status Oriented to own ability Is patient on oxygen? No Does patient have GILBERT/SOB No Hx Sleep Apnea No CPAP/BIPAP use not prescribed Suspected Sleep Apnea No Currently Taking a Beta Adriana No Can You Climb a Flight of Stairs Without Yes SOB Hx Chest Pain No Hx SOB No Hx Syncope or Dizziness No Anti-Coagulant Therapy No Has a Ore Feeder No Cardiac Testing No Hx Pacemaker/ICD No Pacemaker Rep Required? No Cardiac Clearance Received Not Applicable Diet Type At Home Regular dysphagia No Gastrointestinal Symptoms Reflux Urinary Catheter Present No Hx Urinary Self Catheterization No Diabetes No Patient No Lactating No Hx Drug Resistant Organism No Presence of External or Internal Medical Yes: R hip/ankle/uni knee, Devices shoulder, sacrum pelvic fusion , lumbar Have you had any close contact with Yes: 2020 exposure someone diagnosed with COVID-19? Are you experiencing any of these No symptoms symptoms? Received a COVID vaccine? Yes Received all doses? Yes Marital Status Lives With none Prior Living Arrangements House Number of Floors (Floors) One Floor Support System Child/Children,Friend(s), Parent(s) Does the Patient Have Assistance After Mom, son will stay w/pt to Surgery assist at [place] Patient Discharge Plan Description Return Home Comment Pt advised same day surgery per surgeon Feels Safe in Current Environment Yes Been Physically Hurt or Threatened By a No Person in Current Environment Do you have thoughts of harming yourself None or others? Are you currently considering suicide? No Do you have a plan to hurt yourself or No Plan others? Do You Have Any Spiritual Beliefs That No May Affect Your HC Choices? Do You Have Any Cultural Practices That No May Affect Your HC Choices? Comment Faith Who Can We Speak to About Patient's Care Family, friends Identifying Code for Release of Patient Declines to issue Information Health Care Proxy/Next of Kin Joseph (son) Health Care Proxy Emergency Contact Name Elizabeth Trejo (friend) Emergency Contact Advance Directives? Yes Advance Directives on File Yes: Dr. Andrews office Power of Employee Communications Specialist Yes Power of Employee Communications Specialist Name Brian Boyd Power of Employee Communications Specialist (H) [phone] (C) PAC Instructions Do not shave/clip surgical site,Durable medical equipment ,Medications to take/avoid, Nasal antibiotic,No ETOH/ petroleum product on skin DOS, NPO,Post-op transportation,Pre -surgical wash,Sturdy shoes/ comfortable clothes,Do not bring valuables and remove jewelry
--- NOTE | 2020-12-06 11:09 | CM.DANOTE ---
Pain medication given prior to discharge and controlled via MAR. IV access removed. Patient education provided on appropriate materials. Paperwork signed and all questions answered. Ensured patient had all personal belongings. TRAVIS Trevino brought patient to son outside via wheelchair at approx. [phone]. Patient stated I am happy to be leaving today.
== END 2020-12-06 11:14 | disposition home or self-care (01) ==
LOC: OR 12:00 → AC 14:12
PROVIDERS: PCP Family Medicine; Referring Provider Orthopaedic Surgery; Visit Provider Orthopaedic Surgery
PROC: 0RQJ0ZZ Repair Right Shoulder Joint, Open Approach (ICD-10-PCS; CPT 23472; principal; 2020-12-05 14:30)
DX: M19.011 Primary osteoarthritis, right shoulder (principal); D50.0 Iron deficiency anemia secondary to blood loss (chronic); I10 Essential (primary) hypertension; E78.5 Hyperlipidemia, unspecified; F32.9 Major depressive disorder, single episode, unspecified
CPT/HCPCS: 23472; 36415; 64450; 73020; 85014; 85018; 90471; 90662; 97161; 97530; C1776; J0171; J0690; J2250; J2405; J2704; J3010

== ENCOUNTER → 2021-04-12 12:27 | Outpatient (CLI) | payer OTHER, SELFPAY ==
[2020-12-05 18:24] VITALS: BMI 28.8
[2021-04-12 13:25] LABS: Appearance Urine UA Clear; Color Urine UA Orange
[2021-04-12 13:33] LABS: Bacteria Urine None Seen; Culture Indicated Urine Cult Not Indicated; RBC Urine 0-1/HPF (0-5/HPF); WBC Urine None Seen (0-5/HPF)
== END ==
PROVIDERS: PCP Family Medicine; Referring Provider Family Medicine; Visit Provider Family Medicine
DX: R30.0 Dysuria (principal); N39.0 Urinary tract infection, site not specified
CPT/HCPCS: 81001; 87086

== ENCOUNTER → 2021-09-23 09:00 | Outpatient (CLI) | payer OTHER, SELFPAY ==
[2020-12-05 18:24] VITALS: BMI 28.8
[2021-09-23 11:28] LABS: Add Manual Diff / Slide Review NO; Basophils Absolute Auto 0 /uL (0-100); Eosinophils Absolute Auto 200 /uL (0-450); Eosinophils Percent Auto 3.8 % (2-4); Hematocrit 37.8 % (36-46); Hemoglobin 12.5 g/dL (12.0-16.0); Lymphocytes Absolute Auto 1100 /uL (1100-4500); Lymphocytes Percent Auto 27.2 % (25-40); Mean Corpuscular Hemoglobin 27.2 PG (26-34); Mean Corpuscular Volume 82.5 fL (80-100); Monocytes Absolute Auto 300 /uL (0-900); Monocytes Percent Auto 7.6 % (3-14); Neutrophils Absolute Auto 2400 /uL (1500-7000); Neutrophils Percent Auto 60.4 % (50-75); Platelet Count 232 X10^3/uL (150-400); Red Blood Cell Count 4.58 X10^6/uL (4.0-5.2); Red Cell Distribution Width 15.8 % (11.6-14.8)
[2021-09-23 11:38] LABS: Hemoglobin A1C% w Est Avg Glu 5.2 % (4.0-6.0)
[2021-09-23 11:39] LABS: BUN Creatinine Ratio 25.4 (6-22); Blood Urea Nitrogen 15 mg/dL (7-17); Calcium 8.8 mg/dL (8.4-10.2); Carbon Dioxide 29 mmol/L (22-32); Chloride 104 mmol/L (98-107); Estimated Glomerular Filt Rate > 60 mL/min (>60); Glucose 84 mg/dL (80-110); HEMOLYSIS < 15 (0-50); Sodium 138 mmol/L (137-145)
== END ==
PROVIDERS: PCP Family Medicine; Referring Provider Orthopaedic Surgery; Visit Provider Orthopaedic Surgery
DX: Z01.818 Encounter for other preprocedural examination (principal); M25.561 Pain in right knee; R73.9 Hyperglycemia, unspecified; Z01.812 Encounter for preprocedural laboratory examination
CPT/HCPCS: 36415; 80048; 83036; 85025; 93005

== ENCOUNTER → 2021-10-09 07:54 | Outpatient (CLI) | payer OTHER, SELFPAY ==
[2020-12-05 18:24] VITALS: BMI 28.8
[2021-10-09 10:27] LABS: Alanine Aminotransferase 16 IU/L (<35); Albumin Globulin Ratio 1.7 (1.0-2.8); Alkaline Phosphatase 81 U/L (38-126); Aspartate Aminotransferase 23 IU/L (14-36); BUN Creatinine Ratio 29.6 (6-22); Bilirubin Total 0.4 mg/dL (0.2-1.3); Blood Urea Nitrogen 16 mg/dL (7-17); Calcium 8.7 mg/dL (8.4-10.2); Carbon Dioxide 27 mmol/L (22-32); Chloride 102 mmol/L (98-107); Cholesterol 127 mg/dL (140-199); Estimated Glomerular Filt Rate > 60 mL/min (>60); Globulin 2.3 g/dL (1.7-4.1); Glucose 85 mg/dL (80-110); HDL Cholesterol 49 mg/dL (40-60); HEMOLYSIS < 15 (0-50); LDL Cholesterol Calculated 60 mg/dL (<100); Potassium 4.1 mmol/L (3.4-5.1); Sodium 137 mmol/L (137-145); Total Protein 6.3 g/dL (6.3-8.2); Triglycerides 88 mg/dL (35-150)
[2021-10-09 10:58] LABS: TSH w/ Reflex to FT4 1.15 uIU/mL (0.47-4.68)
== END ==
PROVIDERS: PCP Family Medicine; Referring Provider Family Medicine; Visit Provider Family Medicine
DX: Z00.00 Encounter for general adult medical examination without abnormal findings (principal)
CPT/HCPCS: 36415; 80053; 80061; 84443

== ENCOUNTER → 2021-12-04 17:25 | Outpatient (CLI) | payer OTHER, SELFPAY ==
[2020-12-05 18:24] VITALS: BMI 28.8
== END ==
PROVIDERS: PCP Family Medicine; Visit Provider Nurse Practitioner Family
DX: R30.0 Dysuria (principal); N89.8 Other specified noninflammatory disorders of vagina
CPT/HCPCS: 87077; 87086; 87186; 87210

== ENCOUNTER → 2022-01-06 12:37 | Outpatient (CLI) | payer OTHER, SELFPAY ==
[2020-12-05 18:24] VITALS: BMI 28.8
== END ==
PROVIDERS: PCP Family Medicine; Visit Provider Registered Nurse
DX: N39.0 Urinary tract infection, site not specified (principal)
CPT/HCPCS: 87077; 87086; 87186

== ENCOUNTER → 2022-05-14 10:33 | Outpatient (CLI) | payer OTHER, SELFPAY ==
[2020-12-05 18:24] VITALS: BMI 28.8
[2022-05-14 11:16] LABS: Appearance Urine UA CLEAR; Bilirubin Urine UA NEGATIVE (NEGATIVE); Color Urine UA YELLOW; Glucose Urine UA NEGATIVE (Negative); Ketones Urine UA NEGATIVE (NEGATIVE); Leukocyte Esterase Urine UA NEGATIVE (NEGATIVE); Nitrite Urine UA NEGATIVE (Negative); Occult Blood Urine UA NEGATIVE (Negative); Protein Urine UA NEGATIVE (Negative); Specific Gravity Urine UA 1.025 (1.000-1.035); Urobilinogen Urine UA 0.2 E.U./dL (0.2)
[2022-05-14 11:23] LABS: Bacteria Urine None Seen; Culture Indicated Urine Cult Not Indicated; RBC Urine None Seen (0-5/HPF); Squamous Epithelial Cell Urine 0-1 /HPF (0-5/HPF); WBC Urine 0-1/HPF (0-5/HPF); pH Urine UA 5.5 (4.5-8.0)
[2022-05-14 12:05] LABS: Add Manual Diff / Slide Review NO; Basophils Absolute Auto 100 /uL (0-100); Basophils Percent Auto 1.1 % (0-2); Eosinophils Absolute Auto 200 /uL (0-450); Eosinophils Percent Auto 4.2 % (2-4); Hematocrit 38.5 % (36-46); Hemoglobin 12.7 g/dL (12.0-16.0); Lymphocytes Absolute Auto 1400 /uL (1100-4500); Lymphocytes Percent Auto 28.9 % (25-40); Mean Corpuscular Hemoglobin 27.8 PG (26-34); Monocytes Absolute Auto 400 /uL (0-900); Monocytes Percent Auto 9.2 % (3-14); Neutrophils Absolute Auto 2800 /uL (1500-7000); Neutrophils Percent Auto 56.6 % (50-75); Platelet Count 258 X10^3/uL (150-400); Red Blood Cell Count 4.58 X10^6/uL (4.0-5.2); Red Cell Distribution Width 14.6 % (11.6-14.8); White Blood Cell Count 4.9 X10^3/uL (4.5-11.0)
[2022-05-14 12:29] LABS: Alanine Aminotransferase 18 IU/L (<35); Albumin 4.1 g/dL (3.5-5.0); Albumin Globulin Ratio 1.4 (1.0-2.8); Alkaline Phosphatase 79 U/L (38-126); Aspartate Aminotransferase 24 IU/L (14-36); BUN Creatinine Ratio 27.8 (6-22); Bilirubin Total 0.5 mg/dL (0.2-1.3); Blood Urea Nitrogen 15 mg/dL (7-17); Calcium 8.7 mg/dL (8.4-10.2); Carbon Dioxide 28 mmol/L (22-32); Chloride 103 mmol/L (98-107); Cholesterol 158 mg/dL (140-199); Estimated Glomerular Filt Rate > 60 mL/min (>60); Globulin 2.9 g/dL (1.7-4.1); Glucose 80 mg/dL (80-110); HDL Cholesterol 50 mg/dL (40-60); HEMOLYSIS < 15 (0-50); LDL Cholesterol Calculated 91 mg/dL (<100); Potassium 4.2 mmol/L (3.4-5.1); Sodium 138 mmol/L (137-145); Triglycerides 84 mg/dL (35-150)
[2022-05-14 13:27] LABS: TSH w/ Reflex to FT4 0.79 uIU/mL (0.47-4.68)
== END ==
PROVIDERS: PCP Family Medicine; Referring Provider Family Medicine; Visit Provider Family Medicine
DX: E78.2 Mixed hyperlipidemia (principal); I10 Essential (primary) hypertension; N39.0 Urinary tract infection, site not specified
CPT/HCPCS: 36415; 80053; 80061; 81001; 84443; 85025

== ENCOUNTER → 2022-07-06 15:17 | Outpatient (CLI) | payer OTHER, SELFPAY ==
[2020-12-05 18:24] VITALS: BMI 28.8
--- NOTE | 2022-07-06 15:18 | DI.MG.S_ITS ---
BILATERAL DIGITAL SCREENING MAMMOGRAM 3D/2D WITH CAD: 07/06/2022 CLINICAL: Routine screening. Comparison is made to exams dated: 05/27/2020 mammogram, 05/02/2018 mammogram, and 02/08/2017 mammogram - [facility]. Both breasts are heterogeneously dense, which may obscure small masses (category c / 51-75% glandular tissue). Current study was also evaluated with a Computer Aided Detection (CAD) system. No significant masses, calcifications, or other findings are seen in either breast. There has been no significant interval change. IMPRESSION: NEGATIVE There is no mammographic evidence of malignancy. A 1 year screening mammogram is recommended. Based on the Tyrer Cuzick model (a risk assessment model) the patient's lifetime risk is 6.9% and her 10 year risk is 4.1%. According to the ACR, ACS, and NCCN guidelines, an annual breast MRI exam along with mammogram is recommended if the patient's lifetime risk is 20% or greater. This exam was interpreted at Station ID: [id number]. NOTE: For mammograms, a report in lay terms will be sent to the patient. Approximately 15% of breast malignancies will not be visualized mammographically. In the management of a palpable breast mass, a negative mammogram must not discourage biopsy of a clinically suspicious lesion. Electronically Signed By: Joseph grey/zara:07/06/2022 16:36:56 copy to: JACQUES ARAYA letter sent: Normal Exam ACR BI-RADS Category 1: Negative [id number]
== END ==
PROVIDERS: PCP Family Medicine; Referring Provider Family Medicine; Visit Provider Family Medicine
DX: Z12.31 Encounter for screening mammogram for malignant neoplasm of breast (principal)
CPT/HCPCS: 77063; 77067

== ENCOUNTER → 2022-07-11 11:19 | Outpatient (CLI) | payer OTHER, SELFPAY ==
[2020-12-05 18:24] VITALS: BMI 28.8
--- NOTE | 2022-07-11 | DI.RAD.S_ITS ---
Bone Density Report Name: CHASE REEVES Age: 71 Sex: Female Ethnicity: White Date of : 1950 Indication: osteopenia; monitoring treatment; prior fracture; Referring Provider: PATRICIA HERNANDEZ Study: Bone densitometry was performed. Exam Date: July 11, 2022 Accession number: [id number] Bone Density: Region BMD T-score Z-score Classification Femoral Neck (Left) 0.690 -1.4 0.3 Osteopenia Total Hip (Left) 0.725 -1.8 -0.3 Osteopenia Total Forearm (Left) 0.472 -2.0 0.0 Osteopenia 1/3 Forearm (Left) 0.607 -1.4 0.6 Osteopenia UD Forearm (Left) 0.299 -2.5 -1.0 Osteoporosis World Health Organization criteria for BMD impression classify patients as: Normal (T-score at or above -1.0), Osteopenia (T-score between -1.0 and -2.5), or Osteoporosis (T-score at or below -2.5). 10-year Fracture Risk: FRAX not reported because: Prior hip or vertebral fracture Treated for osteoporosis Previous Exams: -- Region Exam Age BMD T-score BMD Change BMD Change Date g/cm2 vs Baseline vs Previous -- Total Hip(Left) 07/11/2022 71 0.725 -1.8 -0.004 (-0.6%)# -0.004 (-0.6%)# 09/19/2018 67 0.729 -1.7 -- *Denotes significance at 95% confidence level, LSC for Total Hip = 0.027 g/cm2 # Denotes dissimilar scan types or analysis methods Impression: The patient has low bone mass, based on the Left Total Hip T-score. The patient has risk factors, including: previous fracture. No significant bone loss was observed. Discussion: PATIENT UNDER TREATMENT WITH NO SIGNIFICANT BMD LOSS SINCE LAST EXAM. In an untreated patient, BMD typically declines with age. A lack of decline or gain is usually a sign that treatment is efficacious and fracture risk is reduced. It is important to ask patients whether they are taking their medications and to encourage continued and appropriate compliance with their osteoporosis therapies to reduce fracture risk. It is also important to review their risk factors and encourage appropriate calcium and vitamin D intakes, exercise, fall prevention and other lifestyle measures. Follow-Up: Consider a repeat BMD and Vertebral Fracture Assessment (VFA) exam in 2 years or sooner if medically necessary, to reassess this patient's status. Reported by: JHONATAN PAT M.D. on 07/17/2022 3:27:00 PM.
== END ==
PROVIDERS: PCP Family Medicine; Referring Provider Specialist/Technologist Athletic Trainer; Visit Provider Specialist/Technologist Athletic Trainer
DX: M81.0 Age-related osteoporosis without current pathological fracture (principal); Z87.311 Personal history of (healed) other pathological fracture; Z90.710 Acquired absence of both cervix and uterus
CPT/HCPCS: 77080; 77081

== ENCOUNTER → 2022-08-11 14:11 | Outpatient (CLI) | payer OTHER, SELFPAY ==
[2020-12-05 18:24] VITALS: BMI 28.8
--- NOTE | 2022-08-11 14:13 | DI.RAD.S_ITS ---
PROCEDURE: XR RIBS RT MIN 3V W CXR 1V INDICATIONS: Rib pain TECHNIQUE: 2 views of the right ribs were acquired, along with a single view chest. COMPARISON: None. FINDINGS: Surgical changes and devices: None. Bones and chest wall: No fractures or dislocations. No suspicious bony lesions. Overlying soft tissues appear unremarkable. Bilateral shoulder replacements. Lungs and pleura: No pleural effusions or pneumothorax. Lungs appear clear. Mediastinum: Mediastinal contours appear normal. Heart size is normal. IMPRESSION: Normal PA view of the chest and right ribs. No rib fracture identified. Dictated by: Cody Verma M.D. on 08/11/2022 at 14:33 Approved by: Cody Verma M.D. on 08/11/2022 at 14:35
== END ==
PROVIDERS: PCP Family Medicine; Referring Provider Nurse Practitioner Family; Visit Provider Nurse Practitioner Family
DX: R07.81 Pleurodynia (principal)
CPT/HCPCS: 71101

== ENCOUNTER → 2022-11-19 15:54 | Outpatient (CLI) | payer OTHER, SELFPAY ==
[2020-12-05 18:24] VITALS: BMI 28.8
== END ==
PROVIDERS: PCP Family Medicine; Visit Provider Physician Assistant
DX: R30.0 Dysuria (principal)
CPT/HCPCS: 87086

== ENCOUNTER → 2022-11-29 14:29 | Outpatient (CLI) | payer OTHER, SELFPAY ==
[2020-12-05 18:24] VITALS: BMI 28.8
== END ==
PROVIDERS: PCP Family Medicine; Visit Provider Physician Assistant
DX: R31.9 Hematuria, unspecified (principal)
CPT/HCPCS: 87086

== ENCOUNTER → 2023-02-05 13:55 | Outpatient (CLI) | payer OTHER, SELFPAY ==
[2020-12-05 18:24] VITALS: BMI 28.8
[2023-02-05 14:33] LABS: Erythrocyte Sedimentation Rate 6 MM/HR (0-20)
[2023-02-05 14:39] LABS: C-Reactive Protein Quant < 0.5 mg/dL (<1.0)
== END ==
PROVIDERS: PCP Family Medicine; Referring Provider Orthopaedic Surgery Adult Reconstructive Orthopaedic Surgery; Visit Provider Orthopaedic Surgery Adult Reconstructive Orthopaedic Surgery
DX: R70.0 Elevated erythrocyte sedimentation rate (principal); R79.82 Elevated C-reactive protein (CRP)
CPT/HCPCS: 36415; 85651; 86140

== ENCOUNTER → 2023-02-09 09:50 | Outpatient (CLI) | payer OTHER, SELFPAY ==
[2020-12-05 18:24] VITALS: BMI 28.8
--- NOTE | 2023-02-09 | DI.MRI.S_ITS ---
PROCEDURE: MR HIP RT WO CON INDICATIONS: PRESENCE OF RT ARTIFICIAL HIP JOINT TECHNIQUE: Noncontrast coronal T1 spin echo and STIR through the bony pelvis. Coronal and axial STIR, sagittal T1 spin echo, and oblique axial STIR through the hip. COMPARISON: None. FINDINGS: Image quality: Images are mildly degraded by expected metallic artifact related to the hip prostheses despite utilization of metal artifact reduction sequences. Diagnostic information is obtained. Bones and joints: Postsurgical changes are seen from right hip arthroplasty with associated metal artifact. No significant joint effusion or periarticular mass. Postsurgical changes also seen in the sacroiliac joints and included lumbar spine. No acute osseous edema is seen. Bone marrow of the pelvic ring and left proximal femur otherwise show normal signal throughout. No intraosseous lesions or fractures. No avascular necrosis of the femoral heads. The visualized lower lumbar spine appears normally aligned. Tendons and ligaments: There is chronic fatty infiltration of the right gluteus medius and minimus muscles and the left gluteus minimus muscles, likely related to chronic partial tearing. The proximal iliotibial band appears intact. The iliopsoas tendon appears intact, without adjacent bursal fluid collections. There is tendinosis of the proximal hamstring tendons bilaterally with suspected low-grade partial tearing, worse on the left than on the right. The direct and indirect heads of the rectus femoris muscle origin appear intact. Soft tissues: Visualized muscles demonstrate normal bulk and internal signal. Quadratus femoris muscle demonstrates no internal edema to suggest ischiofemoral impingement. The proximal sciatic neurovascular bundle appears intact. Small uterine fibroid is noted. IMPRESSION: 1. Postsurgical changes from right hip arthroplasty with associated metal artifact. No acute trabecular bone injury. No significant joint effusion or periarticular mass. 2. Postsurgical changes in the sacroiliac joints and included lumbar spine. 3. Partial tearing of the proximal hamstring tendons bilaterally superimposed on chronic tendinosis, worse on the left than on the right. 4. Probable chronic at least partial tearing of the distal gluteus medius and minimus muscles bilaterally with associated fatty atrophy. Approved by: Joseph Wiggins M.D. on 02/12/2023 at 12:32
== END ==
PROVIDERS: PCP Family Medicine; Referring Provider Orthopaedic Surgery Adult Reconstructive Orthopaedic Surgery; Visit Provider Orthopaedic Surgery Adult Reconstructive Orthopaedic Surgery
DX: S76.811A Strain of other specified muscles, fascia and tendons at thigh level, right thigh, initial encounter (principal); Z96.641 Presence of right artificial hip joint
CPT/HCPCS: 73721

== ENCOUNTER → 2023-03-28 11:36 | Outpatient (CLI) | payer OTHER, SELFPAY ==
[2020-12-05 18:24] VITALS: BMI 28.8
[2023-03-28 12:29] LABS: Add Manual Diff / Slide Review NO; Basophils Absolute Auto 0 /uL (0-100); Basophils Percent Auto 1.1 % (0-2); Eosinophils Absolute Auto 200 /uL (0-450); Eosinophils Percent Auto 4.9 % (2-4); Hematocrit 38.8 % (36-46); Hemoglobin 13.2 g/dL (12.0-16.0); Lymphocytes Absolute Auto 1200 /uL (1100-4500); Lymphocytes Percent Auto 29.2 % (25-40); Mean Corpuscular HGB Conc 34.1 % (30-36); Mean Corpuscular Hemoglobin 29.3 PG (26-34); Mean Corpuscular Volume 85.9 fL (80-100); Monocytes Absolute Auto 400 /uL (0-900); Monocytes Percent Auto 8.8 % (3-14); Neutrophils Absolute Auto 2300 /uL (1500-7000); Platelet Count 228 X10^3/uL (150-400); Red Blood Cell Count 4.52 X10^6/uL (4.0-5.2); Red Cell Distribution Width 14.4 % (11.6-14.8)
[2023-03-28 12:45] LABS: Albumin 4.1 g/dL (3.5-5.0); BUN Creatinine Ratio 23.7 (6-22); Blood Urea Nitrogen 14 mg/dL (7-17); Calcium 9.1 mg/dL (8.4-10.2); Carbon Dioxide 29 mmol/L (22-32); Chloride 104 mmol/L (98-107); Estimated Glomerular Filt Rate > 60 mL/min (>60); Glucose 89 mg/dL (80-110); HEMOLYSIS < 15 (0-50); Potassium 4.9 mmol/L (3.4-5.1); Sodium 139 mmol/L (137-145)
[2023-03-28 12:52] LABS: Prealbumin 22.5 mg/dL (17.6-36.0)
[2023-03-28 15:41] LABS: Vitamin D 25 Hydroxy (D3) 32.8 ng/mL (30.0-100.0)
== END ==
PROVIDERS: PCP Family Medicine; Referring Provider Orthopaedic Surgery Adult Reconstructive Orthopaedic Surgery; Visit Provider Orthopaedic Surgery Adult Reconstructive Orthopaedic Surgery
DX: Z01.818 Encounter for other preprocedural examination (principal); E55.9 Vitamin D deficiency, unspecified; R73.9 Hyperglycemia, unspecified; R77.0 Abnormality of albumin; Z01.812 Encounter for preprocedural laboratory examination
CPT/HCPCS: 36415; 80048; 82040; 82306; 83036; 84134; 85025; 93005; 93010

== ENCOUNTER → 2023-05-14 11:17 | Outpatient (CLI) | payer OTHER, SELFPAY ==
[2020-12-05 18:24] VITALS: BMI 28.8
[2023-05-14 12:29] LABS: Add Manual Diff / Slide Review NO; Basophils Absolute Auto 0 /uL (0-100); Basophils Percent Auto 1.1 % (0-2); Eosinophils Absolute Auto 200 /uL (0-450); Eosinophils Percent Auto 5.8 % (2-4); Hematocrit 38.6 % (36-46); Hemoglobin 12.8 g/dL (12.0-16.0); Lymphocytes Absolute Auto 1200 /uL (1100-4500); Lymphocytes Percent Auto 28.6 % (25-40); Mean Corpuscular HGB Conc 33.2 % (30-36); Mean Corpuscular Hemoglobin 28.4 PG (26-34); Mean Corpuscular Volume 85.7 fL (80-100); Monocytes Absolute Auto 300 /uL (0-900); Neutrophils Absolute Auto 2300 /uL (1500-7000); Neutrophils Percent Auto 56.5 % (50-75); Platelet Count 208 X10^3/uL (150-400); Red Blood Cell Count 4.51 X10^6/uL (4.0-5.2); Red Cell Distribution Width 14.2 % (11.6-14.8)
[2023-05-14 12:43] LABS: Alanine Aminotransferase 18 IU/L (<35); Albumin 3.9 g/dL (3.5-5.0); Albumin Globulin Ratio 1.4 (1.0-2.8); Alkaline Phosphatase 61 U/L (38-126); Aspartate Aminotransferase 26 IU/L (14-36); BUN Creatinine Ratio 29.1 (6-22); Bilirubin Total 0.6 mg/dL (0.2-1.3); Blood Urea Nitrogen 16 mg/dL (7-17); Carbon Dioxide 28 mmol/L (22-32); Chloride 106 mmol/L (98-107); Cholesterol 146 mg/dL (140-199); Estimated Glomerular Filt Rate > 60 mL/min (>60); Globulin 2.8 g/dL (1.7-4.1); Glucose 83 mg/dL (80-110); HDL Cholesterol 60 mg/dL (40-60); HEMOLYSIS < 15 (0-50); LDL Cholesterol Calculated 70 mg/dL (<100); Potassium 4.5 mmol/L (3.4-5.1); Sodium 137 mmol/L (137-145); Total Protein 6.7 g/dL (6.3-8.2); Triglycerides 81 mg/dL (35-150)
[2023-05-14 13:10] LABS: TSH w/ Reflex to FT4 1.56 uIU/mL (0.47-4.68)
== END ==
PROVIDERS: PCP Family Medicine; Referring Provider Family Medicine; Visit Provider Family Medicine
DX: Z00.00 Encounter for general adult medical examination without abnormal findings (principal); E78.2 Mixed hyperlipidemia; I10 Essential (primary) hypertension
CPT/HCPCS: 36415; 80053; 80061; 84443; 85025

== ENCOUNTER 2023-06-07 06:05 | Inpatient (IN) | payer OTHER, SELFPAY ==
[2020-12-05 18:24] VITALS: BMI 28.8
[2023-05-30 09:29] VITALS: BMI 28.9
[2023-06-07] VITALS (12 sets, daily range): BP systolic 91–164; BP diastolic 53–83; PULSE 64–83; RESP 14–17; TEMP 36.3–36.6; O2SAT 92–98; BMI 29.0; BMI 31.6
--- NOTE | 2023-06-07 | DI.RAD.S_ITS ---
PROCEDURE: XR HIP W PEL IF DONE RT 2V INDICATIONS: RIGHT TE REVISION TECHNIQUE: Intraoperative fluoroscopic spot films COMPARISON: [facility], , XR HIP W PEL IF DONE RT 2V, 08/01/2018, 8:10. FINDINGS: Low resolution intraoperative spot films show right total hip arthroplasty in appropriate position IMPRESSION: 1. Fluoroscopic guidance Approved by: Fantasma Govea M.D. on 06/07/2023 at 10:59
--- NOTE | 2023-06-07 06:00 | DI.RAD.S_ITS ---
PROCEDURE: XR HIP W PEL IF DONE RT 2V INDICATIONS: TE TECHNIQUE: AP pelvis and lateral view of the hip acquired. COMPARISON: [facility], CR, XR HIP W PEL IF DONE RT 2V, 06/07/2023, 9:04. FINDINGS: Bones: Patient is status post right hip arthroplasty, with hardware components in expected positions. The hip joint appears congruent. The visualized bony structures appear intact. Soft tissues: Overlying postoperative changes are noted. No suspicious soft tissue densities. IMPRESSION: Expected immediate postoperative appearance, status post total right hip arthroplasty. Dictated by: Jaime Maki M.D. on 06/07/2023 at 11:11 Approved by: Jaime Maki M.D. on 06/07/2023 at 11:12
[2023-06-07] MEDS: MELOXICAM 7.5 MG TABLET PO (06:54)
[2023-06-07] MEDS: LACTATED RINGERS 1,000 ML 42 ML IV ×2 (06:54→10:14)
[2023-06-07] MEDS: ACETAMINOPHEN 325 MG TABLET 975 MG PO (06:54)
--- NOTE | 2023-06-07 07:40 | PM.PREOP ---
Pre-operative Note Interval Note History & Physical reviewed/Exam performed by Physician: Yes Changes to H&P: No
[2023-06-07] MEDS: CEFAZOLIN 2 GM/100 ML PREMIX 100 ML IV ×2 (08:03→15:49)
[2023-06-07] MEDS: TRANEXAMIC ACID 1,000 MG VIAL 1000 MG INJ (08:12)
--- NOTE | 2023-06-07 08:35 | SUR.OPER ---
Supine on padded [place] table with bilateral legs secured in padded positioning boots and suspended in positioning spars, operative leg in traction per surgeon. Head on one pillow. Arm on non-operative side secured on padded armboard <90 degrees abduction. Arm on operative side padded and resting across chest then secured with tape over sheet. Padded perineal post in place per surgeon.
[2023-06-07] MEDS: ROPIVACAINE/EPI/CLONIDINE/KET 50 ML SYRINGE INJ (09:02)
--- NOTE | 2023-06-07 10:15 | P.OP_ITS ---
Operative Date/Time/Diagnoses Date of procedure: 06/07/23 Pre-op diagnosis: Right hip osteoarthritis following prior right hip hemiarthroplasty for fixation failure in a femoral neck fracture Procedure & Clinicians Procedure: Conversion of right hip hemiarthroplasty to total hip arthroplasty with dual mobility articulation (29446) Same procedure as scheduled: Yes Surgeon: Fantasma Jackman Embedded Systems Software Developer: Galina Fu Anesthesia Type: Spinal, Sedation and Local Operative Notes Estimated Blood Loss (mL): 500 Procedure in detail: Conversion of prior right hip hemiarthroplasty to total hip arthroplasty with mono block dual mobility articulation through direct anterior approach: Implants: Middleton and nephew Total Hip Arthroplasty: * PolarCup Stainless Steel + Titanium Plasma/VALERO Monoblock Dual Mobility Acetabular Component * 28+8 Oxinium Femoral Head with 61/28 Outer Dual Mobility Polyethylene Insert * Retained 11 SO Anthology Femoral Stem? Procedure Summary: This 72-year-old female patient had previously sustained a femoral neck fracture which was initially fixed with 3 screws. That failed and she was converted to a right hip hemiarthroplasty. She eventually developed acetabular erosions at the site of her hip hemiarthroplasty with a resultant limb length discrepancy for which she utilized a shoe lift. 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 I discussed options for management with her in clinic. I counseled her that I could either do a posterior approach with conversion to dual mobility articulation and a simultaneous gluteus dave transfer for abductor function or an anterior approach conversion which would not involve soft tissue substitutions for her absent abductor function. Given the long recovery associated with a gluteus dave transfer she elected to proceed with conversion total hip arthroplasty in isolation with the understanding that this would not resolve her Trendelenburg gait. She did seek a 2nd opinion from a colleague of mine at a neighboring practice who concurred with my recommendation. Intraoperatively I initially reamed up to 59 mm under fluoroscopy and found that it had a good pinch fit, however given the nature of the acetabular component I wanted to ensure maximum pinch fit. I was able to fit a 61 Reamer in, so I reamed slightly additionally more in order to maximize pinch fit. I positioned the cup fluoroscopically and then utilized a unipolar hemiarthroplasty head trial to simulate a dual mobility head. I was able to avoid releasing the conjoined tendon when positioning of the leg in extension and adduction. I had appropriate stability with the unipolar head as I was unable to dislocate it with maximum external rotation and the hip remained stable with a 45 degree drop test. Leg lengths and offset appeared appropriate fluoroscopically so the corresponding dual mobility head was inserted. Procedure in Detail: This patient was seen preoperatively and evaluated for hip pain which was refractory to numerous nonoperative treatment modalities. Their hip pain correlated with radiographic changes demonstrating significant degeneration in the hip joint. The risks and benefits of continued nonoperative management versus operative management were discussed at length and all of the patient?s questions were answered. Additional educational materials providing further details beyond our discussion in clinic were provided via a publicly available patient education video which included the incidence of medical complications associated with total hip arthroplasty, reasons for revision following total hip arthroplasty, and patient satisfaction rates following total hip arthroplasty. That video can be accessed at [email or web address] . With this understanding of the risks inherent to the procedure, the patient elected to move forward with operative management. Following preoperative optimization, the patient was scheduled for surgery. The patient was met in the preoperative holding area the day of the procedure and all questions were answered. The patient?s nares were swabbed with betadine in order to decolonize them from MRSA. Informed consent was signed and the operative limb was marked with indelible ink.? The patient was brought back to the operating room where anesthesia was induced. The patient was transferred to the Medford table and all bony prominences were padded. The operative site was prepped and draped in the usual sterile fashion. Prior to incision, tranexamic acid and cefazolin were administered. Operative templating images were displayed demonstrating the anticipated implant sizes and correct operative extremity. A timeout procedure was performed verifying the patient?s identity, medical comorbidities, allergies, relevant medications, anesthesia type and the surgical plan. All present were in agreement. The assistance of a physician cardiology physician assistant was required for positioning, room setup, soft tissue retraction and wound closure. Without this assistance, the procedure would have been significantly more challenging and time consuming.?? A direct anterior approach to the hip was utilized. This was performed with a longitudinal incision through a Heuter interval. The incision was planned 2 cm distal and 2 cm lateral to the ASIS extending towards the lateral patella, in line with the muscle body of the TFL. Following incision, the subcutaneous tissue was dissected while taking care to avoid injury to the lateral femoral cutaneous nerve. The fascia overlying the TFL was identified by dissecting off the overlying fat and identifying perforating vessels to the TFL. The TFL fascia was incised and dissected away from the medial border of the TFL. A cobra retractor was placed over the superior femoral neck between the abductors and the hip capsule and used to reflect the TFL laterally. A [place] self-retainer was then placed in the distal aspect of the wound between the TFL and the rectus femoris. This was tensioned to open up the direct anterior interval and the lateral circumflex vessels were identified and coagulated using electrocautery. The floor of the TFL fascia was incised, exposing the pericapsular fat overlying the hip capsule. A second cobra retractor was placed on the inferior femoral neck. A double-bent soft tissue retractor was placed on the anterior wall of the acetabulum and used to tension the reflected head of rectus femoris, which was then released in order to limit soft tissue tension. A capsulotomy was made in the midline of the anterior hip capsule in line with the femoral neck ending at the vastus tubercle. The double-bent retractor was removed in order to limit the amount of time that a soft tissue retractor remained on the anterior wall and protect the femoral nerve. Tag stitches were placed in the superior and inferior leaflets of the hip capsule. The cobra retractors were replaced intracapsularly, with one over the superior neck in the pocket created by the base of the greater trochanter and the other on the femoral head. The capsulotomy was extended laterally to the base of the greater trochanter and medially to the lesser trochanter. This required externally rotating the hip. The hip was placed in 45? of internal rotation and traction was applied. I impacted the unipolar hemiarthroplasty head into the red cliff acetabulum to disengaged it from the Sheridan taper. I then released traction and externally rotated the hip. This allowed dislocation. I removed the head. I positioned the trunnion of the femoral stem posteriorly. ? Anterior wall retractor was placed between the labrum and the anterior capsule so that the anterior capsule would prevent capturing and pinching the femoral nerve anteriorly. An additional retractor was placed on the posterior wall. Abundant scar was excised from within the acetabulum. The labrum was excised sharply and the pulvinar was excised with electrocautery to limit bleeding from branches of the obturator artery. Acetabular reamers were selected based on preoperative templating. These were introduced into the acetabulum. Fluoroscopy was utilized to replicate a standing AP pelvis radiograph by centering over the pelvis, rotating until there was appropriate symmetry between the obturator foramen, and introducing caudal tilt to match the position of the pubic symphysis relative to the sacrococcygeal junction according to the patient?s anatomy. Fluoroscopy was utilized to ensure appropriate reaming depth. Once satisfied with the reaming depth corresponding to the preoperative template and the pinch fit between the columns, an appropriate sized acetabular cup was selected which was reamed line to line given the stainless steel acetabular component. This cup was introduced and manipulated until appropriate abduction and anteversion angles were obtained with careful attention to appropriate abduction and anteversion angles as evaluated by the position of the cup relative to the anterior and posterior muñoz of the acetabulum and the AP fluoroscopy which recreated the patient?s standing radiograph. The cup was impacted into place. Peripheral osteophytes were removed. Attention was then turned to the femur. All retractors were removed, traction was released, a retractor was placed in the interval between the hip capsule and the gluteus minimus, and the hip was externally rotated to 90 degrees. Traction was applied through the Medford table to tension the lateral capsule and this was released using electrocautery. Traction was released and a Medford hook was placed posteriorly around the proximal femur at the level of the vastus ridge. The table height was lowered in order to restrict the tension on the anterior structures during hip hyperextension to limit the risk of femoral nerve palsy. With traction off and the hip at 90 degrees of external rotation, the hip was hyperextended and adducted while manually elevating the femur away from the acetabulum with the Medford hook to ensure it would not be caught behind the greater trochanter. An asymmetric retractor was placed over the calcar and a broad double-pronged retractor was placed over the greater trochanter. The tag s titch capturing the lateral leaflet of the capsule was moved to the medial side, leaving the conjoined and piriformis tendons isolated in the face of the greater trochanter. The hip was externally rotated and elevated. A release of the conjoined tendon was not necessary in order to obtain adequate exposure. Neck and head trials were placed, all retractors were removed and the hip was returned to neutral abduction and extension. I then reduced the hip. An AP pelvis fluoroscopic image matching the preoperative standing radiograph was obtained with both lesser trochanters visible and both hips in 40 degrees of external rotation. This demonstrated appropriate leg lengths and slightly increased offset as compared to the contralateral side. An AP hip fluoroscopic image was obtained with the hip in neutral rotation which demonstrated no concerning features with the retained stem. Hip stability was evaluated with maximum external rotation and a 45 degree drop test which demonstrated no instability. The hip was dislocated and I returned to the broaching position. The definitive stem was placed and the trunnion was cleaned and dried. I placed a Oxinium dual mobility head onto the trunnion and impacted it into place on the Sheridan taper.?? All retractors were removed and the hip was reduced. A dilute mixture of betadine and peroxide was used to bathe the soft tissues during final fluorosc opic assessment. Appropriate component positioning was confirmed on an AP pelvis radiograph with the operative and nonoperative legs in 40 degrees of external rotation, evaluating leg length and offset. Appropriate stem fill was evaluated on an AP hip radiograph with the operative leg in neutral rotation. No fractures were identified on these radiographs. Stability was satisfactory with a 90 degre e external rotation test as well as a 45 degree drop test. The hip was copiously irrigated with pulse lavage. The capsule was closed with absorbable interrupted suture. The TFL fascia was closed with barbed suture while carefully protecting the lateral femoral cutaneous nerve from entrapment. A mixture of Ropivacaine, Epinephrine, Clonidine and Toradol was infiltrated throughout the soft tissues. The skin was closed with 2-0 and 3-0 sutures. Surgical glue was applied and a soft dressing was placed.??The sponge, instrument and needle counts were reported as being correct at the end of the ca se.??No obvious complications occurred. The patient was transferred from the Medford table back to a stretcher. The patient emerged from anesthesia without difficulty and was taken to the PACU in a stable condition.? Plan for aftercare: * Anterior hip precautions * Weightbearing as tolerated * Mobilization as soon as the patient has recovered from anesthesia. If physical therapists are unavailable at the time the patient is ready to ambulate, then nursing staff should help patient ambulate * Aspirin 81 twice per day for DVT prophylaxis * Multimodal pain regimen with no IV opioids ordered * Anticipate discharge home most likely tomorrow * Follow up at [facility] in 2 weeks * Detailed postoperative instructions available at [email or web address]
--- NOTE | 2023-06-07 10:41 | PM.PREOP ---
Pre-operative Note Interval Note History & Physical reviewed/Exam performed by Physician: Yes
[2023-06-07] MEDS: ACETAMINOPHEN 325 MG TABLET 650 MG PO ×2 (12:21→17:57)
[2023-06-07] MEDS: OXYCODONE IR 5 MG TABLET PO ×3 (12:21→21:28)
[2023-06-07] MEDS: LACTATED RINGERS 1,000 ML 100 ML IV (12:23)
--- NOTE | 2023-06-07 14:04 | PT.IIE ---
Current Diagnoses Unilateral primary osteoarthritis, right hip (06/07/23) Surgery Performed Operation Date: 06/07/23 07:45 Actual Procedures p Conversion of prior hip hemiarthroplasty to total hip arthroplasty anterior(Right) - Fantasma Jackman MD Surgical History (Last Reviewed 06/07/23 @ 06:40 by Sadia Parmar, RN) Anesthesia complication H/O prior ablation treatment (~1997) History of arthroplasty of left shoulder (12/30/17) History of lumbar spinal fusion (08/14/19) History of total right hip arthroplasty (07/30/18) Hx of bilateral cataract extraction (12/2019) Hx of tonsillectomy Melanoma of ear (~2007) S/P partial hysterectomy Status post arthroscopy (~2013) Status post delivery (~1987) Status post colonoscopy Status post ORIF of fracture of ankle (~1975) Medical History (Last Reviewed 06/07/23 @ 06:40 by Sadia Parmar, MICAH) Acute right-sided low back pain without sciatica Anxiety Cardiac arrhythmia (~2003) Carpal tunnel syndrome (~1994) Chickenpox (~1959) Chondrocalcinosis Chronic back pain (~2007) Chronic UTI Cognitive change Colon polyps (~1999) Depression (~1992) Easy bruisability Encounter for pre-operative cardiovascular clearance Epigastric abdominal pain Fibroids (~1997) Fusion of sacral region of spine Hiatal hernia History of fracture History of gastric ulcer (2015) HSV (herpes simplex virus) infection (~1979) Hyperlipidemia Hypertension (~2003) Measles (~1959) Medicare annual wellness visit, initial Medicare annual wellness visit, subsequent Melanoma of ear (~2007) Mumps (~1958) KALEB on CPAP (12/2022) Osteoporosis Pelvic somatic dysfunction Polyarthralgia Preventative health care Right femoral fracture (07/19/18) Sacral region somatic dysfunction Sciatic nerve pain Shoulder pain (~2013) Sleep apnea Unspecified fall, sequela UTI (urinary tract infection) Vertigo Weight loss (05/2020) Well adult exam Physical Therapy Inpatient Evaluation/Re-Eval M1 PT/OT-IP Prior Functional Status Start: 06/07/23 14:07 Freq: NEEDED Status: Active Protocol: Document 06/07/23 14:04 DLM (Rec: 06/07/23 14:59 DLM [id number]) Medical Review Prior Functional Status Medical History Reviewed Yes Diet/Fluid Consistency Regular Communication WFL Mobility and Gait Independent, antalgic pattern due to denervation of right hip abductors Activities of Daily Living and IADL's Independent with equipment Social History Household Members none Living Arrangements House Number of Floors (Floors) One Floor Number of Stairs To Enter/Railing? 2 steps with bilateral rails Home Environment High Toilet,Walk in Shower Home Equipment Front Wheel Walker,Four Wheel Walker,Straight Cane,Raised Toilet Seat w/Armrests,Shower Seat with Backrest,Hand Held Shower,Grab Bars Near Toilet, Grab Bars In Shower Employment Status Retired M2 PT-IP Current Condition Start: 06/07/23 14:07 Freq: NEEDED Status: Active Protocol: Document 06/07/23 14:04 DLM (Rec: 06/07/23 14:59 DL [id number]) Physical Therapy Current Condition Current Condition Evaluation Date 06/07/23 Treatment Diagnosis right anterior total hip, hip revision, impaired mobility/ gait Onset Date 06/07/23 M3 PT-IP Subjective Start: 06/07/23 14:07 Freq: NEEDED Status: Active Protocol: Document 06/07/23 14:04 DLM (Rec: 06/07/23 14:59 DL [id number]) Subjective Physical Therapy Visit Type Type Initial Evaluation Visit Start Time 13:20 Visit Stop Time 14:04 Number of INSTRUMENT ROOM TECHNICIAN Visits 0 Physical Therapy Visit Comments Patient Comments She does not feel like she could go home today. She describes right leg and pelvic area as numb. She coughed and was incontinent of urine in bed. Her Sister will stay with her for a week after discharge then a friend will stay with her for the second week. Patient Goals Discharge home with family/ friends to help Therapy Pain Assessment Pain When Pain Assessed After Treatment Pain Present Pain Present Pain Reported Location right hip Intensity 3 Scale Used Numeric (0 - 10) Description Aching,Tender Pain Behaviors Guarding Pain Management Techniques Apply Cold,Re-positioning M4 PT-IP Mobility and Gait Start: 06/07/23 14:07 Freq: NEEDED Status: Active Protocol: Document 06/07/23 14:04 DLM (Rec: 06/07/23 14:59 DLM [id number]) PT-Bed Mobility Assessment Supine to Sit Supine to Sit Contact Guard Assistance, Minimal Assistance Sit to Supine Sit to Supine Contact Guard Assistance, Minimal Assistance Scooting Scooting to Edge of Bed Independent PT-Transfer Assessment Sit to and From Stand Sit to and from Stand Minimal Assistance,Moderate Assistance,Use of Upper Extremities Equipment Transfer Assistive Device Gait Belt,Front Wheeled Walker Transfers Transfer Destination Bedside Commode Transfer Technique Stand Step Pivot Transfer Ability Level of Assist Minimal Assistance,Moderate Assistance,Use of Upper Extremities Comments Mobility Comments Pt describes right LE as numb which made it more difficult for to use it functionally. Pt incontinent of urine getting out of bed and standing before she could get to bedside commode. Coordinated care with nursing to use commode and clean up bed and pt during this visit. Pt used bedside commode then returned to bed. Pt on toes on right foot with partial weight bearing. Good use of UE's on the FWW and armrests Gait Assessment Comments Gait Comments pt not safe to advance to gait due to numbness in right LE with decreased functional movement PT-Balance Assessment Sitting Balance and Reactions Static Sitting Balance Ability Normal Dynamic Sitting Balance Ability Normal Standing Balance and Reactions Static Standing Balance Ability Fair Dynamic Standing Balance Ability Fair Device Used fWW M5 PT-IP Objective Assessments Start: 06/07/23 14:07 Freq: NEEDED Status: Active Protocol: Document 06/07/23 14:04 DLM (Rec: 06/07/23 14:59 DLM [id number]) Orientation Orientation/Cognition Level of Alertness Alert Orientation Name,Age,Birthday,Month,Date, Year,Day of Week,Place, Situation Language Function Ability No Deficits Noted Safety Awareness Understands Safety Issues Memory Description No Deficits Noted Comments educated pt in fall risk prevention Gross Range of Motion Upper Extremity ROM Assessment Within Functional Limits Lower Extremity ROM Assessment Right Impaired Impairments anterior hip precautions post- op Strength Upper Extremity Strength Assessment Within Functional Limits Lower Extremity Strength Assessment Right Impaired Hip unable to do heel slide in bed , standing hip flex 2+/5 Knee knee ext sitting 3+/5 Ankle moving ankle actively Comments Strength Comments surgical block affecting right LE at the time of this visit Coordination Assessment Gross Coordination Gross Coordination WNL Sensation Assessment Sensation Gross Sensation Right LE Impaired Sensation Description Numbness Comments Sensation Comments numbness in right LE and pelvic area s/p block during surgery Muscle Tone Muscle Tone WNL Yes M6 PT-IP Treatment Start: 06/07/23 14:07 Freq: NEEDED Status: Active Protocol: Document 06/07/23 14:04 DLM (Rec: 06/07/23 14:59 DL [id number]) Physical Therapy Treatment Exercises Exercises Ankle Pumps,Gluteal Sets,Quad Sets Education Education Provided Precautions,Weight Bearing Status,Post-Op Packet,Safety Other Treatments Other Treatment Performed pt educated in hip precautions with explanation for anterior hip precautions vs her prior posterior hip precautions, clarified that pt can not do floor exercises for her back at this time and she needs to avoid back stretches that place her hip in excessive external rotation M7 PT-IP Assessment and Plan Start: 06/07/23 14:07 Freq: NEEDED Status: Active Protocol: Document 06/07/23 14:04 DL (Rec: 06/07/23 14:59 DL [id number]) PT Summary Assessment and Plan Potential Rehabilitation Potential Good Status of Condition at Evaluation Evolving Summary Impairments Pain,ROM,Strength,Balance, Sensation,Bed Mobility, Transfers,Gait,Activity Tolerance Assessment Summary Ana María is alert and resting in bed. She underwent right total hip revision today. She continue to have numbness in right LE and can not feel when she needs to urinate which has caused incontinence in bed . Coordinated care with nursing this visit to get pt up to bedside commode to urinate and get her bed changed. Pt is having difficulty using her right LE functionally with the current level of numbness. Pt was educated in her anterior hip precautions. She needs one person assist for transfers with the FWW at this time. She could not advance to gait yet . Will continue to plan for discharge home with friends and family helping. She is not safe for discharge today. If she progresses well she may be ready for discharge tomorrow. 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
--- NOTE | 2023-06-07 14:41 | OT.IPNOTE ---
Pt sleeping in bed on entrance of OT. OT was able to rouse pt. Pt was very drowsy. Pt declined OT eval at this time stating that she was too tired after having PT eval and getting cleaned up. OT briefly discussed her hip precautions and AE needs for socks. Pt left reclined in bed with all needs met.
--- NOTE | 2023-06-07 16:39 | PC.NURSE ---
Pt arrived at 115 from PACU Denies discomfort. Pt oriented to room & call ystem Right anterior hip aquacell dsg CDI. IVF infusing as per MD orders. Resting at intervals. Satisfactory post op course. COntinue w/plan of care.
--- NOTE | 2023-06-07 16:57 | P.PN_ITS ---
Subjective Subjective Interval history: Patient seen postoperatively. Resting comfortably. No acute distress. Has ambulated with physical therapy. Made good progress. I visited with her twice since surgery. The 1st time she was working with occupational therapy. She has intact flexion and extension of her hallux angle and knee. Her dressing is clean dry and intact. She states that she is mildly lightheaded but otherwise has no complaints. Her blood pressure has been appropriate postoperatively. We will plan to keep her overnight, mobilize her once more in the morning, and discharge her tomorrow. Exam Vital Signs (past 8 hours): - 06/07/23 10:33 06/07/23 10:38 06/07/23 10:43 Temperature 97.5 F L Pulse Rate 75 76 78 Respiratory Rate 16 17 14 Blood Pressure 91/53 L 109/63 119/64 Pulse Oximetry 96 93 96 Oxygen Delivery Method Nasal Cannula Nasal Cannula Nasal Cannula Oxygen Flow Rate 4 4 4 06/07/23 10:48 06/07/23 10:55 06/07/23 11:15 Temperature 97.8 F 97.3 F L Pulse Rate 76 78 68 Respiratory Rate 16 14 16 Blood Pressure 115/62 129/75 134/66 Pulse Oximetry 97 97 92 Oxygen Delivery Method Nasal Cannula Room Air Oxygen Flow Rate 4 1 06/07/23 11:45 06/07/23 12:15 06/07/23 13:15 Temperature Pulse Rate 64 83 67 Respiratory Rate 16 16 16 Blood Pressure 122/56 L 109/58 L 105/55 L Pulse Oximetry 96 98 97 Oxygen Delivery Method Oxygen Flow Rate 2 06/07/23 14:15 Temperature Pulse Rate 67 Respiratory Rate 16 Blood Pressure 109/57 L Pulse Oximetry 97 Oxygen Delivery Method Oxygen Flow Rate Oxygen Delivery Method Room Air Oxygen Flow Rate 2 [facility] Medical History KALEB on CPAP (12/2022) Chondrocalcinosis Osteoporosis Medicare annual wellness visit, subsequent Encounter for pre-operative cardiovascular clearance Vertigo Sleep apnea Medicare annual wellness visit, initial Well adult exam Preventative health care Polyarthralgia Acute right-sided low back pain without sciatica Sacral region somatic dysfunction Pelvic somatic dysfunction Unspecified fall, sequela Anxiety Cognitive change Weight loss (05/2020) History of gastric ulcer (2015) Epigastric abdominal pain UTI (urinary tract infection) Right femoral fracture (07/19/18) Sciatic nerve pain Easy bruisability Fusion of sacral region of spine Chronic UTI Hiatal hernia Hyperlipidemia Depression (~1992) Shoulder pain (~2013) History of fracture Chronic back pain (~2007) Carpal tunnel syndrome (~1994) Chickenpox (~1959) Measles (~1959) Mumps (~1958) HSV (herpes simplex virus) infection (~1979) Fibroids (~1997) Colon polyps (~1999) Hypertension (~2003) Cardiac arrhythmia (~2003) Melanoma of ear (~2007) Surgical History Hx of bilateral cataract extraction (12/2019) History of lumbar spinal fusion (08/14/19) History of total right hip arthroplasty (07/30/18) History of arthroplasty of left shoulder (12/30/17) Hx of tonsillectomy S/P partial hysterectomy Anesthesia complication Melanoma of ear (~2007) Status post ORIF of fracture of ankle (~1975) H/O prior ablation treatment (~1997) Status post delivery (~1987) Status post colonoscopy Status post arthroscopy (~2013) Family History Brother Age: 68 Heart disease Hypertension Grandfather Heart disease Colorectal cancer Grandmother Stroke Mother Age: 89 Hypertension Grandfather Heart disease Grandmother Diabetes mellitus Sister Age: 63 Mental health problem Depression Father Parkinson's disease Pneumonia Social History household members: none Smoking Status: Never smoker alcohol intake: current Quality VTE Deep Vein Thrombosis/Pulmonary Embolism Present on Admission: No
[2023-06-07] MEDS: GABAPENTIN 300 MG CAPSULE PO (20:02)
[2023-06-07] MEDS: DOCUSATE 100 MG CAPSULE PO (20:02)
[2023-06-07] MEDS: ASPIRIN EC 81 MG TABLET PO (20:02)
[2023-06-07] MEDS: ALPRAZolam 0.25 MG TABLET PO (21:31)
[2023-06-08] MEDS: LACTATED RINGERS 1,000 ML 100 ML IV (00:01)
[2023-06-08 00:05] VITALS: BP 109/53; PULSE 76; RESP 18; TEMP 36.4; O2SAT 94
[2023-06-08] MEDS: CEFAZOLIN 2 GM/100 ML PREMIX 100 ML IV (00:05)
[2023-06-08] MEDS: ACETAMINOPHEN 325 MG TABLET 650 MG PO (05:58)
[2023-06-08 06:00] LABS: Hematocrit 27.6 % (36-46); Hemoglobin 9.4 g/dL (12.0-16.0)
[2023-06-08 06:01] VITALS: BP 127/55; PULSE 81; RESP 17; TEMP 36.3; O2SAT 96
[2023-06-08 08:00] VITALS: BP 145/54; PULSE 75; RESP 16; TEMP 36.5; O2SAT 96
--- NOTE | 2023-06-08 08:55 | PT.IPTN ---
Current Diagnoses Unilateral primary osteoarthritis, right hip (06/07/23) Surgery Performed Operation Date: 06/07/23 07:45 Actual Procedures p Conversion of prior hip hemiarthroplasty to total hip arthroplasty anterior(Right) - Fantasma Jackman MD Physical Therapy Treatment Note M2 PT-IP Current Condition Start: 06/07/23 14:07 Freq: NEEDED Status: Active Protocol: Document 06/07/23 14:04 DLM (Rec: 06/07/23 14:59 DLM [id number]) Physical Therapy Current Condition Current Condition Evaluation Date 06/07/23 Treatment Diagnosis right anterior total hip, hip revision, impaired mobility/ gait Onset Date 06/07/23 M3 PT-IP Subjective Start: 06/07/23 14:07 Freq: NEEDED Status: Active Protocol: Document 06/08/23 09:23 TS (Rec: 06/08/23 09:38 TS [id number]) Subjective Physical Therapy Visit Type Type Treatment Note Visit Start Time 08:55 Visit Stop Time 09:20 Number of SENIOR ARCHITECT/DESIGN MANAGER Visits 1 Physical Therapy Visit Comments Patient Comments Pt found resting in chair, reports feeling well today, is agreeable to PT. M4 PT-IP Mobility and Gait Start: 06/07/23 14:07 Freq: NEEDED Status: Active Protocol: Document 06/08/23 09:23 TS (Rec: 06/08/23 09:38 TS [id number]) PT-Transfer Assessment Sit to and From Stand Sit to and from Stand Standby Assistance,Use of Upper Extremities Equipment Transfer Assistive Device Gait Belt,Front Wheeled Walker Comments Mobility Comments STS from chair SBA w/FWW. She ambulated in hallway ~175' SBA with step thru gait and use of FWW. She performed steps x6 with B handrails, pt required cues for proper step sequencing. Pt ambulated back to room, was educated on intensity and frequencyof post -op ex. Pt was left in chair, all needs met. Gait Assessment Gait Gait Assistance Required: Standby Assistance Distance (Feet) 175 Assistive Devices Assistive Device Gait Belt,Front Wheeled Walker Gait Deviations General Gait Pattern Antalgic Factors Limiting Gait Function Factors Limiting Gait Function Decreased Strength Comments Gait Comments See mobility comments Stair Climbing Assessment Evaluation Level of Assist On Stairs Standby Assistance Devices Stair Climbing Assistive Devices Left Railing,Right Railing Technique/Endurance Stair Climbing Direction Ascend and Descend Stair Climbing Technique Step to Step Number of Steps Climbed 6 Comments Stair Climbing Comments See mobility comments PT-Balance Assessment Sitting Balance and Reactions Static Sitting Balance Ability Normal Dynamic Sitting Balance Ability Normal Standing Balance and Reactions Static Standing Balance Ability Good Dynamic Standing Balance Ability Good Device Used fWW M5 PT-IP Objective Assessments Start: 06/07/23 14:07 Freq: NEEDED Status: Active Protocol: Document 06/07/23 14:04 DLM (Rec: 06/07/23 14:59 DLM [id number]) Orientation Orientation/Cognition Level of Alertness Alert Orientation Name,Age,Birthday,Month,Date, Year,Day of Week,Place, Situation Language Function Ability No Deficits Noted Safety Awareness Understands Safety Issues Memory Description No Deficits Noted Comments educated pt in fall risk prevention Gross Range of Motion Upper Extremity ROM Assessment Within Functional Limits Lower Extremity ROM Assessment Right Impaired Impairments anterior hip precautions post- op Strength Upper Extremity Strength Assessment Within Functional Limits Lower Extremity Strength Assessment Right Impaired Hip unable to do heel slide in bed , standing hip flex 2+/5 Knee knee ext sitting 3+/5 Ankle moving ankle actively Comments Strength Comments surgical block affecting right LE at the time of this visit Coordination Assessment Gross Coordination Gross Coordination WNL Sensation Assessment Sensation Gross Sensation Right LE Impaired Sensation Description Numbness Comments Sensation Comments numbness in right LE and pelvic area s/p block during surgery Muscle Tone Muscle Tone WNL Yes M6 PT-IP Treatment Start: 06/07/23 14:07 Freq: NEEDED Status: Active Protocol: Document 06/08/23 09:23 TS (Rec: 06/08/23 09:38 TS [id number]) Physical Therapy Treatment Education Education Provided Precautions,Weight Bearing Status,Post-Op Packet,Safety M7 PT-IP Assessment and Plan Start: 06/07/23 14:07 Freq: NEEDED Status: Active Protocol: Document 06/08/23 09:23 TS (Rec: 06/08/23 09:38 TS [id number]) PT Summary Assessment and Plan Potential Rehabilitation Potential Good Summary Impairments Pain,ROM,Strength,Balance, Sensation,Bed Mobility, Transfers,Gait,Activity Tolerance Progress Towards Goals Progressing Toward Goals Assessment Summary Ana María is making good progress with her mobility. She is SBA for STS with FWW. She progressed her gait to ~175' SBA with mignon thru gait. She performed stairs x6 SBA with B handrails, had no buckling or LOB. She demonstrates good awareness of her hip precautions and overall safety awareness. PT is recommending home with assist and outpatient PT. 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
--- NOTE | 2023-06-08 09:24 | CM.DANOTE ---
Initial DCP Assessment Visit Note Reviewed EMR and team rounds for pt's medical status and updates. Met with pt at bedside to introduce self and role, she was found to be sitting upright in bed, alert/oriented and able to discuss her plan for home assistance/support post-discharge. Her sister will plan to transport her once she's been medically cleared for home d/c. Payor: [employer] Medicare Adv Attending: Dr. Jackman Pt is a 72 year-old F post-op day 1 following her R-sided total hip arthroplasty surgery that was completed yesterday. Pt shares that this is her third surgery on her R-hip. Pt resides independently in her own home in [place]. She states that her son and sister will be staying with her for the first week of home recovery, and then her friend will come stay with her for the second week. She has OP PT scheduled to begin on 06/16, and has all of the DME needed postoperatively. She denies any resources/support needs at this time. DCP will continue to follow and assist with any further evolving needs. Discharge Planning/Care Management CM Discharge Assessment Start: 06/08/23 09:21 Freq: Status: Active Protocol: Document 06/08/23 09:22 DPL (Rec: 06/08/23 09:24 DPL [id number]) Discharge Planning Assessment Assigned Pesticide Control Inspector KERI Alvarado Advance Directives? Yes Advance Directives on File Yes History Provided By Patient,Medical Record Has Patient been admitted in last 30 No days? Prior Living Arrangements House Household Members none Type of transporation used prior to Drives own vehicle admit Independent with ADL's Yes Is patient alert and oriented? Yes Caregiver for Another No Community Services used prior to Physical Therapy admission: DME Already Rented / Owned Bath Bench,Elevated Toilet Seat,FWW / Walker,Cane Patient/Family Preference OP PT Therapy Comment Pt has already setup her OP PT to start on 06/16. Comment Her son, Cholo, and her sister will both be staying with her once she arrives home. Discharge Plan Home Transportation Arrangement sister Referrals Initiated None needed Whiteboard Updated in Patient Room with Yes name and ext. # of Pesticide Control Inspector Review Status In Process Please Provide Date Initial DC 06/08/23 Assessment Was Performed Pre-Anesthesia Assessment Start: 05/30/23 09:29 Freq: Status: Active Protocol: Document 05/30/23 09:29 [facility] (Rec: 05/30/23 10:16 [facility] [id number]) Pre-Anesthesia Assessment Patient Information Reviewed Via Phone Assessment Assessment Completed With Patient Diagnostic Results BMP/CMP,CBC,EKG Comment Labs/EKG @ Primary Care Provider Ambrosio Stockton Comment Clearance form 03/28/23 scanned Medical Clearance Received Yes Seen Specialist in Last 12 Months Yes Specialist Seen Orthopedist,Other Comment Rheumatology visit 04/17/23 scanned and in surgery folder Primary Language Ethiopian Preferred Language Ethiopian Communications Editor Required No Height 175.26 cm Weight 88.904 kg Body Mass Index (BMI) 28.9 Hearing Ability Normal Visual Assist Glasses Dentition Type Teeth, Natural Present Barriers to Learning None Hx Anesthesia Reactions Yes: I always need more anesthesia during surgery from long ago Hx Family Anesthesia Reaction No Hx Malignant Hyperthermia No Hx Blood Transfusions Yes: Pt thinks possible in 1974 Hx Blood Transfusion Reaction No Anesthesia Review Requested No It Network Administrator No alcohol intake current alcohol intake frequency 0-2 drinks per day Smoking Status Never smoker Substance Use Type does not use Pain Present Pain Reported Musculoskeletal Symptoms Abnormal Gait,Back Pain, Difficulty Walking,Joint Pain, Limited Range of Motion,Muscle Spasms History of Falling (Recent or History of Yes ) Comment Last fall 07/2021 Patient is completely paralyzed or No completely immobile Prosthesis or Orthotic Device Cane Mental Status Oriented to own ability Is patient on oxygen? No Does patient have GILBERT/SOB No Hx Sleep Apnea Yes CPAP/BIPAP use prescribed and used routinely Will Bring CPAP/BIPAP DOS Yes Suspected Sleep Apnea No Currently Taking a Beta Adriana No Can You Climb a Flight of Stairs Without Yes SOB Hx Chest Pain No Hx SOB No Hx Syncope or Dizziness No Anti-Coagulant Therapy No Has a Printing Roller Handler No Cardiac Testing No Hx Pacemaker/ICD No Pacemaker Rep Required? No Cardiac Clearance Received Not Applicable Diet Type At Home Regular Dysphagia No Gastrointestinal Symptoms Reflux Urinary Catheter Present No Hx Urinary Self Catheterization No Diabetes No HgbA1C 5.0 Date 03/28/23 Patient No Lactating No Hx Drug Resistant Organism No Presence of External or Internal Medical Yes: R hip/ankle/uni knee, Devices shoulder, sacrum pelvic fusion , lumbar Received a COVID vaccine? Yes: Moderna Received all doses? Yes Marital Status Lives With none Current Living Arrangements House Number of Floors (Floors) One Floor Number of Stairs To Enter/Railing? 2 Support System Child/Children,Friend(s), Sibling(s) Does the Patient Have Assistance After Yes: Sister and son will stay Surgery w/pt to assist w/care @ DC Patient Discharge Plan Description Return Home Comment Pt advised overnight length of stay per surgeon Feels Safe in Current Environment Yes Been Physically Hurt or Threatened By a No Person in Current Environment Do you have thoughts of harming yourself None or others? Are you currently considering suicide? No Do you have a plan to hurt yourself or No Plan others? Do You Have Any Spiritual Beliefs That No May Affect Your HC Choices? Do You Have Any Cultural Practices That No May Affect Your HC Choices? Comment Jonathon Who Can We Speak to About Patient's Care Family, friends Identifying Code for Release of Patient Declines to issue Information Health Care Proxy/Next of Kin Joseph (son) Health Care Proxy Emergency Contact Name Joseph (son) Emergency Contact Advance Directives? Yes Advance Directives on File Yes Power of Digital Photo Printer Yes Power of Digital Photo Printer Name Brian Boyd Power of Digital Photo Printer (H) [phone] (C) PAC Instructions Bring CPAP/BIPAP,Do not shave/ clip surgical site,Durable medical equipment,Medications to take/avoid,Nasal antibiotic ,No ETOH/petroleum product on skin DOS,NPO,Post-op transportation,Pre-surgical wash,Sensory aids,Sturdy shoes /comfortable clothes,Do not bring valuables and remove jewelry
--- NOTE | 2023-06-08 09:56 | P.DS_ITS ---
History of Present Illness History of Present Illness Chief complaint: Right Total Hip Arthroplasty Revision Narrative: Operative Date/Time/Diagnoses Date of procedure: 06/07/23 Pre-op diagnosis: Right hip osteoarthritis following prior right hip hemiarthroplasty for fixation failure in a femoral neck fracture Procedure & Clinicians Procedure: Conversion of right hip hemiarthroplasty to total hip arthroplasty with dual mobility articulation (32782) Same procedure as scheduled: Yes Surgeon: Fantasma Jackman Accordion Maker: Galina Fu Anesthesia Type: Spinal, Sedation and Local Operative Notes Estimated Blood Loss (mL): 500 Procedure in detail: Conversion of prior right hip hemiarthroplasty to total hip arthroplasty with mono block dual mobility articulation through direct anterior approach: Implants: Middleton and nephew Total Hip Arthroplasty: * PolarCup Stainless Steel + Titanium Plasma/VALERO Monoblock Dual Mobility Acetabular Component * 28+8 Oxinium Femoral Head with 61/28 Outer Dual Mobility Polyethylene Insert * Retained 11 SO Anthology Femoral Stem? Discharge Providers Provider Date of admission: 06/07/23 06:05 Discharge Date: 06/08/23 Primary care physician: Ambrosio Stockton DO Consults: 06/07/23 06:00 Consult to Anesthesiology Routine Comment: Consulting Provider: Anesthesiologist Reason for consultation: Regional block for post operative pain control Has provider been notified: No 06/07/23 12:05 Consult to Discharge Planning Routine Comment: Consult to Occupational Therapy Evaluate & Treat Comment: Physician Instructions: Evaluate and treat Consult to Physical Therapy Evaluate & Treat Comment: Physician Instructions: post op TE protocol Discharge provider: Galina Fu PA-C Summary Hospital Course Discharge Diagnosis: Right hip osteoarthritis following prior right hip hemiarthroplasty, s/p Conversion to total hip arthroplasty with dual mobility articulation Hospital Course: Ms Clements's hospital course was unremarkable. On the morning of POD# 1, she was feeling well and wanted to go home. She was eating and voiding without difficulty and her pain was well-controlled w/ oral medication. She was evaluated by PT and they felt she was safe to discharge w10/09 assistance available. Exam Vital Signs (past 8 hours): - 06/08/23 06:01 06/08/23 08:00 Temperature 97.3 F L 97.7 F Pulse Rate 81 75 Respiratory Rate 17 16 Blood Pressure 127/55 L 145/54 H Pulse Oximetry 96 96 Oxygen Flow Rate 0 Fraction of Inspired Oxygen 28 SaO2/FiO2 Ratio 339 Oxygen Delivery Method Nasal Cannula Oxygen Flow Rate 0 Narrative Exam Narrative: 3/5 hip flexors, quadriceps, hamstrings; 5/5 DF, PF, EHL on right. Sensation to light touch intact throughout RLE, calf soft and compressible. Aquacel dressing CDI. Objective Labs 06/08/23 05:43 Labs: Laboratory Results - last 24 hr 06/08/23 05:43 Hgb 9.4 L Hct 27.6 L PFSH Medical History KALEB on CPAP (12/2022) Chondrocalcinosis Osteoporosis Medicare annual wellness visit, subsequent Encounter for pre-operative cardiovascular clearance Vertigo Sleep apnea Medicare annual wellness visit, initial Well adult exam Preventative health care Polyarthralgia Acute right-sided low back pain without sciatica Sacral region somatic dysfunction Pelvic somatic dysfunction Unspecified fall, sequela Anxiety Cognitive change Weight loss (05/2020) History of gastric ulcer (2015) Epigastric abdominal pain UTI (urinary tract infection) Right femoral fracture (07/19/18) Sciatic nerve pain Easy bruisability Fusion of sacral region of spine Chronic UTI Hiatal hernia Hyperlipidemia Depression (~1992) Shoulder pain (~2013) History of fracture Chronic back pain (~2007) Carpal tunnel syndrome (~1994) Chickenpox (~1959) Measles (~1959) Mumps (~1958) HSV (herpes simplex virus) infection (~1979) Fibroids (~1997) Colon polyps (~1999) Hypertension (~2003) Cardiac arrhythmia (~2003) Melanoma of ear (~2007) Surgical History Hx of bilateral cataract extraction (12/2019) History of lumbar spinal fusion (08/14/19) History of total right hip arthroplasty (07/30/18) History of arthroplasty of left shoulder (12/30/17) Hx of tonsillectomy S/P partial hysterectomy Anesthesia complication Melanoma of ear (~2007) Status post ORIF of fracture of ankle (~1975) H/O prior ablation treatment (~1997) Status post delivery (~1987) Status post colonoscopy Status post arthroscopy (~2013) Family History Brother Age: 68 Heart disease Hypertension Grandfather Heart disease Colorectal cancer Grandmother Stroke Mother Age: 89 Hypertension Grandfather Heart disease Grandmother Diabetes mellitus Sister Age: 63 Mental health problem Depression Father Parkinson's disease Pneumonia Social History household members: none Smoking Status: Never smoker alcohol intake: current Discharge Assessment & Plan Assessment and Plan Assessment: Right hip osteoarthritis following prior right hip hemiarthroplasty, s/p Conversion to total hip arthroplasty with dual mobility articulation Plan of Treatment: Discharge home, multimodal pain control, pt has pain meds at home. ASA BID x 4 weeks for VTE prophylaxis, outpt PT, f/u in office in 2 weeks as scheduled. Discharge Plan Discharge Plan Patient Disposition: Home Discharge orders & Medications Prescriptions: Continued acyclovir 5 % ointment 1 applic topical 6XD 7 Days Qty: 30 1RF alprazolam 0.25 mg tablet 0.25 mg PO BEDTIME PRN (Reason: sleep) Qty: 30 2RF atorvastatin 10 mg tablet 10 mg PO DAILY Qty: 90 2RF estradiol 0.01 % (0.1 mg/gram) cream See Rx Instructions vaginal 4XW Qty: 42.5 5RF Rx Instructions: 1-2grams vaginally 4 times per week; pantoprazole 40 mg tablet,delayed release (DR/EC) 40 mg PO DAILY alendronate 70 mg tablet 70 mg PO QWEEK meloxicam 15 mg tablet 15 mg PO DAILY lisinopril 20 mg tablet 20 mg PO DAILY Qty: 90 3RF gabapentin 300 mg capsule 300 mg PO BID Qty: 60 2RF escitalopram oxalate 20 mg tablet 20 mg PO DAILY Rx Instructions: TAKE ONE TABLET BY MOUTH ONCE DAILY Follow up/Referrals: Ambrosio Stockton DO [Primary Care Provider] - Fantasma Jackman MD [Physician] - 06/21/23 (Follow up w/ Jesse Flores PA-C, at [facility] office in [place].) Diet/Activity/Treatments Diet: Diet as Tolerated Activity: Weightbearing as tolerated to right leg, anterior hip precautions. Cold/Heat Therapy: Ice to hip as needed for pain. Skin/Wound/Dressing Care Report to your healthcare provider any signs of infection, such as:: chills, fever, night sweats, unusual drainage and unusual redness Dressing: May shower. Leave Aquacel dressing in place until follow up in office. No bathing or otherwise soaking incision. Call the office if the dressing becomes saturated inside. Visit Report/Discharge Packet Instructions: DI for Hip Replacement, DI for Prescription Opioid Use Stand Alone Forms: Patient Portal/API, Stroke Signs & Symptoms, Surgery Discharge Discharge Data Primary Care Provider: Ambrosio Stockton VTE Deep Vein Thrombosis/Pulmonary Embolism Present on Admission: No
[2023-06-08] MEDS: ESCITALOPRAM 10 MG TABLET 20 MG PO (10:22)
[2023-06-08] MEDS: MELOXICAM 7.5 MG TABLET 15 MG PO (10:23)
[2023-06-08] MEDS: ASPIRIN EC 81 MG TABLET PO (10:23)
[2023-06-08] MEDS: GABAPENTIN 300 MG CAPSULE PO (10:23)
[2023-06-08] MEDS: PANTOPRAZOLE DR 40 MG TABLET PO (10:23)
[2023-06-08] MEDS: DOCUSATE 100 MG CAPSULE PO (10:23)
[2023-06-08] MEDS: ATORVASTATIN 20 MG TABLET 10 MG PO (10:24)
--- NOTE | 2023-06-08 11:10 | PC.NURSE ---
Pt sitting in chair. Aquacell dsg to right hip CDI Denies discomfort Orders for D/C received Home instructions given Pt escorted by staff via W/C to waiting vehicle D/C in stable post op status.
== END 2023-06-08 10:45 | disposition home or self-care (01) | DRG 468 ==
PROVIDERS: Admitting Provider Orthopaedic Surgery Adult Reconstructive Orthopaedic Surgery; PCP Family Medicine; Referring Provider Orthopaedic Surgery Adult Reconstructive Orthopaedic Surgery; Visit Provider Orthopaedic Surgery Adult Reconstructive Orthopaedic Surgery
PROC: 0SR90JA Replacement of Right Hip Joint with Synthetic Substitute, Uncemented, Open Approach (ICD-10-PCS; CPT 27130; principal; 2023-06-07 07:45)
DX: M16.11 Unilateral primary osteoarthritis, right hip (principal); E78.5 Hyperlipidemia, unspecified; I10 Essential (primary) hypertension; F41.9 Anxiety disorder, unspecified; Z96.641 Presence of right artificial hip joint
CPT/HCPCS: 36415; 73502; 76000; 85014; 85018; 87070; 87075; 87176; 87205; 94762; 97110; 97116; 97162; 97530; C1776; J0690; J1100; J1170; J2250; J2405; J2704; J3010

== ENCOUNTER → 2023-07-30 11:38 | Outpatient (CLI) | payer OTHER, SELFPAY ==
[2023-06-07 11:42] VITALS: BMI 31.6
--- NOTE | 2023-07-30 11:40 | DI.MG.S_ITS ---
BILATERAL DIGITAL SCREENING MAMMOGRAM 3D/2D WITH CAD: 07/30/2023 CLINICAL: Routine screening. Comparison is made to exams dated: 07/06/2022 mammogram, 05/27/2020 mammogram, and 05/02/2018 mammogram - [facility]. Both breasts are heterogeneously dense, which may obscure small masses (category c / 51-75% glandular tissue). Current study was also evaluated with a Computer Aided Detection (CAD) system. No significant masses, calcifications, or other findings are seen in either breast. There has been no significant interval change. IMPRESSION: NEGATIVE There is no mammographic evidence of malignancy. A 1 year screening mammogram is recommended. Based on the Tyrer Cuzick model (a risk assessment model) the patient's lifetime risk is 6.5% and her 10 year risk is 4.1%. According to the ACR, ACS, and NCCN guidelines, an annual breast MRI exam along with mammogram is recommended if the patient's lifetime risk is 20% or greater. This exam was interpreted at Station ID: [id number]. NOTE: For mammograms, a report in lay terms will be sent to the patient. Approximately 15% of breast malignancies will not be visualized mammographically. In the management of a palpable breast mass, a negative mammogram must not discourage biopsy of a clinically suspicious lesion. Electronically Signed By: Ehsan gaytan/zara:08/01/2023 07:44:15 letter sent: Normal Exam ACR BI-RADS Category 1: Negative [id number]
== END ==
LOC: MAMMO 11:39
PROVIDERS: PCP Family Medicine; Referring Provider Family Medicine; Visit Provider Family Medicine
DX: Z12.31 Encounter for screening mammogram for malignant neoplasm of breast (principal); R92.333 Mammographic heterogeneous density, bilateral breasts
CPT/HCPCS: 77063; 77067

== ENCOUNTER → 2023-10-27 15:07 | Outpatient (CLI) | payer OTHER, SELFPAY ==
[2023-06-07 11:42] VITALS: BMI 31.6
== END ==
PROVIDERS: PCP Family Medicine; Visit Provider Student in an Organized Health Care Education/Training Program
DX: R30.0 Dysuria (principal)
CPT/HCPCS: 87077; 87086; 87186

== ENCOUNTER → 2024-03-09 16:04 | Outpatient (CLI) | payer MEDICARE, SELFPAY ==
[2023-06-07 11:42] VITALS: BMI 31.6
[2024-03-09 16:22] LABS: Appearance Urine UA CLEAR; Bilirubin Urine UA NEGATIVE (NEGATIVE); Color Urine UA YELLOW; Glucose Urine UA NEGATIVE (Negative); Ketones Urine UA NEGATIVE (NEGATIVE); Leukocyte Esterase Urine UA NEGATIVE (NEGATIVE); Nitrite Urine UA POSITIVE (Negative); Occult Blood Urine UA NEGATIVE (Negative); Protein Urine UA NEGATIVE (Negative); Urobilinogen Urine UA 0.2 E.U./dL (0.2)
[2024-03-09 16:32] LABS: Urine Volume 10mL (spun)
[2024-03-09 16:33] LABS: Bacteria Urine Few (2-10); Culture Indicated Urine Specimen Cultured; RBC Urine 0-1/HPF (0-5/HPF); Squamous Epithelial Cell Urine 1-5 /HPF (0-5/HPF); WBC Urine 0-1/HPF (0-5/HPF)
== END ==
PROVIDERS: PCP Family Medicine; Referring Provider Family Medicine; Visit Provider Family Medicine
DX: N39.0 Urinary tract infection, site not specified (principal)
CPT/HCPCS: 81001; 87077; 87086; 87186

== ENCOUNTER → 2024-04-06 16:08 | Outpatient (CLI) | payer MEDICARE, SELFPAY ==
[2023-06-07 11:42] VITALS: BMI 31.6
== END ==
PROVIDERS: PCP Family Medicine; Visit Provider Nurse Practitioner Family
DX: R30.0 Dysuria (principal); N89.8 Other specified noninflammatory disorders of vagina
CPT/HCPCS: 87086; 87210

== ENCOUNTER → 2024-04-24 09:15 | Outpatient (CLI) | payer MEDICARE, SELFPAY ==
[2023-06-07 11:42] VITALS: BMI 31.6
--- NOTE | 2024-04-24 09:16 | DI.RAD.S_ITS ---
PROCEDURE: FL UPPER GI SERIES INDICATIONS: esophagitis COMPARISON: None. 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 No suspicious abdominal calcifications. Visualized solid organ contours appear normal. Bony structures appear unremarkable. Esophagus: Esophageal mucosa is normal on air-contrast views. On single-contrast views, there is normal esophageal peristalsis. No strictures, extrinsic mass effects, or diverticula. No hiatal hernia. Several episodes of gastroesophageal reflux to the lower 3rd of the esophagus is noted. There is normal transit of a calibrated barium tablet through the esophagus. Stomach: The stomach is normally distensible, with normal rugal fold thickness. No mucosal masses or ulcers. Pylorus and duodenal bulb appear normal in morphology. Duodenal folds are normal in thickness as well. IMPRESSION: Mild reflux. Otherwise, unremarkable. Dictated by: Judy Huber M.D. on 04/24/2024 at 11:44 Approved by: Judy Huber M.D. on 04/24/2024 at 11:45
== END ==
LOC: RAD 09:15
PROVIDERS: PCP Family Medicine; Referring Provider Family Medicine; Visit Provider Family Medicine
DX: K20.90 Esophagitis, unspecified without bleeding (principal)
CPT/HCPCS: 74240

== ENCOUNTER → 2024-05-09 11:13 | Outpatient (CLI) | payer MEDICARE, SELFPAY ==
[2023-06-07 11:42] VITALS: BMI 31.6
[2024-05-09 12:28] LABS: Add Manual Diff / Slide Review NO; Basophils Absolute Auto 100 /uL (0-100); Eosinophils Absolute Auto 100 /uL (0-450); Eosinophils Percent Auto 2.1 % (2-4); Hematocrit 40.1 % (36-46); Hemoglobin 13.4 g/dL (12.0-16.0); Lymphocytes Absolute Auto 1200 /uL (1100-4500); Lymphocytes Percent Auto 22.7 % (25-40); Mean Corpuscular HGB Conc 33.4 % (30-36); Mean Corpuscular Hemoglobin 28.5 PG (26-34); Mean Corpuscular Volume 85.4 fL (80-100); Monocytes Absolute Auto 400 /uL (0-900); Monocytes Percent Auto 6.7 % (3-14); Neutrophils Absolute Auto 3600 /uL (1500-7000); Neutrophils Percent Auto 67.5 % (50-75); Platelet Count 232 X10^3/uL (150-400); Red Cell Distribution Width 15.4 % (11.6-14.8); White Blood Cell Count 5.4 X10^3/uL (4.5-11.0)
[2024-05-09 12:42] LABS: HEMOLYSIS < 15 (0-50); Iron 58 ug/dL (37-170)
[2024-05-09 12:44] LABS: Alanine Aminotransferase 20 IU/L (<35); Albumin 4.3 g/dL (3.5-5.0); Albumin Globulin Ratio 1.7 (1.0-2.8); Alkaline Phosphatase 75 U/L (38-126); Aspartate Aminotransferase 25 IU/L (14-36); BUN Creatinine Ratio 27.6 (6-22); Bilirubin Total 0.5 mg/dL (0.2-1.3); Blood Urea Nitrogen 16 mg/dL (7-17); Calcium 8.6 mg/dL (8.4-10.2); Carbon Dioxide 23 mmol/L (22-32); Chloride 107 mmol/L (98-107); Cholesterol 145 mg/dL (140-199); Estimated Glomerular Filt Rate > 60 mL/min (>60); Globulin 2.5 g/dL (1.7-4.1); Glucose 82 mg/dL (80-110); HDL Cholesterol 54 mg/dL (40-60); HEMOLYSIS < 15 (0-50); LDL Cholesterol Calculated 73 mg/dL (<100); Potassium 4.6 mmol/L (3.4-5.1); Sodium 138 mmol/L (137-145); Total Protein 6.8 g/dL (6.3-8.2); Triglycerides 91 mg/dL (35-150)
[2024-05-09 12:54] LABS: Percent Iron Saturation 17 % (15-50); Total Iron Binding Capacity 345 ug/dL (265-497); Transferrin 281 mg/dL (206-381)
[2024-05-09 13:33] LABS: Vitamin B12 > 1000 pg/mL (239-931)
== END ==
PROVIDERS: PCP Family Medicine; Referring Provider Family Medicine; Visit Provider Family Medicine
DX: I10 Essential (primary) hypertension (principal); E78.5 Hyperlipidemia, unspecified; Z96.641 Presence of right artificial hip joint
CPT/HCPCS: 36415; 80053; 80061; 82607; 83540; 83550; 85025

== ENCOUNTER → 2024-06-10 14:57 | Outpatient (CLI) | payer MEDICARE, SELFPAY ==
[2023-06-07 11:42] VITALS: BMI 31.6
== END ==
LOC: LAB 14:58
PROVIDERS: PCP Family Medicine; Visit Provider Specialist
DX: N89.8 Other specified noninflammatory disorders of vagina (principal)
CPT/HCPCS: 87480; 87510; 87660

== ENCOUNTER → 2024-08-03 15:59 | Outpatient (CLI) | payer MEDICARE, SELFPAY ==
[2023-06-07 11:42] VITALS: BMI 31.6
--- NOTE | 2024-08-03 16:01 | DI.RAD.S_ITS ---
PROCEDURE: XR CHEST 2V INDICATIONS: persistent couhg TECHNIQUE: 2 views of the chest were acquired. COMPARISON: [facility], , XR CHEST 1V, 07/20/2018, 13:18. FINDINGS: Heart, mediastinum and pulmonary vascular: Heart is normal in size and configuration. Mediastinum is unremarkable. Pulmonary vascular is normal. Lungs: Clear Pleural spaces: Normal-no effusions or pneumothorax. IMPRESSION: Normal chest. Dictated by: Tab Perez M.D. on 08/04/2024 at 12:00 Approved by: Tab Perez M.D. on 08/04/2024 at 12:01
== END ==
PROVIDERS: PCP Family Medicine; Referring Provider Family Medicine; Visit Provider Family Medicine
DX: J01.90 Acute sinusitis, unspecified (principal); R05.9 Cough, unspecified
CPT/HCPCS: 71046

== ENCOUNTER → 2024-08-11 14:50 | Outpatient (CLI) | payer MEDICARE, SELFPAY ==
[2023-06-07 11:42] VITALS: BMI 31.6
--- NOTE | 2024-08-11 14:51 | DI.MG.S_ITS ---
MM screening mammo BI: 08/11/2024. BI-RADS: 1 CLINICAL: 73-year old female for bilateral screening mammogram. Tyrer-Cuzick lifetime risk of 7.1%. No personal or first-degree family history of breast cancer. PRIOR EXAMS 07/30/2023, 07/06/2022, 05/27/2020, 05/02/2018. MAMMOGRAPHY TECHNIQUE: 2D and 3D (tomosynthesis) digital mammographic views obtained, with additional images as needed for full coverage. Current study was also evaluated with a Computer Aided Detection (CAD) system. DENSITY C. The breasts are heterogeneously dense, which may obscure small masses. MAMMOGRAPHY FINDINGS Bilateral: No suspicious mass, asymmetry, microcalcification, or other abnormality seen. IMPRESSION: * No evidence of malignancy. RECOMMENDATIONS Bilateral * Annual screening mammography. OVERALL ASSESSMENT CATEGORY BI-RADS-1: Negative. The [employer] recommends annual screening mammography beginning at age 40 for women with average risk of breast cancer. ELECTRONICALLY SIGNED: Parish Yap M.D. on 08/12/2024 at 07:03:00 AM PT Interpreting Station ID: [id number]
== END ==
PROVIDERS: PCP Family Medicine; Referring Provider Family Medicine; Visit Provider Family Medicine
DX: Z12.31 Encounter for screening mammogram for malignant neoplasm of breast (principal); R92.333 Mammographic heterogeneous density, bilateral breasts
CPT/HCPCS: 77063; 77067

== ENCOUNTER 2024-08-17 06:39 | Emergency (ER) | payer MEDICARE, SELFPAY ==
[2023-06-07 11:42] VITALS: BMI 31.6
[2024-08-17 06:44] VITALS: BP 147/90; PULSE 70; RESP 18; TEMP 36.9; O2SAT 98; BMI 28.7
--- NOTE | 2024-08-17 06:52 | DI.RAD.S_ITS ---
PROCEDURE: XR HIP W PEL IF DONE RT 2V INDICATIONS: pain to right hip, s/p fall TECHNIQUE: AP pelvis with lateral view(s) of the right hip(s). COMPARISON: [facility], CR, XR PELVIS WITH LATERAL HIP RIGHT, 07/22/2023, 10:59. [facility], CR, XR HIP W PEL IF DONE RT 2V, 06/07/2023, 10:36. FINDINGS: Bones: Right hip intertrochanteric fracture. Mild displacement. No dislocations. Pelvic ring appears intact. No suspicious bony lesions. 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 Lumbar spine and SI joint fixation. Right hip arthroplasty. Soft tissues: The visualized bowel gas pattern is normal. No suspicious soft tissue calcifications. IMPRESSION: Right hip intertrochanteric fracture. Prior right hip arthroplasty. Dictated by: Cruz Mcclain M.D. on 08/17/2024 at 7:36 Approved by: Cruz Mcclain M.D. on 08/17/2024 at 7:39
--- NOTE | 2024-08-17 06:52 | ED_ITS ---
HPI - Fall <Ashwin Turner, DO - Last Filed: 08/17/24 06:57> General Chief Complaint: Fall Stated Complaint: Fell , Rigth hip pain Time Seen by Provider: 08/17/24 06:51 Source: patient Mode of arrival: Ambulatory History of Present Illness HPI Narrative: Patient is a 73-year-old female past medical history of hypertension hyperlipidemia with a history of right hip arthroplasty approximately 6 years ago here at [facility] presents to the emergency department from home for evaluation of right hip pain. She states that at around 2:00 a.m. she was ambulating in her house, does use a cane at baseline, states that she had a mechanical trip and fall and landed onto her right hip. She states that she did not hit her head no LOC, states that she was able to stand bear weight ambulate after but is having persistent pain to her right hip. She states that she is not having any numbness weakness tingling to the lower extremities. Was able to stand bear weight ambulate with her cane here in the emergency department. He denies any other injuries or complaints at this time. Not on any blood thinners. Related Data Home Medications ?Medication ?Instructions ?Recorded ?Confirmed zoledronic acid 4 mg/5 mL 4 mg IV .annually Replaces 0 05/18/24 08/17/24 intravenous solution Alendronate Previous Rx's ?Medication ?Instructions ?Recorded estradiol 0.01% (0.1 mg/gram) See Rx Instructions vagi nal 4XW 05/30/23 vaginal cream #42.5 grams atorvastatin 10 mg tablet 10 mg PO DAILY #90 tabs 100 10/11 acyclovir 5 % topical ointment 1 applic topical 6XD AK N cold 12/09/23 sores 7 days #30 grams lisinopril 20 mg tablet 20 mg PO DAILY #90 tabs 12/3 03/13 omeprazole 20 mg capsule,delayed 20 mg PO DAILY #90 ca ps 04/13/24 release doxepin 10 mg capsule 10 mg PO BEDTIME PRN sleep # 30 caps 05/18/24 alprazolam 0.25 mg tablet 0.25 mg PO BEDTIME PRN sleep #30 07/22/24 tabs oxycodone-acetaminophen 5 mg-325 1 tab PO Q6H PRN pain #20 tabs 08/17/24 mg tablet Allergies Allergy/AdvReac Type Severity Reaction Status Date / Time pregabalin (From LYRICA) Allergy Intermediate Rash, Verified 08/17/24 06:41 heart palpitations Sulfa (Sulfonamide Allergy Intermediate Hives, Verified 08/17/24 06:41 Antibiotics) swelling venlafaxine AdvReac Mild Heart Verified 08/17/24 06:41 palpitations Review of Systems <Ashwin Turner DO - Last Filed: 08/17/24 06:57> Review of Systems Narrative: General: Denies fever, chills, weight loss HEENT: Denies headache, eye drainage, eye irritation, head trauma, sore throat, voice change Cardiovascular: Denies any chest pain, palpitations, tachycardia Respiratory: Denies any shortness of breath, cough, wheeze, stridor GI/: Denies any abdominal pain, nausea, vomiting, diarrhea, bright red blood per rectum, melanotic stools, urinary frequency, urinary retention, dysuria, hematuria MSK: Positive right hip pain Skin: Denies any rashes, lesions, discoloration Neuro: Denies any headache, lightheadedness, dizziness, fainting, weakness Psych: Denies SI/HI Patient History <Ashwin Turner DO - Last Filed: 08/17/24 06:57> Medical History Acute sinusitis Cough Vaginitis Esophagitis KALEB on CPAP (12/2022) Chondrocalcinosis Osteoporosis Medicare annual wellness visit, subsequent Encounter for pre-operative cardiovascular clearance Vertigo Sleep apnea Medicare annual wellness visit, initial Well adult exam Preventative health care Polyarthralgia Acute right-sided low back pain without sciatica Sacral region somatic dysfunction Pelvic somatic dysfunction Unspecified fall, sequela Anxiety Cognitive change Weight loss (05/2020) History of gastric ulcer (2016) Epigastric abdominal pain UTI (urinary tract infection) Right femoral fracture (07/19/18) Sciatic nerve pain Easy bruisability Fusion of sacral region of spine Chronic UTI Hiatal hernia Hyperlipidemia Depression (~1992) Shoulder pain (~2013) History of fracture Chronic back pain (~2007) Carpal tunnel syndrome (~1994) Chickenpox (~1959) Measles (~1959) Mumps (~1958) HSV (herpes simplex virus) infection (~1979) Fibroids (~1997) Colon polyps (~1999) Hypertension (~2003) Cardiac arrhythmia (~2003) Melanoma of ear (~2007) Surgical History Hx of bilateral cataract extraction (12/2019) History of lumbar spinal fusion (08/14/19) History of total right hip arthroplasty (07/30/18) History of arthroplasty of left shoulder (12/30/17) Hx of tonsillectomy S/P partial hysterectomy Anesthesia complication Melanoma of ear (~2007) Status post ORIF of fracture of ankle (~1975) H/O prior ablation treatment (~1997) Status post delivery (~1987) Status post colonoscopy Status post arthroscopy (~2013) Family History Brother Age: 69 Heart disease Hypertension Grandfather Heart disease Colorectal cancer Grandmother Stroke Mother Age: 90 Hypertension Grandfather Heart disease Grandmother Diabetes mellitus Sister Age: 64 Mental health problem Depression Father Parkinson's disease Pneumonia Social History (Updated 05/18/24 @ 09:44 by Cristal Rodriguez MA) household members: none Smoking Status: Never smoker alcohol intake: current Smoking Status: Never smoker alcohol intake frequency: 0-2 drinks per day Exam <Ashwin Turner DO - Last Filed: 08/17/24 06:57> Narrative Exam Narrative: General: Cooperative, well-developed, not in acute distress HEENT: Normocephalic, atraumatic, PERRLA, normal sclera, eyelids normal Neck: Active full range of motion, atraumatic Chest: Normal to inspection, negative crepitus, no overlying erythema ecchymosis Respiratory: Normal respiratory effort, not in acute respiratory distress, clear to auscultation bilaterally negative cough, wheeze, tachypnea, rhonchi, rales Cardiology: Regular rate rhythm negative gallop, murmur, rubs GI/: No tenderness to palpation, soft, non rigid, normal to inspection, exam deferred MSK: Full active range of motion in all 4 extremities, patient ambulatory at baseline with a cane, she has some tenderness to palpation over the lateral aspect of the right hip but no visible gross deformity. Bilateral lower extremities are neurovascularly intact. Skin: No rashes or lesions noted Neuro: Alert awake oriented x3, moves all 4 extremities spontaneously, cranial nerves intact, able to answer all questions appropriately follows commands appropriately Psych: Cooperative, negative suicidal or homicidal ideations Initial Vital Signs Initial Vital Signs: Vital Signs Temperature 98.5 F 08/17/24 06:44 Pulse Rate 70 08/17/24 06:44 Respiratory Rate 18 08/17/24 06:44 Blood Pressure 147/90 H 08/17/24 06:44 Pulse Oximetry 98 08/17/24 06:44 Oxygen Delivery Method Room Air 08/17/24 06:44 <Belia Luo MD - Last Filed: 08/17/24 09:15> Initial Vital Signs Initial Vital Signs: Vital Signs Temperature 98.5 F 08/17/24 06:44 Pulse Rate 70 08/17/24 06:44 Respiratory Rate 18 08/17/24 06:44 Blood Pressure 147/90 H 08/17/24 06:44 Pulse Oximetry 98 08/17/24 06:44 Oxygen Delivery Method Room Air 08/17/24 06:44 Course <Ashwin Turner DO - Last Filed: 08/17/24 06:57> Orders Ordered: ED Orders 08/17/24 06:52 XR hip w pel RT 2V Stat 08/17/24 07:53 Consult to Physical Therapy Evaluate & Treat Ct Hip right without con Stat Discontinued Medications Oxycodone/Acetaminophen (Oxycodone/Acetaminophen 5/325 Tablet) 1 tab PO NOW ONE Stop: 08/17/24 06:53 Last Admin: 08/17/24 07:00 Dose: 1 tab Documented By: TREASURE Vital Signs Vital signs: Vital Signs - 8 hr 08/17/24 06:44 Temperature 98.5 F Pulse Rate 70 Respiratory Rate 18 Blood Pressure 147/90 H Pulse Oximetry 98 Oxygen Delivery Method Room Air <Belia Luo MD - Last Filed: 08/17/24 09:15> Orders Ordered: ED Orders 08/17/24 06:52 XR hip w pel RT 2V Stat 08/17/24 07:53 Consult to Physical Therapy Evaluate & Treat Ct Hip right without con Stat Discontinued Medications Oxycodone/Acetaminophen (Oxycodone/Acetaminophen 5/325 Tablet) 1 tab PO NOW ONE Stop: 08/17/24 06:53 Last Admin: 08/17/24 07:00 Dose: 1 tab Documented By: TREASURE Vital Signs Vital signs: Vital Signs - 8 hr 08/17/24 06:44 Temperature 98.5 F Pulse Rate 70 Respiratory Rate 18 Blood Pressure 147/90 H Pulse Oximetry 98 Oxygen Delivery Method Room Air MDM - Fall <Ashwin Turner DO - Last Filed: 08/17/24 06:57> Differential Diagnosis Differential diagnosis: Likely other (Periprosthetic fracture, contusion, strain/sprain) [facility] Narrative Medical decision making narrative: Patient is a 73-year-old female with a past medical history of hypertension hyperlipidemia with right hip arthroplasty a proximally 6 years ago presenting for pain to the right hip after mechanical trip and fall at around 2:00 a.m. today. Patient denies head strike LOC not on any blood thinners uses a cane at baseline, was ambulatory at her baseline here in the emergency department. 0700: Patient was signed out to Dr. Luo, final disposition pending imaging re-evaluation <Belia Luo MD - Last Filed: 08/17/24 09:15> Imaging Data CT hip: Radiologist's Impression: PROCEDURE: CT HIP RIGHT WITHOUT CON INDICATIONS: RIGHT HIP PAIN TECHNIQUE: Noncontrast 3 mm axial sections acquired through the bony pelvis. Additional 3 mm axial sections acquired through the symptomatic hip joint, with coronal and sagittal reformats. COMPARISON: None. FINDINGS: Image quality: Excellent. Bones: Total right hip arthroplasty present. Comminuted nondisplaced acute fracture of the greater trochanter of the hip. Additionally, there is a periprosthetic fracture involving the proximal shaft of the femur. No hardware failure or loosening. Intact surgical hardware status post remote bilateral SI joint fusion as well as lower lumbar decompression and fusion. Soft tissues: Unremarkable IMPRESSION: There is an acute periprosthetic fracture involving the greater trochanter and proximal shaft of the right femur. Dictated by: Jaime Maki M.D. on 08/17/2024 at 8:25 [facility] Narrative Medical decision making narrative: Patient is a 73-year-old female with a past medical history of hypertension hyperlipidemia with right hip arthroplasty a proximally 6 years ago presenting for pain to the right hip after mechanical trip and fall at around 2:00 a.m. today. Patient denies head strike LOC not on any blood thinners uses a cane at baseline, was ambulatory at her baseline here in the emergency department. 0700: Patient was signed out to Dr. Luo, final disposition pending imaging re-evaluation Dr Luo Care is assumed, patient is independently evaluated studies reviewed Patient actually has a periprosthetic fracture of the right hip. Dr. Jackman, orthopedic surgeon, did most recent revision May of 2023. Films reviewed in real-time. He requests CT scan of the hip for more definitive understanding of the fracture itself and to confirm there was no loosening of the prosthesis. The patient's pain actually is under significant control with a single Percocet today. She did actually drive herself in and walk in with the use of a cane. Shared decision-making she would prefer to go home which seems completely appropriate. She does have a walker available at home. We will ask physical therapy to work with her in the emergency department show her how to effectively use her walker with toe-touch only on the right side, no weight-bearing. Dr. Jackman would like to see her in clinic tomorrow. Discharge Plan Departure Patient Disposition: Home Clinical Impression: Candace-prosthetic fracture around prosthetic hip Qualifiers: Encounter type: initial encounter Qualified Code(s): M97.8XXA - Periprosthetic fracture around other internal prosthetic joint, initial encounter Activity Restrictions/Additional Instructions: Thank you for coming in today, was nice to see you again, sorry it is under these circumstances. You did break her hip again. It is around the top part of the hip replacement and the hip replacement portion is stable and providing support. I spoke with Dr. Jackman. He looked at your x-rays and agreed that going home with a walker, appropriate pain control and nonweightbearing on your right leg would be okay. We did the CT scan so that when he sees you tomorrow in clinic he can have a better understanding for the complexity of the fracture. He does want to see you tomorrow in clinic, he said to show up any time during the day, he is in clinic all day long. Using 400 mg of ibuprofen (2 [id number] pills) and 1 Tylenol every 6 hours can be very helpful in controlling pain. For significant pain using 400 mg of ibuprofen and 1 Percocet, Tylenol plus oxycodone we will be helpful. Oxycodone is a narcotic and will make you constipated. Please curing pickling packer a stool softener of choice when you are at the pharmacy If you find that you are getting worse or develop any new symptoms, please feel free to return to the emergency department for further evaluation. Prescriptions: New oxycodone-acetaminophen 5-325 mg tablet 1 tab PO Q6H PRN (Reason: pain) Qty: 20 0RF No Action estradiol 0.01 % (0.1 mg/gram) cream See Rx Instructions vaginal 4XW Qty: 42.5 5RF Rx Instructions: 1-2grams vaginally 4 times per week; atorvastatin 10 mg tablet 10 mg PO DAILY Qty: 90 2RF acyclovir 5 % ointment 1 applic topical 6XD PRN (Reason: cold sores) 7 Days Qty: 30 1RF lisinopril 20 mg tablet 20 mg PO DAILY Qty: 90 3RF alprazolam 0.25 mg tablet 0.25 mg PO BEDTIME PRN (Reason: sleep) Qty: 30 2RF zoledronic acid 4 mg/5 mL solution 4 mg IV .annually Patient Comments: Alendronate discontinued due to esophageal side effects doxepin 10 mg capsule 10 mg PO BEDTIME PRN (Reason: sleep) Qty: 30 1RF omeprazole 20 mg capsule,delayed release(DR/EC) 20 mg PO DAILY Qty: 90 1RF Referrals: Ambrosio Stockton DO [Primary Care Provider, Family Practice] Stand Alone Forms: Patient Portal/API
[2024-08-17] MEDS: OXYCODONE/ACETAMINOPHEN 5/325 TABLET 1 TAB PO (07:00)
--- NOTE | 2024-08-17 07:53 | DI.CT.S_ITS ---
PROCEDURE: CT HIP RIGHT WITHOUT CON INDICATIONS: RIGHT HIP PAIN TECHNIQUE: Noncontrast 3 mm axial sections acquired through the bony pelvis. Additional 3 mm axial sections acquired through the symptomatic hip joint, with coronal and sagittal reformats. COMPARISON: None. FINDINGS: Image quality: Excellent. Bones: Total right hip arthroplasty present. Comminuted nondisplaced acute fracture of the greater trochanter of the hip. Additionally, there is a periprosthetic fracture involving the proximal shaft of the femur. No hardware failure or loosening. Intact surgical hardware status post remote bilateral SI joint fusion as well as lower lumbar decompression and fusion. Soft tissues: Unremarkable IMPRESSION: There is an acute periprosthetic fracture involving the greater trochanter and proximal shaft of the right femur. Dictated by: Jaime Maki M.D. on 08/17/2024 at 8:25 Approved by: Jaime Maki M.D. on 08/17/2024 at 8:28
[2024-08-17 09:25] VITALS: BP 128/81; PULSE 87; RESP 16; O2SAT 96
--- NOTE | 2024-08-17 09:43 | PC.NURSE ---
Walker training was done with physical therapy.
--- NOTE | 2024-08-17 09:48 | PC.NURSE ---
Dr. Luo VO for Walker to go home, patient signed billing sheet.
--- NOTE | 2024-08-17 10:00 | PT.IIE ---
Surgical History (Last Reviewed 08/03/24 @ 16:03 by Ambrosio Stockton DO) Anesthesia complication H/O prior ablation treatment (~1997) History of arthroplasty of left shoulder (12/30/17) History of lumbar spinal fusion (08/14/19) History of total right hip arthroplasty (07/30/18) Hx of bilateral cataract extraction (12/2019) Hx of tonsillectomy Melanoma of ear (~2007) S/P partial hysterectomy Status post arthroscopy (~2013) Status post delivery (~1987) Status post colonoscopy Status post ORIF of fracture of ankle (~1975) Medical History (Last Reviewed 08/03/24 @ 16:03 by Ambrosio Stockton DO) Acute right-sided low back pain without sciatica Acute sinusitis Anxiety Cardiac arrhythmia (~2003) Carpal tunnel syndrome (~1994) Chickenpox (~1959) Chondrocalcinosis Chronic back pain (~2007) Chronic UTI Cognitive change Colon polyps (~1999) Cough Depression (~1992) Easy bruisability Encounter for pre-operative cardiovascular clearance Epigastric abdominal pain Esophagitis Fibroids (~1997) Fusion of sacral region of spine Hiatal hernia History of fracture History of gastric ulcer (2015) HSV (herpes simplex virus) infection (~1979) Hyperlipidemia Hypertension (~2003) Measles (~1959) Medicare annual wellness visit, initial Medicare annual wellness visit, subsequent Melanoma of ear (~2007) Mumps (~1958) KALEB on CPAP (12/2022) Osteoporosis Pelvic somatic dysfunction Polyarthralgia Preventative health care Right femoral fracture (07/19/18) Sacral region somatic dysfunction Sciatic nerve pain Shoulder pain (~2013) Sleep apnea Unspecified fall, sequela UTI (urinary tract infection) Vaginitis Vertigo Weight loss (05/2020) Well adult exam Physical Therapy Inpatient Evaluation/Re-Eval M1 PT/OT-IP Prior Functional Status Start: 08/17/24 09:23 Freq: Status: Active Protocol: Document 08/17/24 09:26 ADÁN (Rec: 08/17/24 09:59 ADÁN [id number]) Medical Review Prior Functional Status Medical History Yes Reviewed Communication WFL Mobility and Gait Ana María was ambulating with a cane at baseline. Social History Household Members none Living Arrangements House Number of Floors ( One Floor Floors) Number of Stairs To One step to enter Enter/Railing? Home Environment Walk in Shower Home Equipment Front Wheel Walker,Four Wheel Walker,Quad Cane,Straight Cane,Raised Toilet Seat Without Armrests,Shower Seat without Backrest Additional Social Adult son lives about an hour away History Comment M2 PT-IP Current Condition Start: 08/17/24 09:23 Freq: Status: Active Protocol: Document 08/17/24 09:26 AMB (Rec: 08/17/24 09:59 AMB [id number]) Physical Therapy Current Condition Current Condition Evaluation Date 08/17/24 Treatment Diagnosis R hip fx Onset Date 08/16/34 M3 PT-IP Subjective Start: 08/17/24 09:23 Freq: Status: Active Protocol: Document 08/17/24 09:26 AMB (Rec: 08/17/24 09:59 AMB [id number]) Subjective Physical Therapy Visit Type Type Initial Evaluation Visit Start Time 09:00 Visit Stop Time 09:30 Physical Therapy Visit Comments Patient Comments Pt would like to go home Therapy Pain Assessment Pain When Pain Assessed At Rest M4 PT-IP Mobility and Gait Start: 08/17/24 09:23 Freq: Status: Active Protocol: Document 08/17/24 09:26 AMB (Rec: 08/17/24 09:59 AMB [id number]) PT-Bed Mobility Assessment Supine to Sit Supine to Sit Independent PT-Transfer Assessment Sit to and From Stand Sit to and from Standby Assistance Stand Equipment Transfer Assistive Standard Walker Device Transfers Transfer Destination Bed Transfer Ability Level of Assist Standby Assistance Comments Mobility Comments Ana María stood up from the bed with SBA, verbal cues to remain NWB/TTWB (note in chart says NWB, ER states TTWB). Discussed transfers (car transfer, toilet transfer bed transfer) and importance of high surfaces and to keep R LE ahead of L LE during sit to stand to avoid displacing fracture. Gait Assessment Gait Gait Assistance Contact Guard Assist,1 Person Assist Required: Distance (Feet) 20 Assistive Devices Assistive Device Standard Walker Comments Gait Comments Ana María is able to maintain TTWB while putting heaving UE weightbearing through her arms with a standard walker with CGA. She denied increased pain with this. Educated importance of maintaining weightbearing precautions even if she is not feeling pain due to pain medication. Discussed walker choices, encouraged her to use standard walker and avoid using 4WW at this time . Avoid sitting on walker and propelling with feet as this is a fall risk. Encouraged her to consider a wheelchair for energy conservation and community mobility (getting to MD appointment tomorrow, through the parking lot etc.) Ana María did not want a wheelchair at this time stating she has a small home, encouraged to consider transport chair and 24hour assist to help maintain weightbearing precautions. PT-Balance Assessment Sitting Balance and Reactions Static Sitting Good Balance Ability Dynamic Sitting Good Balance Ability M5 PT-IP Objective Assessments Start: 08/17/24 09:23 Freq: Status: Active Protocol: Document 08/17/24 09:26 AMB (Rec: 08/17/24 09:59 AMB [id number]) Orientation Orientation/Cognition Level of Alertness Alert Strength Upper Extremity Strength Assessment Within Functional Limits Lower Extremity Strength Assessment Right Impaired Comments Strength Comments Ana María has a significant orthopedic surgery history of bilateral shoulders and lumbar which affects her right hip strength at baseline. M6 PT-IP Treatment Start: 08/17/24 09:23 Freq: Status: Active Protocol: Document 08/17/24 09:26 AMB (Rec: 08/17/24 09:59 AMB [id number]) Physical Therapy Treatment Education Education Provided Precautions,Weight Bearing Status,Safety M7 PT-IP Assessment and Plan Start: 08/17/24 09:23 Freq: Status: Active Protocol: Document 08/17/24 09:26 AMB (Rec: 08/17/24 09:59 AMB [id number]) PT Summary Assessment and Plan Potential Rehabilitation Good Potential Status of Condition Stable at Evaluation Summary Impairments Pain,Strength,Balance,Bed Mobility,Transfers,Gait, Activity Tolerance Assessment Summary Ana María very much would prefer to d/c home despite her NWB vs TTWB status. She was able to safely maintain TTWB while ambulating with CGA and a standard walker for 20 feet. However going home independently would require much more challenging transfers including car, shower, toilet transfers, getting to appointments etc. While Ana María is quite strong, PT encouraged her to consider a wheelchair and 24 hour assist for energy conservation purposes as maintaining a NWB R LE status independently is quite challenging. Discussed this at length. Ana María feels that with the support of her friends and her adult son she will be safely able to maintain her weightbearing precautions. PT would continue to recommend that Ana María have someone with her and access to a wheelchair, she is seeing ortho tomorrow and they can further discuss her mobility needs at that time. Goals Bed Mobility Goal Independent Transfer Goal Independent Gait Goal Standby Assistance Gait Distance 50 Days to Meet Goals 1 Frequency of Treatment Frequency Of Discharge Treatment Treatment Plan Physical Therapy Bed Mobility Training,Transfer Training,Gait Training, Treatment Plan Discharge Planning,Neuromuscular Re-ed Weight Bearing Status Weight Bearing Non-Weight Bearing Status Recommendations To Nursing Amount of Assist 1 Person Assist Needed Discharge Recommendations PT Discharge Home with 10/09 Assist Available Recommendations Other Discharge PT would recommend a wheelchair for energy conservation Recommendations but patient declines at this time Transportation Needs Private Vehicle at Discharge
== END 2024-08-17 10:29 | disposition home or self-care (01) ==
PROVIDERS: Emergency Provider Emergency Medicine; PCP Family Medicine
DX: M97.8XXA Periprosthetic fracture around other internal prosthetic joint, initial encounter (principal); Z96.641 Presence of right artificial hip joint; W01.0XXA Fall on same level from slipping, tripping and stumbling without subsequent striking against object, initial encounter
CPT/HCPCS: 73502; 73700; 97161; 99283; 99284

== ENCOUNTER → 2025-01-21 16:53 | Outpatient (CLI) | payer MEDICARE, SELFPAY ==
[2024-08-17 10:42] VITALS: BMI 31.6
[2025-01-21 18:12] LABS: Cholesterol 172 mg/dL (140-199); HDL Cholesterol 64 mg/dL (40-60); Triglycerides 238 mg/dL (35-150)
== END ==
PROVIDERS: PCP Family Medicine; Referring Provider Family Medicine; Visit Provider Family Medicine
DX: E78.2 Mixed hyperlipidemia (principal)
CPT/HCPCS: 36415; 80061

== ENCOUNTER → 2025-01-27 07:01 | Outpatient (CLI) | payer MEDICARE, SELFPAY ==
[2024-08-17 10:42] VITALS: BMI 31.6
--- NOTE | 2025-01-27 07:02 | DI.US.S_ITS ---
PROCEDURE: US ABDOMEN LIMITED INDICATIONS: HEPATIC CYST TECHNIQUE: Real-time scanning was performed of the abdominal and retroperitoneal organs, with image documentation. COMPARISON: [facility], US, US ABDOMEN COMPLETE, 08/03/2020, 14:11. FINDINGS: Liver: Liver is normal in size. Heterogeneous liver parenchymal echotexture is seen. Numerous simple appearing hepatic cysts are noted measures up to 3.6 x 4.1 x 2.8 cm in size in right hepatic lobe. There is also a 2.1 x 2.3 x 2.5 cm hypoechoic structure seen in right hepatic lobe with peripheral calcification. No internal vascularity is seen. This is not significantly changed from previous study in 2020. Gallbladder: No gallstones. No gallbladder wall thickening or pericholecystic fluid. No sonographic Wolfe's sign. Biliary ducts: Intrahepatic bile ducts are non-dilated. Extrahepatic bile duct caliber measures 6.4 mm. Normal is 6-7 mm or less in diameter, or 10 mm or less post-cholecystectomy. Pancreas: Visualized portions of the pancreas are sonographically normal. Slightly prominent pancreatic duct is seen measures 2.7 mm in diameter. Miscellaneous: No free abdominal fluid. IVC is small in size and measures up to 7 mm in diameter. No gross intraluminal filling defects are seen. Moderate right-sided hydronephrosis is seen. IMPRESSION: 1. Numerous simple appearing hepatic cysts. Peripherally calcified solid nodule in right hepatic lobe unchanged from 2020 study and may represent atypical hemangioma. Coarsely echogenic liver parenchyma suggestive of hepatic steatosis. 2. Normal appearing gallbladder. No biliary ductal dilatation. 3. Slight prominence of pancreatic duct. No discrete pancreatic lesion. 4. Moderate right-sided hydronephrosis. 5. Nonspecific finding of small IVC caliber without gross intraluminal filling defect. Dictated by: Demarcus Kennedy M.D. on 01/27/2025 at 16:16 Approved by: Demarcus Kennedy M.D. on 01/27/2025 at 16:20
== END ==
LOC: US 07:02
PROVIDERS: PCP Family Medicine; Referring Provider Family Medicine; Visit Provider Family Medicine
DX: K76.89 Other specified diseases of liver (principal); R93.1 Abnormal findings on diagnostic imaging of heart and coronary circulation; N13.30 Unspecified hydronephrosis
CPT/HCPCS: 76705